=== PATIENT | male | born 1950 | race Caucasian/White ===

== ENCOUNTER 2024-10-02 13:14 | Inpatient (IN) | payer MEDICARE, SELFPAY ==
[2024-10-02] VITALS (66 sets, daily range): BP systolic 61–114; BP diastolic 36–71; PULSE 72–123; RESP 12–40; TEMP 36.3–36.6; O2SAT 85–100; BMI 24.7
--- NOTE | ~2024-10-02 | US_ITS ---
Procedure: Ultrasound guided paracentesis. Indication: Ascites Operating Physician: Roz Reyes MD Consent: After a detailed discussion of the procedure, risks, benefits and alternative treatment opti ons, informed consent was obtained from the patient. Time Out: A time out for procedure was performed in presence of Dr. Reyes. The patient's identificati on was verified. Informed consent with agreement of procedure was reviewed. All necessary equipment w as available prior to procedure. Complications: None. Anesthesia: Local. Medication: 1% lidocaine locally. Procedure: Survey ultrasound of the abdomen was performed. Right lower quadrant of abdomen was preppe d and draped in usual sterile fashion. Local anesthesia was administered. The peritoneal cavity was a ccessed and 5 L serous fluid was removed. The catheter was removed and sterile dressing was applied. Patient tolerated the procedure. The procedure was personally performed by Dr. Reyes. Findings: Sonographic images demonstrate ascites. Impression: Successful ultrasound guided paracentesis. Reviewed, dictated and finalized at location A. Impression: Successful ultrasound guided paracentesis.
--- NOTE | ~2024-10-02 | US_ITS ---
Limited ABDOMINAL ULTRASOUND (Doppler ultrasound interrogation techniques used as needed for this exa m.) Ordering provider: Maria Isabel Godfrey MD History: . Transaminitis . Comparison: None. FINDINGS: PANCREAS: Not visualized. PORTAL VEIN: Hepatopedal flow demonstrated. LIVER: Increased echogenicity with nodular appearance suggestive of liver cirrhosis.. The liver measu res 15.7 cm. Large perihepatic fluid collections is identified. BILIARY DUCTS: No intra or extrahepatic biliary dilation. Common bile duct measures 4.2 mm in diamete r which is normal for patient's age. GALLBLADDER: Echogenic irregular borders with shadowing suggestive of stones versus calcified wall. W all measures 2.7 mm Negative sonographic Kendall's sign. IMPRESSION: Gross ascites. Liver cirrhosis. Highly suggestive gallbladder stones. Reviewed, dictated and finalized at location A.
--- NOTE | ~2024-10-02 | XR_ITS ---
CHEST RADIOGRAPH CLINICAL HISTORY: intubation COMMENT ON ET NG TUBE PLACEMENT . COMPARISON: 10/02/2024 TECHNIQUE: Single portable view of the chest. FINDINGS Redemonstration of right hemidiaphragmatic elevation, consistent with prior studies. Right internal jugular central venous catheter is present with its tip projecting over the cavoatrial junction. Endotracheal tube is identified with its tip projecting approximately 5.6 cm above the base of the ca tabby. Nasogastric tube identified with its tip extending below the left hemidiaphragm, presumably within th e stomach. The remainder of the cardiomediastinal silhouette is otherwise unremarkable. Low lung volumes are detected bilaterally. Increased interstitial markings are also identified bilaterally, findings suggesting mild pulmonary v ascular congestion. The lungs are otherwise clear. IMPRESSION: Pulmonary vascular congestion with low lung volumes bilaterally. Supportive lines and tubes in good position, as detailed above. Reviewed, dictated and finalized at location A.
--- NOTE | ~2024-10-02 | XR_ITS ---
Portable chest x-ray Comparison: 10/07/2024 Clinical History: Respiratory failure Findings: Endotracheal tube, NG tube, and right IJ line are in place. Diffuse pulmonary consolidatio n is present, significantly worsened from prior exam. Probable small right pleural effusion. Cardiom ediastinal silhouette is stable. Bones and soft tissues are unremarkable. Impression: Diffuse airspace consolidation is worsened from prior exam. Correlate for severe pulmonary edema, kirill ateral pneumonia, and/or ARDS. Small right pleural effusion. Support tubes, as above. Reviewed, dictated and finalized at [facility]. Impression: Diffuse airspace consolidation is worsened from prior exam. Correlate for sever e pulmonary edema, bilateral pneumonia, and/or ARDS. Small right pleural effusion. Support tubes, as above.
--- NOTE | ~2024-10-02 | US_ITS ---
US venous doppler [facility] - 10/03/2024 14:02 CDT History: 74 years old Male with bilateral lower extremity pain and swelling. Real-time sonographic images of the bilateral lower extremity venous system were obtained. Color Dop pler sonography and spectral waveform analysis were performed. No prior studies for comparison. Acute thrombus seen in the right popliteal and right posterior tibial vein. Acute thrombus also seen in left common femoral, left femoral, left popliteal and left posterior tibial veins. The bilateral sapheno-femoral junctions are patent. The right common femoral and bilateral deep femo ral are compressible and without thrombus. Impression: Bilateral acute deep venous thrombosis in right popliteal and posterior tibial veins and left common femoral, femoral popliteal and posterior tibial veins. Reviewed, dictated and finalized at location A. Impression: Bilateral acute deep venous thrombosis in right popliteal and poste rior tibial veins and left common femoral, femoral popliteal and posterior tibi al veins.
--- NOTE | ~2024-10-02 | XR_ITS ---
XR chest port-a-cath/central Ordering provider: Maria Isabel Godfrey MD History: 74 years Male with . CENTRAL LINE PLACEMENT . Comparison: October 02, 2024 FINDINGS: MEDIASTINUM: The cardiac silhouette is not enlarged. Right central line with the tip overlying the ri ght atrium. Congestive dayron. Elevation of the right hemidiaphragm. LUNGS: No infiltrates, effusions or pneumothorax. Calcification the right basal pleural medially. Lucian ateral interstitial thickening. OTHER: No free air under the diaphragm. IMPRESSION: Bilateral interstitial thickening with congestive dayron. Evaluation for pneumonitis versus edema consi dered. Right central line with the tip overlying the right atrium. Right pleural calcification. Reviewed, dictated and finalized at location A. IMPRESSION: Bilateral interstitial thickening with congestive dayron. Evaluation for pneumoni tis versus edema considered. Right central line with the tip overlying the right atrium. Right pleural calcification.
--- NOTE | ~2024-10-02 | XR_ITS ---
CHEST RADIOGRAPH, PA AND LATERAL CLINICAL HISTORY: weakness, shortness of breath . COMPARISON: None available TECHNIQUE: PA and lateral views of the chest. FINDINGS Elevation of the right hemidiaphragm with adjacent compressive atelectasis. The remainder of the lungs are clear. The cardiomediastinal silhouette is unremarkable. IMPRESSION: No focal infiltrate or effusion. Reviewed, dictated and finalized at location A.
--- NOTE | ~2024-10-02 | CT_ITS ---
EXAMINATION: CT chest abdomen pelvis wo con DATE: 10/02/2024 16:39 INDICATION: Shortness of breath and elevated right hemidiaphragm on prior chest radiograph. Acute louise al failure. Transaminitis. TECHNIQUE: Computed tomography (CT) of the chest, abdomen, and pelvis was performed without intraveno us contrast. Automated exposure control and iterative reconstruction technique were employed. The dos e-length product was 1100.45 mGy-cm. COMPARISON: None FINDINGS: CHEST CT: Passive right middle and lower lobe compressive atelectasis along the elevated right hemidiaphragm. A dditional linear band of discoid atelectasis in the superior segment of the right lower lobe. Additio nal mild dependent and discoid atelectasis in the left lower lobe. Calcified right apical nodule and calcified right hilar lymph nodes consistent with old granulomatous disease. No pneumonia, pulmonary edema or pleural effusion. Heart size is normal. Extensive atherosclerotic coronary artery calcificat ions. No pericardial effusion. Thoracic aorta is normal in caliber. No pathologically enlarged thorac ic lymphadenopathy. Small sliding-type hiatal hernia. Mild thoracic spondylosis. ABDOMEN/PELVIS CT: Nodular cirrhotic liver. Numerous small calcified gallstones throughout the nondilated gallbladder. M ultiple additional similar sized small calcific lesions at the periphery of the gallbladder potential ly held in place by intervening sludge although differential would include mural calcifications. A fe w small calcifications in the normal sized spleen consistent with old granulomatous disease. Pancreas and bilateral adrenal glands are normal. Bilateral nonobstructing nephrolithiasis with 2 mm stone at the lower pole the right kidney and 3 mm and 5 mm stones at the lower pole of the left kidney. Moder ate diverticulosis with sigmoid colon predominance without adjacent from trace stranding to suggest d iverticular colitis. Normal appendix. No bowel obstruction. Large amount of ascites throughout the ab domen and pelvis. Decompressed bladder is unremarkable. No pathologically enlarged abdominal or pelvi c lymphadenopathy. There is a reticulonodular pattern along the greater omentum which could be due to portal hypertension mesenteric edema although differential would include metastatic peritoneal impla nts in the appropriate clinical setting. Small right inguinal hernia containing fat and minimal ascit es. Mild to moderate lumbar and severe lumbosacral spondylosis. IMPRESSION: 1. Cirrhosis with large amount of ascites throughout the abdomen and pelvis. There is a reticulonodul ar appearance to the greater omentum which could be due to portal venous hypertension mesenteric nadine a although differential would include metastatic peritoneal implants. Consider diagnostic thoracentes is. 2. Atelectasis at the bilateral lower lungs, more prominent on the right secondary to prominent eleva tion the right hemidiaphragm. 3. Nonobstructing bilateral nephrolithiasis. 4. Diverticulosis. 5. Small sliding-type hiatal hernia. 6. Small fat and ascites containing right inguinal hernia. Reviewed, dictated and finalized at location B. IMPRESSION: 1. Cirrhosis with large amount of ascites throughout the abdomen and pelvis. Th ere is a reticulonodular appearance to the greater omentum which could be due t o portal venous hypertension mesenteric edema although differential would inclu de metastatic peritoneal implants. Consider diagnostic thoracentesis. 2. Atelectasis at the bilateral lower lungs, more prominent on the right second paul to prominent elevation the right hemidiaphragm. 3. Nonobstructing bilateral nephrolithiasis. 4. Diverticulosis. 5. Small sliding-type hiatal hernia. 6. Small fat and ascites containing right inguinal hernia.
--- NOTE | ~2024-10-02 | XR_ITS ---
XR chest port-a-cath/central Ordering provider: Maria Isabel Godfrey MD History: 74 years Male with . ADJUST CENTRAL LINE . Comparison: None. FINDINGS/impression: Right central line with the tip overlying the right atrium. The line is slightly retracted compared to previous study. Other appearances are unchanged. Reviewed, dictated and finalized at location A.
--- NOTE | ~2024-10-02 | CT_ITS ---
CLINICAL INDICATION: Altered mental status with ascites COMPARISON: 10/02/2024. TECHNIQUE: Multiple contiguous axial images of the chest, abdomen and pelvis were performed without t he administration of intravenous contrast The dose-length product (DLP) was 1407.51 mGy-cm. Automated exposure control and iterative reconstruction technique were employed. FINDINGS/OBSERVATIONS: LUNG:Patchy opacification of the bilateral lung paredes, with consolidation in the bilateral lung base s and left hilum. Endotracheal tube is identified, in good position. Right-sided pleural effusion is present with elevation of the right hemidiaphragm (unchanged). central venous catheter extends to the proximal right atrium. MEDIASTINUM: Limited evaluation without intravenous contrast. HEART:Enlargement of the pulmonary arteries -an interval change from previous examination dated 025. The heart is otherwise of normal size, without pericardial effusion. SOFT TISSUES OF THE CHEST: Moderate anasarca. Liver: The liver is shrunken and nodular, suggesting portal hypertension. Intra-abdominal ascites is present, with low attenuation consistent with simple fluid. Gallbladder and biliary system: The gallbladder contains multiple tiny calcified stones, but is otherwise unremarkable. Pancreas: Limited evaluation of the pancreas secondary to the lack of intravenous contrast. Spleen: The spleen demonstrates homogeneous attenuation and is borderline enlarged measuring 12 cm in longitu dinal dimension. Kidneys: Punctate nonobstructing stones detected within the bilateral kidneys. No hydronephrosis is present. Adrenal glands: Unremarkable. Gastrointestinal tract: Colonic diverticulosis. Vasculature: Unremarkable evaluation without intravenous contrast. Lymph nodes: Limited evaluation without intravenous contrast. Pelvic structures: The bladder is decompressed with a Hartley catheter, limiting its evaluation. The prostate gland is not enlarged. Body wall and musculoskeletal: Age-appropriate degenerative disease within the thoracic and lumbosacral spines. No lytic or blastic lesions identified. No acute compression fracture. Significant anasarca, an interval change from prior. IMPRESSION: Redemonstration of moderate intra-abdominal ascites, which is of decreased attenuation consistent wit h simple fluid (not blood ). Interval enlargement of the main and proximal bilateral pulmonary arteries when compared with prior s tudy. Without intravenous contrast, the presence of pulmonary emboli cannot be excluded. Interval development of bibasilar infiltrates, a left hilar infiltrate and moderate bilateral pulmona ry vascular congestion. Reviewed, dictated and finalized at location A. IMPRESSION: Redemonstration of moderate intra-abdominal ascites, which is of decreased atte nuation consistent with simple fluid (not blood ). Interval enlargement of the main and proximal bilateral pulmonary arteries when compared with prior study. Without intravenous contrast, the presence of pulmonary emboli cannot be exclud ed. Interval development of bibasilar infiltrates, a left hilar infiltrate and mode rate bilateral pulmonary vascular congestion.
--- NOTE | ~2024-10-02 | CT_ITS ---
EXAMINATION: CT brain wo con DATE: 10/07/2024 12:03 INDICATION: Anticoagulated patient presenting with confusion. TECHNIQUE: Computed tomography (CT) of the head was performed without intravenous contrast. Sagittal and coronal reconstructions were performed. The mA was adjusted according to patient size. Iterative reconstruction technique was employed. The dose-length product was 605.33 mGy-cm. COMPARISON: None FINDINGS: No acute intracranial hemorrhage, acute infarction or abnormal extra axial fluid collection. There is mild scattered white matter hypoattenuation consistent with chronic small vessel ischemic disease. S ymmetric prominence of the sulci and ventricles consistent with mild age-appropriate diffuse cerebral and cerebellar volume loss. No mass/mass effect. Changes of bilateral intraocular lens replacement. The orbits, paranasal sinuses and mastoid air cells are normal. IMPRESSION: 1. Age-related changes the brain including mild diffuse volume loss and mild scattered white matter h ypoattenuation consistent with chronic small vessel ischemic disease. No acute intracranial process. Reviewed, dictated and finalized at location A. IMPRESSION: 1. Age-related changes the brain including mild diffuse volume loss and mild sc attered white matter hypoattenuation consistent with chronic small vessel ische michele disease. No acute intracranial process.
--- NOTE | 2024-10-02 13:23 | ECG_ITS ---
Test Date: 2024-10-02 13:42:52 Measurements Intervals Rogers Rate: 90 P: 119 MN: 240 QRS: -48 QRSD: 137 T: 129 QT: 402 QTc: 493 Interpretive Statements SINUS RHYTHM WITH FIRST DEGREE AV BLOCK WITH FREQUENT SUPRAVENTRICULAR PREMATURE COMPLEXES LEFT AXIS DEVIATION LEFT BUNDLE BRANCH BLOCK BASELINE ARTIFACT- I, II, III, AVR, AVLA, VF, V1-V6 ABNORMAL ECG No previous ECG available for comparison Electronically Signed On 10-02-2024 14:13:30 CDT by Joey Wolf D.O.
[2024-10-02 13:55] LABS: Basophils Percent Auto 0.1 % (0.2-1.2); Eosinophils Percent Auto 0.1 % (0-4.4); Hematocrit 32.7 % (42.0-52.0); Hemoglobin 11.6 g/dL (14.0-18.0); Immature Granulocyte Absolute 0.03 K/mm3 (0.00-0.031); Immature Granulocyte Percent A 0.3 % (0-0.5); Lymphocytes Absolute Auto 1.06 K/mm3 (0.9-3.2); Mean Corpuscular HGB Conc 35.5 g/dl (32-36); Mean Corpuscular Hemoglobin 34.4 pg (26-34); Mean Platelet Volume 10.7 fl (7.4-10.4); Monocytes Absolute Auto 0.7 K/mm3 (0.1-0.6); Monocytes Percent Auto 7.2 % (2.6-8.5); Neutrophils Absolute Auto 7.8 K/mm3 (1.3-6.7); Neutrophils Percent Auto 81.3 % (45.5-73.1); Platelet Count Result 220 k/mm3 (150-375); Red Blood Count 3.37 M/mm3 (4.6-6.20); Red Cell Distribution Width 17.3 % (11.5-14.5); White Blood Count 9.6 K/mm3 (4.5-10.0)
--- NOTE | 2024-10-02 14:04 | ED_ITS ---
HPI - Weakness General Chief complaint: Weakness Stated complaint: weakness Time Seen by Provider: 10/02/24 13:38 Source: patient and other (Nabila) Limitations: no limitations History of Present Illness HPI Narrative: Patient presents with report of weakness. Has been experiencing shortness of breath with exertion. No cough or hemoptysis. Has had diarrhea intermittently and occasionally gagging/vomiting. Report of unsteady gait x1 month, having to use a cane. Complaining of bilateral ankle swelling. Feels fatigued. Also lightheadedness/dizziness, particularly at the end of the evening. No roatational movement/spinning sensation. Having a slight headache. His vision becomes blurred, especially if he stands too quickly. Has an apointment to see an eye doctor 10/22/24. COmplainign of abdominal pain which he attributes to a hernia. Supopsed to establish with a new PCP Dr Lieberman 10/21/24. Lives with friend Nabila who hasn't been sick. Related Data Home Medications ?Medication ?Instructions ?Recorded ?Confirmed ?Last Taken ?Type amlodipine 10 mg-benazepril 20 mg cap 10/02/24 Unknown History capsule multivitamin 1 tablet PO DAILY 10/02/24 10/02/24 Unknown History omeprazole 40 mg capsule,delayed 40 mg PO DAILY 10/02/24 10/02/24 Unknown History release Allergies Allergy/AdvReac Type Severity Reaction Status Date / Time No Known Allergies Allergy Verified 10/02/24 13:23 [facility] Past Medical History Medical History History of kidney stones Surgical History Surgical History History of cataract surgery ~2022 Family History Family History Father Acute myocardial infarction Mother Cerebrovascular accident Social History Social History Social History: Code Status: Full Code Smoking status: Never smoker Second hand tobacco smoke exposure: Yes Alcohol intake: current Alcohol use details: regular; last drink approximately 09/24/24 Do You Feel Safe in your Home?: Yes Lack of Transportation: No Lack of Food: Never True Current Housing: I Have Housing Concerned About Future Housing: No Difficulty Paying Gas/Electric Bills: Decline to Answer Difficulty Paying for Meds: Decline to Answer Currently Unemployed: No Education: Decline to Answer Difficulty w/ Childcare or Family Care: No Living arrangements: with friend(s) Additional living arrangements comments: Nabila Occupation/Education: retired Additional occupation/education comments: 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 HEAD: Normocephalic, atraumatic. EYES: Non injected, non icteric ENT: Nares clear, no rhinorrhea or epistaxis. NECK: Supple. CHEST: Speaking in full sentences. No respiratory distress. HEART: Regular rate and rhythm. . ABDOMEN: Soft, distended. Ascites with fluid shift. No caput medusa. EXTREMITIES: 3+ bilateral lower extremity edema. SKIN: Warm, dry, no rash. NEURO: No focal deficits. Alert and oriented x3. PSYCH: Normal mood and affect. Course Vital Signs Vital signs: Vital Signs Pulse Rate 98 10/02/24 13:17 Respiratory Rate 22 H 10/02/24 13:17 Blood Pressure 98/55 L 10/02/24 13:17 Pulse Oximetry 100 10/02/24 13:17 Oxygen Delivery Room Air 10/02/24 13:17 Temperature 97.8 F 10/02/24 19:15 Pulse Rate 90 10/03/24 02:00 Respiratory Rate 15 10/03/24 02:00 Blood Pressure 92/56 L 10/03/24 02:00 Pulse Oximetry 94 10/03/24 02:00 Oxygen Delivery Room Air 10/03/24 00:00 Procedures Central Line Placement Right IJ: Central Line Date: 10/02/24 Central Line Time: 21:15 Discussed w/ the patient/family/POA,the placement of a central venous catheter, including its clinical necessity/indication & associated potential risks, benifits and alternatives.: Yes The patient/family/POA understand(s) and acknowledge(s) the need to proceed with central venous catheter insertion as an important element of the patient's clinical management.: Yes Time Out Performed: No Patient Placed on Monitor/Pulse Ox: Yes Max. Sterile Barrier Technique: Caps, large sterile sheet and hand hygiene Central Line Prep: 2% chlorhexidine scrub and sterile drapes applied Technique: US-Guided Local Anesthetic: lidocaine 1% Amount of anesthesia used (mL): 4 Ultrasound Used for Placement: Yes Central Line Lumen Inserted: triple Post Procedure: sutured in place, good blood return, all ports aspirated, flushed, capped and sterile dressing applied Post Procedure X-Ray: no pneumothorax seen Patient Tolerated Procedure: well Additional Comments: After line sutured in placed and as obtaining initial Xray, monitor seems to indicate that patient is having frequent PVCs. He is asympatomatic. EKG obtained and there are and initial CXR shows perhaps tip of catheter perhaps slightly too deep. Sutures cut and line pulled back approximately 1.5cm. Previous EKG from earlier also with ectopy. PVCs on the monitor appear less frequent. Re-sutured in place and secured with sterile dressing applied. MDM - Weakness MDM Narrative Medical decision making narrative: Patient presents with generalized weakness, dyspnea with exertion, fatigue, and lightheaded/dizziness. In the emergency department he is afebrile with vital signs that show mild tachypnea as well as hypotension. Home meds are entered into EMR. Patient does appear to have significant lower extremity bilateral edema however given the hypotension will give a small fluid bolus of 500 cc. Given his elevated lactic greater than 5 and a chest x-ray that is abnormal but otherwise without gisell bilateral pulmonary edema, will give additional 500 cc fluids. No Leukocytosis. Normocytic anemia with no prior for comparison. Although no active source of infection identified yet, given the combination of initially of mild tachypnea, hypotension, and lactic acidosis, will give a 1 time dose of broad-spectrum antibiotics given concern for possible sepsis although multiple other etiologies are being considered. There is appeared of time where patient is having blood pressures that appear to be 200s systolic however appears the monitor is faulty and this is changed out. Mild hypokalemia. Will replete IV. He is in acute renal failure - Cr > 10 with no prior for comparison. He has a large anion gap and is mildly acidotic on chemistry but glucose relatively normal; suspect starvation. Patient states he cannot urinate. He is bladder scanned and has more than 600 cc. Hartley inserted for presumed acute rention, possibly due to obstruction and this may explain his renal failure. States no previous kidney dysfunction. Hypoalbuminemia. Elevated alk-phos and AST. He still has a gallbladder. Will order right upper quadrant ultrasound. Dimer is elevated but patient is not tachycardic or hypoxic and given the degree of renal failure, will not be proceeding with CT imaging with contrast. Will defer that and obtain CT imaging of chest abdomen and pelvis without contrast. Patient's BNP is elevated I suspect this represents acute heart failure especially given the bilateral lower extremity edema. Patient has elevated troponin. He denies any chest pain. Aspirin and 3 hour troponin are ordered. Attempted to contact radiologist to discuss the CT interpretation which states diagnostic thoracentesis which I do should read paracentesis given is in the context of patient's cirrhosis and abdominal ascites. Given this, and the fact that minimal urine output has come after placement of Hartley, I presume that the bladder scan performed by nursing earlier was actually identifying ascites fluid rather than bladder distension. Patient states he used to drink heavily. He at 1st makes it seem like stopped awhile ago but upon further questioning he does state that his last drink was approximately a week ago when he started to feel unwell. Denies complicated withdrawal. Thiamine ordered. He denies any previous diagnosis of cirrhosis or any liver dysfunction. Urinalysis concerning for UTI . Has already been given antibiotics. Repeat troponin essentially flat. Spoke with conductor and engineer given his acute renal failure. Patient remains hypotensive. Another 500cc fluids ordered followed by peripehral vasopressors. Patient requires central line, performed as above. Spoke with Dr Jaimes, metal grader followed by Mary, director telecommunications hospitalist APRIL. Paracentesis orders for tomorrow placed when I am informed radiologists will be available to perform diagnostic and therapeutic procedure. == Critical Care: 1 or more vital organ systems impaired with a high probability of imminent or life-threatening deterioration in the patient's condition requiring frequent personal assessment and manipulation of the patient's condition. This included time spent evaluating the patient, speaking with patient and family, reviewing/interpreting laboratory/imaging studies, discussing the case with consultants or admitting teams, retrieving data and reviewing charts, monitoring for decompensation, documenting the visit, and performing bundled procedures exclusive of separately billed procedures. Differential Diagnosis Differential diagnosis: Likely acute myocardial infarction, anemia, hypoglycemia, hypothyroidism, rhabdomyolysis, sepsis, dehydration and other Lab Data Attestation: I reviewed the patient's lab results. 10/02/24 13:48 10/02/24 13:48 Labs: Lab Results 10/02/24 10/02/24 10/02/24 Range/Units 13:47 13:48 14:22 WBC 9.6 (4.5-10.0) K/mm3 RBC 3.37 L (4.6-6.20) M/mm3 Hgb 11.6 L (14.0-18.0) g/dL Hct 32.7 L (42.0-52.0) % MCV 97.0 (80-100) fl MCH 34.4 H (26-34) pg MCHC 35.5 (32-36) g/dl RDW 17.3 H (11.5-14.5) % Plt Count 220 (150-375) k/mm3 MPV 10.7 H (7.4-10.4) fl Immature Gran % (Auto) 0.3 (0-0.5) % Neut % (Auto) 81.3 H (45.5-73.1) % Lymph % (Auto) 11.0 L (18.3-44.2) % Foard % (Auto) 7.2 (2.6-8.5) % Eos % (Auto) 0.1 (0-4.4) % Baso % (Auto) 0.1 L (0.2-1.2) % Lymph # (Auto) 1.06 (0.9-3.2) K/mm3 Foard # (Auto) 0.7 H (0.1-0.6) K/mm3 Eos # (Auto) 0.0 (0-0.3) K/mm3 Baso # (Auto) 0.0 (0.0-0.1) K/mm3 Abs Immat Gran (auto) 0.03 (0.00-0.031) K/mm3 Absolute Neuts (auto) 7.8 H (1.3-6.7) K/mm3 Absolute Nucleated RBC 0.000 (0.0-0.012) K/mm3 Nucleated RBC % 0.0 (0.0-0.2) % PT (11.1-14.7) Seconds INR APTT (22.3-36.8) Seconds D-Dimer 3.94 H (<0.48) ug/mL Sodium 133 L (137-145) mmol/L Potassium 3.3 L (3.4-5.0) mmol/L Chloride 97 L (98-107) mmol/L Carbon Dioxide 14 L (22-30) mmol/L Anion Gap 22 H (4-12) mmol/L BUN 70 H (9-20) mg/dL Creatinine 10.64 H (0.7-1.3) mg/dL Estim Creat Clear Calc 6 ml/min Estimated GFR 5 L (59 - ) Glucose 188 H (65-110) mg/dL Lactic Acid 5.7 H* (0.7-2.0) mmol/L Calcium 8.3 L (8.4-10.2) mg/dL Phosphorus (2.5-4.5) mg/dL Magnesium 2.1 (1.6-2.3) mg/dL Total Bilirubin 1.4 H (0.2-1.3) mg/dL AST 84 H (17-59) U/L ALT 40 (6-50) U/L Alkaline Phosphatase 291 H (38-126) U/L Ammonia (9-30) umol/L Total Creatine Kinase 45 L (55-170) U/L Troponin I 0.048 H* (0.000-0.034) ng/mL NT-Pro-B Natriuret Pep 2830 H (19.9-100) pg/mL Total Protein 7.0 (6.3-8.2) g/dL Albumin 3.0 L (3.5-5.1) g/dL TSH 3.050 (0.465-4.680) uIU/mL Urine Color (Yellow) Urine Appearance (Clear) Urine pH (5.0-9.0) Ur Specific Cameron (1.001-1.035) Urine Protein (Negative) mg/dL Urine Glucose (UA) (Negative) mg/dL Urine Ketones (Negative) mg/dL Ur Blood (Man) (Negative) Urine Nitrate (Negative) Urine Bilirubin (Negative) Urine Urobilinogen (<2.0) mg/dL Leukocyte Esterase Rfl (Negative) JULITO/UL Urine RBC (0-2) /hpf Urine WBC (0-3) /hpf Ur Squamous Epith Cells (Few) /hpf Urine Bacteria /hpf Urine Casts Hyaline Casts (None) /lpf Nasal MRSA (PCR) (NOT DETECTE) Urine Opiates Screen (Negative) Urine Methadone Screen (Negative) Ur Barbiturates Screen (Negative) Ur Phencyclidine Scrn (Negative) Ur Amphetamine Screen (Negative) U Benzodiazepines Scrn (Negative) Urine Cocaine Screen (Negative) U Cannabinoids Screen (Negative) Ethyl Alcohol < 10 (<10) mg/dL Influenza A (RT-PCR) Negative (Negative) Influenza B (RT-PCR) Negative (Negative) RSV (RT-PCR) Negative (Negative) SARS-CoV-2 RNA (RT-PCR) Negative (Negative) 10/02/24 10/02/24 10/02/24 Range/Units 15:22 17:00 18:46 WBC (4.5-10.0) K/mm3 RBC (4.6-6.20) M/mm3 Hgb (14.0-18.0) g/dL Hct (42.0-52.0) % MCV (80-100) fl MCH (26-34) pg MCHC (32-36) g/dl RDW (11.5-14.5) % Plt Count (150-375) k/mm3 MPV (7.4-10.4) fl Immature Gran % (Auto) (0-0.5) % Neut % (Auto) (45.5-73.1) % Lymph % (Auto) (18.3-44.2) % Foard % (Auto) (2.6-8.5) % Eos % (Auto) (0-4.4) % Baso % (Auto) (0.2-1.2) % Lymph # (Auto) (0.9-3.2) K/mm3 Foard # (Auto) (0.1-0.6) K/mm3 Eos # (Auto) (0-0.3) K/mm3 Baso # (Auto) (0.0-0.1) K/mm3 Abs Immat Gran (auto) (0.00-0.031) K/mm3 Absolute Neuts (auto) (1.3-6.7) K/mm3 Absolute Nucleated RBC (0.0-0.012) K/mm3 Nucleated RBC % (0.0-0.2) % PT 21.0 H (11.1-14.7) Seconds INR 1.7 APTT 36.3 (22.3-36.8) Seconds D-Dimer (<0.48) ug/mL Sodium (137-145) mmol/L Potassium (3.4-5.0) mmol/L Chloride (98-107) mmol/L Carbon Dioxide (22-30) mmol/L Anion Gap (4-12) mmol/L BUN (9-20) mg/dL Creatinine (0.7-1.3) mg/dL Estim Creat Clear Calc ml/min Estimated GFR (59 - ) Glucose (65-110) mg/dL Lactic Acid 3.3 H (0.7-2.0) mmol/L Calcium (8.4-10.2) mg/dL Phosphorus 5.8 H (2.5-4.5) mg/dL Magnesium (1.6-2.3) mg/dL Total Bilirubin (0.2-1.3) mg/dL AST (17-59) U/L ALT (6-50) U/L Alkaline Phosphatase (38-126) U/L Ammonia 45 H (9-30) umol/L Total Creatine Kinase (55-170) U/L Troponin I 0.045 H* (0.000-0.034) ng/mL NT-Pro-B Natriuret Pep (19.9-100) pg/mL Total Protein (6.3-8.2) g/dL Albumin (3.5-5.1) g/dL TSH (0.465-4.680) uIU/mL Urine Color Dark yellow (Yellow) Urine Appearance Cloudy H (Clear) Urine pH 5.5 (5.0-9.0) Ur Specific Cameron 1.020 (1.001-1.035) Urine Protein 2+ H (Negative) mg/dL Urine Glucose (UA) Negative (Negative) mg/dL Urine Ketones Trace H (Negative) mg/dL Ur Blood (Man) 3+ H (Negative) Urine Nitrate Negative (Negative) Urine Bilirubin 2+ H (Negative) Urine Urobilinogen 1.0 (<2.0) mg/dL Leukocyte Esterase Rfl 2+ H (Negative) JULITO/UL Urine RBC >100 H (0-2) /hpf Urine WBC >100 H (0-3) /hpf Ur Squamous Epith Cells None seen (Few) /hpf Urine Bacteria None seen /hpf Urine Casts >20 Hyaline Casts Present (None) /lpf Nasal MRSA (PCR) Not detected (NOT DETECTE) Urine Opiates Screen Negative (Negative) Urine Methadone Screen Negative (Negative) Ur Barbiturates Screen Negative (Negative) Ur Phencyclidine Scrn Negative (Negative) Ur Amphetamine Screen Negative (Negative) U Benzodiazepines Scrn Negative (Negative) Urine Cocaine Screen Negative (Negative) U Cannabinoids Screen Positive A (Negative) Ethyl Alcohol (<10) mg/dL Influenza A (RT-PCR) (Negative) Influenza B (RT-PCR) (Negative) RSV (RT-PCR) (Negative) SARS-CoV-2 RNA (RT-PCR) (Negative) Imaging Data Attestation: I personally reviewed and interpreted this imaging study as follows: My impression: Chest x-ray read as no focal infiltrate or infusion although the overall documentation notes elevated right hemidiaphragm and on my independent interpretation R chest does appear concerning for dense compressive atelectasis versus large pleural effusion Radiologist's impression: Impressions Chest X-Ray 10/02/24 14:10 IMPRESSION: No focal infiltrate or effusion. Chest/Abdomen/Pelvis CT 10/02/24 16:47 IMPRESSION: 1. Cirrhosis with large amount of ascites throughout the abdomen and pelvis. There is a reticulonodular appearance to the greater omentum which could be due to portal venous hypertension mesenteric edema although differential would include metastatic peritoneal implants. Consider diagnostic thoracentesis. 2. Atelectasis at the bilateral lower lungs, more prominent on the right secondary to prominent elevation the right hemidiaphragm. 3. Nonobstructing bilateral nephrolithiasis. 4. Diverticulosis. 5. Small sliding-type hiatal hernia. 6. Small fat and ascites containing right inguinal hernia. Abdomen Ultrasound 10/02/24 17:06 IMPRESSION: Gross ascites. Liver cirrhosis. Highly suggestive gallbladder stones. ECG Data EKG #1: Attestation: I personally reviewed and interpreted this ECG as follows: ECG completion date: 10/02/24 ECG completion time: 13:42 Prior ECG tracings: not available for review (No prior for comparison) Interpretation: Normal sinus rhythm at a rate of 90 beats per minute. MO interval is prolonged at 240 milliseconds consistent with a first-degree AV block. There also premature complexes. QRS is also prolonged at 137 milliseconds. QT/QTC 402/450. Marked Left axis deviation (QRS is positive with dominant R wave in Lead I; QRS is negative with dominant S wave in leads II, III, and aVF) with QRS positive in 1 and negative in the inferior leads. Left bundle-branch block with QRS duration greater than 120 milliseconds, dominant S-wave in V1, broad monophasic R-wave in lateral leads (1, aVL, V5-V6), absence of Q-waves in lateral leads. Poor R-wave progression across the precordial leads. No T-wave inversions Critical Care Time Critical Care Time Critical Care Time: Yes Total Critical Care Time: 60 Discharge Plan Discharge Clinical Impression: Normocytic anemia, Acidosis, lactic, Hypokalemia, Acute renal failure, Hypoalbuminemia, Alkaline phosphatase elevation, Elevated AST (SGOT), Acute heart failure, Non-ST elevation TN (NSTEMI), Cirrhosis, Ascites, UTI (urinary tract infection), Chronic alcohol use Patient Disposition: Still a Patient Condition: Critical
[2024-10-02 14:23] LABS: Alkaline Phosphatase 291 U/L (38-126); Anion Gap 22 mmol/L (4-12); Aspartate Amino Transferase 84 U/L (17-59); Bilirubin,Total 1.4 mg/dL (0.2-1.3); Blood Urea Nitrogen 70 mg/dL (9-20); Calcium 8.3 mg/dL (8.4-10.2); Carbon Dioxide 14 mmol/L (22-30); Chloride 97 mmol/L (98-107); Estimated CRCL calculation 6 ml/min; Estimated Glomerular Filt Rate 5; Glucose 188 mg/dL (65-110); Potassium 3.3 mmol/L (3.4-5.0); Sodium 133 mmol/L (137-145)
[2024-10-02 14:25] LABS: Lactic Acid Reflex 5.7 mmol/L (0.7-2.0)
[2024-10-02 14:28] LABS: Creatine Kinase 45 U/L (55-170); Magnesium 2.1 mg/dL (1.6-2.3)
[2024-10-02 14:42] LABS: Alanine Aminotransferase 40 U/L (6-50)
[2024-10-02] MEDS: CEFEPIME 1 GM/NS 50 ML 1 GM/50 ML BAG IVPB (14:42)
[2024-10-02] MEDS: SODIUM CHLORIDE 0.9% IV 500 ML 999 ML IV CONT ×3 (14:42→18:28)
[2024-10-02 14:44] LABS: NT Pro B Type Natriuretic Pept 2830 pg/mL (19.9-100); Troponin I 0.048 ng/mL (0.000-0.034)
--- OUTSIDE RECORDS SUMMARY | 2024-10-02 14:47 | XMS_ITS | CONTINUITY OF CARE DOCUMENT ---
Author Name abram valverde Address Unknown Organization [facility] Address [id number] [facility] [address] [place] [address] Phone [phone] Care Team Providers Care Tooling Supervisor Name Role Phone Tres ESTRADA, Yousuf Unavailable Mane Apple MD Unavailable Mane Apple MD Unavailable PROBLEMS Condition Status Date Provider Notes Hyperlipidemia active Yousuf Joshua MD HTN-12/31 ECHO EF 60 1+ M,A,T RI REG STRESS NEG active ? Benitez Upton RN AAA-03/03 ABD US NEG active ? Yousuf Joshua MD CHEST PAIN-03/05 NUC NEG 12/31 NUC NEG active ? Yousuf Joshua MD Family History of CVA or Stroke: active ? Anders Joshua MD Family History of Hypertension: active ? Tl Joshua MD Cardiology examination active Abner Bhatt ENCOUNTERS Date Type Provider Location Encounter Diag nosis - In-person encounter Office Visit Yousuf Joshua MD [facility] Cardiology examination - In-person encounter Office Visit Yousuf Joshua MD [place] [facility] - In-person encounter Office Visit Yousuf Joshua MD [place] [facility] - In-person encounter Office Visit Yousuf Joshua MD [place] [facility] - In-person encounter Office Visit Yousuf Joshua MD [place] [facility] - In-person encounter Office Visit Yousuf Joshua MD [place] [facility] - In-person encounter Office Visit Yousuf Joshua MD [place] [facility] - In-person encounter Office Visit Yousuf Joshua MD [place] [facility] - In-person encounter Office Visit Yousuf Joshua MD [place] [facility] - In-person encounter Office Visit Yousuf oJshua MD [facility] Hyperlipidemia - In-person encounter Office Visit Yousuf Joshua MD [place] [facility] - In-person encounter Office Visit Yousuf Joshua MD [place] [facility] Family History of CVA or Stroke:Family History of Hypertension: - In-person encounter Office Visit Yousuf Joshua MD [place] [facility] - In-person encounter Office Visit Yousuf Joshua MD [facility] - In-person encounter Office Visit Yousuf Joshua MD [place] [facility] - In-person encounter Office Visit Yousuf Joshua MD [facility] CHEST PAIN-9/10 NUC NEG /08 NUC NEG - In-person encounter Office Visit Yousuf Joshua MD [facility] - In-person encounter Office Visit Yousuf Joshua MD [place] [facility] HyperlipidemiaAAA-03/03 ABD US NEGCHEST PAIN-9/10 NUC NEG 12/31 NUC NEG - In-person encounter Office Visit Yousuf Joshua MD [facility] - In-person encounter Office Visit Yousuf Joshua MD [facility] HyperlipidemiaHTN-12/31 ECHO EF 60 1+ M,A,TRI REG STRESS NEG VITAL SIGNS Date Observation Value Provider Body Mass Index (Ratio) 27.61 kg/m2 Tl Joshua MD blood pressure, diastolic 69 mm[Hg] Qian lara Jerry blood pressure, systolic 114 mm[Hg] Kandi vera Jerry oxygen saturation, oximetry 98 % Kathryn Andale pulse rate 64 /min Kathryn Andale respiratory rate E&M 12 /min Kathryn Andale weight E&M 187 [lb_av] Kathryn Andale height E&M 69 [in_i] [facility], [facility] size regular Qian lara Jerry Body Mass Index (Ratio) 25.99 kg/m2 Tl Joshua MD blood pressure, diastolic 78 mm[Hg] Manjula nkLog blood pressure, systolic 151 mm[Hg] Hanna kLog blood pressure, cuff size regular Ja rret blood pressure, diastolic 78 mm[Hg] Ja rret blood pressure, systolic 151 mm[Hg] Jar ret pulse rate 58 /min Ady respiratory rate E&M 12 /min Ady oxygen saturation, oximetry 99 % Ady weight E&M 176 [lb_av] Ady height E&M 69 [in_i] Ady er y Body Mass Index (Ratio) 28.79 kg/m2 Tl Joshua MD blood pressure, cuff size large Ke rri Poliueneswathi blood pressure, diastolic 79 mm[Hg] Ke rri Poliuenenfeldlópez blood pressure, systolic 141 mm[Hg] Jaylon Deluca oxygen saturation, oximetry 97 % Ruth Deluca respiratory rate E&M 16 /min Ruth Mejia matthewpetronabowen pulse rate 70 /min Ruth Varma [facility] weight E&M 195 [lb_av] Ruth Varma [facility] height E&M 69 [in_i] Ruth Varma nalini blood pressure, diastolic 74 mm[Hg] Li nkLog blood pressure, systolic 144 mm[Hg] Hanna kLog blood pressure, diastolic 74 mm[Hg] Sheree Coker blood pressure, systolic 144 mm[Hg] Dane clarosmaikolmargarita John Paul oxygen saturation, oximetry 97 % Jordi Coker respiratory rate E&M 18 /min Ana Coker pulse rate 68 /min Jordi keenan blood pressure, cuff size regular Sheree Coker height E&M 69 [in_i] Jordi keenan Body Mass Index (Ratio) 28.97 kg/m2 Tl Joshua MD blood pressure, diastolic 70 mm[Hg] Manjula nkLogtodd blood pressure, systolic 134 mm[Hg] Hanna kLog blood pressure, diastolic 70 mm[Hg] Maueren Culp blood pressure, systolic 134 mm[Hg] Bhavana Culp oxygen saturation, oximetry 96 % Price Culp respiratory rate E&M 16 /min Carline Culp pulse rate 70 /min Price armstrong weight E&M 196.2 [lb_av] Price hills height E&M 69 [in_i] Price armstrong Body Mass Index (Ratio) 29.83 kg/m2 Tl Joshua MD blood pressure, diastolic 81 mm[Hg] Cy chrissy Clark blood pressure, systolic 142 mm[Hg] Jazmyn Clark pulse rate 67 /min Patricia colindres oxygen saturation, oximetry 96 % Patricia Clark respiratory rate E&M 16 /min Patricia Clark blood pressure, cuff size regular Cy chrissy Clark weight E&M 202 [lb_av] Patricia colindres height E&M 69 [in_i] Patricia colindres Body Mass Index (Ratio) 31.16 kg/m2 Tl Joshua MD respiratory rate E&M 16 /min [facility] pulse rate 67 /min [facility] weight E&M 211 [lb_av] [facility] blood pressure, diastolic 65 mm[Hg] To [facility] blood pressure, systolic 138 mm[Hg] Ton [facility] oxygen saturation, oximetry 97 % [facility] height E&M 69 [in_i] [facility] Body Mass Index (Ratio) 30.12 kg/m2 Tl Joshua MD weight E&M 204 [lb_av] Mayuri Garrison blood pressure, diastolic 79 mm[Hg] López Redding blood pressure, systolic 152 mm[Hg] Whitnye eRdding oxygen saturation, oximetry 98 % Mayuri Redding pulse rate 63 /min Mayuri Garrison height E&M 69 [in_i] Mayuri Garrison Body Mass Index (Ratio) 30.09 kg/m2 Tl Joshua MD blood pressure, resting Yes Lani Culp blood pressure, diastolic 77 mm[Hg] Maureen Culp blood pressure, systolic 157 mm[Hg] Bhavana Culp oxygen saturation, oximetry 96 % Price Culp respiratory rate E&M 18 /min Carline Culp pulse rate 65 /min Price armstrong weight E&M 203.8 [lb_av] Price hills height E&M 69 [in_i] Price armstrong blood pressure, diastolic 84 mm[Hg] Be herman Vega blood pressure, systolic 138 mm[Hg] Bet richardson Vega Body Mass Index (Ratio) 29.35 kg/m2 Tl Joshua MD blood pressure, diastolic 74 mm[Hg] Maureen varinderAshamarcelino Robbi blood pressure, systolic 153 mm[Hg] Bhavana Beckwithenson oxygen saturation, oximetry 95 % Price Robbi respiratory rate E&M 18 /min Carline Culp pulse rate 66 /min Price armstrong weight E&M 198.8 [lb_av] Price hills height E&M 69 [in_i] Price armstrong blood pressure, diastolic 73 mm[Hg] Maureen reederLouisa Robbi blood pressure, systolic 142 mm[Hg] Bhavana Gleason Culp pulse rate 64 /min Price armstrong oxygen saturation, oximetry 96 % Price Culp respiratory rate E&M 18 /min Carline Culp Body Mass Index (Ratio) 28.44 kg/m2 Lani Culp weight E&M 192.6 [lb_av] Price hills Body Mass Index (Ratio) 27.17 kg/m2 Anea uziel Hemanth blood pressure, diastolic 75 mm[Hg] An eatris Hemanth blood pressure, systolic 139 mm[Hg] Ane atris Hemanth pulse rate 66 /min Aneatris Hemanth oxygen saturation, oximetry 96 % Wolfgang Saxena respiratory rate E&M 18 /min Sarah Saxena weight E&M 184 [lb_av] Wolfgang Saxena blood pressure, diastolic 79 mm[Hg] Chip Upton RN blood pressure, systolic 142 mm[Hg] Benitez Upton RN pulse rate 61 /min Benitez Upton RN oxygen saturation, oximetry 98 % Benitez Upton RN respiratory rate E&M 15 /min Benitez mccall RN weight E&M 202 [lb_av] Benitez Upton RN Body Mass Index (Ratio) 29.05 kg/m2 Mamadou Deluca blood pressure, diastolic 78 mm[Hg] Marty Deluca blood pressure, systolic 124 mm[Hg] Jaylon Deluca pulse rate 70 /min Ruth Varma [facility] oxygen saturation, oximetry 97 % Ruth Deluca respiratory rate E&M 16 /min Ruth mccrary weight E&M 196 [lb_av] Ruth Varma [facility] height E&M 69 [in_i] Ruth Varma [facility] blood pressure, diastolic 79 mm[Hg] Chip Upton RN blood pressure, systolic 127 mm[Hg] Benitez Upton RN pulse rate 64 /min Benitez Upton RN oxygen saturation, oximetry 95 % Benitez Upton RN respiratory rate E&M 16 /min Benitez mccall RN weight E&M 197 [lb_av] Benitez Upton RN respiratory rate E&M 16 /min Sal Ac blood pressure, diastolic, left arm 70 mm [Hg] Sal Stanleyacoberenice blood pressure, systolic, left arm 112 mm [Hg] Sal Stanleyacoberenice blood pressure, diastolic, right arm 68 m m[Hg] [facility], systolic, right arm 121 m m[Hg] Sal [facility] blood pressure, diastolic 68 mm[Hg] Celina andres [facility] blood pressure, systolic 121 mm[Hg] Chris nano [place] pulse rate 66 /min [facility] saturation, oximetry 98 % [facility] weight E&M 188 [lb_av] Sal [facility] blood pressure, diastolic 64 mm[Hg] Da tammie Del Cid blood pressure, systolic 123 mm[Hg] Carlos Del Cid pulse rate 68 /min Debora Del Cid oxygen saturation, oximetry 97 % Debora Del Cid respiratory rate E&M 18 /min Alexandru Del Cid weight E&M 200 [lb_av] Debora Del Cid blood pressure, diastolic 68 mm[Hg] Chip Upton RN blood pressure, systolic 127 mm[Hg] Benitez Upton RN pulse rate 68 /min Benitez Upton RN oxygen saturation, oximetry 97 % Benitez Upton RN respiratory rate E&M 18 /min Benitez mccall RN weight E&M 197 [lb_av] Benitez Upton RN blood pressure, diastolic 94 mm[Hg] Don Hester blood pressure, systolic 157 mm[Hg] Ivory pulse rate 73 /min Hallie Hester oxygen saturation, oximetry 96 % Hallie Hester respiratory rate E&M 18 /min Hallie mayfield weight E&M 188 [lb_av] Hallie Hester blood pressure, diastolic, supine 86 mm[H g] Danie Alexis blood pressure, systolic, supine E&M 156 mm[Hg] Danie Alexis pulse rate 72 /min Danie Alexis oxygen saturation, oximetry 96 % Danie Dunnd respiratory rate E&M 18 /min Danie Chen oyd ALLERGIES No Known Drug Allergies RESULTS Date Observation Value Provider Reference Range Interpretation Location lipoprotein, beta, serum, point, quantitative, calculated 87 mg/dL [facility] 0-99 HDL cholesterol, serum 30 mg/dL [facility] >39 Low triglyceride, serum, random 145 mg/dL [facility] 0-149 cholesterol, serum 143 mg/dL [facility] [phone]/01/ 16 alanine aminotransferase (SGPT), serum 41 1/L [facility] 0-44 aspartate aminotransferase (SGOT), serum 108 1/L [facility] 0-40 High alkaline phosphatase, serum 267 1/L [facility] 44-121 High bilirubin, serum, total 1.7 mg/dL [facility] 0.0-1.2 High globulin, serum 3.0 [facility] 1.5-4.5 albumin, serum 3.5 g/dL [facility] 3.8-4.8 Low protein, total, serum 6.5 g/dL [facility] 6.0-8.5 calcium, serum 9.0 mg/dL [facility] 8.6-10.2 carbon dioxide, venous blood 23 mmol/L [facility] 20-29 chloride, serum 98 mmol/L [facility] 96-106 potassium, serum 3.3 mmol/L [facility] 3.5-5.2 Low sodium, serum 137 mmol/L [facility] 060-290 4975/01/ 16 urea nitrogen/creatinine ratio, serum 12 [facility] 10-24 creatinine, serum 0.99 mg/dL [facility] 0.76-1.27 urea nitrogen, blood 12 mg/dL [facility] 8-27 blood glucose, random 171 mg/dL [facility] 70-99 High basophil count, absolute 0.0 x10E3/uL [facility] 0.0-0.2 Eosinophil Absolute Count 0.0 X10E3/UL [facility] 0.0-0.4 monocyte count, blood, automated 0.9 X10E3/UL [facility] 0.1-0.9 lymphocyte count, blood, automated 1.5 X10E3/UL [facility] 0.7-3.1 Absolute Neutrophils 4.3 X10E3/UL [facility] 1.4-7.0 basophils as percent of blood leukocytes 0 % [facility] Not Estab. eosinophils as percent of blood leukocytes 0 % [facility] Not Estab. monocytes as percent of blood leukocytes 13 % [facility] Not Estab. lymphocytes as percent of blood leukocytes 22 % [facility] Not Estab. neutrophils as percent of blood leukocytes 65 % [facility] Not Estab. platelet count 242 X10E3/UL [facility] 290-544 4264/01/ 15 red blood cell distribution width 12.1 % [facility] 11.6-15.4 mean corpuscular hemoglobin concentration, RBC 34.7 G/DL [facility] 31.5-35.7 mean corpuscular hemoglobin, RBC 34.5 pg [facility] 26.6-33.0 High mean corpuscular volume, RBC 100 fL [facility] 79-97 High hematocrit, blood 40.9 % [facility] 37.5-51.0 hemoglobin, blood 14.2 g/dL [facility] 13.0-17.7 erythrocyte (RBC) count 4.11 X10E6/UL [facility] 4.14-5.80 Low leukocyte count, blood 6.7 X10E3/UL [facility] 3.4-10.8 folate, serum 20.0 NG/MLM [facility] 5.6 - 45.8 vitamin b12, serum 1553.0 pg/mL [facility] 211.0 - 946.0 High very low density lipoproteins 19.2 mg/dL [facility] 5.0 - 40.0 LDL/HDL (low-density lipoprotein/high-den sity lipoprotein) ratio 1.9 RATIO [facility] - lipoprotein, beta, serum, point, quantitative, calculated 100.8 (?) [facility] 0.0 - 100.0 High HDL cholesterol, serum 52.0 mg/dL [facility] 35.0 - 55.0 cholesterol, serum 172.0 mg/dL [facility] 0.0 - 200.0 triglyceride, serum, fasting 96.0 mg/dL [facility] 0.0 - 150.0 ferritin, serum 624.1 ng/mL [facility] 30.0 - 400.0 High anion gap, serum 13.1 [facility] - albumin/globulin ratio, serum 1.8 g/dL [facility] 1.1 - 2.5 globulin, serum 2.4 [facility] 2.3 - 3.8 urea nitrogen/creatinine ratio, serum 10.0 [facility] - Estimated Glomerular Filtration Rate (calc) 90.3 (?) [facility] 59.0 - chloride, serum 99.9 mmol/L [facility] 98.0 - 107.0 potassium, serum 4.4 mmol/L [facility] 3.5 - 5.1 sodium, serum 141.0 mmol/L [facility] 136.0 - 145.0 creatinine, serum 0.9 mg/dL [facility] 0.7 - 1.2 carbon dioxide, venous blood 28.0 mmol/L [facility] 23.0 - 31.0 albumin, serum 4.3 g/dL [facility] 3.5 - 5.2 calcium, serum 9.5 mg/dL [facility] 8.6 - 10.2 aspartate aminotransferase (SGOT), serum 24.0 1/L [facility] 0.0 - 40.0 alkaline phosphatase, serum 92.0 1/L [facility] 40.0 - 130.0 alanine aminotransferase (SGPT), serum 23.0 1/L [facility] 0.0 - 41.0 protein, total, serum 6.7 g/dL [facility] 6.6 - 8.7 bilirubin, serum, total 0.5 mg/dL [facility] 0.0 - 1.2 urea nitrogen, blood 9.0 mg/dL [facility] 8.0 - 23.0 blood glucose, random 110.0 mg/dL [facility] 74.0 - 99.0 High red blood cell distribution width, size density 45.5 fL [facility] - immature granulocytes, percentage of total cells, blood 0.3 % [facility] - nucleated red blood cells as percent of blood leukocytes 0.0 % [facility] - red blood cell (erythrocyte) count, per high power field 0.0 10*3/UL [facility] - eosinophils as percent of blood leukocytes 0.9 % [facility] - neutrophils as percent of blood leukocytes 69.0 % [facility] - Absolute Neutrophils 4.8 CELLS/UL [facility] 1.5 - 7.8 basophils as percent of blood leukocytes 0.4 % [facility] - Absolute Basophils 0.0 CELLS/UL [facility] 0.0 - 0.2 monocytes as percent of blood leukocytes 11.1 % [facility] - Absolute Monocytes 0.8 CELLS/UL [facility] 0.2 - 1.0 lymphocytes as percent of blood leukocytes 18.3 % [facility] - Absolute Lymphocytes 1.3 CELLS/UL [facility] 0.9 - 3.9 mean platelet volume 10.8 (?) [facility] - platelet count 196.0 THOUSAND/ UL [facility] 100.0 - 400.0 mean corpuscular hemoglobin concentration, RBC 33.0 G/DL [facility] 31.0 - 38.0 mean corpuscular hemoglobin, RBC 32.5 pg [facility] 25.0 - 35.0 mean corpuscular volume, RBC 98.2 fL [facility] 75.0 - 100.0 hematocrit, blood 44.5 % [facility] 35.0 - 55.0 hemoglobin, blood 14.7 g/dL [facility] 11.5 - 16.5 erythrocyte count, whole blood 4.5 MILLION/U L [facility] 3.5 - 5.5 iron, serum 81.0 ug/dL [facility] 31.0 - 144.0 iron saturation percent, serum 26.7 % [facility] 20.0 - 50.0 iron binding capacity, total 303.8 ug/dL [facility] 250.0 - 450.0 reticulocyte count, absolute 0.075 10*6 CELLS/[facility] count, blood, uncorrected 1.65 % [facility] 0.50 - 2.00 free thyroxine index 4.6 ??g/dL [facility] 4[facility] - 11.4 triiodothyronine uptake 1.0 TBI [facility] 0.8 - 1.3 thyroxine, serum, total 4.6 ??G/DL [facility] 4.5 - 11.7 thyroid stimulating hormone, serum 0.795 ?IU/ML [facility] 0.270 - 4.200 prostate specific antigen 1.3 ng/mL [facility] 0.0 - 5.4 hemoglobin A1C, blood, as % of total hemoglobin 5.3 % [facility] 4.0 - 6.0 red blood cell distribution width, size density 45.1 fL [facility] - immature granulocytes, percentage of total cells, blood 0.6 % [facility] - nucleated red blood cells as percent of blood leukocytes 0.8 % [facility] - red blood cell (erythrocyte) count, per high power field 0.0 10*3/UL [facility] eosinophils as percent of blood leukocytes 1.1 % [facility] - neutrophils as percent of blood leukocytes 64.8 % [facility] - Absolute Neutrophils 3.1 CELLS/UL [facility] 1.5 - 7.8 basophils as percent of blood leukocytes 0.8 % [facility] - Absolute Basophils 0.0 CELLS/UL [facility] 0.0 - 0.2 monocytes as percent of blood leukocytes 11.0 % [facility] - Absolute Monocytes 0.5 CELLS/UL [facility] 0.2 - 1.0 lymphocytes as percent of blood leukocytes 21.7 % [facility] - Absolute Lymphocytes 1.0 CELLS/UL [facility] 0.9 - 3.9 mean platelet volume 10.9 (?) [facility] platelet count 202.0 THOUSAND/ UL [facility] 100.0 - 400.0 mean corpuscular hemoglobin concentration, RBC 32.9 G/DL [facility] 31.0 - 38.0 mean corpuscular hemoglobin, RBC 32.0 pg Link[facility] 25.0 - 35.0 mean corpuscular volume, RBC 97.3 fL [facility] 75.0 - 100.0 hematocrit, blood 43.5 % [facility] 35.0 - 55.0 hemoglobin, blood 14.3 g/dL [facility] 11.5 - 16.5 erythrocyte count, whole blood 4.5 MILLION/U L [facility] 3.5 - 5.5 very low density lipoproteins 47.6 mg/dL [facility] 5.0 - 40.0 High LDL/HDL (low-density lipoprotein/high-den sity lipoprotein) ratio 1.2 RATIO [facility] - lipoprotein, beta, serum, point, quantitative, calculated 91.4 (?) [facility] HDL cholesterol, serum 74.0 mg/dL [facility] 35.0 - 55.0 High cholesterol, serum 213.0 mg/dL [facility] 0.0 - 200.0 High triglyceride, serum, fasting 238.0 mg/dL [facility] 0.0 - 150.0 High anion gap, serum 14.5 [facility] - albumin/globulin ratio, serum 3.1 g/dL [facility] 1.1 - 2.5 High globulin, serum 2.6 [facility] 2.3 - 3.8 urea nitrogen/creatinine ratio, serum 14.5 [facility] - Estimated Glomerular Filtration Rate (calc) 71.9 (?) [facility] 59.0 - chloride, serum 104.5 mmol/L [facility] 98.0 - 107.0 potassium, serum 4.6 mmol/L [facility] 3.5 - 5.1 sodium, serum 145.0 mmol/L [facility] 136.0 - 145.0 creatinine, serum 1.1 mg/dL [facility] 0.7 - 1.2 carbon dioxide, venous blood 26.0 mmol/L [facility] 23.0 - 31.0 albumin, serum 4.8 g/dL [facility] 3.5 - 5.2 calcium, serum 9.9 mg/dL [facility] 8.6 - 10.2 aspartate aminotransferase (SGOT), serum 22.0 1/L [facility] 0.0 - 40.0 alkaline phosphatase, serum 80.0 1/L [facility] 40.0 - 130.0 alanine aminotransferase (SGPT), serum 21.0 1/L [facility] 0.0 - 41.0 protein, total, serum 7.4 g/dL [facility] 6.6 - 8.7 bilirubin, serum, total 0.5 mg/dL [facility] 0.0 - 1.2 urea nitrogen, blood 16.0 mg/dL [facility] 8.0 - 23.0 blood glucose, random 102.0 mg/dL [facility] 74.0 - 99.0 High thyroxine, serum, total 4.9 ??G/DL [facility] 4.5 - 11.7 platelet count 175 10*3/mm3 [facility] Magdaleno hematocrit, blood 43.0 % [facility] lipoprotein, beta, serum, point, quantitative, calculated 85 mg/dL [facility] cholesterol, serum 188 mg/dL [facility] alanine aminotransferase (SGPT), serum 42 1/L [facility] aspartate aminotransferase (SGOT), serum 36 1/L [facility] creatinine, serum 0.94 mg/dL [facility] potassium, serum 4.4 mmol/L [facility] sodium, serum 142 mmol/L [facility] HISTORY OF MEDICATION USE Medication Status Instructions Dates Provider Indications Com ments K2-D3 Max 125 mcg (5,000 unit)-180 mcg capsule active Take 1 capsule by mouth once a day Gemma Etienne nebivolol 10 mg tablet active TAKE 1 TABLET BY MOUTH DAILY Deya Ham simvastatin 10 mg tablet completed TAKE 1 TABLET BY MOUTH DAILY - Abner Ahmedzai nebivolol 10 mg tablet completed TAKE 1 TABLET BY MOUTH DAILY FOLLOW UP REQUIRED WITH PROVIDER FOR ADDITIONAL REFILLS - Ady Landry amlodipine-benaz epril 10-20 mg capsule active TAKE 1 CAPSULE BY MOUTH DAILY Alicia Yoon omeprazole 20 mg capsule,delayed release(DR/EC) completed TAKE 1 CAPSULE BY MOUTH ONCE DAILY - Abner Ahmedzai nebivolol 10 mg tablet completed TAKE 1 TABLET DAILY. FOLLOW UP REQUIRED WITH PROVIDER FOR ADDITIONAL REFILLS - Liliya Blanton omeprazole 20 mg capsule,delayed release(DR/EC) completed TAKE 1 CAPSULE BY MOUTH ONCE DAILY FOLLOW UP WITH PROVIDER REQUIRED FOR ADDITIONAL REFILLS - Moraimarichardson SheppardVega simvastatin 10 mg tablet completed TAKE 1 TABLET BY MOUTH DAILY - Ady omeprazole 20 mg capsule,delayed release(DR/EC) completed Take 1 capsule by mouth once a day FOLLOW UP WITH PROVIDER REQUIRED FOR ADDITIONAL REFILLS. - Justin Rodriges sildenafil (pulm.hypertensi on) 20 mg tablet completed Take 3 tablet - Ady aspirin 81 mg tablet,delayed release (DR/EC) active 1 tablet by mouth once a day Price Culp [facility] FORMULA ORAL CAPSULE completed 1 tab daily - Price Culp simvastatin 10 mg tablet completed Take 1 tablet by mouth once a day - Zully Burnskins CIALIS 5 MG ORAL TABLET completed ONE TAB. DAILY - Price Culp AMBIEN 5 MG ORAL TABLET completed ONE TAB. AT BEDTIME NEEDED - Price Culp MULTIVITAMINS CAPS active 1 tablet once a day Yousuf Joshua MD VITAMIN E 400 UNIT ORAL CAPSULE completed ONE TAB. DAILY - Aneatris Brown VITAMIN C TABS completed daily - Aneatris Brown B COMPLEX FORMULA 1 ORAL TABLET completed dadily - Aneatrcharu Brown omeprazole 20 mg capsule,delayed release(DR/EC) completed Take 1 capsule by mouth once a day - Justin Rodriges ASPIRIN 325 MG ORAL TABLET completed one tab daily - Hallie Hester ZOLPIDEM TARTRATE 5 MG ORAL TABLET completed - Hallie Hester amlodipine-benaz epril 10-20 mg capsule completed Take 1 capsule by mouth once a day - Ruth Deluca SOCIAL HISTORY Date Observation Value Provider drug use no Abner Araujoemilee alcohol use, average drinks per day 4+ drinks per day Abner Araujoemilee alcohol use yes Abner Araujoemilee passive cigarette sm ignacio exposure yes Abner Araujoemilee smoking status Never smoker Abner Morganwill drug use no Yousuf Marquez alcohol use, average drinks per day 4+ drinks per day Yousuf Joshua MD alcohol use yes Yousuf Marquez passive cigarette sm ignacio exposure yes Yousuf Joshua MD smoking status Never smoker Yousuf Joshua MD social history E&M Marital Statu s: L vanessa with family/friends E thnicity: Smoking History: P atient has never smoked. Yousuf Joshua MD social history reviewed E&M revi ewed - no changes required Yousuf Joshua MD seatbelt usage 100 % Ruth guzman physical exercise, frequency, days per week no Ruth Deluca caffeine use, averag e drinks per day 1 /d Ruth Deluca passive cigarette sm ignacio exposure yes Ruth Deluca smoking status Never smoker Ruth guzman social history reviewed E&M revi ewed - no changes required Yousuf Joshua MD social history E&M Marital Statu s: L vanessa with family/friends E thnicity: Smoking History: P atient has never smoked. Yousuf Joshua MD social history reviewed E&M revi ewed - no changes required Yousuf Joshua MD seatbelt usage 100 % Price Carranza physical exercise, frequency, days per week no Price Culp caffeine use, averag e drinks per day 1 /d Price Culp passive cigarette sm ignacio exposure yes Price Culp smoking status Never smoker Price Carranza social history reviewed E&M revi ewed - no changes required Yousuf Joshua MD social history E&M Marital Statu s: L vanessa with family/friends E thnicity: Smoking History: P yanely has never smoked. Yousuf Joshua MD seatbelt usage 100 % Patricia beltran physical exercise, frequency, days per week no Patricia Clark caffeine use, averag e drinks per day 1 /d Patricia Clark passive cigarette sm ignacio exposure yes Patricia Clark smoking status Never smoker Patricia beltran social history E&M Marital Statu s: L vanessa with family/friends E thnicity: Smoking History: P yanely has never smoked. Yousuf Joshua MD social history reviewed E&M revi ewed - no changes required Yousuf Joshua MD seatbelt usage 100 % [facility] physical exercise, frequency, days per week no [facility] caffeine use, averag e drinks per day 1 /d [facility] passive cigarette sm ignacio exposure yes [facility] smoking status Never smoker [facility] social history E&M Marital Statu s: L vanessa with family/friends E thnicity: Smoking History: P yanely has never smoked. Yousuf Joshua MD seatbelt usage 100 % Mayuri Prieto physical exercise, frequency, days per week no Mayuri Redding alcohol counseling no Mayuri Babin In the past 3 months , have you been waking up wanting to use drugs? (CAGE substance use question #4) N Mayuri Redding In the past 3 months , have you felt guilty or bad about using drugs? (CAGE substance use question #3) N Mayuri AndreaBladimir In the past 3 months , has anyone annoyed you by telling you to cut down or stop using drugs? (CAGE substance use question #2) N Mayuri AndreaBladimir In the past 3 months , have you felt you should cut down or stop using drugs?(CAGE substance use question #1) N Mayuri Vahid alcohol use, average drinks per day 4+ drinks per day Mayuri KikeSaurabhBladimir alcohol use yes Mayuri Zully Garrison caffeine use, averag e drinks per day 1 /d Mayuri KikeSaurabhBladimir drug use no Mayuri Zully Garrison passive cigarette sm ignacio exposure yes Mayuri Vahid smoking status Never smoker Mayuri Kulkarni Conner social history reviewed E&M revi ewed - no changes required Mayuri Vahid social history E&M Marital Statu s: L vanessa with family/friends E thnicity: Smoking History: P atient has never smoked. Yousuf Joshua MD social history reviewed E&M revi ewed - no changes required Yousuf Joshua MD seatbelt usage 100 % Price Carranza physical exercise, frequency, days per week no Price Culp alcohol counseling no Price Culp In the past 3 months , have you been waking up wanting to use drugs? (CAGE substance use question #4) Marcelino Culp In the past 3 months , have you felt guilty or bad about using drugs? (CAGE substance use question #3) Marcelino Culp In the past 3 months , has anyone annoyed you by telling you to cut down or stop using drugs? (CAGE substance use question #2) Marcelino Culp In the past 3 months , have you felt you should cut down or stop using drugs?(CAGE substance use question #1) N Price Culp alcohol use, average drinks per day 4+ drinks per day Price Culp alcohol use yes Price armstrong caffeine use, averag e drinks per day 1 /d Price Culp drug use no Price armstrong passive cigarette sm ignacio exposure yes Price Culp smoking status Never smoker Price Carranza smoking status Never smoker Moraimarichardson SheppardVega social history reviewed E&M revi ewed - no changes required Yousuf Joshua MD seatbelt usage 100 % Price Carranza physical exercise, frequency, days per week no Price Culp alcohol counseling no Price Culp In the past 3 months , have you been waking up wanting to use drugs? (CAGE substance use question #4) N Price Culp In the past 3 months , have you felt guilty or bad about using drugs? (CAGE substance use question #3) N Price Culp In the past 3 months , has anyone annoyed you by telling you to cut down or stop using drugs? (CAGE substance use question #2) N Price Culp In the past 3 months , have you felt you should cut down or stop using drugs?(CAGE substance use question #1) N Price Culp alcohol use, average drinks per day 4+ drinks per day Price Culp alcohol use yes Price armstrong caffeine use, averag e drinks per day 1 /d Price Culp drug use no Price armstrong passive cigarette sm ignacio exposure yes Price Culp smoking status Never smoker Price Carranza social history reviewed E&M revi ewed - no changes required Yousuf Joshua MD seatbelt usage 100 % Price Carranza physical exercise, frequency, days per week no Price Culp alcohol counseling no Price Culp In the past 3 months , have you been waking up wanting to use drugs? (CAGE substance use question #4) N Price Culp In the past 3 months , have you felt guilty or bad about using drugs? (CAGE substance use question #3) N Price Culp In the past 3 months , has anyone annoyed you by telling you to cut down or stop using drugs? (CAGE substance use question #2) Marcelino Culp In the past 3 months , have you felt you should cut down or stop using drugs?(CAGE substance use question #1) Marcelino Culp alcohol use, average drinks per day 4+ drinks per day Price Culp alcohol use yes Price Chet patti caffeine use, averag e drinks per day 1 /d Price Culp drug use no Price Rosenberg patti passive cigarette sm ignacio exposure yes Price Culp smoking status Never smoker Price Rafi hu social history reviewed E&M donald ewed - no changes required Yousuf Joshua MD drug use no Yousuf Marquez social history reviewed E&M reviewed Benitez Upton RN seatbelt usage 100 % Yousuf Joshua MD alcohol counseling no Yousuf taylor MD In the past 3 months , have you been waking up wanting to use drugs? (CAGE substance use question #4) Marcelino Joshua MD In the past 3 months , have you felt guilty or bad about using drugs? (CAGE substance use question #3) N Yousuf Joshua MD In the past 3 months , has anyone annoyed you by telling you to cut down or stop using drugs? (CAGE substance use question #2) Marcelino Joshua MD In the past 3 months , have you felt you should cut down or stop using drugs?(CAGE substance use question #1) N Yosuuf Joshua MD caffeine use, averag e drinks per day 1 /d Yousuf Joshua MD social history reviewed E&M reviewed Yousuf Joshua MD drug use no Yousuf Marquez passive cigarette sm ignacio exposure yes Ruth Deluca smoking status never smoker Ruth guzman social history reviewed E&M reviewed Benitez Upton RN social history reviewed E&M reviewed Benitez Upton RN social history reviewed E&M reviewed Benitez Upton RN social history reviewed E&M reviewed Benitez Upton RN social history E&M Marital Statu s: L vanessa with family/friends E thnicity: Benitez Upton RN social history reviewed E&M reviewed Benitez Upton RN drug use none Yousuf Marquez social history reviewed E&M reviewed Yousuf Joshua MD physical exercise, frequency, days per week no [employer] caffeine use, averag e drinks per day no [employer] alcohol use, average drinks per day 4+ drinks per day [employer] smoking status Non-smoker [employer] FUNCTIONAL STATUS Date Observation Value Provider periodic limb movement index absent (0) Moraima Vega MENTAL STATUS Date Observation Value Provider assessment of judgme nt and insight E&M Alert and oriented to time, place and person. Mood and affect are normal. Benitez Upton RN assessment of judgme nt and insight E&M Alert and oriented to time, place and person. Mood and affect are normal. Yousuf Joshua MD assessment of judgme nt and insight E&M Alert and oriented to time, place and person. Mood and affect are normal. Benitez Upton RN assessment of judgme nt and insight E&M Alert and oriented to time, place and person. Mood and affect are normal. Benitez Upton RN assessment of judgme nt and insight E&M Alert and oriented to time, place and person. Mood and affect are normal. Benitez Upton RN assessment of judgme nt and insight E&M Alert and oriented to time, place and person. Mood and affect are normal. Benitez Upton RN assessment of judgme nt and insight E&M Alert and oriented to time, place and person. Mood and affect are normal. Benitez Upton RN assessment of judgme nt and insight E&M Alert and oriented to time, place and person. Mood and affect are normal. Yousuf Joshua MD FAMILY HISTORY Family Member Condition Mother Family History of Hy pertension: Mother Family History of Di abetes: Mother Family History of CV A or Stroke: INSURANCE PROVIDERS Payer name Policy type / Coverage type [place] red green party ID AARP MEDICARE ADVANTAGE HMO-POS HMO [id number] ADVANCE DIRECTIVES Name Date DISCUSSED - NO DECISION MADE TREATMENT PLAN Date Name Performer [id number],CYousuf MD [id number],S, Yousuf benson MD [id number],SYousuf MD [id number],S, Yousuf benson MD [id number],S, Yousuf benson MD [id number],S, Yousuf benson MD [id number],SYousuf MD [id number],S, Yousuf benson MD [id number],S, Yousuf benson MD [id number],SYousuf MD [id number],S, Yousuf benson MD Cardiology--bill mod erate follow up :Will stop Simvastatin due to leg cramping, will check lab work including lipid panel. The following medications were removed from the medication list: Simvastatin 10 Mg Tablet (Simvastatin) ..... Take 1 tablet by mouth daily Abner Bhatt Cardiology--bill moderate follow up Abner Bhatt Cardiology--bill mod erate follow up :Will stop Simvastatin, will check lab work including lipid panel. The following medications were removed from the medication list: Simvastatin 10 Mg Tablet (Simvastatin) ..... Take 1 tablet by mouth daily Abner Bhatt Cardiology--bill moderate follow up Abner Bhatt Cardiology--bill mod erate follow up :BP is satisfactory today. BP today: 114/69 P rior BP: 151/78 (06/13/2023) Prior 10 Yr Risk Heart Disease: Not enough information (06/29/2016) Labs Reviewed: C reat: 0.9 (06/08/2016) C hol: 172.0 (06/08/2016) HDL: 52.0 (06/08/2016) LDL: 100.8 (?) (06/08/2016) T.0 (06/08/2016) Abner Bhatt Cardiology--bill mod erate follow up :No CP, had normal stress nuclear at [facility] which showed normal perfusion. Continue current therapy. His updated medication list for this problem includes: Nebivolol 10 Mg Tablet (Nebivolol) ..... Take 1 tablet by mouth daily Amlodipine-benazepril 10-20 Mg Capsule (Amlodipine-benazepril) ..... Take 1 capsule by mouth daily Aspirin 81 Mg Tablet,delayed Release (dr/ec) (Aspirin) ..... 1 tablet by mouth once a day Abner Bhatt Cardiology Yousuf Joshua MD Cardiology Yousuf Joshua MD Cardiology:BP normal at home. Ra nidhi Joshua MD Cardiology Yousuf Ramadamarcelino ESTRADA Cardiology Yousuf Ramadamarcelino ESTRADA Cardiology Yousuf Ramadamarcelino ESTRADA Cardiology Yousuf Ramadamarcelino ESTRADA Cardiology Yousuf Ramadamarcelino ESTRADA Cardiology Yousuf Ramadamarcelino ESTRADA Cardiology Yousuf Ramclaudia ESTRADA Cardiology Yousuf Ramclaudia ESTRADA Cardiology Yousuf Ramadamarcelino ESTRADA Cardiology Yousuf Ramadamarcelino ESTRADA Cardiology Yousuf Ramadamarcelino ESTRADA Cardiology follow up Yousuf awad MD Cardiology follow up Yousuf awad MD Cardiology follow up Yousuf awad MD Cardiology follow up Yousuf awad MD Cardiology Yousuf Joshua MD Cardiology Yousuf Joshua MD Cardiology Yousuf Joshua MD Cardiology Yousuf Ramadamarcelino ESTRADA Cardiology Yousuf Ramadamarcelino ESTRADA Cardiology Yousuf Ramclaudia ESTRADA Cardiology Yousuf Ramadamarcelino ESTRADA Cardiology Yousuf Ramadamarcelino ESTRADA Cardiology Yousuf Ramadamarcelino ESTRADA Cardiology Yousuf Ramadamarcelino ESTRADA Cardiology Yousuf Ramadamarcelino ESTRADA Cardiology Yousuf Ramclaudia ESTRADA Cardiology Yousuf Ramclaudia ESTRADA Cardiology Yousuf Ramadamarcelino ESTRADA Cardiology Yousuf Ramadamarcelino ESTRADA Cardiology Yousuf Ramadamarcelino ESTRADA follow up Yousuf Joshua MD follow up: H is updated medication list for this problem includes: Amlodipine Besy-benazepril Hcl 10-20 Mg Caps (Amlodipine besy-benazepril hcl) ..... One tab. daily Bystolic 5 Mg Tabs (Nebivolol hcl) ..... One tab. daily Orders: C OMPREHENSIVE METABOLIC PANEL W/EGFR (33128) C omplete Echo (CPT-49941) Yousuf Joshua MD follow up: H is updated medication list for this problem includes: Amlodipine Besy-benazepril Hcl 10-20 Mg Caps (Amlodipine besy-benazepril hcl) ..... One tab. daily Bystolic 5 Mg Tabs (Nebivolol hcl) ..... One tab. daily Orders: E KG (CPT-49188) L IPID PANEL (7600) C BC (H/H, RBC, INDICES, WBC, PLT) (1759) Yousuf Joshua MD : B P today: / Prior BP: 124/78 (03/27/2012) C HOL: 188 (04/26/2012) LDL: 85 (04/26/2012) Yousuf Joshua MD : P rior BP: 124/78 (03/27/2012) Labs Reviewed: C reat: 0.94 (04/26/2012) C hol: 188 (04/26/2012) LDL: 85 (04/26/2012) Yousuf Joshua MD : B P today: / Prior BP: 124/78 (03/27/2012) N uclear Stress Findings: 1. Normal Brent protocol exercise tolerance test. 2 . Normal left ventricular size and function with a calculated ejection fraction of 50%. 3 . Myocardial scintigraphy is normal without evidence for previous myocardial infarction or reversible ischemia. GC (03/08/2010) C HOL: 188 (04/26/2012) LDL: 85 (04/26/2012) HCT: 43.0 (04/26/2012) Platelets: 175 (04/26/2012) C reat: 0.94 (04/26/2012) Na+: 142 (04/26/2012) K+: 4.4 (04/26/2012) O rders: E KG (CPT-29252) Yousuf Joshua MD : P rior BP: 124/78 (03/27/2012) Labs Reviewed: C reat: 0.94 (04/26/2012) C hol: 188 (04/26/2012) LDL: 85 (04/26/2012) Yousuf Joshua MD follow up: H is updated medication list for this problem includes: Simvastatin 10 Mg Tabs (Simvastatin) ..... Take one pill a day BP today: 124/78 Prior BP: 127/79 (03/22/2011) Yousuf Joshua MD follow up: H is updated medication list for this problem includes: Amlodipine Besy-benazepril Hcl 10-20 Mg Caps (Amlodipine besy-benazepril hcl) ..... One tab. daily Bystolic 5 Mg Tabs (Nebivolol hcl) ..... One tab. daily BP today: 124/78 P rior BP: 127/79 (03/22/2011) Yousuf Joshua MD follow up: H is updated medication list for this problem includes: Amlodipine Besy-benazepril Hcl 10-20 Mg Caps (Amlodipine besy-benazepril hcl) ..... One tab. daily Bystolic 5 Mg Tabs (Nebivolol hcl) ..... One tab. daily BP today: 124/78 P rior BP: 127/79 (03/22/2011) Yousuf Joshua MD follow up: H is updated medication list for this problem includes: Amlodipine Besy-benazepril Hcl 10-20 Mg Caps (Amlodipine besy-benazepril hcl) ..... One tab. daily Bystolic 5 Mg Tabs (Nebivolol hcl) ..... One tab. daily Orders: E KG (CPT-54361) BP today: 124/78 Prior BP: 127/79 (03/22/2011) N uclear Stress Findings: 1. Normal Brent protocol exercise tolerance test. 2 . Normal left ventricular size and function with a calculated ejection fraction of 50%. 3 . Myocardial scintigraphy is normal without evidence for previous myocardial infarction or reversible ischemia. GC (03/08/2010) Yousuf Joshua MD routine: B P today: / Prior BP: 121/68 (03/23/2010) Yousuf Joshua MD routine: H is updated medication list for this problem includes: Amlodipine Besy-benazepril Hcl 10-20 Mg Caps (Amlodipine besy-benazepril hcl) ..... One tab. daily Bystolic 5 Mg Tabs (Nebivolol hcl) ..... One tab. daily Prior BP: 121/68 (03/23/2010) Yousuf Joshua MD routine: H is updated medication list for this problem includes: Amlodipine Besy-benazepril Hcl 10-20 Mg Caps (Amlodipine besy-benazepril hcl) ..... One tab. daily Bystolic 5 Mg Tabs (Nebivolol hcl) ..... One tab. daily BP today: / Prior BP: 121/68 (03/23/2010) N uclear Stress Findings: 1. Normal Brent protocol exercise tolerance test. 2 . Normal left ventricular size and function with a calculated ejection fraction of 50%. 3 . Myocardial scintigraphy is normal without evidence for previous myocardial infarction or reversible ischemia. GC (03/08/2010) Echocardiogram: Normal left ventricular systolic function. The left ventricle is at the upper limits of normal in size. There is borderline left ventricular hypertrophy. The E to A ratio shows signs of borderline left ventricular diastolic dysfunction. Normal E/E` 8.0. Left ventricular ejection fraction is estimated at 60%. There is mild enlargement of the left atrium. There is mild enlargement of right atrium. There is non-specific thickening of the mitral valve leaflets. Mild mitral valve r egurgitation. Mildly thickened aortic valve leaflets. Mild aortic valve regurgitation. There is non-specific thickening of the tricuspid valve. There is mild tricuspid regurgitation. IVC is normal in size with normal respiratory response. Estimated peak pulmonary artery systolic pressure is 32.0 mmHg. - GCO (03/08/2010) Yousuf Joshua MD routine: H is updated medication list for this problem includes: Amlodipine Besy-benazepril Hcl 10-20 Mg Caps (Amlodipine besy-benazepril hcl) ..... One tab. daily Bystolic 5 Mg Tabs (Nebivolol hcl) ..... One tab. daily Prior BP: 121/68 (03/23/2010) Yousuf Joshua MD 6 months follow up a nd stress echo: B P today: 121/68 Prior BP: 123/64 (03/17/2009) Yousuf Joshua MD 6 months follow up a nd stress echo: H is updated medication list for this problem includes: Amlodipine Besy-benazepril Hcl 10-20 Mg Caps (Amlodipine besy-benazepril hcl) ..... One tab. daily Bystolic 5 Mg Tabs (Nebivolol hcl) ..... One tab. daily BP today: 121/68 P rior BP: 123/64 (03/17/2009) Yousuf Joshua MD 6 months follow up a nd stress echo: H is updated medication list for this problem includes: Amlodipine Besy-benazepril Hcl 10-20 Mg Caps (Amlodipine besy-benazepril hcl) ..... One tab. daily Bystolic 5 Mg Tabs (Nebivolol hcl) ..... One tab. daily BP today: 121/68 P rior BP: 123/64 (03/17/2009) Yousuf Joshua MD 6 months follow up a nd stress echo: H is updated medication list for this problem includes: Amlodipine Besy-benazepril Hcl 10-20 Mg Caps (Amlodipine besy-benazepril hcl) ..... One tab. daily Bystolic 5 Mg Tabs (Nebivolol hcl) ..... One tab. daily BP today: 121/68 Prior BP: 123/64 (03/17/2009) N uclear Stress Findings: 1. Normal Brent protocol exercise tolerance test. 2 . Normal left ventricular size and function with a calculated ejection fraction of 50%. 3 . Myocardial scintigraphy is normal without evidence for previous myocardial infarction or reversible ischemia. (03/08/2010) E chocardiogram: Normal left ventricular systolic function. The left ventricle is at the upper limits of normal in size. There is borderline left ventricular hypertrophy. The E to A ratio shows signs of borderline left ventricular diastolic dysfunction. Normal E/E` 8.0. Left ventricular ejection fraction is estimated at 60%. There is mild enlargement of the left atrium. There is mild enlargement of right atrium. There is non-specific thickening of the mitral valve leaflets. Mild mitral valve r egurgitation. Mildly thickened aortic valve leaflets. Mild aortic valve regurgitation. There is non-specific thickening of the tricuspid valve. There is mild tricuspid regurgitation. IVC is normal in size with normal respiratory response. Estimated peak pulmonary artery systolic pressure is 32.0 mmHg. - GCO (03/08/2010) Yousuf Joshua MD routine-letter fxd: B P today: 123/64 Prior BP: 127/68 (09/02/2008) Yousuf Joshua MD routine-letter fxd: H is updated medication list for this problem includes: Amlodipine Besy-benazepril Hcl 10-20 Mg Caps (Amlodipine besy-benazepril hcl) ..... One tab. daily Bystolic 5 Mg Tabs (Nebivolol hcl) ..... One tab. daily BP today: 123/64 P rior BP: 127/68 (09/02/2008) Yousuf Joshua MD routine-letter fxd: H is updated medication list for this problem includes: Amlodipine Besy-benazepril Hcl 10-20 Mg Caps (Amlodipine besy-benazepril hcl) ..... One tab. daily Bystolic 5 Mg Tabs (Nebivolol hcl) ..... One tab. daily BP today: 123/64 Prior BP: 127/68 (09/02/2008) N uclear Stress Findings: 1. Normal Brent protocol exercise tolerance test. 2 . Normal left ventricular size and function with a calculated ejection fraction of 62%. 3 . Myocardial scintigraphy is normal without evidence for previous myocardial infarction or reversible ischemia. (01/02/2008) E chocardiogram: EF 60%. The left ventricular chamber size is normal. Wall thinkness is increased consistent with moderate concentric left ventricular hypertrophy. There is E: A reversal of mitral inflow velocities consistent with diastolic dysfunction. Normal left ventricular function. The Mitral Valve is structurally normal and appears to open and close adequately.There is mitral annular calcification. The aortic valve appears structurally normal. Normal pericardium with no significant pericardial effusion. No pleural effusion noted.(1+) Mild mitral regurgitation. Minimal to (1+) mild aortic regurgitation. (1+) Mild tricuspid regurgitation. No evidence of pulmonic valve regurgitation. (01/02/2008) Yousuf Joshua MD routine: H is updated medication list for this problem includes: Amlodipine Besy-benazepril Hcl 10-20 Mg Caps (Amlodipine besy-benazepril hcl) ..... One tab. daily Bystolic 5 Mg Tabs (Nebivolol hcl) ..... One tab. daily BP today: 127/68 P rior BP: 157/94 (02/19/2008) Yousuf Joshua MD routine: H is updated medication list for this problem includes: Amlodipine Besy-benazepril Hcl 10-20 Mg Caps (Amlodipine besy-benazepril hcl) ..... One tab. daily Bystolic 5 Mg Tabs (Nebivolol hcl) ..... One tab. daily BP today: 127/68 Prior BP: 157/94 (02/19/2008) N uclear Stress Findings: 1. Normal Brent protocol exercise tolerance test. 2 . Normal left ventricular size and function with a calculated ejection fraction of 62%. 3 . Myocardial scintigraphy is normal without evidence for previous myocardial infarction or reversible ischemia. (01/02/2008) E chocardiogram: EF 60%. The left ventricular chamber size is normal. Wall thinkness is increased consistent with moderate concentric left ventricular hypertrophy. There is E: A reversal of mitral inflow velocities consistent with diastolic dysfunction. Normal left ventricular function. The Mitral Valve is structurally normal and appears to open and close adequately.There is mitral annular calcification. The aortic valve appears structurally normal. Normal pericardium with no significant pericardial effusion. No pleural effusion noted.(1+) Mild mitral regurgitation. Minimal to (1+) mild aortic regurgitation. (1+) Mild tricuspid regurgitation. No evidence of pulmonic valve regurgitation. (01/02/2008) Yousuf Joshua MD routine: B P today: 127/68 Prior BP: 157/94 (02/19/2008) Yousuf Joshua MD fu test: T he following medications were removed from the medication list: Aspirin 325 Mg Tabs (Aspirin) ..... One tab daily His updated medication list for this problem includes: Amlodipine Besy-benazepril Hcl 10-20 Mg Caps (Amlodipine besy-benazepril hcl) ..... One tab. daily BP today: 157/94 P rior BP: 156/86 (12/11/2007) Yousuf Joshua MD fu test: B P today: 157/94 Prior BP: 156/86 (12/11/2007) Yousuf Joshua MD SIGN CELINA No HPI or A& P needs finished : O rders: S tress Test - Nuclear (64604) Yousuf Joshua MD Date Name Vitamin D, 25-Hydrox y CBC (INCLUDES DIFF/P LT) COMPREHENSIVE METABO LIC PANEL, W/EGFR LIPID PANEL LIPID PANEL Aorta Duplex Ultraso und Complete Echo VITAMIN B12 RETICULOCYTE COUNT IRON AND TOTAL IRON BINDING CAPACITY FOLATE, SERUM FERRITIN CBC (INCLUDES DIFF/P LT) LIPID PANEL COMPREHENSIVE METABO LIC PANEL W/EGFR STR - Nuclear Complete Echo PSA, TOTAL HEMOGLOBIN A1c CBC (INCLUDES DIFF/P LT) THYROID PANEL WITH T SH, 3RD GENERATION LIPID PANEL COMPREHENSIVE METABO LIC PANEL W/EGFR Complete Echo CBC (H/H, RBC, INDIC ES, WBC, PLT) LIPID PANEL COMPREHENSIVE METABO LIC PANEL W/EGFR Stress Test - Nuclea r Complete Echo Complete Echo Stress Test - Nuclea r HISTORY OF PROCEDURES Procedure Date Procedure Name Provider Procedure Notes S tatus EKG Yousuf Joshua MD complete d EKG Yousuf Joshua MD complete d ANDREA Joshua MD complete d EKG Yousuf Joshua MD complete d EKG Yousuf Joshua MD complete d EKG Yousuf Joshua MD complete d EKG Yousuf Joshua MD complete d SNOMED-CT: [id number] Current Medications Documented Yousuf Joshua MD completed Stress EKG Timoteo Pillai MD completed SNOMED-CT: [id number] Current Medications Documented Yousuf Joshua MD completed EKG Yousuf Joshua MD complete d SNOMED-CT: [id number] Current Medications Documented Yousuf Joshua MD completed EKG Yousuf Joshua MD complete d EKG Benitez Upton RN completed ePrescribe - Check t his box if eRx is used Yousuf Joshua MD completed EKG Yousuf Joshua MD complete d
[2024-10-02 15:00] LABS: D Dimer 3.94 ug/mL (<0.48)
[2024-10-02 15:14] LABS: Influenza A QL RT-PCR Negative (Negative); Influenza B QL RT-PCR Negative (Negative); RSV RNA, RT-PCR Negative (Negative); SARS-CoV-2 RNA PCR Negative (Negative)
--- OUTSIDE RECORDS SUMMARY | 2024-10-02 15:29 | XMS_ITS | CONTINUITY OF CARE DOCUMENT ---
Author Name abram valverde Address Unknown Organization [facility] Address [address] [address] [place] [address] Phone [phone] Care Team Providers Care Tool Planner Name Role Phone Tres ESTRADA, Yousuf Unavailable [...] In-person encounter Office Visit Yousuf Joshua MD [facility] Cardiology examination - In-person encounter Office Visit Yousuf Joshua MD [facility] - In-person encounter Office Visit Yousuf Joshua MD [facility] - In-person encounter Office Visit Yousuf Joshua MD [facility] - In-person encounter Office Visit Yousuf Joshua MD [facility] - In-person encounter Office Visit Yousuf Joshua [facility] - In-person encounter Office Visit Yousuf Joshua [facility] - In-person encounter Office Visit Yousuf Joshua MD [facility] - In-person encounter Office Visit Yousuf Joshua MD [facility] - In-person encounter Office Visit Yousuf Joshua MD [facility] Hyperlipidemia - In-person encounter Office Visit Yousuf Joshua MD [facility] - In-person encounter Office Visit Yousuf Joshua MD [facility] Family History of CVA or Stroke:Family History of Hypertension: - In-person encounter Office Visit Yousuf Joshua MD [facility] - In-person encounter Office Visit Yousuf Joshua MD [facility] - In-person encounter Office Visit Yousuf Joshua MD [facility] - In-person encounter Office Visit Yousuf Joshua MD [facility] CHEST PAIN-9/10 NUC NEG /08 NUC NEG - In-person encounter Office Visit Yousuf Joshua MD [facility] - In-person encounter Office Visit Yousuf Joshua MD [facility] HyperlipidemiaAAA-03/03 ABD US NEGCHEST PAIN-9/10 NUC NEG 12/31 NUC NEG - In-person encounter Office Visit Yousuf Joshua MD [facility] - In-person encounter Office Visit Yousuf Joshua MD [facility] HyperlipidemiaHTN-12/31 ECHO EF 60 1+ M,A,TRI REG STRESS NEG VITAL SIGNS Date Observation Value Provider Body Mass Index (Ratio) 27.61 kg/m2 Tl Joshua MD blood pressure, diastolic 69 mm[Hg] Qian lara Jerry blood pressure, systolic 114 mm[Hg] Kandi vera Jerry oxygen saturation, oximetry 98 % Kathryn Rogers pulse rate 64 /min Kathryn Rogers respiratory rate E&M 12 /min Kathryn Rogers weight E&M 187 [lb_av] Kathryn Rogers height E&M 69 [in_i] [facility] regular Qian lara [...] blood pressure, cuff size large Ke rri Poliueneswatih blood pressure, diastolic 79 mm[Hg] Ke rri Poliuenenfeldlópez blood pressure, systolic 141 mm[Hg] Jaylon Deluca oxygen saturation, oximetry 97 % Ruth Deluca respiratory rate E&M 16 /min Ruth Mejia matthewpetronabowen pulse rate 70 /min Ruth Varma [facility] weight E&M 195 [lb_av] Ruth Varma [facility] height E&M 69 [in_i] Ruth Varma nlaini blood pressure, diastolic 74 mm[Hg] Li nkLog [...] Hanna kLog blood pressure, diastolic 70 mm[Hg] Maureen Culp blood pressure, systolic 134 mm[Hg] Bhavana [...] Joshua MD respiratory rate E&M 16 /min [facility] pulse rate 67 /min [facility] weight E&M 211 [lb_av] [facility] blood pressure, diastolic 65 mm[Hg] To [facility] blood pressure, systolic 138 mm[Hg] Ton Sharp [facility] oxygen saturation, oximetry 97 % [facility] height E&M 69 [in_i] [facility] Body Mass Index (Ratio) 30.12 kg/m2 Tl Joshua MD weight E&M 204 [lb_av] Mayuri Garrison blood pressure, diastolic 79 mm[Hg] López [place] blood pressure, systolic 152 mm[Hg] Whitney [place] oxygen saturation, oximetry 98 % Mayuri [place] [...] pulse rate 70 /min Ruth Varma [facility] oxygen saturation, oximetry 97 % Ruth Deluca respiratory rate E&M 16 /min Ruth mccrary weight E&M 196 [lb_av] Ruth Varma [facility] height E&M 69 [in_i] Ruth Varma [facility] blood pressure, diastolic 79 mm[Hg] Chip Upton [...] pressure, diastolic, right arm 68 m m[Hg] [facility], systolic, right arm 121 m m[Hg] Sal [place] blood pressure, diastolic 68 mm[Hg] Celina andres [facility] blood pressure, systolic 121 mm[Hg] Chris [facility] [place] pulse rate 66 /min [facility] saturation, oximetry 98 % [facility] weight E&M 188 [lb_av] Sal [facility] blood pressure, diastolic 64 mm[Hg] Da [...] LinkLog[facility] 0-149 cholesterol, serum 143 mg/dL [facility] [phone]/01/ 16 alanine aminotransferase (SGPT), serum 41 1/L [...] 3.5-5.2 Low sodium, serum 137 mmol/L [facility] 190-031 9026/01/ 16 urea nitrogen/creatinine ratio, serum 12 [employer] [...] Not Estab. platelet count 242 X10E3/UL [facility] 279-108 5444/01/ 15 red blood cell distribution width 12.1 [...] cell distribution width, size density 45.5 fL [facility] - immature granulocytes, percentage of total cells, blood 0.3 % [facility] - nucleated red blood cells as percent of blood leukocytes 0.0 % [facility] - red blood cell (erythrocyte) count, per high power field 0.0 10*3/UL [facility] - eosinophils as percent of blood leukocytes 0.9 % [facility] - neutrophils as percent of blood leukocytes 69.0 % [facility] - Absolute Neutrophils 4.8 CELLS/UL [facility] 1.5 - 7.8 basophils as percent of blood leukocytes 0.4 % [facility] - Absolute Basophils 0.0 CELLS/UL [facility] 0.0 - 0.2 monocytes as percent of blood leukocytes 11.1 % [facility] - Absolute Monocytes 0.8 CELLS/UL [facility] 0.2 - 1.0 lymphocytes as percent of blood leukocytes 18.3 % [facility] - Absolute Lymphocytes 1.3 CELLS/UL [facility] 0.9 - 3.9 mean platelet volume 10.8 (?) [facility] - platelet count 196.0 THOUSAND/ UL [employer] [...] 450.0 reticulocyte count, absolute 0.075 10*6 CELLS/UL [facility] - reticulocyte count, blood, uncorrected 1.65 % LinkLog 0.50 - 2.00 free thyroxine index 4.6 ??g/dL [facility] 4.4 - 11.4 triiodothyronine uptake 1.0 TBI LinkLog 0.8 - 1.3 thyroxine, serum, total 4.6 ??G/DL [facility] 4.5 - 11.7 thyroid stimulating hormone, serum 0.795 ?IU/ML [facility] 0.270 - 4.200 prostate specific antigen 1.3 ng/mL LinkLog 0.0 - 5.4 hemoglobin A1C, blood, as % of total hemoglobin 5.3 % [facility] 4.0 - 6.0 red blood cell distribution width, size density 45.1 fL [facility] - immature granulocytes, percentage of total cells, blood 0.6 % [facility] - nucleated red blood cells as percent of blood leukocytes 0.8 % [facility] - red blood cell (erythrocyte) count, per high power field 0.0 10*3/UL [facility] - eosinophils as percent of blood leukocytes 1.1 % [facility] - neutrophils as percent of blood leukocytes 64.8 % [facility] - Absolute Neutrophils 3.1 CELLS/UL [facility] 1.5 - 7.8 basophils as percent of blood leukocytes 0.8 % [facility] Basophils 0.0 CELLS/UL [facility] 0.0 - 0.2 monocytes as percent of blood leukocytes 11.0 % [facility] - Absolute Monocytes 0.5 CELLS/UL [facility] 0.2 - 1.0 lymphocytes as percent of blood leukocytes 21.7 % [facility] - Absolute Lymphocytes 1.0 CELLS/UL [facility] 0.9 - 3.9 mean platelet volume 10.9 (?) [facility] - platelet count 202.0 THOUSAND/ UL [facility] 100.0 - 400.0 mean corpuscular hemoglobin concentration, RBC 32.9 G/DL [facility] 31.0 - 38.0 mean corpuscular hemoglobin, RBC 32.0 pg LinkLog 25.0 - 35.0 mean corpuscular volume, RBC 97.3 fL [facility] 75.0 - 100.0 hematocrit, blood 43.5 % [facility] 35.0 - 55.0 hemoglobin, blood 14.3 g/dL [facility] 11.5 - 16.5 erythrocyte count, whole blood 4.5 MILLION/U L [facility] 3.5 - 5.5 very low density lipoproteins 47.6 mg/dL [facility] 5.0 - 40.0 High LDL/HDL (low-density lipoprotein/high-den sity lipoprotein) ratio 1.2 RATIO [facility] - lipoprotein, beta, serum, point, quantitative, calculated 91.4 (?) [facility] - HDL cholesterol, serum 74.0 mg/dL [...] 4.5 - 11.7 platelet count 175 10*3/mm3 [facility] Magdaleno hematocrit, blood 43.0 % [facility] lipoprotein, beta, serum, point, quantitative, calculated 85 mg/dL [facility] cholesterol, serum 188 mg/dL [facility] alanine aminotransferase (SGPT), serum 42 1/L [facility] aspartate aminotransferase (SGOT), serum 36 1/L [facility] creatinine, serum 0.94 mg/dL [facility] potassium, serum 4.4 mmol/L [facility] sodium, serum 142 mmol/L [facility] HISTORY OF MEDICATION USE Medication Status Instructions [...] by mouth once a day Price Culp [facility] FORMULA ORAL CAPSULE completed 1 tab daily [...] Yousuf Joshua MD seatbelt usage 100 % [facility] physical exercise, frequency, days per week no [facility] caffeine use, averag e drinks per day 1 /d [facility] passive cigarette sm ignacio exposure yes [facility] smoking status Never smoker [facility] social history E&M Marital Statu s: L [...] Price Carranza smoking status Never smoker [facility]ard[facility] social history reviewed E&M revi ewed - [...] using drugs?(CAGE substance use question #1) N Yousuf Joshua MD caffeine use, averag e drinks [...] Payer name Policy type / Coverage type [place] red libertarian ID AARP MEDICARE ADVANTAGE HMO-POS HMO [id number] ADVANCE DIRECTIVES Name Date DISCUSSED - NO DECISION MADE TREATMENT PLAN Date Name Performer [id number],CYousuf MD [id number],S, Yousuf benson MD [id number],SYousuf MD [id number],S, Yousuf benson MD [id number],S, Yousuf benson MD [id number],S, Yousuf benson MD [id number],SYousuf MD [id number],S, Yousuf benson MD [id number],S, Yousuf benson MD [id number],SYousuf MD [id number],S, Yousuf benson MD Cardiology--bill mod erate follow [...] :No CP, had normal stress nuclear at [facility] which showed normal perfusion. Continue current therapy. [...] daily Orders: C OMPREHENSIVE METABOLIC PANEL W/EGFR (84636) C omplete Echo (CPT-51085) Yousuf Joshua MD follow up: H is updated medication list for this problem includes: Amlodipine Besy-benazepril Hcl 10-20 Mg Caps (Amlodipine besy-benazepril hcl) ..... One tab. daily Bystolic 5 Mg Tabs (Nebivolol hcl) ..... One tab. daily Orders: E KG (CPT-77898) L IPID PANEL (7600) C BC (H/H, [...] K+: 4.4 (04/26/2012) O rders: E KG (CPT-91305) Yousuf Joshua MD : P rior BP: [...] ..... One tab. daily Orders: E KG (CPT-92391) BP today: 124/78 Prior BP: 127/79 (03/22/2011) [...] O rders: S tress Test - Nuclear (58310) Yousuf Joshua MD Date Name Vitamin D, [...] EKG Yousuf Joshua MD complete d SNOMED-CT: 223591772 350388 Current Medications Documented Yousuf Joshua MD completed Stress EKG Timoteo Pillai MD completed SNOMED-CT: 570986091 559572 Current Medications Documented Yousuf Joshua MD completed EKG Yousuf Joshua MD complete d SNOMED-CT: 027814515 403874 Current Medications Documented Yousuf Joshua MD completed EKG Yousuf Joshua MD complete d EKG Benitez Upton RN completed ePrescribe - Check t his box if eRx is used Yousuf Joshua MD completed EKG Yousuf Joshua MD complete d
[2024-10-02 15:52] LABS: Reflex Lactic Acid Yes or No Add Lactic
[2024-10-02 16:19] LABS: Ethanol < 10 mg/dL (<10)
[2024-10-02 16:41] LABS: MRSA (PCR) NOT DETECTED (NOT DETECTE)
[2024-10-02] MEDS: VANCOMYCIN 1,250 MG/NS 250 ML 1,250 MG/250 ML BAG 166.67 MG IVPB (17:05)
[2024-10-02] MEDS: KCL 20 MEQ/SW 100 ML 100 ML 50 MEQ IVPB (17:05)
[2024-10-02] MEDS: ASPIRIN 81 MG CHEWABLE TABLET 324 MG PO (17:06)
[2024-10-02 17:22] LABS: Lactic Acid 3.3 mmol/L (0.7-2.0)
[2024-10-02 17:25] LABS: Add Urine Microscopic? YES; Appearance Urine Cloudy (Clear); Bacteria Urine None Seen /hpf; Bilirubin Urine 2+ (Negative); Blood Urine 3+ (Negative); Color Urine Dark Yellow (Yellow); Glucose Urine UA Negative (Negative); Hyaline Casts Urine Present /lpf; Ketones Urine Trace mg/dL (Negative); Leukocyte Esterase Ur 2+ LEU/UL (Negative); Nitrate Urine Negative (Negative); Non Pathogenic Casts >20; Protein Urine 2+ mg/dL (Negative); RBC Urine >100 /hpf (0-2); Squamous Epithelial Cell Urine None Seen /hpf (Few); WBC Urine >100 /hpf (0-3); pH Urine 5.5 (5.0-9.0)
[2024-10-02 17:43] LABS: Troponin I 0.045 ng/mL (0.000-0.034)
[2024-10-02 18:03] LABS: Phosphorus 5.8 mg/dL (2.5-4.5)
[2024-10-02 18:14] LABS: Amphetamine Screen Urine Negative (Negative); Barbiturate Screen Urine Negative (Negative); Benzodiazepines Screen Urine Negative (Negative); Cannabinoid Screen Urine Positive (Negative); Cocaine Screen Urine Negative (Negative); Methadone Screen Urine Negative (Negative); Opiate Screen Urine Negative (Negative); Phencyclidine Screen Urine Negative (Negative)
[2024-10-02] MEDS: THIAMINE HCL 200 MG/2 ML VIAL 100 MG IV PUSH (18:16)
[2024-10-02 19:02] LABS: Ammonia 45 umol/L (9-30)
[2024-10-02 19:19] LABS: INR 1.7
[2024-10-02 19:20] LABS: Partial Thromboplastin Time 36.3 Seconds (22.3-36.8)
[2024-10-02] MEDS: NOREPINEPHRINE 8 MG/D5W 250 ML 8 MG/250 ML BAG 9.38 MG IV CONT (19:50)
--- NOTE | 2024-10-02 21:43 | ECG_ITS ---
Test Date: 2024-10-02 21:46:28 Measurements Intervals [place] Rate: 103 P: 12 MN: 222 QRS: -46 QRSD: 127 T: 127 QT: 370 QTc: 484 Interpretive Statements SINUS TACHYCARDIA WITH FIRST DEGREE AV BLOCK WITH FREQUENT VENTRICULAR PREMATURE COMPLEXES LEFT AXIS DEVIATION LEFT BUNDLE BRANCH BLOCK BASELINE ARTIFACT- I, II, III, AVR, AVL, AVF, V1-V6 ABNORMAL ECG Compared to ECG 10/02/2024 13:42:52 HEART RATE HAS INCREASED Ventricular premature complex(es) now present Electronically Signed On 10-03-2024 05:31:53 CDT by Joey Wolf D.O.
--- NOTE | 2024-10-02 22:01 | PC.NURSE ---
Per EDP Dr. Godfrey central line is okay to use after seeing bedside xray.
--- NOTE | 2024-10-02 22:32 | PC.NURSE ---
Report recieved from JSOE Garza.
[2024-10-02] MEDS: MELATONIN 5 MG TABLET PO (22:39)
--- NOTE | 2024-10-02 23:42 | ADMGEN ---
/This patient, Daniel Domínguez, was admitted to Intensive Care Unit-10 on 10/02/24 at 2245. Patient/family oriented to hospital policies and general routines including ID bracelet, bed and alarms, visiting hours, pain management, procedures, bathroom and other care r at outines, personal items, smoking policy, room service/diet, and visiting hours. Information on how to activate the Rapid Response Team has been discussed. Patient/Family are encouraged to report perceived risks to care and to ask questions if they do not understand what they are told or what they should do.
[2024-10-03] VITALS (19 sets, daily range): BP systolic 81–117; BP diastolic 44–88; PULSE 79–104; RESP 15–27; TEMP 36.3–36.6; O2SAT 91–99
--- NOTE | 2024-10-03 | ECHO_ITS ---
Patient Info Name: Daniel Domínguez Age: 74 years : 1950 Gender: Male Ht: 70 in Wt: 172 lbs BSA: 1.97 m2 HR: 90 bpm BP: 92 / 56 mmHg Technical Quality: Fair Exam Date: 10/03/2024 8:33 AM Exam Location: Echo Lab Patient Status: Inpatient Admit Date: 10/02/2024 Staff Ordering Physician: Froy Christensen MD Senior Systems Engineer: Alma Rosa Watst RDCS Attending Provider: Froy Christensen MD Referring Physician: Amparo LINARES; Exam Type: CA echo doppler color flow Study Info Indications - CHF Complete two-dimensional, color flow and Doppler transthoracic echocardiogram is performed. Summary 1. Complete two-dimensional, color flow and Doppler transthoracic echocardiogram is performed. 2. Left ventricular chamber dimension is normal. 3. Left ventricular systolic function is hyperdynamic, estimated at >70%. 4. The left ventricular diastolic function is grade I diastolic dysfunction. 5. E/e' 3 is not elevated. 6. Left atrial chamber dimension is mildly enlarged. 7. There is mild aortic valve sclerosis. 8. The mitral valve has mildly calcified annulus. 9. There is mild tricuspid valve regurgitation. 10. Mild pulmonary hypertension, estimated pulmonary arterial systolic pressure is 49 mmHg. Left Ventricle E/e' 3 is not elevated. Left ventricular chamber dimension is normal. Left ventricular systolic function is hyperdynamic, estimated at >70%. The left ventricular diastolic function is grade I diastolic dysfunction. Right Ventricle Right ventricular chamber dimension is normal. Right ventricular systolic function is normal. Left Atria Left atrial chamber dimension is mildly enlarged. Right Atria Right atrial chamber dimension is normal. Aortic Valve The aortic valve is trileaflet. There is mild aortic valve sclerosis. There is no aortic valve stenosis. There is no aortic valve regurgitation. Pulmonic Valve There is no pulmonic regurgitation. Mitral Valve The mitral valve has mildly calcified annulus. There is no mitral valve stenosis. There is no mitral valve regurgitation. Tricuspid Valve There is mild tricuspid valve regurgitation. Mild pulmonary hypertension, estimated pulmonary arterial systolic pressure is 49 mmHg. Pericardium/Pleural There is no pericardial effusion. Inferior Vena Cava Normal inferior vena cava with >50% collapse upon inspiration consistent with normal right atrial pressure, 5 mmHg. Aorta The aortic root size at the sinus of Valsalva is normal. Left Ventricular Outflow Tract Name Value Normal LVOT 2D LVOT Diameter 2.0 cm LVOT Doppler LVOT Peak Gradient 7 mmHg LVOT Mean Gradient 4 mmHg LVOT VTI 25 cm LVOT VTI/AV VTI Ratio 0.9 LVOT Stroke Volume 83 ml LVOT CO 18.3 l/min LVOT CI 9.3 l/min/m2 Pulmonic Valve Name Value Normal PV Doppler PV Peak Gradient 5 mmHg Mitral Valve Name Value Normal MV Doppler MV Decel [place] 175 cm/s2 MV PHT 72 ms MV Area (PHT) 3.0 cm2 4.0-5.0 MV Diastolic Function MV E Peak Velocity 44 cm/s MV A Peak Velocity 72 cm/s MV E/A 0.6 MV Decel Time 250 ms MV Annular TDI MV E/e' (Septal) 3.2 <=8.0 MV E/e' (Lateral) 4.7 <=8.0 MV E/e' (Average) 3.9 Tricuspid Valve Name Value Normal TV Regurgitation Doppler TR Peak Velocity 332 cm/s TR Peak Gradient 38 mmHg Estimated PAP/RSVP RA Pressure 5 mmHg <=5 PA Systolic Pressure 49 mmHg <36 RV Systolic Pressure 49 mmHg <36 Aorta Name Value Normal Ascending Aorta Ao Root Diameter (MM) 3.9 cm Ao Root Diam Index (MM) 2.0 cm/m2 Aortic Valve Name Value Normal AV Doppler AV Peak Velocity 186 cm/s AV Peak Gradient 14 mmHg AV Mean Gradient 8 mmHg AV VTI 27 cm AV Area (Cont Eq VTI) 3.1 cm2 >=3.0 AV Area (Cont Eq Javed) 2.3 cm2 AV Regurgitation 2D LVOT Area 3.2 cm2 Ventricles Name Value Normal LV Dimensions 2D/MM IVS Diastolic Thickness (2D) 1.1 cm 0.6-1.0 LVID Diastole (2D) 5.3 cm 4.2-5.8 LVIW Diastolic Thickness (2D) 1.2 cm 0.6-1.0 LVID Systole (2D) 2.8 cm 2.5-4.0 LVOT Diameter 2.0 cm LV Mass (2D Cubed) 239.65 g 88.00-224.00 LV Mass Index (2D Cubed) 122 g/m2 49-115 Relative Wall Thickness (2D) 0.45 LV Fractional Shortening/Ejection Fraction 2D/MM LV Fractional Shortening (2D) 47 % 25-43 LV EF (2D Teicholz) 78 % 52-72 LV Diastolic Volume (4C MOD) 66 ml LV EF (4C MOD) 75 % LV Diastolic Volume (2C MOD) 84 ml LV EF (2C MOD) 63 % LV Diastolic Volume (BP MOD) 75 ml 62-150 LV Diastolic Volume Index (BP MOD) 38 ml/m2 34-74 LV Systolic Volume (BP MOD) 23 ml 21-61 LV Systolic Volume Index (BP MOD) 12 ml/m2 11-31 LV EF (BP MOD) 70 % 52-72 LV Diastolic Length (4C) 7.2 cm LV Systolic Length (4C) 5.4 cm LV Stroke Volume (4C MOD) 50 ml RV Dimensions 2D/MM RVID Diastole (2D) 4.3 cm 2.5-3.5 Atria Name Value Normal LA Dimensions LA Dimension (MM) 4.0 cm 3.0-4.1 LA Volume (4C A-L) 52 ml LA Volume (BP A-L) 51 ml RA Dimensions RA Area (4C) 15.2 cm2 <=18.0 Report Signatures
--- NOTE | 2024-10-03 03:36 | PM.IMHP ---
H&P: HPI History of Present Illness Date/Time: 10/03/24 03:36 Chief Complaint: 1. Fatigue 2. Abdominal distension Narrative: Daniel Domínguez is a 74-year-old male with a medical history significant for hypertension, GERD, alcohol dependence. Presents to the ED with concerns for worsening fatigue, malaise, anorexia and weight loss. He states that these symptoms have been going on for the last 1-2 months; images of the symptoms aggravated by exertion; the rest; associated with dyspnea on exertion, orthopnea, bipedal edema and a restriction of his ADLs. He denies hemoptysis, fevers, nausea vomiting He drinks multiple cans of beers on most days a week with his last drink being the night prior to admission Work-up findings: EKG: Normal sinus rhythm; first-degree AV block; frequent SVPCs; left bundle branch block; left axis deviation WBC 9.6; HGB 11.6; MCV 97; PLT 2 0 INR 1.7; PTT 21; APTT 36; D-dimer 3.94 Na 133; K 3.3; Cl 97; CO2 14; HCT 262; BUN 17; CR 3.64; GFR 5 Lactic acid 5.7> 3.3; Mg 2.1 AST 84; ALT 40; ALP 291; T. bilirubin 1.4; ammonia 4.5 Troponin:0.048 >> 0.045; BNP 2830; UA: WBC >100; LE 2+; Nitrite -ve; bacteria none UDS: +Cannabinoids Influenza A/B; RSV; COVID-19: Negative CXR: No focal infiltrate or effusion. CTAP: 1. Cirrhosis with large amount of ascites throughout the abdomen and pelvis. There is a reticulonodular appearance to the greater omentum which could be due to portal venous hypertension mesenteric edema although differential would include metastatic peritoneal implants. Consider diagnostic thoracentesis. 2. Atelectasis at the bilateral lower lungs, more prominent on the right secondary to prominent elevation the right hemidiaphragm. 3. Nonobstructing bilateral nephrolithiasis. 4. Diverticulosis. 5. Small sliding-type hiatal hernia. 6. Small fat and ascites containing right inguinal hernia. US Abdomen: Gross ascites. Liver cirrhosis. Highly suggestive gallbladder stones. CXR: Bilateral interstitial thickening with congestive dayron. Evaluation for pneumonitis versus edema considered. Right central line with the tip overlying the right atrium. Right pleural calcification. Daniel Domínguez will be admitted, evaluated, and managed for CHF exacerbation; ascites; acute renal insufficiency, PMFSH Past Medical History Medical History (Updated 10/02/24 @ 17:43 by Maria Isabel Godfrey MD) History of kidney stones Family History Family History (Updated 10/02/24 @ 23:46 by Chrissy Oliver RN) Father Acute myocardial infarction Mother Cerebrovascular accident Social History Social History Smoking status: Never smoker Second hand tobacco smoke exposure: Yes Alcohol intake: current Alcohol use details: last drink approximately 09/24/24 Do You Feel Safe in your Home?: Yes Lack of Transportation: No Lack of Food: Never True Current Housing: I Have Housing Concerned About Future Housing: No Difficulty Paying Gas/Electric Bills: Decline to Answer Difficulty Paying for Meds: Decline to Answer Currently Unemployed: No Education: Decline to Answer Difficulty w/ Childcare or Family Care: No Spiritual care concerns: No Meds Home Medications and Allergies Home Medications ?Medication ?Instructions ?Recorded ?Confirmed ?Type amlodipine 10 mg-benazepril 20 mg cap 10/02/24 History capsule multivitamin 1 tablet PO DAILY 10/02/24 10/02/24 History omeprazole 40 mg capsule,delayed 40 mg PO DAILY 10/02/24 10/02/24 History release Allergies Allergy/AdvReac Type Severity Reaction Status Date / Time No Known Allergies Allergy Verified 10/02/24 13:23 Vital Signs Vital Signs - 24 hr 10/02/24 13:17 10/02/24 13:33 10/02/24 13:34 Temperature 97.4 F L Pulse Rate 98 76 Respiratory Rate 22 H 24 H 12 Blood Pressure 98/55 L 89/58 L Pulse Oximetry 100 100 100 Oxygen Delivery Room Air 10/02/24 13:45 10/02/24 13:46 10/02/24 13:47 Temperature Pulse Rate 83 Respiratory Rate 23 H 18 16 Blood Pressure 86/61 L Pulse Oximetry 100 Oxygen Delivery 10/02/24 14:04 10/02/24 14:15 10/02/24 14:16 Temperature Pulse Rate 72 89 94 Respiratory Rate 18 16 13 Blood Pressure 98/58 L 92/59 L Pulse Oximetry Oxygen Delivery 10/02/24 14:30 10/02/24 14:31 10/02/24 14:45 Temperature Pulse Rate 84 82 Respiratory Rate 17 21 H 21 H Blood Pressure 78/54 L Pulse Oximetry 100 100 Oxygen Delivery 10/02/24 15:05 10/02/24 15:16 10/02/24 15:30 Temperature Pulse Rate 123 H 95 86 Respiratory Rate 22 H 24 H 18 Blood Pressure 87/60 L 97/67 L Pulse Oximetry 95 100 97 Oxygen Delivery 10/02/24 15:31 10/02/24 15:45 10/02/24 15:46 Temperature Pulse Rate 90 76 89 Respiratory Rate 17 19 24 H Blood Pressure 92/58 L 97/58 L Pulse Oximetry 99 100 Oxygen Delivery 10/02/24 16:00 10/02/24 16:01 10/02/24 16:02 Temperature Pulse Rate 91 93 92 Respiratory Rate 17 21 H 22 H Blood Pressure 86/46 L Pulse Oximetry 100 100 Oxygen Delivery 10/02/24 16:54 10/02/24 16:55 10/02/24 17:00 Temperature Pulse Rate 111 H Respiratory Rate 21 H 21 H 25 H Blood Pressure 93/56 L Pulse Oximetry 99 85 L Oxygen Delivery 10/02/24 17:15 10/02/24 17:16 10/02/24 17:26 Temperature Pulse Rate 110 H 108 H 103 H Respiratory Rate 22 H 30 H 19 Blood Pressure 105/71 105/71 Pulse Oximetry 100 100 100 Oxygen Delivery 10/02/24 17:30 10/02/24 17:31 10/02/24 17:45 Temperature Pulse Rate 104 H 92 73 Respiratory Rate 40 H 35 H 21 H Blood Pressure 98/55 L Pulse Oximetry 94 100 Oxygen Delivery 10/02/24 17:46 10/02/24 17:58 10/02/24 18:00 Temperature Pulse Rate 85 86 84 Respiratory Rate 23 H 22 H 19 Blood Pressure 61/36 L 86/49 L 86/49 L Pulse Oximetry 99 100 97 Oxygen Delivery 10/02/24 18:01 10/02/24 18:15 10/02/24 18:31 Temperature Pulse Rate 86 90 90 Respiratory Rate 16 18 29 H Blood Pressure 67/51 L Pulse Oximetry 98 98 100 Oxygen Delivery 10/02/24 18:45 10/02/24 19:00 10/02/24 19:00 Temperature Pulse Rate 90 92 96 Respiratory Rate 22 H 16 16 Blood Pressure 86/63 L 99/55 L Pulse Oximetry 100 100 Oxygen Delivery 10/02/24 19:01 10/02/24 19:14 10/02/24 19:15 Temperature Pulse Rate 93 92 Respiratory Rate 18 Blood Pressure 99/55 L Pulse Oximetry 100 100 Oxygen Delivery Room Air 10/02/24 19:15 10/02/24 19:15 10/02/24 19:16 Temperature 97.8 F Pulse Rate 88 94 90 Respiratory Rate 16 18 26 H Blood Pressure 91/56 L 91/56 L Pulse Oximetry 98 98 100 Oxygen Delivery 10/02/24 19:30 10/02/24 19:30 10/02/24 19:31 Temperature Pulse Rate 88 90 88 Respiratory Rate 18 24 H 19 Blood Pressure 83/55 L 83/55 L Pulse Oximetry 97 99 Oxygen Delivery 10/02/24 19:45 10/02/24 19:45 10/02/24 19:46 Temperature Pulse Rate 90 90 93 Respiratory Rate 20 17 17 Blood Pressure 90/56 L 90/56 L Pulse Oximetry 100 98 99 Oxygen Delivery 10/02/24 19:50 10/02/24 20:01 10/02/24 20:16 Temperature Pulse Rate 93 91 95 Respiratory Rate 26 H 26 H Blood Pressure 90/59 L 78/50 L 96/58 L Pulse Oximetry 100 99 Oxygen Delivery 10/02/24 20:18 10/02/24 20:20 10/02/24 20:30 Temperature Pulse Rate 94 95 94 Respiratory Rate 20 23 H 23 H Blood Pressure 101/52 L 101/52 L Pulse Oximetry 98 99 Oxygen Delivery 10/02/24 20:31 10/02/24 20:45 10/02/24 20:46 Temperature Pulse Rate 92 94 102 H Respiratory Rate 22 H 15 23 H Blood Pressure 90/56 L 89/53 L Pulse Oximetry 98 Oxygen Delivery 10/02/24 21:00 10/02/24 21:00 10/02/24 21:01 Temperature Pulse Rate 96 99 97 Respiratory Rate 25 H 18 Blood Pressure 96/47 L 96/47 L Pulse Oximetry Oxygen Delivery 10/02/24 21:15 10/02/24 21:30 10/02/24 21:32 Temperature Pulse Rate 101 H 102 H 101 H Respiratory Rate 16 26 H Blood Pressure 100/55 L 92/57 L 92/57 L Pulse Oximetry 100 98 Oxygen Delivery 10/02/24 21:49 10/02/24 22:01 10/02/24 22:39 Temperature Pulse Rate 99 96 99 Respiratory Rate 20 Blood Pressure 114/62 91/64 L 86/64 L Pulse Oximetry 100 Oxygen Delivery 10/02/24 22:45 10/02/24 23:03 10/02/24 23:30 Temperature Pulse Rate 99 98 96 Respiratory Rate 23 H Blood Pressure 100/64 92/52 L Pulse Oximetry 99 Oxygen Delivery Room Air 10/03/24 00:00 10/03/24 00:00 10/03/24 00:00 Temperature Pulse Rate 96 96 100 Respiratory Rate 24 H 24 H Blood Pressure 93/57 L Pulse Oximetry 99 99 Oxygen Delivery Room Air 10/03/24 00:00 10/03/24 01:35 10/03/24 02:00 Temperature Pulse Rate 96 88 90 Respiratory Rate 15 Blood Pressure 93/57 L 81/44 L 92/56 L Pulse Oximetry 94 Oxygen Delivery 10/03/24 02:00 10/03/24 02:00 Temperature Pulse Rate 90 90 Respiratory Rate Blood Pressure 92/56 L Pulse Oximetry Oxygen Delivery H&P: Results Labs Labs: Short CBC 10/02/24 Range/Units 13:48 WBC 9.6 (4.5-10.0) K/mm3 Hgb 11.6 L (14.0-18.0) g/dL Hct 32.7 L (42.0-52.0) % Plt Count 220 (150-375) k/mm3 BMP 10/02/24 13:48 Sodium 133 L Potassium 3.3 L Chloride 97 L Carbon Dioxide 14 L BUN 70 H Creatinine 10.64 H Glucose 188 H Calcium 8.3 L Cardiac Enzymes 10/02/24 10/02/24 Range/Units 13:47 17:00 Total Creatine Kinase 45 L (55-170) U/L Troponin I 0.048 H* 0.045 H* (0.000-0.034) ng/mL Liver Function 10/02/24 Range/Units 13:48 Total Bilirubin 1.4 H (0.2-1.3) mg/dL AST 84 H (17-59) U/L ALT 40 (6-50) U/L Alkaline Phosphatase 291 H (38-126) U/L Albumin 3.0 L (3.5-5.1) g/dL Urine 10/02/24 Range/Units 17:00 Urine Color Dark yellow (Yellow) Urine Appearance Cloudy H (Clear) Urine pH 5.5 (5.0-9.0) Ur Specific [place] 1.020 (1.001-1.035) Urine Protein 2+ H (Negative) mg/dL Urine Glucose (UA) Negative (Negative) mg/dL Assessment and Plan Assessment and plan (1) Chronic alcohol use: Code(s): F10.90 - Alcohol use, unspecified, uncomplicated Status: Acute (2) Acute heart failure: Code(s): I50.9 - Heart failure, unspecified Status: Acute (3) Non-ST elevation NV (NSTEMI): Code(s): I21.4 - Non-ST elevation (NSTEMI) myocardial infarction Status: Acute Plan Acute and principal conditions 1. Abdominal ascites 2. Liver cirrhosis. 3. NSTEMi 4. CHF exacerbation. probable alcoholic cardiomyopathy 5. UTI 6. Lactic acidemia 7. Acute renal insufficiency. maybe 2/2 hepatorenal syndrome 8. Hypokalemia 9. Hyponatremia. 10. Hypotension 11. Shock; probable sepsis Rx: A. Paracentesis B. Cefepime C. Nephrology and Cardiology consults D. Monitor renal function; avoid nephrotoxins E. Monitor LA; F. Pressor support due to probable shock G. Replete and monitor K H. Urine and Blood Cx Chronic and stable conditions 1. Hypertension. 2. GERD. 3. Gallstones 4. Diverticulosis. 5. Right inguinal hernia. 6. Non-obstructing bilateral nephrolithiasis Miscellaneous care. 1. Code status. Full 2. Nutrition. Heart healthy 3. VTE prophylaxis. SCDs; [facility] Quality VTE Prophylaxis VTE prophylaxis: mechanical ordered and pharmacologic ordered Hospitalist MIPS Advance Care Plan I have confirmed that the patient's Advanced Care Plan is present, code status is documented, or surrogate decision maker is listed in patient medical record.: Yes Medication Reconciliation I have utilized all available resources to obtain, update and review the patients current medications (includes all prescriptions, OTC, herbals, cannabis, and nutritional supplements).: Yes The patient is not eligible for med reconciliation; the patient is in a emergent medical situation where delaying treatment would jeopardize the patients health.: Yes
[2024-10-03 07:07] LABS: Basophils Percent Auto 0.1 % (0.2-1.2); Eosinophils Percent Auto 0.1 % (0-4.4); Hematocrit 29.8 % (42.0-52.0); Hemoglobin 10.6 g/dL (14.0-18.0); Immature Granulocyte Absolute 0.07 K/mm3 (0.00-0.031); Immature Granulocyte Percent A 0.6 % (0-0.5); Lymphocytes Absolute Auto 1.42 K/mm3 (0.9-3.2); Lymphocytes Percent Auto 11.6 % (18.3-44.2); Mean Corpuscular HGB Conc 35.6 g/dl (32-36); Mean Corpuscular Hemoglobin 34.2 pg (26-34); Mean Corpuscular Volume 96.1 fl (80-100); Mean Platelet Volume 10.9 fl (7.4-10.4); Monocytes Absolute Auto 1.2 K/mm3 (0.1-0.6); Monocytes Percent Auto 9.4 % (2.6-8.5); Neutrophils Absolute Auto 9.6 K/mm3 (1.3-6.7); Neutrophils Percent Auto 78.2 % (45.5-73.1); Platelet Count Result 196 k/mm3 (150-375); Red Cell Distribution Width 17.2 % (11.5-14.5); White Blood Count 12.3 K/mm3 (4.5-10.0)
[2024-10-03 07:20] LABS: Alanine Aminotransferase 26 U/L (6-50); Albumin Level 2.5 g/dL (3.5-5.1); Alkaline Phosphatase 243 U/L (38-126); Anion Gap 17 mmol/L (4-12); Aspartate Amino Transferase 67 U/L (17-59); Bilirubin,Total 1.1 mg/dL (0.2-1.3); Blood Urea Nitrogen 69 mg/dL (9-20); Calcium 7.6 mg/dL (8.4-10.2); Carbon Dioxide 13 mmol/L (22-30); Chloride 102 mmol/L (98-107); Cholesterol 165 mg/dL (0-200); Estimated CRCL calculation 6 ml/min; Estimated Glomerular Filt Rate 5; Glucose 151 mg/dL (65-110); HDL Direct 16 mg/dL; Lactate Dehydrogenase 371 U/L (120-246); Potassium 3.4 mmol/L (3.4-5.0); Sodium 132 mmol/L (137-145); Triglycerides 191 mg/dL (<150)
[2024-10-03 07:31] LABS: LDL Cholesterol Direct 104 mg/dL
[2024-10-03 07:41] LABS: Vancomycin Trough 15.7 ug/mL (10.0-20.0)
[2024-10-03 07:42] LABS: Hemoglobin A1C 5.4 % (<5.7)
[2024-10-03] MEDS: CENTRAL LINE FLUSH 10 ML IV PUSH ×3 (08:47→20:04)
[2024-10-03] MEDS: VASOPRESSIN INJ 100 UNITS in DEXTROSE 5% 95 ML IV CONT (09:01)
--- NOTE | 2024-10-03 09:17 | PM.CNCAR ---
Assessment and Plan Assessment and plan (1) Cirrhosis: Code(s): K74.60 - Unspecified cirrhosis of liver Status: Acute (2) Chronic alcohol use: Code(s): F10.90 - Alcohol use, unspecified, uncomplicated Status: Acute Assessment and Plan: Counseled to abstain from alcohol. (3) Acidosis, lactic: Code(s): E87.20 - Acidosis, unspecified Status: Acute Assessment and Plan: Probably due to sepsis. (4) UTI (urinary tract infection): Code(s): N39.0 - Urinary tract infection, site not specified Status: Acute (5) Acute renal failure: Code(s): N17.9 - Acute kidney failure, unspecified Status: Acute Assessment and Plan: Cr 10/GFR 5. Nephrology consulted. (6) Elevated troponin: Code(s): R79.89 - Other specified abnormal findings of blood chemistry Status: Acute Assessment and Plan: Mild with troponin at .08. Probably due to renal failure/septic shock/UTI. No symptoms to suggest ACS. EKG shows LBBB. Obtain echo. (7) Septic shock: Code(s): A41.9 - Sepsis, unspecified organism; R65.21 - Severe sepsis with septic shock Status: Acute Assessment and Plan: On Levophed and Vasopressin. On antibiotics. Managed by shoe reconditioner. History of Present Illness History of Present Illness Consult date/time: 10/03/24 09:17 Reason For Visit: Acute renal failure; Cirrhosis with ascites; Hypot Narrative: 74 yr old man presents to ER with weakness, malaise. He has a history of alcohol abuse, hypertension. Reports for last few weeks he noted generalized weakness, malaise and fatigue. He can walk only 10 feet prior to fatigue. He admits to drinking several fire ball whiskeys and beer for last 20 years. Denies chest pain, sob, orthopnea, PND, edema, dizziness, palpitations. Review of Systems Review of Systems: All systems reviewed & are unremarkable except as noted in HPI and below Constitutional: Constitutional: Reports as per HPI, Reports anorexia, Denies chills, Reports fatigue, Denies fever(s) and Reports poor appetite Cardiovascular: Cardiovascular: Reports as per HPI, Denies chest pain and Denies irregular heart rhythm Respiratory: Respiratory: Reports as per HPI and Denies dyspnea Gastrointestinal: Gastrointestinal: Reports as per HPI and Denies abdominal pain Genitourinary: Genitourinary: Reports as per HPI and Denies dysuria Musculoskeletal: Musculoskeletal: Reports as per HPI Neurologic: Reports as per HPI, Denies dizziness and Denies syncope [facility] Past Medical History Medical History History of kidney stones Surgical History Surgical History History of cataract surgery ~2022 Family History Family History Father Acute myocardial infarction Mother Cerebrovascular accident Social History Social History Social History: Code Status: Full Code Smoking status: Never smoker Second hand tobacco smoke exposure: Yes Alcohol intake: current Alcohol use details: regular; last drink approximately 09/24/24 Do You Feel Safe in your Home?: Yes Lack of Transportation: No Lack of Food: Never True Current Housing: I Have Housing Concerned About Future Housing: No Difficulty Paying Gas/Electric Bills: Decline to Answer Difficulty Paying for Meds: Decline to Answer Currently Unemployed: No Education: Decline to Answer Difficulty w/ Childcare or Family Care: No Living arrangements: with friend(s) Additional living arrangements comments: [place] Occupation/Education: retired Additional occupation/education comments: 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 Spiritual care concerns: No Meds Home Medications and Allergies Home Medications ?Medication ?Instructions ?Recorded ?Confirmed ?Type amlodipine 10 mg-benazepril 20 mg cap 10/02/24 History capsule multivitamin 1 tablet PO DAILY 10/02/24 10/02/24 History omeprazole 40 mg capsule,delayed 40 mg PO DAILY 10/02/24 10/02/24 History release Allergies Allergy/AdvReac Type Severity Reaction Status Date / Time No Known Allergies Allergy Verified 10/02/24 13:23 Vital Signs Vital Signs - 24 hr 10/02/24 13:17 10/02/24 13:33 10/02/24 13:34 Temperature 97.4 F L Pulse Rate 98 76 Respiratory Rate 22 H 24 H 12 Blood Pressure 98/55 L 89/58 L Pulse Oximetry 100 100 100 Oxygen Delivery Room Air 10/02/24 13:45 10/02/24 13:46 10/02/24 13:47 Temperature Pulse Rate 83 Respiratory Rate 23 H 18 16 Blood Pressure 86/61 L Pulse Oximetry 100 Oxygen Delivery 10/02/24 14:04 10/02/24 14:15 10/02/24 14:16 Temperature Pulse Rate 72 89 94 Respiratory Rate 18 16 13 Blood Pressure 98/58 L 92/59 L Pulse Oximetry Oxygen Delivery 10/02/24 14:30 10/02/24 14:31 10/02/24 14:45 Temperature Pulse Rate 84 82 Respiratory Rate 17 21 H 21 H Blood Pressure 78/54 L Pulse Oximetry 100 100 Oxygen Delivery 10/02/24 15:05 10/02/24 15:16 10/02/24 15:30 Temperature Pulse Rate 123 H 95 86 Respiratory Rate 22 H 24 H 18 Blood Pressure 87/60 L 97/67 L Pulse Oximetry 95 100 97 Oxygen Delivery 10/02/24 15:31 10/02/24 15:45 10/02/24 15:46 Temperature Pulse Rate 90 76 89 Respiratory Rate 17 19 24 H Blood Pressure 92/58 L 97/58 L Pulse Oximetry 99 100 Oxygen Delivery 10/02/24 16:00 10/02/24 16:01 10/02/24 16:02 Temperature Pulse Rate 91 93 92 Respiratory Rate 17 21 H 22 H Blood Pressure 86/46 L Pulse Oximetry 100 100 Oxygen Delivery 10/02/24 16:54 10/02/24 16:55 10/02/24 17:00 Temperature Pulse Rate 111 H Respiratory Rate 21 H 21 H 25 H Blood Pressure 93/56 L Pulse Oximetry 99 85 L Oxygen Delivery 10/02/24 17:15 10/02/24 17:16 10/02/24 17:26 Temperature Pulse Rate 110 H 108 H 103 H Respiratory Rate 22 H 30 H 19 Blood Pressure 105/71 105/71 Pulse Oximetry 100 100 100 Oxygen Delivery 10/02/24 17:30 10/02/24 17:31 10/02/24 17:45 Temperature Pulse Rate 104 H 92 73 Respiratory Rate 40 H 35 H 21 H Blood Pressure 98/55 L Pulse Oximetry 94 100 Oxygen Delivery 10/02/24 17:46 10/02/24 17:58 10/02/24 18:00 Temperature Pulse Rate 85 86 84 Respiratory Rate 23 H 22 H 19 Blood Pressure 61/36 L 86/49 L 86/49 L Pulse Oximetry 99 100 97 Oxygen Delivery 10/02/24 18:01 10/02/24 18:15 10/02/24 18:31 Temperature Pulse Rate 86 90 90 Respiratory Rate 16 18 29 H Blood Pressure 67/51 L Pulse Oximetry 98 98 100 Oxygen Delivery 10/02/24 18:45 10/02/24 19:00 10/02/24 19:00 Temperature Pulse Rate 90 92 96 Respiratory Rate 22 H 16 16 Blood Pressure 86/63 L 99/55 L Pulse Oximetry 100 100 Oxygen Delivery 10/02/24 19:01 10/02/24 19:14 10/02/24 19:15 Temperature Pulse Rate 93 92 Respiratory Rate 18 Blood Pressure 99/55 L Pulse Oximetry 100 100 Oxygen Delivery Room Air 10/02/24 19:15 10/02/24 19:15 10/02/24 19:16 Temperature 97.8 F Pulse Rate 88 94 90 Respiratory Rate 16 18 26 H Blood Pressure 91/56 L 91/56 L Pulse Oximetry 98 98 100 Oxygen Delivery 10/02/24 19:30 10/02/24 19:30 10/02/24 19:31 Temperature Pulse Rate 88 90 88 Respiratory Rate 18 24 H 19 Blood Pressure 83/55 L 83/55 L Pulse Oximetry 97 99 Oxygen Delivery 10/02/24 19:45 10/02/24 19:45 10/02/24 19:46 Temperature Pulse Rate 90 90 93 Respiratory Rate 20 17 17 Blood Pressure 90/56 L 90/56 L Pulse Oximetry 100 98 99 Oxygen Delivery 10/02/24 19:50 10/02/24 20:01 10/02/24 20:16 Temperature Pulse Rate 93 91 95 Respiratory Rate 26 H 26 H Blood Pressure 90/59 L 78/50 L 96/58 L Pulse Oximetry 100 99 Oxygen Delivery 10/02/24 20:18 10/02/24 20:20 10/02/24 20:30 Temperature Pulse Rate 94 95 94 Respiratory Rate 20 23 H 23 H Blood Pressure 101/52 L 101/52 L Pulse Oximetry 98 99 Oxygen Delivery 10/02/24 20:31 10/02/24 20:45 10/02/24 20:46 Temperature Pulse Rate 92 94 102 H Respiratory Rate 22 H 15 23 H Blood Pressure 90/56 L 89/53 L Pulse Oximetry 98 Oxygen Delivery 10/02/24 21:00 10/02/24 21:00 10/02/24 21:01 Temperature Pulse Rate 96 99 97 Respiratory Rate 25 H 18 Blood Pressure 96/47 L 96/47 L Pulse Oximetry Oxygen Delivery 10/02/24 21:15 10/02/24 21:30 10/02/24 21:32 Temperature Pulse Rate 101 H 102 H 101 H Respiratory Rate 16 26 H Blood Pressure 100/55 L 92/57 L 92/57 L Pulse Oximetry 100 98 Oxygen Delivery 10/02/24 21:49 10/02/24 22:01 10/02/24 22:39 Temperature Pulse Rate 99 96 99 Respiratory Rate 20 Blood Pressure 114/62 91/64 L 86/64 L Pulse Oximetry 100 Oxygen Delivery 10/02/24 22:45 10/02/24 23:03 10/02/24 23:30 Temperature Pulse Rate 99 98 96 Respiratory Rate 23 H Blood Pressure 100/64 92/52 L Pulse Oximetry 99 Oxygen Delivery Room Air 10/03/24 00:00 10/03/24 00:00 10/03/24 00:00 Temperature Pulse Rate 96 96 100 Respiratory Rate 24 H 24 H Blood Pressure 93/57 L Pulse Oximetry 99 99 Oxygen Delivery Room Air 10/03/24 00:00 10/03/24 01:35 10/03/24 02:00 Temperature Pulse Rate 96 88 90 Respiratory Rate 15 Blood Pressure 93/57 L 81/44 L 92/56 L Pulse Oximetry 94 Oxygen Delivery 10/03/24 02:00 10/03/24 02:00 10/03/24 06:57 Temperature Pulse Rate 90 90 91 Respiratory Rate Blood Pressure 92/56 L 93/64 L Pulse Oximetry Oxygen Delivery 10/03/24 08:00 10/03/24 08:00 10/03/24 09:01 Temperature 97.3 F L Pulse Rate 101 H 101 H 104 H Respiratory Rate 22 H Blood Pressure 107/55 L 107/55 L 111/88 Pulse Oximetry Oxygen Delivery Exam Const: General: cooperative and comfortable Resp: Auscultation: clear to auscultation bilaterally, no crackles, no rales, no rhonchi and no wheezes Cardio: Rate: regular rate Rhythm: regular rhythm Heart sounds: no murmurs Peripheral pulses: dorsalis pedis present GI: GI Palp: No abdominal tenderness, Yes Soft to palpation and Yes Ascites present Neuro: General: oriented to person, oriented to place and oriented to time Extrem: Right lower extremity: no edema Left lower extremity: no edema Results Labs and Meds 10/03/24 06:49 10/03/24 06:48 Lab results: Cardiac Enzymes 10/02/24 10/02/24 10/02/24 Range/Units 13:47 13:48 17:00 AST 84 H (17-59) U/L Lactate Dehydrogenase (120-246) U/L Troponin I 0.048 H* 0.045 H* (0.000-0.034) ng/mL 10/03/24 Range/Units 06:48 AST 67 H (17-59) U/L Lactate Dehydrogenase 371 H (120-246) U/L Troponin I 0.080 H* (0.000-0.034) ng/mL Coagulation 10/02/24 Range/Units 18:46 PT 21.0 H (11.1-14.7) Seconds APTT 36.3 (22.3-36.8) Seconds Lipids 10/03/24 Range/Units 06:48 Triglycerides 191 H (<150) mg/dL Cholesterol 165 (0-200) mg/dL CBC 10/02/24 10/03/24 Range/Units 13:48 06:49 WBC 9.6 12.3 H (4.5-10.0) K/mm3 RBC 3.37 L 3.10 L (4.6-6.20) M/mm3 Hgb 11.6 L 10.6 L (14.0-18.0) g/dL Hct 32.7 L 29.8 L (42.0-52.0) % Plt Count 220 196 (150-375) k/mm3 Lymph # (Auto) 1.06 1.42 (0.9-3.2) K/mm3 Brown # (Auto) 0.7 H 1.2 H (0.1-0.6) K/mm3 Eos # (Auto) 0.0 0.0 (0-0.3) K/mm3 Baso # (Auto) 0.0 0.0 (0.0-0.1) K/mm3 Comprehensive Metabolic Panel 10/02/24 10/03/24 Range/Units 13:48 06:48 Sodium 133 L 132 L (137-145) mmol/L Potassium 3.3 L 3.4 (3.4-5.0) mmol/L Chloride 97 L 102 (98-107) mmol/L Carbon Dioxide 14 L 13 L (22-30) mmol/L BUN 70 H 69 H (9-20) mg/dL Creatinine 10.64 H 10.25 H (0.7-1.3) mg/dL Glucose 188 H 151 H (65-110) mg/dL Calcium 8.3 L 7.6 L (8.4-10.2) mg/dL AST 84 H 67 H (17-59) U/L ALT 40 26 (6-50) U/L Alkaline Phosphatase 291 H 243 H (38-126) U/L Total Protein 7.0 6.0 L (6.3-8.2) g/dL Albumin 3.0 L 2.5 L (3.5-5.1) g/dL Intake and Output 10/02/24 10/03/24 10/03/24 23:59 07:59 15:59 Intake Total 904.4 195.6 0 Balance 904.4 195.6 0 Intake: IV 904.4 195.6 0 Norepinephrine 8 mg/D5w 250 ml 54.4 195.6 0 8 mg In 250 ml @ 5 MCG/MIN 9. 375 mls/hr IV CONT .Q24H KELECHI Rx #:[id number] Sodium Chloride 0.9% IV 500 ml 500 @ 999 mls/hr IV CONT .Q31M STA Rx#:[id number] KCl 20 Meq/Sw 100 ml 100 ml @ 100 50 mls/hr IVPB ONCE STA Rx#: [id number] Vancomycin 1,250 mg/Ns 250 ml 1 250 ,250 mg In 250 ml @ 166.667 mls /hr IVPB ONCE ONE Rx#:[id number]
[2024-10-03] MEDS: HYDROCORTISONE SODIUM SUCCINATE 100 MG/2 ML VIAL IV PUSH ×2 (09:26→17:52)
[2024-10-03] MEDS: ALBUMIN HUMAN 25% 25 GM/100 ML 100 ML IVPB ×3 (09:26→20:03)
--- NOTE | 2024-10-03 09:58 | P.CONIN_ITS ---
Assessment and Plan Assessment and plan (1) Septic shock: Code(s): A41.9 - Sepsis, unspecified organism; R65.21 - Severe sepsis with septic shock Status: Acute Assessment and Plan: Septic shock secondary to UTI. Patient may also have component of vaso dilatory shock secondary to cirrhosis Continue Levophed Change IV fluids to IV bicarb Add vasopressin Add stress dose hydrocortisone Urine and blood culture sent Continue cefepime (2) Acute renal failure: Code(s): N17.9 - Acute kidney failure, unspecified Status: Acute Assessment and Plan: Acute renal failure but with likely underlying chronic kidney disease. Likely multifactorial secondary to sepsis, shock, cirrhosis, patient also on ISH- inhibitor Nephrology consult Electrolytes are in acceptable range Continue IV fluids, albumin and vasopressors to maintain mean arterial pressure Avoid nephrotoxins Monitor urine output electrolytes and creatinine No no indication for emergency dialysis but patient may need dialysis if does not improve Paracentesis to relieve abdominal pressure Hartley catheter for accurate I&Os (3) Chronic alcohol use: Code(s): F10.90 - Alcohol use, unspecified, uncomplicated Status: Acute Assessment and Plan: Monitor for signs of withdrawal Thiamine and folic acid (4) Cirrhosis: Code(s): K74.60 - Unspecified cirrhosis of liver Status: Acute Assessment and Plan: Patient clearly has cirrhosis likely secondary to heavy alcohol intake over many years Check hepatitis panel to rule out any viral hepatitis etiology CT and ultrasound as below Vitamin K for coagulopathy Check ammonia level Ultrasound-guided Paracentesis ordered CT chest abdomen 1. Cirrhosis with large amount of ascites throughout the abdomen and pelvis. There is a reticulonodular appearance to the greater omentum which could be due to portal venous hypertension mesenteric edema although differential would include metastatic peritoneal implants. Consider diagnostic thoracentesis. 2. Atelectasis at the bilateral lower lungs, more prominent on the right secondary to prominent elevation the right hemidiaphragm. 3. Nonobstructing bilateral nephrolithiasis. 4. Diverticulosis. 5. Small sliding-type hiatal hernia. 6. Small fat and ascites containing right inguinal hernia. Ultrasound abdomen IMPRESSION: Gross ascites. Liver cirrhosis. Highly suggestive gallbladder stones. (5) Ascites: Code(s): R18.8 - Other ascites Status: Acute Assessment and Plan: See above (6) UTI (urinary tract infection): Code(s): N39.0 - Urinary tract infection, site not specified Status: Acute Assessment and Plan: See above (7) Coagulopathy: Code(s): D68.9 - Coagulation defect, unspecified Status: Acute Assessment and Plan: Secondary to cirrhosis Vitamin K ordered (8) Swelling of lower extremity: Code(s): M79.89 - Other specified soft tissue disorders Status: Acute Assessment and Plan: Likely secondary to cirrhosis and renal failure Check Dopplers to rule out any DVT (9) GERD (gastroesophageal reflux disease): Code(s): K21.9 - Gastro-esophageal reflux disease without esophagitis Status: Acute (10) Non-ST elevation MA (NSTEMI): Code(s): I21.4 - Non-ST elevation (NSTEMI) myocardial infarction Status: Acute Assessment and Plan: Mildly elevated troponin in light of acute kidney injury and septic shock Denies any chest pain Hold beta-юлия ISH-inhibitor due to shock Hold statin due to cirrhosis until workup is complete Hold aspirin due to coagulopathy and impending invasive procedure Obtain echocardiogram Consult cardiology Plan DVT prophylaxis -SCD, start heparin after paracentesis Stress ulcer prophylaxis -PPI Nutrition -npo Code Status - Full Code Total Critical Care Time - 35 minutes Due to a high probability of clinically significant, life threatening deterioration, the patient required my highest level of preparedness to intervene emergently and I personally spent this critical care time directly and personally managing the patient. This critical care time included obtaining a history; examining the patient; pulse oximetry; ordering and review of studies; arranging urgent treatment with development of a management plan; evaluation of patient's response to treatment; frequent reassessment; and discussions with other providers. It was exclusive of separately billable procedures and treating other patients and teaching time. Please see Assessment and Plan section and the rest of the note for further information on patient assessment and treatment [employer] Consult Note Consult date: 10/03/24 Reason for consult: Shock, ITZEL HPI: Daniel Domínguez is a 74 year old male Review of Systems 2 Review of Systems: All systems reviewed & are unremarkable except as noted in HPI and below (HPI) [facility] Past Medical History Medical History (Updated 10/03/24 @ 10:04 by Luis Jaimes MD) GERD (gastroesophageal reflux disease) Hypertension History of kidney stones Surgical History Surgical History History of cataract surgery ~2022 Family History Family History Father Acute myocardial infarction Mother Cerebrovascular accident Social History Social History Social History: Code Status: Full Code Smoking status: Never smoker Second hand tobacco smoke exposure: Yes Alcohol intake: current Alcohol use details: regular; last drink approximately 09/24/24 Do You Feel Safe in your Home?: Yes Lack of Transportation: No Lack of Food: Never True Current Housing: I Have Housing Concerned About Future Housing: No Difficulty Paying Gas/Electric Bills: Decline to Answer Difficulty Paying for Meds: Decline to Answer Currently Unemployed: No Education: Decline to Answer Difficulty w/ Childcare or Family Care: No Living arrangements: with friend(s) Additional living arrangements comments: [place] Occupation/Education: retired Additional occupation/education comments: previously worked for [employer] Spiritual care concerns: No Meds Home Medications and Allergies Home Medications ?Medication ?Instructions ?Recorded ?Confirmed ?Type amlodipine 10 mg-benazepril 20 mg cap 10/02/24 History capsule multivitamin 1 tablet PO DAILY 10/02/24 10/02/24 History omeprazole 40 mg capsule,delayed 40 mg PO DAILY 10/02/24 10/02/24 History release Allergies Allergy/AdvReac Type Severity Reaction Status Date / Time No Known Allergies Allergy Verified 10/02/24 13:23 Vital Signs Vital Signs - 24 hr 10/02/24 13:17 10/02/24 13:33 10/02/24 13:34 Temperature 36.3 C L Pulse Rate 98 76 Respiratory Rate 22 H 24 H 12 Blood Pressure 98/55 L 89/58 L Pulse Oximetry 100 100 100 Oxygen Delivery Room Air 10/02/24 13:45 10/02/24 13:46 10/02/24 13:47 Temperature Pulse Rate 83 Respiratory Rate 23 H 18 16 Blood Pressure 86/61 L Pulse Oximetry 100 Oxygen Delivery 10/02/24 14:04 10/02/24 14:15 10/02/24 14:16 Temperature Pulse Rate 72 89 94 Respiratory Rate 18 16 13 Blood Pressure 98/58 L 92/59 L Pulse Oximetry Oxygen Delivery 10/02/24 14:30 10/02/24 14:31 10/02/24 14:45 Temperature Pulse Rate 84 82 Respiratory Rate 17 21 H 21 H Blood Pressure 78/54 L Pulse Oximetry 100 100 Oxygen Delivery 10/02/24 15:05 10/02/24 15:16 10/02/24 15:30 Temperature Pulse Rate 123 H 95 86 Respiratory Rate 22 H 24 H 18 Blood Pressure 87/60 L 97/67 L Pulse Oximetry 95 100 97 Oxygen Delivery 10/02/24 15:31 10/02/24 15:45 10/02/24 15:46 Temperature Pulse Rate 90 76 89 Respiratory Rate 17 19 24 H Blood Pressure 92/58 L 97/58 L Pulse Oximetry 99 100 Oxygen Delivery 10/02/24 16:00 10/02/24 16:01 10/02/24 16:02 Temperature Pulse Rate 91 93 92 Respiratory Rate 17 21 H 22 H Blood Pressure 86/46 L Pulse Oximetry 100 100 Oxygen Delivery 10/02/24 16:54 10/02/24 16:55 10/02/24 17:00 Temperature Pulse Rate 111 H Respiratory Rate 21 H 21 H 25 H Blood Pressure 93/56 L Pulse Oximetry 99 85 L Oxygen Delivery 10/02/24 17:15 10/02/24 17:16 10/02/24 17:26 Temperature Pulse Rate 110 H 108 H 103 H Respiratory Rate 22 H 30 H 19 Blood Pressure 105/71 105/71 Pulse Oximetry 100 100 100 Oxygen Delivery 10/02/24 17:30 10/02/24 17:31 10/02/24 17:45 Temperature Pulse Rate 104 H 92 73 Respiratory Rate 40 H 35 H 21 H Blood Pressure 98/55 L Pulse Oximetry 94 100 Oxygen Delivery 10/02/24 17:46 10/02/24 17:58 10/02/24 18:00 Temperature Pulse Rate 85 86 84 Respiratory Rate 23 H 22 H 19 Blood Pressure 61/36 L 86/49 L 86/49 L Pulse Oximetry 99 100 97 Oxygen Delivery 10/02/24 18:01 10/02/24 18:15 10/02/24 18:31 Temperature Pulse Rate 86 90 90 Respiratory Rate 16 18 29 H Blood Pressure 67/51 L Pulse Oximetry 98 98 100 Oxygen Delivery 10/02/24 18:45 10/02/24 19:00 10/02/24 19:00 Temperature Pulse Rate 90 92 96 Respiratory Rate 22 H 16 16 Blood Pressure 86/63 L 99/55 L Pulse Oximetry 100 100 Oxygen Delivery 10/02/24 19:01 10/02/24 19:14 10/02/24 19:15 Temperature Pulse Rate 93 92 Respiratory Rate 18 Blood Pressure 99/55 L Pulse Oximetry 100 100 Oxygen Delivery Room Air 10/02/24 19:15 10/02/24 19:15 10/02/24 19:16 Temperature 36.6 C Pulse Rate 88 94 90 Respiratory Rate 16 18 26 H Blood Pressure 91/56 L 91/56 L Pulse Oximetry 98 98 100 Oxygen Delivery 10/02/24 19:30 10/02/24 19:30 10/02/24 19:31 Temperature Pulse Rate 88 90 88 Respiratory Rate 18 24 H 19 Blood Pressure 83/55 L 83/55 L Pulse Oximetry 97 99 Oxygen Delivery 10/02/24 19:45 10/02/24 19:45 10/02/24 19:46 Temperature Pulse Rate 90 90 93 Respiratory Rate 20 17 17 Blood Pressure 90/56 L 90/56 L Pulse Oximetry 100 98 99 Oxygen Delivery 10/02/24 19:50 10/02/24 20:01 10/02/24 20:16 Temperature Pulse Rate 93 91 95 Respiratory Rate 26 H 26 H Blood Pressure 90/59 L 78/50 L 96/58 L Pulse Oximetry 100 99 Oxygen Delivery 10/02/24 20:18 10/02/24 20:20 10/02/24 20:30 Temperature Pulse Rate 94 95 94 Respiratory Rate 20 23 H 23 H Blood Pressure 101/52 L 101/52 L Pulse Oximetry 98 99 Oxygen Delivery 10/02/24 20:31 10/02/24 20:45 10/02/24 20:46 Temperature Pulse Rate 92 94 102 H Respiratory Rate 22 H 15 23 H Blood Pressure 90/56 L 89/53 L Pulse Oximetry 98 Oxygen Delivery 10/02/24 21:00 10/02/24 21:00 10/02/24 21:01 Temperature Pulse Rate 96 99 97 Respiratory Rate 25 H 18 Blood Pressure 96/47 L 96/47 L Pulse Oximetry Oxygen Delivery 10/02/24 21:15 10/02/24 21:30 10/02/24 21:32 Temperature Pulse Rate 101 H 102 H 101 H Respiratory Rate 16 26 H Blood Pressure 100/55 L 92/57 L 92/57 L Pulse Oximetry 100 98 Oxygen Delivery 10/02/24 21:49 10/02/24 22:01 10/02/24 22:39 Temperature Pulse Rate 99 96 99 Respiratory Rate 20 Blood Pressure 114/62 91/64 L 86/64 L Pulse Oximetry 100 Oxygen Delivery 10/02/24 22:45 10/02/24 23:03 10/02/24 23:30 Temperature Pulse Rate 99 98 96 Respiratory Rate 23 H Blood Pressure 100/64 92/52 L Pulse Oximetry 99 Oxygen Delivery Room Air 10/03/24 00:00 10/03/24 00:00 10/03/24 00:00 Temperature Pulse Rate 96 96 100 Respiratory Rate 24 H 24 H Blood Pressure 93/57 L Pulse Oximetry 99 99 Oxygen Delivery Room Air 10/03/24 00:00 10/03/24 01:35 10/03/24 02:00 Temperature Pulse Rate 96 88 90 Respiratory Rate 15 Blood Pressure 93/57 L 81/44 L 92/56 L Pulse Oximetry 94 Oxygen Delivery 10/03/24 02:00 10/03/24 02:00 10/03/24 06:57 Temperature Pulse Rate 90 90 91 Respiratory Rate Blood Pressure 92/56 L 93/64 L Pulse Oximetry Oxygen Delivery 10/03/24 08:00 10/03/24 08:00 10/03/24 08:00 Temperature 36.3 C L Pulse Rate 101 H 101 H 97 Respiratory Rate 22 H Blood Pressure 107/55 L 107/55 L Pulse Oximetry Oxygen Delivery 10/03/24 08:00 10/03/24 09:01 Temperature Pulse Rate 104 H 104 H Respiratory Rate 22 H Blood Pressure 111/88 Pulse Oximetry 94 Oxygen Delivery Room Air Exam 2 Narrative: General: Pt is alert awake and in NAD Lungs/Chest: Trachea central Clear BS B/L, No crackles or wheezing. Cardiac: RRR. Normal S1 S2. No murmurs Circulation: Pedal pulses are intact and symmetrical. Abdomen: Normal bowel sounds.. Abdomen is distended with ascites, fluid thrill present Extremities: Bilateral pitting edema present : Hartley in place with clear urine Neurologic: Follows commands. Moves all 4 extremities PERRL AO x3 Skin: No Rash Results Labs 10/03/24 06:49 10/03/24 06:48 Labs: Short CBC 10/02/24 10/03/24 Range/Units 13:48 06:49 WBC 9.6 12.3 H (4.5-10.0) K/mm3 Hgb 11.6 L 10.6 L (14.0-18.0) g/dL Hct 32.7 L 29.8 L (42.0-52.0) % Plt Count 220 196 (150-375) k/mm3 BMP 10/02/24 10/03/24 13:48 06:48 Sodium 133 L 132 L Potassium 3.3 L 3.4 Chloride 97 L 102 Carbon Dioxide 14 L 13 L BUN 70 H 69 H Creatinine 10.64 H 10.25 H Glucose 188 H 151 H Calcium 8.3 L 7.6 L Cardiac Enzymes 10/02/24 10/02/24 10/03/24 Range/Units 13:47 17:00 06:48 Total Creatine Kinase 45 L (55-170) U/L Troponin I 0.048 H* 0.045 H* 0.080 H* (0.000-0.034) ng/mL Liver Function 10/02/24 10/03/24 Range/Units 13:48 06:48 Total Bilirubin 1.4 H 1.1 (0.2-1.3) mg/dL AST 84 H 67 H (17-59) U/L ALT 40 26 (6-50) U/L Alkaline Phosphatase 291 H 243 H (38-126) U/L Albumin 3.0 L 2.5 L (3.5-5.1) g/dL Urine 10/02/24 Range/Units 17:00 Urine Color Dark yellow (Yellow) Urine Appearance Cloudy H (Clear) Urine pH 5.5 (5.0-9.0) Ur Specific [place] 1.020 (1.001-1.035) Urine Protein 2+ H (Negative) mg/dL Urine Glucose (UA) Negative (Negative) mg/dL Quality VTE Prophylaxis VTE prophylaxis: mechanical ordered Hospitalist MIPS Advance Care Plan I have confirmed that the patient's Advanced Care Plan is present, code status is documented, or surrogate decision maker is listed in patient medical record.: Yes Medication Reconciliation I have utilized all available resources to obtain, update and review the patients current medications (includes all prescriptions, OTC, herbals, cannabis, and nutritional supplements).: Yes
[2024-10-03] MEDS: SODIUM BICARBONATE 8.4% 150 MEQ in WATER, STERILE FOR INJECTION 950 ML 100 MEQ IV CONT ×2 (10:06→20:03)
[2024-10-03] MEDS: PHYTONADIONE INJ 10 MG/ML AMP IM (10:10)
--- NOTE | 2024-10-03 10:14 | PM.IMPN ---
Progress Note: A&P Assessment and Plan (1) Septic shock: Code(s): A41.9 - Sepsis, unspecified organism; R65.21 - Severe sepsis with septic shock Status: Acute Assessment and Plan: Septic shock secondary to UTI. Patient may also have component of vaso dilatory shock secondary to cirrhosis Continue Levophed Change IV fluids to IV bicarb Add vasopressin Add stress dose hydrocortisone Urine and blood culture sent Continue cefepime (2) Acute renal failure: Code(s): N17.9 - Acute kidney failure, unspecified Status: Acute Assessment and Plan: Acute renal failure but with likely underlying chronic kidney disease. Likely multifactorial secondary to sepsis, shock, cirrhosis, patient also on ISH-inhibitor Nephrology consult Electrolytes are in acceptable range Continue IV fluids, albumin and vasopressors to maintain mean arterial pressure Avoid nephrotoxins Monitor urine output electrolytes and creatinine No no indication for emergency dialysis but patient may need dialysis if does not improve Paracentesis to relieve abdominal pressure Hartley catheter for accurate I&Os (3) Chronic alcohol use: Code(s): F10.90 - Alcohol use, unspecified, uncomplicated Status: Acute Assessment and Plan: Monitor for signs of withdrawal Thiamine and folic acid (4) Cirrhosis: Code(s): K74.60 - Unspecified cirrhosis of liver Status: Acute Assessment and Plan: Patient clearly has cirrhosis likely secondary to heavy alcohol intake over many years Check hepatitis panel to rule out any viral hepatitis etiology CT and ultrasound as below Vitamin K for coagulopathy Check ammonia level Ultrasound-guided Paracentesis ordered CT chest abdomen 1. Cirrhosis with large amount of ascites throughout the abdomen and pelvis. There is a reticulonodular appearance to the greater omentum which could be due to portal venous hypertension mesenteric edema although differential would include metastatic peritoneal implants. Consider diagnostic thoracentesis. 2. Atelectasis at the bilateral lower lungs, more prominent on the right secondary to prominent elevation the right hemidiaphragm. 3. Nonobstructing bilateral nephrolithiasis. 4. Diverticulosis. 5. Small sliding-type hiatal hernia. 6. Small fat and ascites containing right inguinal hernia. Ultrasound abdomen IMPRESSION: Gross ascites. Liver cirrhosis. Highly suggestive gallbladder stones. (5) Ascites: Code(s): R18.8 - Other ascites Status: Acute Assessment and Plan: See above (6) UTI (urinary tract infection): Code(s): N39.0 - Urinary tract infection, site not specified Status: Acute Assessment and Plan: See above (7) Coagulopathy: Code(s): D68.9 - Coagulation defect, unspecified Status: Acute Assessment and Plan: Secondary to cirrhosis Vitamin K ordered (8) Swelling of lower extremity: Code(s): M79.89 - Other specified soft tissue disorders Status: Acute Assessment and Plan: Likely secondary to cirrhosis and renal failure Check Dopplers to rule out any DVT (9) GERD (gastroesophageal reflux disease): Code(s): K21.9 - Gastro-esophageal reflux disease without esophagitis Status: Acute (10) Non-ST elevation NV (NSTEMI): Code(s): I21.4 - Non-ST elevation (NSTEMI) myocardial infarction Status: Acute Assessment and Plan: Mildly elevated troponin in light of acute kidney injury and septic shock Denies any chest pain Hold beta-юлия ISH-inhibitor due to shock Hold statin due to cirrhosis until workup is complete Hold aspirin due to coagulopathy and impending invasive procedure Obtain echocardiogram Consult cardiology Subjective Date/time seen: 10/03/24 10:14 Interval history: Patient currently reports he doing well better than yesterday. Advised him on diabetes and exercise. Review of Systems Review of Systems: All systems reviewed & are unremarkable except as noted in HPI and below (HPI) Objective Data Vital Signs Vital Signs: Vital Signs - 24 hr 10/02/24 13:17 10/02/24 13:33 10/02/24 13:34 Temperature 97.4 F L Pulse Rate 98 76 Respiratory Rate 22 H 24 H 12 Blood Pressure 98/55 L 89/58 L Pulse Oximetry 100 100 100 Oxygen Delivery Room Air 10/02/24 13:45 10/02/24 13:46 10/02/24 13:47 Temperature Pulse Rate 83 Respiratory Rate 23 H 18 16 Blood Pressure 86/61 L Pulse Oximetry 100 Oxygen Delivery 10/02/24 14:04 10/02/24 14:15 10/02/24 14:16 Temperature Pulse Rate 72 89 94 Respiratory Rate 18 16 13 Blood Pressure 98/58 L 92/59 L Pulse Oximetry Oxygen Delivery 10/02/24 14:30 10/02/24 14:31 10/02/24 14:45 Temperature Pulse Rate 84 82 Respiratory Rate 17 21 H 21 H Blood Pressure 78/54 L Pulse Oximetry 100 100 Oxygen Delivery 10/02/24 15:05 10/02/24 15:16 10/02/24 15:30 Temperature Pulse Rate 123 H 95 86 Respiratory Rate 22 H 24 H 18 Blood Pressure 87/60 L 97/67 L Pulse Oximetry 95 100 97 Oxygen Delivery 10/02/24 15:31 10/02/24 15:45 10/02/24 15:46 Temperature Pulse Rate 90 76 89 Respiratory Rate 17 19 24 H Blood Pressure 92/58 L 97/58 L Pulse Oximetry 99 100 Oxygen Delivery 10/02/24 16:00 10/02/24 16:01 10/02/24 16:02 Temperature Pulse Rate 91 93 92 Respiratory Rate 17 21 H 22 H Blood Pressure 86/46 L Pulse Oximetry 100 100 Oxygen Delivery 10/02/24 16:54 10/02/24 16:55 10/02/24 17:00 Temperature Pulse Rate 111 H Respiratory Rate 21 H 21 H 25 H Blood Pressure 93/56 L Pulse Oximetry 99 85 L Oxygen Delivery 10/02/24 17:15 10/02/24 17:16 10/02/24 17:26 Temperature Pulse Rate 110 H 108 H 103 H Respiratory Rate 22 H 30 H 19 Blood Pressure 105/71 105/71 Pulse Oximetry 100 100 100 Oxygen Delivery 10/02/24 17:30 10/02/24 17:31 10/02/24 17:45 Temperature Pulse Rate 104 H 92 73 Respiratory Rate 40 H 35 H 21 H Blood Pressure 98/55 L Pulse Oximetry 94 100 Oxygen Delivery 10/02/24 17:46 10/02/24 17:58 10/02/24 18:00 Temperature Pulse Rate 85 86 84 Respiratory Rate 23 H 22 H 19 Blood Pressure 61/36 L 86/49 L 86/49 L Pulse Oximetry 99 100 97 Oxygen Delivery 10/02/24 18:01 10/02/24 18:15 10/02/24 18:31 Temperature Pulse Rate 86 90 90 Respiratory Rate 16 18 29 H Blood Pressure 67/51 L Pulse Oximetry 98 98 100 Oxygen Delivery 10/02/24 18:45 10/02/24 19:00 10/02/24 19:00 Temperature Pulse Rate 90 92 96 Respiratory Rate 22 H 16 16 Blood Pressure 86/63 L 99/55 L Pulse Oximetry 100 100 Oxygen Delivery 10/02/24 19:01 10/02/24 19:14 10/02/24 19:15 Temperature Pulse Rate 93 92 Respiratory Rate 18 Blood Pressure 99/55 L Pulse Oximetry 100 100 Oxygen Delivery Room Air 10/02/24 19:15 10/02/24 19:15 10/02/24 19:16 Temperature 97.8 F Pulse Rate 88 94 90 Respiratory Rate 16 18 26 H Blood Pressure 91/56 L 91/56 L Pulse Oximetry 98 98 100 Oxygen Delivery 10/02/24 19:30 10/02/24 19:30 10/02/24 19:31 Temperature Pulse Rate 88 90 88 Respiratory Rate 18 24 H 19 Blood Pressure 83/55 L 83/55 L Pulse Oximetry 97 99 Oxygen Delivery 10/02/24 19:45 10/02/24 19:45 10/02/24 19:46 Temperature Pulse Rate 90 90 93 Respiratory Rate 20 17 17 Blood Pressure 90/56 L 90/56 L Pulse Oximetry 100 98 99 Oxygen Delivery 10/02/24 19:50 10/02/24 20:01 10/02/24 20:16 Temperature Pulse Rate 93 91 95 Respiratory Rate 26 H 26 H Blood Pressure 90/59 L 78/50 L 96/58 L Pulse Oximetry 100 99 Oxygen Delivery 10/02/24 20:18 10/02/24 20:20 10/02/24 20:30 Temperature Pulse Rate 94 95 94 Respiratory Rate 20 23 H 23 H Blood Pressure 101/52 L 101/52 L Pulse Oximetry 98 99 Oxygen Delivery 10/02/24 20:31 10/02/24 20:45 10/02/24 20:46 Temperature Pulse Rate 92 94 102 H Respiratory Rate 22 H 15 23 H Blood Pressure 90/56 L 89/53 L Pulse Oximetry 98 Oxygen Delivery 10/02/24 21:00 10/02/24 21:00 10/02/24 21:01 Temperature Pulse Rate 96 99 97 Respiratory Rate 25 H 18 Blood Pressure 96/47 L 96/47 L Pulse Oximetry Oxygen Delivery 10/02/24 21:15 10/02/24 21:30 10/02/24 21:32 Temperature Pulse Rate 101 H 102 H 101 H Respiratory Rate 16 26 H Blood Pressure 100/55 L 92/57 L 92/57 L Pulse Oximetry 100 98 Oxygen Delivery 10/02/24 21:49 10/02/24 22:01 10/02/24 22:39 Temperature Pulse Rate 99 96 99 Respiratory Rate 20 Blood Pressure 114/62 91/64 L 86/64 L Pulse Oximetry 100 Oxygen Delivery 10/02/24 22:45 10/02/24 23:03 10/02/24 23:30 Temperature Pulse Rate 99 98 96 Respiratory Rate 23 H Blood Pressure 100/64 92/52 L Pulse Oximetry 99 Oxygen Delivery Room Air 10/03/24 00:00 10/03/24 00:00 10/03/24 00:00 Temperature Pulse Rate 96 96 100 Respiratory Rate 24 H 24 H Blood Pressure 93/57 L Pulse Oximetry 99 99 Oxygen Delivery Room Air 10/03/24 00:00 10/03/24 01:35 10/03/24 02:00 Temperature Pulse Rate 96 88 90 Respiratory Rate 15 Blood Pressure 93/57 L 81/44 L 92/56 L Pulse Oximetry 94 Oxygen Delivery 10/03/24 02:00 10/03/24 02:00 10/03/24 06:57 Temperature Pulse Rate 90 90 91 Respiratory Rate Blood Pressure 92/56 L 93/64 L Pulse Oximetry Oxygen Delivery 10/03/24 08:00 10/03/24 08:00 10/03/24 08:00 Temperature 97.3 F L Pulse Rate 101 H 101 H 97 Respiratory Rate 22 H Blood Pressure 107/55 L 107/55 L Pulse Oximetry Oxygen Delivery 10/03/24 08:00 10/03/24 09:01 Temperature Pulse Rate 104 H 104 H Respiratory Rate 22 H Blood Pressure 111/88 Pulse Oximetry 94 Oxygen Delivery Room Air Intake/Output Intake/Output: Intake & Output 09/30/24 10/01/24 10/02/24 10/03/24 23:59 23:59 23:59 23:59 Intake Total 4.4 195.6 Balance 4.4 195.6 Meds/Results Medications: Active Medications Generic Name Dose Route Start Last Admin Trade Name Freq PRN Reason Stop Dose Admin Acetaminophen 650 mg 10/03/24 03:27 Acetaminophen 325 Mg Tablet PO Q4H PRN Mild Pain (1-3) or Fever Folic Acid 1 mg 10/03/24 09:00 Folic Acid 1 Mg Tablet PO DAILY KELECHI Heparin Sodium (Porcine) 5,000 units 10/03/24 21:00 Heparin Sodium 5,000 Units/Ml Vial SUB-Q Q12HR KELECHI Hydrocortisone Sodium Succinate 100 mg 10/03/24 09:00 10/03/24 09:26 Hydrocortisone Sodium Succinate 100 Mg/2 Ml Vial IV PUSH 100 mg Q8H KELECHI Administration Norepinephrine Bitartrate 8 mg in 250 mls @ 28.125 mls/hr 10/02/24 19:40 10/03/24 08:48 Levophed 8 Mg/D5w 250 Ml IV CONT Not Given .Q8H54M KELECHI Protocol 15 MCG/MIN Cefepime HCl 1 gm in 50 mls @ 100 mls/hr 10/03/24 14:00 Maxipime 1 Gm/Ns 50 Ml IVPB Q24H KELECHI Sodium Bicarbonate 150 meq/ 1,100 mls @ 100 mls/hr 10/03/24 09:30 10/03/24 10:06 Sterile Water IV CONT 100 mls/hr .Q11H KELECHI Administration Vasopressin 100 units/ 100 mls @ 2.4 mls/hr 10/03/24 08:40 10/03/24 09:01 Dextrose IV CONT 0.04 units/min .[id number] KELECHI 2.4 mls/hr Administration Protocol 0.04 UNITS/MIN Albumin Human 100 mls @ 60 mls/hr 10/03/24 09:00 10/03/24 09:26 Albutein IVPB 10/04/24 04:39 60 mls/hr Q6H KELECHI Administration Lactulose 20 gm 10/03/24 17:00 Lactulose 20 Gm/30 Ml Udc PO BID KELECHI Melatonin 5 mg 10/03/24 03:26 Melatonin 5 Mg Tablet PO HS PRN Insomnia Pantoprazole Sodium 40 mg 10/04/24 09:00 Pantoprazole Sodium Iv 40 Mg Vial IV PUSH QAM KELECHI Perflutren Lipid Microsphere 0 ml 10/03/24 03:27 Perflutren Lipid Microspheres 1.5 Ml Vial Diluted To 10 Ml Total Volume IV PUSH 10/06/24 03:32 ONCE PRN adequate visualization Protocol Prochlorperazine Edisylate 10 mg 10/03/24 03:26 Prochlorperazine Edisylate 10 Mg/2 Ml Vial IV PUSH Q6H PRN Nausea And Vomiting Sodium Chloride 10 ml 10/03/24 06:00 10/03/24 08:47 Central Line Flush IV PUSH 10 ml Q8HR KELECHI Administration Sodium Chloride 20 ml 10/02/24 22:02 Central Line Flush IV PUSH PRN PRN after blood draws Radiology Results: ITS Impressions Chest/Abdomen/Pelvis CT 10/02/24 16:47 IMPRESSION: 1. Cirrhosis with large amount of ascites throughout the abdomen and pelvis. There is a reticulonodular appearance to the greater omentum which could be due to portal venous hypertension mesenteric edema although differential would include metastatic peritoneal implants. Consider diagnostic thoracentesis. 2. Atelectasis at the bilateral lower lungs, more prominent on the right secondary to prominent elevation the right hemidiaphragm. 3. Nonobstructing bilateral nephrolithiasis. 4. Diverticulosis. 5. Small sliding-type hiatal hernia. 6. Small fat and ascites containing right inguinal hernia. Abdomen Ultrasound 10/02/24 17:06 IMPRESSION: Gross ascites. Liver cirrhosis. Highly suggestive gallbladder stones. Labs Labs: Laboratory Results - last 24 hr 10/02/24 10/02/24 10/02/24 13:47 13:48 14:22 WBC 9.6 RBC 3.37 L Hgb 11.6 L Hct 32.7 L MCV 97.0 MCH 34.4 H MCHC 35.5 RDW 17.3 H Plt Count 220 MPV 10.7 H Immature Gran % (Auto) 0.3 Neut % (Auto) 81.3 H Lymph % (Auto) 11.0 L [place] % (Auto) 7.2 Eos % (Auto) 0.1 Baso % (Auto) 0.1 L Lymph # (Auto) 1.06 [place] # (Auto) 0.7 H Eos # (Auto) 0.0 Baso # (Auto) 0.0 Abs Immat Gran (auto) 0.03 Absolute Neuts (auto) 7.8 H Absolute Nucleated RBC 0.000 Nucleated RBC % 0.0 PT INR APTT D-Dimer 3.94 H Sodium 133 L Potassium 3.3 L Chloride 97 L Carbon Dioxide 14 L Anion Gap 22 H BUN 70 H Creatinine 10.64 H Estim Creat Clear Calc 6 Estimated GFR 5 L Glucose 188 H Hemoglobin A1c Lactic Acid 5.7 H* Calcium 8.3 L Phosphorus Magnesium 2.1 Total Bilirubin 1.4 H AST 84 H ALT 40 Alkaline Phosphatase 291 H Ammonia Lactate Dehydrogenase Total Creatine Kinase 45 L Troponin I 0.048 H* NT-Pro-B Natriuret Pep 2830 H Total Protein 7.0 Albumin 3.0 L Triglycerides Cholesterol LDL Cholesterol Direct HDL Direct TSH 3.050 Urine Color Urine Appearance Urine pH Ur Specific [place] Urine Protein Urine Glucose (UA) Urine Ketones Ur Blood (Man) Urine Nitrate Urine Bilirubin Urine Urobilinogen Leukocyte Esterase Rfl Urine RBC Urine WBC Ur Squamous Epith Cells Urine Bacteria Urine Casts Hyaline Casts Nasal MRSA (PCR) Vancomycin Trough Urine Opiates Screen Urine Methadone Screen Ur Barbiturates Screen Ur Phencyclidine Scrn Ur Amphetamine Screen U Benzodiazepines Scrn Urine Cocaine Screen U Cannabinoids Screen Ethyl Alcohol < 10 Influenza A (RT-PCR) Negative Influenza B (RT-PCR) Negative RSV (RT-PCR) Negative SARS-CoV-2 RNA (RT-PCR) Negative 10/02/24 10/02/24 10/02/24 15:22 17:00 18:46 WBC RBC Hgb Hct MCV MCH MCHC RDW Plt Count MPV Immature Gran % (Auto) Neut % (Auto) Lymph % (Auto) [place] % (Auto) Eos % (Auto) Baso % (Auto) Lymph # (Auto) [place] # (Auto) Eos # (Auto) Baso # (Auto) Abs Immat Gran (auto) Absolute Neuts (auto) Absolute Nucleated RBC Nucleated RBC % PT 21.0 H INR 1.7 APTT 36.3 D-Dimer Sodium Potassium Chloride Carbon Dioxide Anion Gap BUN Creatinine Estim Creat Clear Calc Estimated GFR Glucose Hemoglobin A1c Lactic Acid 3.3 H Calcium Phosphorus 5.8 H Magnesium Total Bilirubin AST ALT Alkaline Phosphatase Ammonia 45 H Lactate Dehydrogenase Total Creatine Kinase Troponin I 0.045 H* NT-Pro-B Natriuret Pep Total Protein Albumin Triglycerides Cholesterol LDL Cholesterol Direct HDL Direct TSH Urine Color Dark yellow Urine Appearance Cloudy H Urine pH 5.5 Ur Specific [place] 1.020 Urine Protein 2+ H Urine Glucose (UA) Negative Urine Ketones Trace H Ur Blood (Man) 3+ H Urine Nitrate Negative Urine Bilirubin 2+ H Urine Urobilinogen 1.0 Leukocyte Esterase Rfl 2+ H Urine RBC >100 H Urine WBC >100 H Ur Squamous Epith Cells None seen Urine Bacteria None seen Urine Casts >20 Hyaline Casts Present Nasal MRSA (PCR) Not detected Vancomycin Trough Urine Opiates Screen Negative Urine Methadone Screen Negative Ur Barbiturates Screen Negative Ur Phencyclidine Scrn Negative Ur Amphetamine Screen Negative U Benzodiazepines Scrn Negative Urine Cocaine Screen Negative U Cannabinoids Screen Positive A Ethyl Alcohol Influenza A (RT-PCR) Influenza B (RT-PCR) RSV (RT-PCR) SARS-CoV-2 RNA (RT-PCR) 04/10/25 04/10/25 06:48 06:49 WBC 12.3 H RBC 3.10 L Hgb 10.6 L Hct 29.8 L MCV 96.1 MCH 34.2 H MCHC 35.6 RDW 17.2 H Plt Count 196 MPV 10.9 H Immature Gran % (Auto) 0.6 H Neut % (Auto) 78.2 H Lymph % (Auto) 11.6 L [place] % (Auto) 9.4 H Eos % (Auto) 0.1 Baso % (Auto) 0.1 L Lymph # (Auto) 1.42 [place] # (Auto) 1.2 H Eos # (Auto) 0.0 Baso # (Auto) 0.0 Abs Immat Gran (auto) 0.07 H Absolute Neuts (auto) 9.6 H Absolute Nucleated RBC 0.000 Nucleated RBC % 0.0 PT INR APTT D-Dimer Sodium 132 L Potassium 3.4 Chloride 102 Carbon Dioxide 13 L Anion Gap 17 H BUN 69 H Creatinine 10.25 H Estim Creat Clear Calc 6 Estimated GFR 5 L Glucose 151 H Hemoglobin A1c 5.4 Lactic Acid Calcium 7.6 L Phosphorus Magnesium Total Bilirubin 1.1 AST 67 H ALT 26 Alkaline Phosphatase 243 H Ammonia Lactate Dehydrogenase 371 H Total Creatine Kinase Troponin I 0.080 H* NT-Pro-B Natriuret Pep Total Protein 6.0 L Albumin 2.5 L Triglycerides 191 H Cholesterol 165 LDL Cholesterol Direct 104 HDL Direct 16 TSH Urine Color Urine Appearance Urine pH Ur Specific [place] Urine Protein Urine Glucose (UA) Urine Ketones Ur Blood (Man) Urine Nitrate Urine Bilirubin Urine Urobilinogen Leukocyte Esterase Rfl Urine RBC Urine WBC Ur Squamous Epith Cells Urine Bacteria Urine Casts Hyaline Casts Nasal MRSA (PCR) Vancomycin Trough 15.7 Urine Opiates Screen Urine Methadone Screen Ur Barbiturates Screen Ur Phencyclidine Scrn Ur Amphetamine Screen U Benzodiazepines Scrn Urine Cocaine Screen U Cannabinoids Screen Ethyl Alcohol Influenza A (RT-PCR) Influenza B (RT-PCR) RSV (RT-PCR) SARS-CoV-2 RNA (RT-PCR) Quality VTE Prophylaxis VTE prophylaxis: mechanical ordered Hospitalist MIPS Advance Care Plan I have confirmed that the patient's Advanced Care Plan is present, code status is documented, or surrogate decision maker is listed in patient medical record.: Yes Medication Reconciliation I have utilized all available resources to obtain, update and review the patients current medications (includes all prescriptions, OTC, herbals, cannabis, and nutritional supplements).: Yes
[2024-10-03 11:01] LABS: Hepatitis B Surface Antigen Negative (Negative)
[2024-10-03 11:07] LABS: HAV RESULT Negative (Negative); Hepatitis B Core IgM Result Negative (Negative)
[2024-10-03 11:19] LABS: Hepatitis C Virus Antibody Negative (Negative)
[2024-10-03] MEDS: FOLIC ACID 1 MG TABLET PO (11:57)
--- NOTE | 2024-10-03 12:35 | P.CONNP_ITS ---
Assessment and Plan Assessment and plan (1) Acute kidney injury: Code(s): N17.9 - Acute kidney failure, unspecified Status: Acute Assessment and Plan: * baseline creatinine not known * patient reports no history of renal insufficiency/chronic kidney disease * suspect multifactorial etiology: * hemodynamic instability/shock * infection/sepsus * outpatient use of ISH-I * liver cirrhosis/liver physiology * abdominal compartment syndrome(?) * other(?) * agree with IVFs + IV albumin + vasopressor therapy to optimize hemodynamics * check urine studies * CT imaging and CPK noted * remains at risk for renal replacement therapy * follow trend of repeat labs and UOP (2) Septic shock: Code(s): A41.9 - Sepsis, unspecified organism; R65.21 - Severe sepsis with septic shock Status: Acute Assessment and Plan: * due to UTI versus SBP versus other * complicated by liver physiology and associated chronic hypotension * on bicarb fluids and vasopressprs * follow culture data * on antibiotics (3) UTI (urinary tract infection): Code(s): N39.0 - Urinary tract infection, site not specified Status: Acute Assessment and Plan: * admission UA highly suggestive * follow-up on urine cultures * on antibiotics (4) Cirrhosis: Code(s): K74.60 - Unspecified cirrhosis of liver Status: Acute Assessment and Plan: * as evidence by admission imaging * presumably secondary to alcohol abuse * s/p large volume paracentesis earlier today * monitor coags * follow ammonia levels * consider GI consultation (5) Ascites: Code(s): R18.8 - Other ascites Status: Acute Assessment and Plan: * as noted by admission imaging * s/p large volume paracentesis (on 10/03) * follow-up on fluid studies from ascites (6) Elevated troponin: Code(s): R79.89 - Other specified abnormal findings of blood chemistry Status: Acute Assessment and Plan: * noted on admission * likely secondary to renal dysfunction in the context of septic shock * no symptoms to suggest ACS * Cardiology recommendations noted * Echo ordered (7) Swelling of lower extremity: Code(s): M79.89 - Other specified soft tissue disorders Status: Acute Assessment and Plan: * presumably secondary to cirrhosis and renal failure * LE dopplers to rule out any DVT (8) Chronic alcohol use: Code(s): F10.90 - Alcohol use, unspecified, uncomplicated Status: Acute Assessment and Plan: * monitor for signs of withdrawal * on thiamine and folic acid I will continue to follow the patient with you while he remains hospitalized and make further recommendations as deemed necessary. Thank you for allowing me to participate in the care of this patient. L History of Present Illness Reason for Consult Consult date: 10/03/24 Reason for consult: acute renal failure Chief Complaint Chief complaint: Acute renal failure; Cirrhosis with ascites; Hypot History of Present Illness Narrative: The patient is a 74-year-old male with a past medical history as outlined below who presented to [facility] Emergency Room with complaints of generalized weakness. She has generalized weakness has been associated with shortness of breath with exertion as well as intermittent diarrhea and occasional gagging/vomiting. Furthermore, he also reports that his gait has been unsteady but that has been actually going on for the last month and notes that he use a cane to maintain his balance. He has also noticed increasing bilateral lower extremity edema in association with increasing abdominal girth. Other associated symptoms include lightheadedness and dizziness as well. Given these ongoing symptoms as mentioned, he presented to the ER for further assessment Workup and evaluation emergency room demonstrated the patient be slightly hypotensive in the 90 systolic otherwise afebrile. His EKG demonstrated normal sinus rhythm with frequent PVCs. Routine blood work so it was significant for a white blood cell count of 9.6, hemoglobin 11.6, and a platelet count of 20 with an INR of 1.7 and a D-dimer 3.94. His chemistry demonstrated sodium 133 potassium 3.3 bicarb 14 BUN 17 with a creatinine of 3.64 mg/dL. His lactic acid was 5.7 and his magnesium was 2.1 with mild elevation in his LFTs with an AST of 84, ALT of 40, alk-phos of 291 total bilirubin 1.9. His BNP was 28 30 and his urinalysis was somewhat suggestive of urinary tract infection with greater than 100 white blood cells and 2+ leukocyte esterase. His urine drug screen was positive for marijuana but viral testing for influenza, RSV, and COVID were negative and his chest x-ray demonstrated no focal infiltrates or effusions. Subsequent CT scan of the abdomen pelvis demonstrated liver cirrhosis with large amount of ascites throughout the abdomen pelvis with atelectasis in the bilateral lower lung paredes, nonobstructing bilateral nephrolithiasis, diverticulosis, and small fat/ascites containing right inguinal hernia. A subsequent right upper quadrant ultrasound demonstrated gross ascites, liver cirrhosis, and gallbladder stones. Given his lactic acidosis, he received another fluid bolus but he remained hypotensive. He subsequently had a central line placed and was initiated on vasopressor therapy. A bladder scan in the ER demonstrated 600 cc of urine however after Hartley catheter placement, there is no significant urine output and was felt that the bladder scan was actually more consistent with his ascites fluid rather than fluid/urinary retention. He was subsequently admitted to the ICU for further evaluation and therapy. Since his admission to the ICU, he remains on vasopressor therapy and has already underwent a diagnostic/therapeutic paracentesis with approximately 5 L of fluid removal. Renal consultation was requested due to his presumed acute kidney injury/acute renal failure. Unfortunately, have no previous labs to compare to but according to the patient, he has never been told that he had any issues or problems with his kidneys or for that matter any issues or problems with regard to his liver. He states that he sees a gang mower operator is at least every 6 months and does not recall ever being told he had any issues/problems with his kidneys or liver. He thinks his gang mower operator did blood work on his last on office visit it or at least into patient of his upcoming office visit and once again does not report any liver or kidney problems that he is aware. In spite of his significant renal this function, Lizette he has no critical electrolyte abnormalities aside from his acidosis which is being treated with bicarb fluids. Currently, at the time my evaluation, he appears to be in no acute distress. Review of Systems 2 Review of Systems: As per HPI. [facility] Past Medical History Medical History (Updated 10/07/24 @ 12:41 by Issac Vu MD) GERD (gastroesophageal reflux disease) Hypertension History of kidney stones Surgical History Surgical History History of cataract surgery ~2022 Family History Family History Father Acute myocardial infarction Mother Cerebrovascular accident Social History Social History Social History: Code Status: Full Code Smoking status: Never smoker Second hand tobacco smoke exposure: Yes Alcohol intake: current Alcohol use details: regular; last drink approximately 09/24/24 Do You Feel Safe in your Home?: Yes Lack of Transportation: No Lack of Food: Never True Current Housing: I Have Housing Concerned About Future Housing: No Difficulty Paying Gas/Electric Bills: Decline to Answer Difficulty Paying for Meds: Decline to Answer Currently Unemployed: No Education: Decline to Answer Difficulty w/ Childcare or Family Care: No Living arrangements: with friend(s) Additional living arrangements comments: [place] Occupation/Education: retired Additional occupation/education comments: 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 Spiritual care concerns: No Meds Home Medications and Allergies Home Medications ?Medication ?Instructions ?Recorded ?Confirmed ?Type amlodipine 10 mg-benazepril 20 mg 1 cap PO DAILY 10/02/24 10/03/24 History capsule multivitamin 1 tablet PO DAILY 10/02/24 10/02/24 History omeprazole 40 mg capsule,delayed 40 mg PO DAILY 10/02/24 10/02/24 History release Allergies Allergy/AdvReac Type Severity Reaction Status Date / Time No Known Allergies Allergy Verified 10/02/24 13:23 Vital Signs Vital Signs Temp Pulse Resp BP Pulse Ox O2 Del Method 10/03/24 12:00 97.9 F 97 20 100/75 95 Room Air 10/03/24 10:00 97 10/03/24 10:00 97.5 F L 98 23 H 117/56 L 94 10/03/24 09:01 104 H 111/88 10/03/24 08:00 104 H 22 H 94 Room Air 10/03/24 08:00 97 10/03/24 08:00 97.3 F L 101 H 22 H 107/55 L 10/03/24 08:00 101 H 107/55 L 10/03/24 07:00 93 115/64 10/03/24 06:57 91 93/64 L 10/03/24 06:00 97 92/52 L 10/03/24 06:00 97 27 H 92/52 L 91 10/03/24 04:00 103 H 111/69 10/03/24 04:00 103 H 21 H 94 Room Air 10/03/24 04:00 97.6 F 103 H 21 H 111/69 94 10/03/24 04:00 103 H 10/03/24 03:30 90 84/49 L 10/03/24 02:45 91 82/46 L 10/03/24 02:00 90 10/03/24 02:00 90 92/56 L 10/03/24 02:00 90 15 92/56 L 94 10/03/24 01:35 88 81/44 L 10/03/24 00:00 96 93/57 L 10/03/24 00:00 100 10/03/24 00:00 96 24 H 99 Room Air 10/03/24 00:00 96 24 H 93/57 L 99 10/02/24 23:30 96 92/52 L 10/02/24 23:03 98 23 H 99 Room Air 10/02/24 22:45 99 100/64 10/02/24 22:39 99 86/64 L 10/02/24 22:01 96 91/64 L 10/02/24 21:49 99 20 114/62 100 10/02/24 21:32 101 H 92/57 L 10/02/24 21:30 102 H 26 H 92/57 L 98 10/02/24 21:15 101 H 16 100/55 L 100 10/02/24 21:01 97 18 96/47 L 10/02/24 21:00 99 96/47 L 10/02/24 21:00 96 25 H 10/02/24 20:46 102 H 23 H 89/53 L 10/02/24 20:45 94 15 10/02/24 20:31 92 22 H 90/56 L 98 10/02/24 20:30 94 23 H 10/02/24 20:20 95 23 H 101/52 L 99 10/02/24 20:18 94 20 101/52 L 98 10/02/24 20:16 95 26 H 96/58 L 99 10/02/24 20:01 91 26 H 78/50 L 100 10/02/24 19:50 93 90/59 L 10/02/24 19:46 93 17 90/56 L 99 10/02/24 19:45 90 17 98 10/02/24 19:45 90 20 90/56 L 100 10/02/24 19:31 88 19 83/55 L 99 10/02/24 19:30 90 24 H 10/02/24 19:30 88 18 83/55 L 97 10/02/24 19:16 90 26 H 91/56 L 100 10/02/24 19:15 94 18 98 10/02/24 19:15 97.8 F 88 16 91/56 L 98 10/02/24 19:15 100 Room Air 10/02/24 19:14 92 10/02/24 19:01 93 18 99/55 L 100 10/02/24 19:00 96 16 10/02/24 19:00 92 16 99/55 L 100 10/02/24 18:45 90 22 H 86/63 L 100 10/02/24 18:31 90 29 H 67/51 L 100 10/02/24 18:15 90 18 98 10/02/24 18:01 86 16 98 10/02/24 18:00 84 19 86/49 L 97 10/02/24 17:58 86 22 H 86/49 L 100 10/02/24 17:46 85 23 H 61/36 L 99 10/02/24 17:45 73 21 H 10/02/24 17:31 92 35 H 98/55 L 100 10/02/24 17:30 104 H 40 H 94 10/02/24 17:26 103 H 19 105/71 100 10/02/24 17:16 108 H 30 H 105/71 100 10/02/24 17:15 110 H 22 H 100 10/02/24 17:00 111 H 25 H 85 L 10/02/24 16:55 21 H 93/56 L 99 10/02/24 16:54 21 H Exam 2 Narrative: GENERAL APPEARANCE: elderly male in no acute distress HEENT: normocephalic, atraumatic, normal conjunctiva and sclera, nares patient NECK: no lymphadenopathy, thyromegaly, or JVD MOUTH: normal lips, teeth, and gums CARDIOVASCULAR: RRR, normal S1 and S2, no rub detected RESPIRATORY: clear breath sounds ABDOMEN: soft, nontender, mild distension, positive bowel sounds present EXTREMITIES: no evidence of cyanosis, clubbing; 2+ edema NEUROLOGICAL: alert and oriented x 3; CN II - XII intact bilaterally; no focal deficits noted Results Lab Results 10/07/24 08:37 10/07/24 04:34 Lab results: Most recent lab results Calcium 7.6 mg/dL (8.4-10.2) L 10/03/24 06:48 Phosphorus 5.8 mg/dL (2.5-4.5) H 10/02/24 17:00 Magnesium 2.1 mg/dL (1.6-2.3) 10/02/24 13:47
[2024-10-03] MEDS: POTASSIUM CHLORIDE 20 MEQ ER TABLET 40 MEQ PO (12:44)
[2024-10-03] MEDS: CALCIUM GLUC 2,000 MG/NS 100ML 2,000 MG/100 ML BAG 100 MG IVPB (12:44)
[2024-10-03 13:18] LABS: Appearance Peritoneal Fluid Clear (Clear); Color Peritoneal Fluid Yellow (Colorless); Nucleated Cells Peritoneal Flu 99 /uL (0-500); Source Peritoneal Fluid Peritoneal Fluid
[2024-10-03 13:19] LABS: Lymphocytes Peritoneal Fluid 25 %; Macrophages Peritoneal Fluid 53 %; Mesothelial Cells Peritoneal Fluid 2 %; Monocytes Peritoneal Fluid 17 %; Neutrophils Peritoneal Fluid 3 % (0-25); RBC Peritoneal Fluid < 2000 /uL (0-10000)
[2024-10-03] MEDS: CEFEPIME 1 GM/NS 50 ML 1 GM/50 ML BAG IVPB (14:43)
[2024-10-03] MEDS: NOREPINEPHRINE 8 MG/D5W 250 ML 8 MG/250 ML BAG 9.38 MG IV CONT (14:44)
[2024-10-03] MEDS: LACTULOSE 20 GM/30 ML UDC PO (17:52)
[2024-10-03] MEDS: HEPARIN SOD/D5W 100 UNITS/ML 25,000 UNITS/250 ML BAG 14 UNITS IV CONT (17:52)
[2024-10-03 18:06] LABS: Basophils Percent Auto 0.1 % (0.2-1.2); Hematocrit 26.1 % (42.0-52.0); Hemoglobin 9.2 g/dL (14.0-18.0); Immature Granulocyte Absolute 0.03 K/mm3 (0.00-0.031); Immature Granulocyte Percent A 0.3 % (0-0.5); Lymphocytes Absolute Auto 0.74 K/mm3 (0.9-3.2); Mean Corpuscular HGB Conc 35.2 g/dl (32-36); Mean Corpuscular Hemoglobin 33.7 pg (26-34); Mean Corpuscular Volume 95.6 fl (80-100); Mean Platelet Volume 10.8 fl (7.4-10.4); Monocytes Absolute Auto 0.6 K/mm3 (0.1-0.6); Monocytes Percent Auto 6.1 % (2.6-8.5); Neutrophils Absolute Auto 7.9 K/mm3 (1.3-6.7); Neutrophils Percent Auto 85.5 % (45.5-73.1); Platelet Count Result 126 k/mm3 (150-375); Red Blood Count 2.73 M/mm3 (4.6-6.20); Red Cell Distribution Width 17.1 % (11.5-14.5); White Blood Count 9.2 K/mm3 (4.5-10.0)
[2024-10-03 18:20] LABS: Prothrombin Time 23.7 Seconds (11.1-14.7)
[2024-10-03 18:21] LABS: Partial Thromboplastin Time 39.1 Seconds (22.3-36.8)
--- NOTE | 2024-10-03 19:29 | PC.NURSE ---
RN unable to chart titration of Levophed in MAR from [id number]. 1000- Levophed @ 19 mcg/min, HR- 97 beats/min, BP- 117/56. 1200- Levophed @15 mcg/min, HR-97 beat/min, BP-100/75. 1245- Levophed @ 10 mcg/min, HR- 99 beats/min, BP-111/66. 1315- Levophed @ 5mcg/min, HR-99, BP-122/56.
[2024-10-03 19:34] LABS: Eosinophil Urine None Seen % (None Seen); Urine Eos QC 2nd Tech Confirmed
[2024-10-03 20:22] LABS: Creatinine Urine 142.2 mg/dL; Total Protein Urine Random 89 mg/dL; Ur Ttl Prot Creatinine Ratio 0.63 mg/mg (0-0.20)
[2024-10-03 20:35] LABS: Total Protein Urine Random 88 mg/dL; Urea Random Urine 176 MG/DL
[2024-10-03 20:40] LABS: Sodium Urine Random 43 meq/L
[2024-10-03 20:48] LABS: Creatinine Urine 140.2 mg/dL
[2024-10-03] MEDS: MELATONIN 5 MG TABLET PO (22:12)
[2024-10-04] VITALS (17 sets, daily range): BP systolic 87–106; BP diastolic 57–72; PULSE 65–82; RESP 12–23; TEMP 36.4–36.9; O2SAT 95–100
[2024-10-04] MEDS: HYDROCORTISONE SODIUM SUCCINATE 100 MG/2 ML VIAL IV PUSH ×3 (00:17→18:04)
[2024-10-04 00:51] LABS: Partial Thromboplastin Time > 200.0 Seconds (22.3-36.8)
[2024-10-04] MEDS: CENTRAL LINE FLUSH 10 ML IV PUSH ×3 (02:55→21:27)
[2024-10-04] MEDS: ALBUMIN HUMAN 25% 25 GM/100 ML 100 ML IVPB (02:55)
[2024-10-04 05:28] LABS: Basophils Percent Auto 0.1 % (0.2-1.2); Hematocrit 24.1 % (42.0-52.0); Hemoglobin 8.5 g/dL (14.0-18.0); Immature Granulocyte Absolute 0.04 K/mm3 (0.00-0.031); Immature Granulocyte Percent A 0.5 % (0-0.5); Lymphocytes Absolute Auto 0.91 K/mm3 (0.9-3.2); Mean Corpuscular HGB Conc 35.3 g/dl (32-36); Mean Corpuscular Hemoglobin 34.3 pg (26-34); Mean Corpuscular Volume 97.2 fl (80-100); Mean Platelet Volume 10.6 fl (7.4-10.4); Monocytes Absolute Auto 0.5 K/mm3 (0.1-0.6); Monocytes Percent Auto 6.8 % (2.6-8.5); Neutrophils Absolute Auto 6.1 K/mm3 (1.3-6.7); Neutrophils Percent Auto 80.6 % (45.5-73.1); Platelet Count Result 108 k/mm3 (150-375); Red Blood Count 2.48 M/mm3 (4.6-6.20); Red Cell Distribution Width 16.6 % (11.5-14.5); White Blood Count 7.6 K/mm3 (4.5-10.0)
[2024-10-04 05:40] LABS: Alanine Aminotransferase 20 U/L (6-50); Albumin Level 3.4 g/dL (3.5-5.1); Alkaline Phosphatase 169 U/L (38-126); Anion Gap 19 mmol/L (4-12); Aspartate Amino Transferase 56 U/L (17-59); Bilirubin,Total 1.3 mg/dL (0.2-1.3); Blood Urea Nitrogen 72 mg/dL (9-20); CRP 4.4 mg/dL (<1.0); Carbon Dioxide 21 mmol/L (22-30); Chloride 95 mmol/L (98-107); Estimated CRCL calculation 7 ml/min; Estimated Glomerular Filt Rate 5; Glucose 159 mg/dL (65-110); Potassium 3.6 mmol/L (3.4-5.0); Sodium 135 mmol/L (137-145)
[2024-10-04 05:44] LABS: Complement C3 65 mg/dL (88-165)
[2024-10-04 05:50] LABS: Troponin I 0.111 ng/mL (0.000-0.034)
[2024-10-04 06:08] LABS: Erythrocyte Sedimentation Rate 25 mm/hr (0-20)
[2024-10-04 06:42] LABS: Hepatitis B Surface Anti Res Negative
[2024-10-04] MEDS: FOLIC ACID 1 MG TABLET PO (08:06)
[2024-10-04] MEDS: SODIUM BICARBONATE 8.4% 150 MEQ in WATER, STERILE FOR INJECTION 950 ML 50 MEQ IV CONT (08:06)
[2024-10-04] MEDS: PANTOPRAZOLE SODIUM IV 40 MG VIAL IV PUSH ×2 (08:06→20:48)
--- NOTE | 2024-10-04 08:08 | P.PNCA_ITS ---
Progress Note: A&P Assessment and Plan (1) Cirrhosis: Code(s): K74.60 - Unspecified cirrhosis of liver Status: Acute (2) Chronic alcohol use: Code(s): F10.90 - Alcohol use, unspecified, uncomplicated Status: Acute Assessment and Plan: Counseled to abstain from alcohol. (3) Acidosis, lactic: Code(s): E87.20 - Acidosis, unspecified Status: Acute Assessment and Plan: Probably due to sepsis. (4) UTI (urinary tract infection): Code(s): N39.0 - Urinary tract infection, site not specified Status: Acute (5) Acute renal failure: Code(s): N17.9 - Acute kidney failure, unspecified Status: Acute Assessment and Plan: Cr 10/GFR 5. Nephrology consulted. (6) Elevated troponin: Code(s): R79.89 - Other specified abnormal findings of blood chemistry Status: Acute Assessment and Plan: Moderately elevated with troponin at .111. Probably due to renal failure/septic shock/UTI. No symptoms to suggest ACS. EKG shows LBBB. 10/03/24 Echo: EF >70% ,grade I diastolic dysfunction (E/e' 3), mild LAE, mild MAC, mild TR, RVSP 49 mmHg. No further cardiac workup is needed. Will sign off, please call with any questions. (7) Septic shock: Code(s): A41.9 - Sepsis, unspecified organism; R65.21 - Severe sepsis with septic shock Status: Acute Assessment and Plan: On Levophed and Vasopressin. On antibiotics. Managed by welfare aide. (8) DVT of lower extremity, bilateral: Code(s): I82.403 - Acute embolism and thrombosis of unspecified deep veins of lower extremity, bilateral Status: Acute Assessment and Plan: Probably related to being sedentary. On heparin drip. Subjective Date/time seen: 10/04/24 08:08 Interval history: He feels weak and no appetite. Denies chest pain or sob. Exam Const: General: cooperative and comfortable Orientation/consciousness: oriented to person, oriented to place and oriented to time Resp: Auscultation: clear to auscultation bilaterally, no crackles, no rales, no rhonchi and no wheezes Cardio: Rate: regular rate Rhythm: regular rhythm Heart sounds: no murmurs Peripheral pulses: dorsalis pedis present Neuro: General: oriented to person, oriented to place and oriented to time Extrem: Right lower extremity: edema Left lower extremity: edema Other: Mild-mod edema of both legs Objective Data Vital Signs Vital Signs: Vital Signs - 24 hr 10/03/24 09:01 10/03/24 10:00 10/03/24 10:00 Temperature 97.5 F L Pulse Rate 104 H 98 97 Respiratory Rate 23 H Blood Pressure 111/88 117/56 L Pulse Oximetry 94 Oxygen Delivery Oxygen Flow Rate 10/03/24 10:00 10/03/24 12:00 10/03/24 12:00 Temperature 97.9 F Pulse Rate 98 97 88 Respiratory Rate 20 Blood Pressure 117/56 L 100/75 Pulse Oximetry 95 Oxygen Delivery Oxygen Flow Rate 10/03/24 12:00 10/03/24 12:00 10/03/24 14:00 Temperature Pulse Rate 88 97 101 H Respiratory Rate 22 H Blood Pressure 100/75 Pulse Oximetry 94 Oxygen Delivery Room Air Oxygen Flow Rate 10/03/24 14:00 10/03/24 14:00 10/03/24 14:44 Temperature Pulse Rate 101 H 101 H 92 Respiratory Rate 24 H Blood Pressure 111/70 111/70 97/61 L Pulse Oximetry 96 Oxygen Delivery Oxygen Flow Rate 10/03/24 16:00 10/03/24 16:00 10/03/24 16:00 Temperature 97.9 F Pulse Rate 90 89 91 Respiratory Rate 23 H Blood Pressure 102/63 102/63 102/63 Pulse Oximetry 95 Oxygen Delivery Oxygen Flow Rate 10/03/24 16:00 10/03/24 16:00 10/03/24 18:00 Temperature Pulse Rate 93 93 82 Respiratory Rate 20 Blood Pressure 101/74 Pulse Oximetry 98 Oxygen Delivery Room Air Oxygen Flow Rate 10/03/24 18:00 10/03/24 18:00 10/03/24 18:00 Temperature 97.8 F Pulse Rate 82 83 81 Respiratory Rate 22 H Blood Pressure 101/74 101/74 Pulse Oximetry Oxygen Delivery Oxygen Flow Rate 10/03/24 20:00 10/03/24 20:00 10/03/24 20:00 Temperature 97.8 F Pulse Rate 80 79 Respiratory Rate 19 Blood Pressure 102/69 Pulse Oximetry 94 94 Oxygen Delivery Nasal Cannula Oxygen Flow Rate 2 10/03/24 20:00 10/03/24 20:00 10/03/24 22:00 Temperature Pulse Rate 79 79 82 Respiratory Rate Blood Pressure 102/69 102/69 Pulse Oximetry Oxygen Delivery Oxygen Flow Rate 10/03/24 22:00 10/03/24 22:00 10/03/24 22:00 Temperature Pulse Rate 82 82 82 Respiratory Rate 20 Blood Pressure 101/63 101/63 101/63 Pulse Oximetry 93 Oxygen Delivery Oxygen Flow Rate 10/04/24 00:00 10/04/24 00:00 10/04/24 00:00 Temperature 97.7 F Pulse Rate 72 75 Respiratory Rate 18 Blood Pressure 103/72 Pulse Oximetry 100 100 Oxygen Delivery Nasal Cannula Oxygen Flow Rate 2 10/04/24 00:00 10/04/24 00:00 10/04/24 02:00 Temperature Pulse Rate 75 75 70 Respiratory Rate Blood Pressure 103/72 103/72 Pulse Oximetry Oxygen Delivery Oxygen Flow Rate 10/04/24 02:00 10/04/24 02:00 10/04/24 02:00 Temperature Pulse Rate 70 70 70 Respiratory Rate 12 Blood Pressure 102/57 L 102/57 L 102/57 L Pulse Oximetry 100 Oxygen Delivery Oxygen Flow Rate 10/04/24 04:00 10/04/24 04:00 10/04/24 04:00 Temperature 97.7 F Pulse Rate 65 65 Respiratory Rate 14 Blood Pressure 103/61 Pulse Oximetry 100 100 Oxygen Delivery Nasal Cannula Oxygen Flow Rate 2 10/04/24 04:00 10/04/24 04:00 10/04/24 06:00 Temperature Pulse Rate 65 65 78 Respiratory Rate Blood Pressure 103/61 103/61 Pulse Oximetry Oxygen Delivery Oxygen Flow Rate 10/04/24 06:00 10/04/24 06:00 10/04/24 06:00 Temperature Pulse Rate 67 67 67 Respiratory Rate 20 Blood Pressure 102/66 102/66 102/66 Pulse Oximetry 95 Oxygen Delivery Oxygen Flow Rate 10/04/24 08:00 10/04/24 08:00 Temperature Pulse Rate 75 75 Respiratory Rate Blood Pressure 91/65 L 91/65 L Pulse Oximetry Oxygen Delivery Oxygen Flow Rate Intake/Output Intake/Output: Intake & Output 10/01/24 10/02/24 10/03/24 10/04/24 23:59 23:59 23:59 23:59 Intake Total 1954.4 2157.6 1490.9 Output Total 5200 150 Balance 1954.4 -3042.4 1340.9 Meds/Results Medications: Active Medications Generic Name Dose Route Start Last Admin Trade Name Freq PRN Reason Stop Dose Admin Acetaminophen 650 mg 10/03/24 03:27 Acetaminophen 325 Mg Tablet PO Q4H PRN Mild Pain (1-3) or Fever Folic Acid 1 mg 10/03/24 09:00 10/04/24 08:06 Folic Acid 1 Mg Tablet PO 1 mg DAILY KELECHI Administration Heparin Sodium (Porcine) 6,500 units 10/03/24 17:20 Heparin Sodium 5,000 Units/Ml Vial IV PUSH PRN PRN aPTT less than 55 seconds Heparin Sodium (Porcine) 3,000 units 10/03/24 17:20 Heparin Sodium 5,000 Units/Ml Vial IV PUSH PRN PRN aPTT 55 - 70 seconds Hydrocortisone Sodium Succinate 100 mg 10/03/24 09:00 10/04/24 08:06 Hydrocortisone Sodium Succinate 100 Mg/2 Ml Vial IV PUSH 100 mg Q8H KELECHI Administration Norepinephrine Bitartrate 8 mg in 250 mls @ 3.75 mls/hr 10/02/24 19:40 10/04/24 08:00 Levophed 8 Mg/D5w 250 Ml IV CONT 2 mcg/min .Q24H KELECHI 3.75 mls/hr Titration Protocol 2 MCG/MIN Cefepime HCl 1 gm in 50 mls @ 100 mls/hr 10/03/24 14:00 10/03/24 15:15 Maxipime 1 Gm/Ns 50 Ml IVPB Infused Q24H KELECHI Infusion Sodium Bicarbonate 150 meq/ 1,100 mls @ 50 mls/hr 10/03/24 09:30 10/04/24 08:06 Sterile Water IV CONT 50 mls/hr .Q22H KELECHI Administration Vasopressin 100 units/ 100 mls @ 2.4 mls/hr 10/03/24 08:40 10/04/24 08:00 Dextrose IV CONT 0.04 units/min .[id number] KELECHI 2.4 mls/hr Titration Protocol 0.04 UNITS/MIN Heparin Sodium/Dextrose 25,000 units in 250 mls @ 12 mls/hr 10/03/24 17:20 10/04/24 02:00 Heparin Sodium/D5w 100 Units/Ml IV CONT 1,200 units/hr .[id number] KELECHI 12 mls/hr Titration Protocol 1,200 UNITS/HR Albumin Human 25 gm in 500 mls @ 125 mls/hr 10/04/24 08:00 Albumin Human 5% IV CONT 10/04/24 11:59 .Q4H ONE Lactulose 20 gm 10/03/24 17:00 10/03/24 17:52 Lactulose 20 Gm/30 Ml Udc PO 20 gm BID KELECHI Administration Melatonin 5 mg 10/03/24 03:26 10/03/24 22:12 Melatonin 5 Mg Tablet PO 5 mg HS PRN Administration Insomnia Pantoprazole Sodium 40 mg 10/04/24 09:00 10/04/24 08:06 Pantoprazole Sodium Iv 40 Mg Vial IV PUSH 40 mg Q12HR KELECHI Administration Perflutren Lipid Microsphere 0 ml 10/03/24 03:27 Perflutren Lipid Microspheres 1.5 Ml Vial Diluted To 10 Ml Total Volume IV PUSH 10/06/24 03:32 ONCE PRN adequate visualization Protocol Prochlorperazine Edisylate 10 mg 10/03/24 03:26 Prochlorperazine Edisylate 10 Mg/2 Ml Vial IV PUSH Q6H PRN Nausea And Vomiting Sodium Chloride 10 ml 10/03/24 06:00 10/04/24 02:55 Central Line Flush IV PUSH 10 ml Q8HR KELECHI Administration Sodium Chloride 20 ml 10/02/24 22:02 Central Line Flush IV PUSH PRN PRN after blood draws Radiology Results: ITS Impressions Chest/Abdomen/Pelvis CT 10/02/24 16:47 IMPRESSION: 1. Cirrhosis with large amount of ascites throughout the abdomen and pelvis. There is a reticulonodular appearance to the greater omentum which could be due to portal venous hypertension mesenteric edema although differential would include metastatic peritoneal implants. Consider diagnostic thoracentesis. 2. Atelectasis at the bilateral lower lungs, more prominent on the right secondary to prominent elevation the right hemidiaphragm. 3. Nonobstructing bilateral nephrolithiasis. 4. Diverticulosis. 5. Small sliding-type hiatal hernia. 6. Small fat and ascites containing right inguinal hernia. Abdomen Ultrasound 10/02/24 17:06 IMPRESSION: Gross ascites. Liver cirrhosis. Highly suggestive gallbladder stones. Paracentesis Ultrasound 10/03/24 12:13 Impression: Successful ultrasound guided paracentesis. Venous Doppler Study 10/03/24 14:02 Impression: Bilateral acute deep venous thrombosis in right popliteal and posterior tibial veins and left common femoral, femoral popliteal and posterior tibial veins. Labs Labs: Laboratory Results - last 24 hr 10/03/24 10/03/24 10/03/24 06:39 11:31 17:57 WBC 9.2 RBC 2.73 L Hgb 9.2 L Hct 26.1 L MCV 95.6 MCH 33.7 MCHC 35.2 RDW 17.1 H Plt Count 126 L MPV 10.8 H Immature Gran % (Auto) 0.3 Neut % (Auto) 85.5 H Lymph % (Auto) 8.0 L [place] % (Auto) 6.1 Eos % (Auto) 0.0 Baso % (Auto) 0.1 L Lymph # (Auto) 0.74 L [place] # (Auto) 0.6 Eos # (Auto) 0.0 Baso # (Auto) 0.0 Abs Immat Gran (auto) 0.03 Absolute Neuts (auto) 7.9 H Absolute Nucleated RBC 0.000 Nucleated RBC % 0.0 ESR PT 23.7 H INR 2.0 APTT 39.1 H Sodium Potassium Chloride Carbon Dioxide Anion Gap BUN Creatinine Estim Creat Clear Calc Estimated GFR Glucose Calcium Total Bilirubin AST ALT Alkaline Phosphatase Troponin I C-Reactive Protein Total Protein Albumin Urine Eosinophils U Random Total Protein Ur Random Sodium Ur Random Urea Urine Creatinine Protein/Creat Ratio 2 Peritoneal Source Peritoneal fluid Peritoneal Color Yellow Peritoneal Appearance Clear Peritoneal RBC < 2000 Periton Nuc Cells 99 Periton Neutrophils 3 Periton Lymphocytes 25 Peritoneal Monocytes 17 [place] Mesothelial 2 [place] Macrophages 53 Complement C3 Complement C4 Hepatitis A IgM Ab Negative Hep Bs Antigen Negative Hep Bs Antibody Hep B Core IgM Ab Negative Hepatitis C Ab Screen Negative 10/03/24 10/03/24 10/03/24 18:53 18:53 18:53 WBC RBC Hgb Hct MCV MCH MCHC RDW Plt Count MPV Immature Gran % (Auto) Neut % (Auto) Lymph % (Auto) [place] % (Auto) Eos % (Auto) Baso % (Auto) Lymph # (Auto) [place] # (Auto) Eos # (Auto) Baso # (Auto) Abs Immat Gran (auto) Absolute Neuts (auto) Absolute Nucleated RBC Nucleated RBC % ESR PT INR APTT Sodium Potassium Chloride Carbon Dioxide Anion Gap BUN Creatinine Estim Creat Clear Calc Estimated GFR Glucose Calcium Total Bilirubin AST ALT Alkaline Phosphatase Troponin I C-Reactive Protein Total Protein Albumin Urine Eosinophils None seen U Random Total Protein 89 88 Ur Random Sodium 43 Ur Random Urea 176 Urine Creatinine 142.2 140.2 Protein/Creat Ratio 2 0.63 H Peritoneal Source Peritoneal Color Peritoneal Appearance Peritoneal RBC Periton Nuc Cells Periton Neutrophils Periton Lymphocytes Peritoneal Monocytes Periton Mesothelial Periton Macrophages Complement C3 Complement C4 Hepatitis A IgM Ab Hep Bs Antigen Hep Bs Antibody Hep B Core IgM Ab Hepatitis C Ab Screen 10/04/24 10/04/24 00:18 05:18 WBC 7.6 RBC 2.48 L Hgb 8.5 L Hct 24.1 L MCV 97.2 MCH 34.3 H MCHC 35.3 RDW 16.6 H Plt Count 108 L MPV 10.6 H Immature Gran % (Auto) 0.5 Neut % (Auto) 80.6 H Lymph % (Auto) 12.0 L [place] % (Auto) 6.8 Eos % (Auto) 0.0 Baso % (Auto) 0.1 L Lymph # (Auto) 0.91 [place] # (Auto) 0.5 Eos # (Auto) 0.0 Baso # (Auto) 0.0 Abs Immat Gran (auto) 0.04 H Absolute Neuts (auto) 6.1 Absolute Nucleated RBC 0.000 Nucleated RBC % 0.0 ESR 25 H PT INR APTT > 200.0 H* Sodium 135 L Potassium 3.6 Chloride 95 L Carbon Dioxide 21 L Anion Gap 19 H BUN 72 H Creatinine 9.49 H Estim Creat Clear Calc 7 Estimated GFR 5 L Glucose 159 H Calcium 8.0 L Total Bilirubin 1.3 AST 56 ALT 20 Alkaline Phosphatase 169 H Troponin I 0.111 H* C-Reactive Protein 4.4 H Total Protein 6.0 L Albumin 3.4 L Urine Eosinophils U Random Total Protein Ur Random Sodium Ur Random Urea Urine Creatinine Protein/Creat Ratio 2 Peritoneal Source Peritoneal Color Peritoneal Appearance Peritoneal RBC Periton Nuc Cells Periton Neutrophils Periton Lymphocytes Peritoneal Monocytes Periton Mesothelial Periton Macrophages Complement C3 65 L Complement C4 19.7 Hepatitis A IgM Ab Hep Bs Antigen Hep Bs Antibody Negative Hep B Core IgM Ab Hepatitis C Ab Screen
[2024-10-04] MEDS: POTASSIUM CHLORIDE 20 MEQ ER TABLET 40 MEQ PO (08:21)
[2024-10-04] MEDS: ALBUMIN HUMAN 5% 25 GM/500 ML BTL IV CONT (08:22)
[2024-10-04 08:40] LABS: Partial Thromboplastin Time > 200.0 Seconds (22.3-36.8)
[2024-10-04 09:01] LABS: Ammonia 22 umol/L (9-30)
--- NOTE | 2024-10-04 10:38 | P.PNNP_ITS ---
Progress Note: A&P Assessment and Plan (1) Acute kidney injury: Code(s): N17.9 - Acute kidney failure, unspecified Status: Acute Assessment and Plan: * normal baseline creatinine * creatinine 0.99mg/dl on 07/11/24 * suspect multifactorial etiology: * hemodynamic instability/shock * infection/sepsus * outpatient use of ISH-I * liver cirrhosis/liver physiology * other(?) * on IV albumin + vasopressor therapy to optimize hemodynamics * evaluation to date noted: * CT imaging without obstruction * CPK okay * urine eosinophils negative * urine electrolytes prerenal * mild proteinuria * srologies pending * remains at risk for renal replacement therapy * follow trend of repeat labs and UOP (2) Septic shock: Code(s): A41.9 - Sepsis, unspecified organism; R65.21 - Severe sepsis with septic shock Status: Acute Assessment and Plan: * due to UTI versus SBP versus other * complicated by liver physiology and associated chronic hypotension * on vasopressor therapy * follow culture data * blood culture negative * urine culutre negative * ascitic fluid culture pending * on antibiotics (3) Cirrhosis: Code(s): K74.60 - Unspecified cirrhosis of liver Status: Acute Assessment and Plan: * as evidence by admission imaging * presumably secondary to alcohol abuse * LFTs on 07/11/24 noted: * ALT 41 * AST 108 (H) * Alk phos 267 (H) * Total Bilitubin 1.7 (H) * s/p large volume paracentesis (on 10/03) * possible hepatorenal syndrome? -- Gastroenterology consulted (4) DVT of lower extremity, bilateral: Code(s): I82.403 - Acute embolism and thrombosis of unspecified deep veins of lower extremity, bilateral Status: Acute Assessment and Plan: * as noted by duplex ultrasound: * bilateral acute deep venous thrombosis in right popliteal and posterior tibial veins and left common femoral, femoral popliteal and posterior tibial veins. * on heparin gtt (5) UTI (urinary tract infection): Code(s): N39.0 - Urinary tract infection, site not specified Status: Acute Assessment and Plan: * admission UA highly suggestive * follow-up on urine cultures - negative to date * on antibiotics (6) Ascites: Code(s): R18.8 - Other ascites Status: Acute Assessment and Plan: * as noted by admission imaging * s/p large volume paracentesis (on 10/03) * follow-up on fluid studies from ascites (7) Elevated troponin: Code(s): R79.89 - Other specified abnormal findings of blood chemistry Status: Acute Assessment and Plan: * noted on admission * likely secondary to renal dysfunction in the context of septic shock * no symptoms to suggest ACS * Cardiology recommendations noted * Echo reviewed: * left ventricular systolic function is hyperdynamic, estimated at >70% * left ventricular diastolic function is grade I diastolic dysfunction * mild aortic valve sclerosis * mitral valve has mildly calcified annulus * mild tricuspid valve regurgitation * mild pulmonary hypertension, estimated pulmonary arterial systolic pressure is 49 mmHg (8) Chronic alcohol use: Code(s): F10.90 - Alcohol use, unspecified, uncomplicated Status: Acute Assessment and Plan: * monitor for signs of withdrawal * on thiamine and folic acid Discussed case with Dr. Correa. Will continue to follow. L Subjective Date/time seen: 10/04/24 10:38 Interval history: Follow-up for acute renal failure/acute kidney injury. Renal function/creatinine a bit better but urine output remains quite low; stable hemodynamics on levophed and vasopressin; no apparent distress voiced other than generalized weakness and fatigue; no other acute issues/events overnight or earlier this morning; started on heparin gtt due to LE doppler results (bilateral DVTs). Exam 2 Narrative: General: elderly male in NAD Heart: normal S1 and S2; no rub Lungs: clear to auscultation Abdomen: soft, nontender with mild distension noted, positive bowel sounds Extremities: no cyanosis or clubbing; 2+ edema Skin: warm and dry Objective Data Vital Signs Vital Signs: Vital Signs Temp Pulse Resp BP Pulse Ox O2 Del Method O2 Flow Rate 10/04/24 10:00 66 17 95/69 L 97 10/04/24 08:00 75 16 96 Nasal Cannula 2 10/04/24 08:00 82 10/04/24 08:00 97.6 F 77 15 91/65 L 96 10/04/24 08:00 75 91/65 L 10/04/24 08:00 75 91/65 L 10/04/24 06:00 67 102/66 10/04/24 06:00 67 102/66 10/04/24 06:00 67 20 102/66 95 10/04/24 06:00 78 10/04/24 04:00 65 103/61 10/04/24 04:00 65 103/61 10/04/24 04:00 97.7 F 65 14 103/61 100 10/04/24 04:00 65 10/04/24 04:00 100 Nasal Cannula 2 10/04/24 02:00 70 102/57 L 10/04/24 02:00 70 102/57 L 10/04/24 02:00 70 12 102/57 L 100 10/04/24 02:00 70 10/04/24 00:00 75 103/72 10/04/24 00:00 75 103/72 10/04/24 00:00 97.7 F 75 18 103/72 100 10/04/24 00:00 72 10/04/24 00:00 100 Nasal Cannula 2 10/03/24 22:00 82 101/63 10/03/24 22:00 82 101/63 10/03/24 22:00 82 20 101/63 93 10/03/24 22:00 82 10/03/24 20:00 79 102/69 10/03/24 20:00 79 102/69 10/03/24 20:00 97.8 F 79 19 102/69 94 10/03/24 20:00 80 10/03/24 20:00 94 Nasal Cannula 2 10/03/24 18:00 81 10/03/24 18:00 97.8 F 83 22 H 101/74 10/03/24 18:00 82 101/74 10/03/24 18:00 82 101/74 10/03/24 16:00 93 10/03/24 16:00 93 20 98 Room Air 10/03/24 16:00 91 102/63 10/03/24 16:00 97.9 F 89 23 H 102/63 95 10/03/24 16:00 90 102/63 Intake/Output Intake/Output: Intake & Output 10/01/24 10/02/24 10/03/24 10/04/24 23:59 23:59 23:59 23:59 Intake Total 1953.4 2157.6 2159.6 Output Total 5200 150 Balance 4.4 -3042.4 2009.6 Meds/Results Medications: Active Medications Generic Name Dose Route Start Last Admin Trade Name Freq PRN Reason Stop Dose Admin Acetaminophen 650 mg 10/03/24 03:27 Acetaminophen 325 Mg Tablet PO Q4H PRN Mild Pain (1-3) or Fever Folic Acid 1 mg 10/03/24 09:00 10/04/24 08:06 Folic Acid 1 Mg Tablet PO 1 mg DAILY KELECHI Administration Heparin Sodium (Porcine) 6,500 units 10/03/24 17:20 Heparin Sodium 5,000 Units/Ml Vial IV PUSH PRN PRN aPTT less than 55 seconds Heparin Sodium (Porcine) 3,000 units 10/03/24 17:20 Heparin Sodium 5,000 Units/Ml Vial IV PUSH PRN PRN aPTT 55 - 70 seconds Hydrocortisone Sodium Succinate 100 mg 10/03/24 09:00 10/04/24 08:06 Hydrocortisone Sodium Succinate 100 Mg/2 Ml Vial IV PUSH 100 mg Q8H KELECHI Administration Norepinephrine Bitartrate 8 mg in 250 mls @ 9.375 mls/hr 10/02/24 19:40 10/04/24 14:00 Levophed 8 Mg/D5w 250 Ml IV CONT 5 mcg/min .Q24H KELECHI 9.38 mls/hr Titration Protocol 5 MCG/MIN Cefepime HCl 1 gm in 50 mls @ 100 mls/hr 10/03/24 14:00 10/04/24 14:53 Maxipime 1 Gm/Ns 50 Ml IVPB 10/10/24 13:59 100 mls/hr Q24H KELECHI Administration Sodium Bicarbonate 150 meq/ 1,100 mls @ 50 mls/hr 10/03/24 09:30 10/04/24 08:06 Sterile Water IV CONT 50 mls/hr .Q22H KELECHI Administration Vasopressin 100 units/ 100 mls @ 0 mls/hr 10/03/24 08:40 10/04/24 12:00 Dextrose IV CONT 0 units/min .Q0M KELECHI 0 mls/hr Titration Protocol 0 UNITS/MIN Heparin Sodium/Dextrose 25,000 units in 250 mls @ 10 mls/hr 10/03/24 17:20 10/04/24 09:45 Heparin Sodium/D5w 100 Units/Ml IV CONT 1,000 units/hr .Q24H KELECHI 10 mls/hr Titration Protocol 1,000 UNITS/HR Octreotide Acetate 500 mcg/ 100 mls @ 10 mls/hr 10/04/24 12:00 10/04/24 12:27 Sodium Chloride IV CONT 50 mcg/hr .Q10H KELECHI 10 mls/hr Administration 50 MCG/HR Lactulose 20 gm 10/03/24 17:00 10/03/24 17:52 Lactulose 20 Gm/30 Ml Udc PO 20 gm BID KELECHI Administration Melatonin 5 mg 10/03/24 03:26 10/03/24 22:12 Melatonin 5 Mg Tablet PO 5 mg HS PRN Administration Insomnia Pantoprazole Sodium 40 mg 10/04/24 09:00 10/04/24 08:06 Pantoprazole Sodium Iv 40 Mg Vial IV PUSH 40 mg Q12HR KELECHI Administration Perflutren Lipid Microsphere 0 ml 10/03/24 03:27 Perflutren Lipid Microspheres 1.5 Ml Vial Diluted To 10 Ml Total Volume IV PUSH 10/06/24 03:32 ONCE PRN adequate visualization Protocol Prochlorperazine Edisylate 10 mg 10/03/24 03:26 Prochlorperazine Edisylate 10 Mg/2 Ml Vial IV PUSH Q6H PRN Nausea And Vomiting Sodium Chloride 10 ml 10/03/24 06:00 10/04/24 14:53 Central Line Flush IV PUSH 10 ml Q8HR KELECHI Administration Sodium Chloride 20 ml 10/02/24 22:02 Central Line Flush IV PUSH PRN PRN after blood draws Radiology Results: ITS Impressions Chest/Abdomen/Pelvis CT 10/02/24 16:47 IMPRESSION: 1. Cirrhosis with large amount of ascites throughout the abdomen and pelvis. There is a reticulonodular appearance to the greater omentum which could be due to portal venous hypertension mesenteric edema although differential would include metastatic peritoneal implants. Consider diagnostic thoracentesis. 2. Atelectasis at the bilateral lower lungs, more prominent on the right secondary to prominent elevation the right hemidiaphragm. 3. Nonobstructing bilateral nephrolithiasis. 4. Diverticulosis. 5. Small sliding-type hiatal hernia. 6. Small fat and ascites containing right inguinal hernia. Abdomen Ultrasound 10/02/24 17:06 IMPRESSION: Gross ascites. Liver cirrhosis. Highly suggestive gallbladder stones. Paracentesis Ultrasound 10/03/24 12:13 Impression: Successful ultrasound guided paracentesis. Venous Doppler Study 10/03/24 14:02 Impression: Bilateral acute deep venous thrombosis in right popliteal and posterior tibial veins and left common femoral, femoral popliteal and posterior tibial veins. Labs Labs: Laboratory Tests 10/04/24 05:18 10/04/24 05:18 Calcium 8.0 L Total Bilirubin 1.3 AST 56 ALT 20 Alkaline Phosphatase 169 H Troponin I 0.111 H* C-Reactive Protein 4.4 H Total Protein 6.0 L Albumin 3.4 L Microbiology 10/03/24 11:31 Abdominal Fluid Anaerobic Culture - Preliminary 10/02/24 17:00 Urine Clean Catch Urine Culture - Final 10/03/24 11:31 Paracentesis Fluid Gram Stain - Final
--- NOTE | 2024-10-04 11:42 | P.PNINT_ITS ---
Progress Note: A&P Assessment and Plan (1) Septic shock: Code(s): A41.9 - Sepsis, unspecified organism; R65.21 - Severe sepsis with septic shock Status: Acute Assessment and Plan: Septic shock secondary to UTI. Patient may also have component of vaso dilatory shock secondary to cirrhosis Continue Levophed -off vasopressin -decreased eye bicarb infusion -continue stress dose steroids -10/02/2024: Blood cultures negative x2 -10/02/2024: Urine cultures negative -10/03/2024: Paracentesis fluid culture pending -Continue cefepime (10/03) (2) Acute renal failure: Code(s): N17.9 - Acute kidney failure, unspecified Status: Acute Assessment and Plan: Acute renal failure but with likely underlying chronic kidney disease. Likely multifactorial secondary to sepsis, shock, cirrhosis, patient also on ISH- inhibitor, questionable hepatorenal syndrome Appreciate nephrology following the patient Electrolytes are in acceptable range Continue IV fluids, albumin and vasopressors to maintain SBP > 100 mmHg Avoid nephrotoxins Monitor urine output electrolytes and creatinine No no indication for emergency dialysis but patient may need dialysis if does not improve Status post paracentesis to relieve abdominal compartment syndrome Hartley catheter for accurate I&Os (3) Chronic alcohol use: Code(s): F10.90 - Alcohol use, unspecified, uncomplicated Status: Acute Assessment and Plan: Monitor for signs of withdrawal Thiamine and folic acid (4) Cirrhosis: Code(s): K74.60 - Unspecified cirrhosis of liver Status: Acute Assessment and Plan: Patient clearly has cirrhosis likely secondary to heavy alcohol intake over many years Hepatitis panel was negative CT and ultrasound as under Vitamin K for coagulopathy Ammonia levels within normal 10/03: Status post paracentesis with 5000 mL removal of serous colored fluid -GI consulted, discussed with Dr. Raymundo, this could be likely related to hepatorenal syndrome, agreed to starting octreotide and continue norepinephrine 10/02: CT chest abdomen 1. Cirrhosis with large amount of ascites throughout the abdomen and pelvis. There is a reticulonodular appearance to the greater omentum which could be due to portal venous hypertension mesenteric edema although differential would include metastatic peritoneal implants. Consider diagnostic thoracentesis. 2. Atelectasis at the bilateral lower lungs, more prominent on the right secondary to prominent elevation the right hemidiaphragm. 3. Nonobstructing bilateral nephrolithiasis. 4. Diverticulosis. 5. Small sliding-type hiatal hernia. 6. Small fat and ascites containing right inguinal hernia. 10/02: Ultrasound abdomen IMPRESSION: Gross ascites. Liver cirrhosis. Highly suggestive gallbladder stones. (5) Ascites: Code(s): R18.8 - Other ascites Status: Acute Assessment and Plan: See above (6) UTI (urinary tract infection): Code(s): N39.0 - Urinary tract infection, site not specified Status: Acute Assessment and Plan: See above (7) Coagulopathy: Code(s): D68.9 - Coagulation defect, unspecified Status: Acute Assessment and Plan: Secondary to cirrhosis Vitamin K ordered (8) Swelling of lower extremity: Code(s): M79.89 - Other specified soft tissue disorders Status: Acute Assessment and Plan: Likely secondary to cirrhosis and renal failure 10/03: Venous Dopplers: Bilateral acute deep venous thrombosis in right popliteal and posterior tibial veins and left common femoral, femoral popliteal and posterior tibial veins. 10/03: Started on heparin infusion (9) GERD (gastroesophageal reflux disease): Code(s): K21.9 - Gastro-esophageal reflux disease without esophagitis Status: Acute Assessment and Plan: Continue PPI (10) Non-ST elevation MO (NSTEMI): Code(s): I21.4 - Non-ST elevation (NSTEMI) myocardial infarction Status: Acute Assessment and Plan: Mildly elevated troponin in light of acute kidney injury and septic shock Denies any chest pain Hold beta-юлия ISH-inhibitor due to shock Hold statin due to cirrhosis until workup is complete Hold aspirin due to coagulopathy and impending invasive procedure Appreciate cardiology following the patient, no further workup required per processing spec 10/03: Echocardiogram Summary 1. Complete two-dimensional, color flow and Doppler transthoracic echocardiogram is performed. 2. Left ventricular chamber dimension is normal. 3. Left ventricular systolic function is hyperdynamic, estimated at >70%. 4. The left ventricular diastolic function is grade I diastolic dysfunction. 5. E/e' 3 is not elevated. 6. Left atrial chamber dimension is mildly enlarged. 7. There is mild aortic valve sclerosis. 8. The mitral valve has mildly calcified annulus. 9. There is mild tricuspid valve regurgitation. 10. Mild pulmonary hypertension, estimated pulmonary arterial systolic pressure is 49 mmHg. Plan DVT prophylaxis -heparin infusion Stress ulcer prophylaxis -PPI Nutrition -renal diet Code Status - Full Code Total Critical Care Time - 35 minutes Discussed with patient updated with his condition and plan of care. I answered all questions Discussed with Nephrology, cardiology and GI Due to a high probability of clinically significant, life threatening deterioration, the patient required my highest level of preparedness to intervene emergently and I personally spent this critical care time directly and personally managing the patient. This critical care time included obtaining a history; examining the patient; pulse oximetry; ordering and review of studies; arranging urgent treatment with development of a management plan; evaluation of patient's response to treatment; frequent reassessment; and discussions with other providers. It was exclusive of separately billable procedures and treating other patients and teaching time. Please see Assessment and Plan section and the rest of the note for further information on patient assessment and treatment. This dictation may have been done utilizing a voice recognition system. Attempts have been made to correct errors. However, there may be uncorrected grammatical, spelling, and recognitions errors present. Subjective Date/time seen: 10/04/24 11:42 Interval history: Reason for consult: Acute kidney injury, UTI, septic shock, cirrhosis, alcohol abuse 10/03: Paracentesis with removal off 5000 mL of serous colored fluid 10/04/2024: Patient seen and examined the ICU, is awake, alert, oriented x3. Had paracentesis done yesterday with 5000 mL in fluid removal. Patient remains on Levophed and vasopressin. Urine output has been low, ammonia levels are within normal limits, patient has had 7 bowel movements since yesterday after receiving lactulose. Afebrile. Denies any chest pain, shortness of breath, abdominal pain nausea, vomiting. States he just feels weak and tired Review of Systems Review of Systems: All systems reviewed & are unremarkable except as noted in HPI and below (HPI) Exam Narrative: General: Pt is alert awake and in NAD Lungs/Chest: Trachea central Clear BS B/L, No crackles or wheezing. Cardiac: RRR. Normal S1 S2. No murmurs Circulation: Pedal pulses are intact and symmetrical. Abdomen: Normal bowel sounds, soft, nontender, mildly distended after paracentesis done on 10/03 Extremities: Bilateral pitting edema present : Hartley in place with clear urine Neurologic: Follows commands. Moves all 4 extremities PERRL AO x3 Skin: No Rash Objective Data Vital Signs Vital Signs: Vital Signs - 24 hr 10/03/24 12:00 10/03/24 12:00 10/03/24 12:00 Temperature 97.9 F Pulse Rate 97 88 88 Respiratory Rate 20 22 H Blood Pressure 100/75 Pulse Oximetry 95 94 Oxygen Delivery Room Air Oxygen Flow Rate 10/03/24 12:00 10/03/24 14:00 10/03/24 14:00 Temperature Pulse Rate 97 101 H 101 H Respiratory Rate 24 H Blood Pressure 100/75 111/70 Pulse Oximetry 96 Oxygen Delivery Oxygen Flow Rate 10/03/24 14:00 10/03/24 14:44 10/03/24 16:00 Temperature Pulse Rate 101 H 92 90 Respiratory Rate Blood Pressure 111/70 97/61 L 102/63 Pulse Oximetry Oxygen Delivery Oxygen Flow Rate 10/03/24 16:00 10/03/24 16:00 10/03/24 16:00 Temperature 97.9 F Pulse Rate 89 91 93 Respiratory Rate 23 H 20 Blood Pressure 102/63 102/63 Pulse Oximetry 95 98 Oxygen Delivery Room Air Oxygen Flow Rate 10/03/24 16:00 10/03/24 18:00 10/03/24 18:00 Temperature Pulse Rate 93 82 82 Respiratory Rate Blood Pressure 101/74 101/74 Pulse Oximetry Oxygen Delivery Oxygen Flow Rate 10/03/24 18:00 10/03/24 18:00 10/03/24 20:00 Temperature 97.8 F Pulse Rate 83 81 Respiratory Rate 22 H Blood Pressure 101/74 Pulse Oximetry 94 Oxygen Delivery Nasal Cannula Oxygen Flow Rate 2 10/03/24 20:00 10/03/24 20:00 10/03/24 20:00 Temperature 97.8 F Pulse Rate 80 79 79 Respiratory Rate 19 Blood Pressure 102/69 102/69 Pulse Oximetry 94 Oxygen Delivery Oxygen Flow Rate 10/03/24 20:00 10/03/24 22:00 10/03/24 22:00 Temperature Pulse Rate 79 82 82 Respiratory Rate 20 Blood Pressure 102/69 101/63 Pulse Oximetry 93 Oxygen Delivery Oxygen Flow Rate 10/03/24 22:00 10/03/24 22:00 10/04/24 00:00 Temperature Pulse Rate 82 82 Respiratory Rate Blood Pressure 101/63 101/63 Pulse Oximetry 100 Oxygen Delivery Nasal Cannula Oxygen Flow Rate 2 10/04/24 00:00 10/04/24 00:00 10/04/24 00:00 Temperature 97.7 F Pulse Rate 72 75 75 Respiratory Rate 18 Blood Pressure 103/72 103/72 Pulse Oximetry 100 Oxygen Delivery Oxygen Flow Rate 10/04/24 00:00 10/04/24 02:00 10/04/24 02:00 Temperature Pulse Rate 75 70 70 Respiratory Rate 12 Blood Pressure 103/72 102/57 L Pulse Oximetry 100 Oxygen Delivery Oxygen Flow Rate 10/04/24 02:00 10/04/24 02:00 10/04/24 04:00 Temperature Pulse Rate 70 70 Respiratory Rate Blood Pressure 102/57 L 102/57 L Pulse Oximetry 100 Oxygen Delivery Nasal Cannula Oxygen Flow Rate 2 10/04/24 04:00 10/04/24 04:00 10/04/24 04:00 Temperature 97.7 F Pulse Rate 65 65 65 Respiratory Rate 14 Blood Pressure 103/61 103/61 Pulse Oximetry 100 Oxygen Delivery Oxygen Flow Rate 10/04/24 04:00 10/04/24 06:00 10/04/24 06:00 Temperature Pulse Rate 65 78 67 Respiratory Rate 20 Blood Pressure 103/61 102/66 Pulse Oximetry 95 Oxygen Delivery Oxygen Flow Rate 10/04/24 06:00 10/04/24 06:00 10/04/24 08:00 Temperature Pulse Rate 67 67 75 Respiratory Rate Blood Pressure 102/66 102/66 91/65 L Pulse Oximetry Oxygen Delivery Oxygen Flow Rate 10/04/24 08:00 10/04/24 08:00 10/04/24 08:00 Temperature 97.6 F Pulse Rate 75 77 82 Respiratory Rate 15 Blood Pressure 91/65 L 91/65 L Pulse Oximetry 96 Oxygen Delivery Oxygen Flow Rate 10/04/24 08:00 10/04/24 10:00 10/04/24 10:00 Temperature Pulse Rate 75 74 66 Respiratory Rate 16 16 17 Blood Pressure 95/69 L 95/69 L Pulse Oximetry 96 100 97 Oxygen Delivery Nasal Cannula Oxygen Flow Rate 2 10/04/24 10:00 10/04/24 10:00 10/04/24 10:00 Temperature Pulse Rate 66 66 66 Respiratory Rate Blood Pressure 95/69 L 95/69 L Pulse Oximetry Oxygen Delivery Oxygen Flow Rate 10/04/24 11:00 10/04/24 11:23 Temperature Pulse Rate 69 Respiratory Rate Blood Pressure 101/70 Pulse Oximetry 95 Oxygen Delivery Nasal Cannula Oxygen Flow Rate 2 Intake/Output Intake/Output: Intake & Output 10/01/24 10/02/24 10/03/24 10/04/24 23:59 23:59 23:59 23:59 Intake Total 1954.4 2157.6 1586.2 Output Total 5200 150 Balance 1954.4 -3042.4 1436.2 Meds/Results Medications: Active Medications Generic Name Dose Route Start Last Admin Trade Name Freq PRN Reason Stop Dose Admin Acetaminophen 650 mg 10/03/24 03:27 Acetaminophen 325 Mg Tablet PO Q4H PRN Mild Pain (1-3) or Fever Folic Acid 1 mg 10/03/24 09:00 10/04/24 08:06 Folic Acid 1 Mg Tablet PO 1 mg DAILY KELECHI Administration Heparin Sodium (Porcine) 6,500 units 10/03/24 17:20 Heparin Sodium 5,000 Units/Ml Vial IV PUSH PRN PRN aPTT less than 55 seconds Heparin Sodium (Porcine) 3,000 units 10/03/24 17:20 Heparin Sodium 5,000 Units/Ml Vial IV PUSH PRN PRN aPTT 55 - 70 seconds Hydrocortisone Sodium Succinate 100 mg 10/03/24 09:00 10/04/24 08:06 Hydrocortisone Sodium Succinate 100 Mg/2 Ml Vial IV PUSH 100 mg Q8H KELECHI Administration Norepinephrine Bitartrate 8 mg in 250 mls @ 3.75 mls/hr 10/02/24 19:40 10/04/24 10:00 Levophed 8 Mg/D5w 250 Ml IV CONT 2 mcg/min .Q24H KELECHI 3.75 mls/hr Titration Protocol 2 MCG/MIN Cefepime HCl 1 gm in 50 mls @ 100 mls/hr 10/03/24 14:00 10/03/24 15:15 Maxipime 1 Gm/Ns 50 Ml IVPB 10/10/24 13:59 Infused Q24H KELECHI Infusion Sodium Bicarbonate 150 meq/ 1,100 mls @ 50 mls/hr 10/03/24 09:30 10/04/24 08:06 Sterile Water IV CONT 50 mls/hr .Q22H KELECHI Administration Vasopressin 100 units/ 100 mls @ 0 mls/hr 10/03/24 08:40 10/04/24 11:00 Dextrose IV CONT 0 units/min .Q0M KELECHI 0 mls/hr Titration Protocol 0 UNITS/MIN Heparin Sodium/Dextrose 25,000 units in 250 mls @ 10 mls/hr 10/03/24 17:20 10/04/24 09:45 Heparin Sodium/D5w 100 Units/Ml IV CONT 1,000 units/hr .Q24H KELECHI 10 mls/hr Titration Protocol 1,000 UNITS/HR Albumin Human 25 gm in 500 mls @ 125 mls/hr 10/04/24 08:00 10/04/24 08:22 Albumin Human 5% IV CONT 10/04/24 11:59 125 mls/hr .Q4H ONE Administration Lactulose 20 gm 10/03/24 17:00 10/03/24 17:52 Lactulose 20 Gm/30 Ml Udc PO 20 gm BID KELECHI Administration Melatonin 5 mg 10/03/24 03:26 10/03/24 22:12 Melatonin 5 Mg Tablet PO 5 mg HS PRN Administration Insomnia Pantoprazole Sodium 40 mg 10/04/24 09:00 10/04/24 08:06 Pantoprazole Sodium Iv 40 Mg Vial IV PUSH 40 mg Q12HR KELECHI Administration Perflutren Lipid Microsphere 0 ml 10/03/24 03:27 Perflutren Lipid Microspheres 1.5 Ml Vial Diluted To 10 Ml Total Volume IV PUSH 10/06/24 03:32 ONCE PRN adequate visualization Protocol Prochlorperazine Edisylate 10 mg 10/03/24 03:26 Prochlorperazine Edisylate 10 Mg/2 Ml Vial IV PUSH Q6H PRN Nausea And Vomiting Sodium Chloride 10 ml 10/03/24 06:00 10/04/24 02:55 Central Line Flush IV PUSH 10 ml Q8HR KELECHI Administration Sodium Chloride 20 ml 10/02/24 22:02 Central Line Flush IV PUSH PRN PRN after blood draws Radiology Results: ITS Impressions Chest/Abdomen/Pelvis CT 10/02/24 16:47 IMPRESSION: 1. Cirrhosis with large amount of ascites throughout the abdomen and pelvis. There is a reticulonodular appearance to the greater omentum which could be due to portal venous hypertension mesenteric edema although differential would include metastatic peritoneal implants. Consider diagnostic thoracentesis. 2. Atelectasis at the bilateral lower lungs, more prominent on the right secondary to prominent elevation the right hemidiaphragm. 3. Nonobstructing bilateral nephrolithiasis. 4. Diverticulosis. 5. Small sliding-type hiatal hernia. 6. Small fat and ascites containing right inguinal hernia. Abdomen Ultrasound 10/02/24 17:06 IMPRESSION: Gross ascites. Liver cirrhosis. Highly suggestive gallbladder stones. Paracentesis Ultrasound 10/03/24 12:13 Impression: Successful ultrasound guided paracentesis. Venous Doppler Study 10/03/24 14:02 Impression: Bilateral acute deep venous thrombosis in right popliteal and posterior tibial veins and left common femoral, femoral popliteal and posterior tibial veins. Labs Labs: Laboratory Results - last 24 hr 10/03/24 10/03/24 10/03/24 11:31 17:57 18:53 WBC 9.2 RBC 2.73 L Hgb 9.2 L Hct 26.1 L MCV 95.6 MCH 33.7 MCHC 35.2 RDW 17.1 H Plt Count 126 L MPV 10.8 H Immature Gran % (Auto) 0.3 Neut % (Auto) 85.5 H Lymph % (Auto) 8.0 L [place] % (Auto) 6.1 Eos % (Auto) 0.0 Baso % (Auto) 0.1 L Lymph # (Auto) 0.74 L [place] # (Auto) 0.6 Eos # (Auto) 0.0 Baso # (Auto) 0.0 Abs Immat Gran (auto) 0.03 Absolute Neuts (auto) 7.9 H Absolute Nucleated RBC 0.000 Nucleated RBC % 0.0 ESR PT 23.7 H INR 2.0 APTT 39.1 H Sodium Potassium Chloride Carbon Dioxide Anion Gap BUN Creatinine Estim Creat Clear Calc Estimated GFR Glucose Calcium Total Bilirubin AST ALT Alkaline Phosphatase Ammonia Troponin I C-Reactive Protein Total Protein Albumin Urine Eosinophils None seen U Random Total Protein 89 Ur Random Sodium Ur Random Urea Urine Creatinine Protein/Creat Ratio 2 Peritoneal Source Peritoneal fluid Peritoneal Color Yellow Peritoneal Appearance Clear Peritoneal RBC < 2000 Periton Nuc Cells 99 [place] Neutrophils 3 Periton Lymphocytes 25 Peritoneal Monocytes 17 [place] Mesothelial 2 [place] Macrophages 53 Complement C3 Complement C4 Hep Bs Antibody 10/03/24 10/03/24 10/04/24 18:53 18:53 00:18 WBC RBC Hgb Hct MCV MCH MCHC RDW Plt Count MPV Immature Gran % (Auto) Neut % (Auto) Lymph % (Auto) [place] % (Auto) Eos % (Auto) Baso % (Auto) Lymph # (Auto) [place] # (Auto) Eos # (Auto) Baso # (Auto) Abs Immat Gran (auto) Absolute Neuts (auto) Absolute Nucleated RBC Nucleated RBC % ESR PT INR APTT > 200.0 H* Sodium Potassium Chloride Carbon Dioxide Anion Gap BUN Creatinine Estim Creat Clear Calc Estimated GFR Glucose Calcium Total Bilirubin AST ALT Alkaline Phosphatase Ammonia Troponin I C-Reactive Protein Total Protein Albumin Urine Eosinophils U Random Total Protein 88 Ur Random Sodium 43 Ur Random Urea 176 Urine Creatinine 142.2 140.2 Protein/Creat Ratio 2 0.63 H Peritoneal Source Peritoneal Color Peritoneal Appearance Peritoneal RBC Periton Nuc Cells Periton Neutrophils Periton Lymphocytes Peritoneal Monocytes Periton Mesothelial Periton Macrophages Complement C3 Complement C4 Hep Bs Antibody 10/04/24 10/04/24 05:18 08:03 WBC 7.6 RBC 2.48 L Hgb 8.5 L Hct 24.1 L MCV 97.2 MCH 34.3 H MCHC 35.3 RDW 16.6 H Plt Count 108 L MPV 10.6 H Immature Gran % (Auto) 0.5 Neut % (Auto) 80.6 H Lymph % (Auto) 12.0 L [place] % (Auto) 6.8 Eos % (Auto) 0.0 Baso % (Auto) 0.1 L Lymph # (Auto) 0.91 [place] # (Auto) 0.5 Eos # (Auto) 0.0 Baso # (Auto) 0.0 Abs Immat Gran (auto) 0.04 H Absolute Neuts (auto) 6.1 Absolute Nucleated RBC 0.000 Nucleated RBC % 0.0 ESR 25 H PT INR APTT > 200.0 H* Sodium 135 L Potassium 3.6 Chloride 95 L Carbon Dioxide 21 L Anion Gap 19 H BUN 72 H Creatinine 9.49 H Estim Creat Clear Calc 7 Estimated GFR 5 L Glucose 159 H Calcium 8.0 L Total Bilirubin 1.3 AST 56 ALT 20 Alkaline Phosphatase 169 H Ammonia 22 Troponin I 0.111 H* C-Reactive Protein 4.4 H Total Protein 6.0 L Albumin 3.4 L Urine Eosinophils U Random Total Protein Ur Random Sodium Ur Random Urea Urine Creatinine Protein/Creat Ratio 2 Peritoneal Source Peritoneal Color Peritoneal Appearance Peritoneal RBC Periton Nuc Cells Periton Neutrophils Periton Lymphocytes Peritoneal Monocytes Periton Mesothelial Periton Macrophages Complement C3 65 L Complement C4 19.7 Hep Bs Antibody Negative Quality VTE Prophylaxis VTE prophylaxis: mechanical ordered
[2024-10-04] MEDS: OCTREOTIDE ACETATE 50 MCG/ML VIAL IV PUSH (12:27)
[2024-10-04] MEDS: OCTREOTIDE ACETATE 500 MCG in SODIUM CHLORIDE 0.9% IV 99 ML 10 MCG IV CONT ×2 (12:27→21:27)
[2024-10-04] MEDS: CEFEPIME 1 GM/NS 50 ML 1 GM/50 ML BAG IVPB (14:53)
--- NOTE | 2024-10-04 15:19 | P.CONGI_ITS ---
Assessment and Plan Assessment and plan (1) Cirrhosis: Code(s): K74.60 - Unspecified cirrhosis of liver Status: Acute Assessment and Plan: The patient is admitted with new-onset ascites and evidence of decompensated chronic liver disease, consistent with cirrhosis. His MELD 3.0 score is 29. Acute kidney injury is his primary problem, and given adequate volume resuscitation with albumin and the markedly elevated creatinine in the absence of other obvious etiologies, hepatorenal syndrome is likely. However, nephrology consultation is warranted to evaluate for underlying chronic kidney disease, which could be secondary to alcohol use or other factors. Urosepsis may be a contributing factor, for which he is receiving appropriate antibiotic therapy. To address the likely hepatorenal syndrome, in addition to treating the urosepsis and continuing norepinephrine, octreotide should be considered. This was discussed with the monorail hooker. Unfortunately, given his acute kidney injury, the ascites is unlikely to be effectively managed with diuretics, and serial large-volume paracentesis will likely be necessary. TIPS is another consideration, but his age and advanced MELD score (> 20) are contraindications. We will continue to closely monitor the patient's condition (2) Ascites: Code(s): R18.8 - Other ascites Status: Acute GI Consult Note Consult date/time: 10/04/24 15:19 HPI: Daniel Domínguez, a 74-year-old male, was admitted on 10/02 , for progressively worsening weakness, anorexia, and significant, unquantified weight loss. He reported shortness of breath, increasing abdominal distension, and leg edema that had worsened over the preceding 4 to 5 months. Notably, the patient has a history of chronic heavy alcohol use, consuming an average of three shots of whiskey daily for the past 15 years. Upon admission, he presented with significant acute kidney injury, evidenced by a creatinine of 10.2, and a large volume of ascites. Significant admission laboratory values included: white blood cell count 12.3 ,hemoglobin 10.6 , sodium 132 , potassium 3.4 , BUN 69 , creatinine 10.2 , INR 2.0, albumin 2.5 and platelets 108 . A 5-liter paracentesis performed yesterday showed no increase in PMNs. His urinary sediment was abnormal, and sepsis of unclear origin was suspected. He is currently in the ICU receiving broad-spectrum antibiotics, intravenous albumin, and norepinephrine. He denies the use of NSAIDs, diuretics, or any other nephrotoxic medications. A cardiology evaluation and echocargiogram revealed a good systolic function and mild dyastolic dysfunction Review of Systems 2 Review of Systems: All systems reviewed & are unremarkable except as noted in HPI and below [facility] Past Medical History Medical History (Updated 10/04/24 @ 08:10 by Joey Wolf DO) GERD (gastroesophageal reflux disease) Hypertension History of kidney stones Surgical History Surgical History History of cataract surgery ~2022 Family History Family History Father Acute myocardial infarction Mother Cerebrovascular accident Social History Social History Social History: Code Status: Full Code Smoking status: Never smoker Second hand tobacco smoke exposure: Yes Alcohol intake: current Alcohol use details: regular; last drink approximately 09/24/24 Do You Feel Safe in your Home?: Yes Lack of Transportation: No Lack of Food: Never True Current Housing: I Have Housing Concerned About Future Housing: No Difficulty Paying Gas/Electric Bills: Decline to Answer Difficulty Paying for Meds: Decline to Answer Currently Unemployed: No Education: Decline to Answer Difficulty w/ Childcare or Family Care: No Living arrangements: with friend(s) Additional living arrangements comments: [place] Occupation/Education: retired Additional occupation/education comments: 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 Spiritual care concerns: No Meds Home Medications and Allergies Home Medications ?Medication ?Instructions ?Recorded ?Confirmed ?Type amlodipine 10 mg-benazepril 20 mg 1 cap PO DAILY 10/02/24 10/03/24 History capsule multivitamin 1 tablet PO DAILY 10/02/24 10/02/24 History omeprazole 40 mg capsule,delayed 40 mg PO DAILY 10/02/24 10/02/24 History release Allergies Allergy/AdvReac Type Severity Reaction Status Date / Time No Known Allergies Allergy Verified 10/02/24 13:23 Vital Signs Vital Signs - 24 hr 10/03/24 16:00 10/03/24 16:00 10/03/24 16:00 Temperature 97.9 F Pulse Rate 90 89 91 Respiratory Rate 23 H Blood Pressure 102/63 102/63 102/63 Pulse Oximetry 95 Oxygen Delivery Oxygen Flow Rate 10/03/24 16:00 10/03/24 16:00 10/03/24 18:00 Temperature Pulse Rate 93 93 82 Respiratory Rate 20 Blood Pressure 101/74 Pulse Oximetry 98 Oxygen Delivery Room Air Oxygen Flow Rate 10/03/24 18:00 10/03/24 18:00 10/03/24 18:00 Temperature 97.8 F Pulse Rate 82 83 81 Respiratory Rate 22 H Blood Pressure 101/74 101/74 Pulse Oximetry Oxygen Delivery Oxygen Flow Rate 10/03/24 20:00 10/03/24 20:00 10/03/24 20:00 Temperature 97.8 F Pulse Rate 80 79 Respiratory Rate 19 Blood Pressure 102/69 Pulse Oximetry 94 94 Oxygen Delivery Nasal Cannula Oxygen Flow Rate 2 10/03/24 20:00 10/03/24 20:00 10/03/24 22:00 Temperature Pulse Rate 79 79 82 Respiratory Rate Blood Pressure 102/69 102/69 Pulse Oximetry Oxygen Delivery Oxygen Flow Rate 10/03/24 22:00 10/03/24 22:00 10/03/24 22:00 Temperature Pulse Rate 82 82 82 Respiratory Rate 20 Blood Pressure 101/63 101/63 101/63 Pulse Oximetry 93 Oxygen Delivery Oxygen Flow Rate 10/04/24 00:00 10/04/24 00:00 10/04/24 00:00 Temperature 97.7 F Pulse Rate 72 75 Respiratory Rate 18 Blood Pressure 103/72 Pulse Oximetry 100 100 Oxygen Delivery Nasal Cannula Oxygen Flow Rate 2 10/04/24 00:00 10/04/24 00:00 10/04/24 02:00 Temperature Pulse Rate 75 75 70 Respiratory Rate Blood Pressure 103/72 103/72 Pulse Oximetry Oxygen Delivery Oxygen Flow Rate 10/04/24 02:00 10/04/24 02:00 10/04/24 02:00 Temperature Pulse Rate 70 70 70 Respiratory Rate 12 Blood Pressure 102/57 L 102/57 L 102/57 L Pulse Oximetry 100 Oxygen Delivery Oxygen Flow Rate 10/04/24 04:00 10/04/24 04:00 10/04/24 04:00 Temperature 97.7 F Pulse Rate 65 65 Respiratory Rate 14 Blood Pressure 103/61 Pulse Oximetry 100 100 Oxygen Delivery Nasal Cannula Oxygen Flow Rate 2 10/04/24 04:00 10/04/24 04:00 10/04/24 06:00 Temperature Pulse Rate 65 65 78 Respiratory Rate Blood Pressure 103/61 103/61 Pulse Oximetry Oxygen Delivery Oxygen Flow Rate 10/04/24 06:00 10/04/24 06:00 10/04/24 06:00 Temperature Pulse Rate 67 67 67 Respiratory Rate 20 Blood Pressure 102/66 102/66 102/66 Pulse Oximetry 95 Oxygen Delivery Oxygen Flow Rate 10/04/24 08:00 10/04/24 08:00 10/04/24 08:00 Temperature 97.6 F Pulse Rate 75 75 77 Respiratory Rate 15 Blood Pressure 91/65 L 91/65 L 91/65 L Pulse Oximetry 96 Oxygen Delivery Oxygen Flow Rate 10/04/24 08:00 10/04/24 08:00 10/04/24 10:00 Temperature Pulse Rate 82 75 74 Respiratory Rate 16 16 Blood Pressure 95/69 L Pulse Oximetry 96 100 Oxygen Delivery Nasal Cannula Oxygen Flow Rate 2 10/04/24 10:00 10/04/24 10:00 10/04/24 10:00 Temperature Pulse Rate 66 66 66 Respiratory Rate 17 Blood Pressure 95/69 L 95/69 L Pulse Oximetry 97 Oxygen Delivery Oxygen Flow Rate 10/04/24 10:00 10/04/24 11:00 10/04/24 11:23 Temperature Pulse Rate 66 69 Respiratory Rate Blood Pressure 95/69 L 101/70 Pulse Oximetry 95 Oxygen Delivery Nasal Cannula Oxygen Flow Rate 2 10/04/24 12:00 10/04/24 12:00 10/04/24 12:00 Temperature 97.9 F Pulse Rate 74 74 74 Respiratory Rate 16 Blood Pressure 99/63 L 99/63 L 99/63 L Pulse Oximetry 100 Oxygen Delivery Oxygen Flow Rate 10/04/24 12:00 10/04/24 12:00 10/04/24 12:30 Temperature Pulse Rate 67 75 80 Respiratory Rate 16 Blood Pressure 87/62 L Pulse Oximetry 96 Oxygen Delivery Nasal Cannula Oxygen Flow Rate 2 10/04/24 12:45 10/04/24 14:00 10/04/24 14:00 Temperature Pulse Rate 80 80 80 Respiratory Rate 18 Blood Pressure 106/58 L 103/64 Pulse Oximetry 99 Oxygen Delivery Oxygen Flow Rate 10/04/24 14:00 Temperature Pulse Rate 80 Respiratory Rate Blood Pressure 103/64 Pulse Oximetry Oxygen Delivery Oxygen Flow Rate Exam 2 Narrative: Alert and oriented x3. Not jaundiced. Not acutely distressed. Thorax and Cardiovascular: Normal. Abdomen: Distended, fluid wave positive, non tense. Extremities: 3+ pitting edema pedal and pretibial. Neurologically: Grossly intact. Results Labs 10/04/24 05:18 10/04/24 05:18 Labs: Short CBC 10/03/24 10/04/24 Range/Units 17:57 05:18 WBC 9.2 7.6 (4.5-10.0) K/mm3 Hgb 9.2 L 8.5 L (14.0-18.0) g/dL Hct 26.1 L 24.1 L (42.0-52.0) % Plt Count 126 L 108 L (150-375) k/mm3 BMP 10/04/24 05:18 Sodium 135 L Potassium 3.6 Chloride 95 L Carbon Dioxide 21 L BUN 72 H Creatinine 9.49 H Glucose 159 H Calcium 8.0 L Cardiac Enzymes 10/04/24 Range/Units 05:18 Troponin I 0.111 H* (0.000-0.034) ng/mL Liver Function 10/04/24 Range/Units 05:18 Total Bilirubin 1.3 (0.2-1.3) mg/dL AST 56 (17-59) U/L ALT 20 (6-50) U/L Alkaline Phosphatase 169 H (38-126) U/L Albumin 3.4 L (3.5-5.1) g/dL
[2024-10-04 16:37] LABS: Partial Thromboplastin Time > 200.0 Seconds (22.3-36.8)
[2024-10-04] MEDS: HEPARIN SOD/D5W 100 UNITS/ML 25,000 UNITS/250 ML BAG 8 UNITS IV CONT (19:45)
[2024-10-04] MEDS: MELATONIN 5 MG TABLET PO (22:49)
[2024-10-05] VITALS (17 sets, daily range): BP systolic 90–115; BP diastolic 57–75; PULSE 67–85; RESP 14–23; TEMP 36.1–37; O2SAT 96–100
[2024-10-05] MEDS: HYDROCORTISONE SODIUM SUCCINATE 100 MG/2 ML VIAL IV PUSH ×3 (00:45→17:37)
[2024-10-05 01:27] LABS: Partial Thromboplastin Time > 200.0 Seconds (22.3-36.8)
[2024-10-05 05:39] LABS: Basophils Percent Auto 0.1 % (0.2-1.2); Hematocrit 24.4 % (42.0-52.0); Hemoglobin 8.6 g/dL (14.0-18.0); Immature Granulocyte Absolute 0.05 K/mm3 (0.00-0.031); Immature Granulocyte Percent A 0.5 % (0-0.5); Lymphocytes Absolute Auto 0.85 K/mm3 (0.9-3.2); Lymphocytes Percent Auto 7.8 % (18.3-44.2); Mean Corpuscular HGB Conc 35.2 g/dl (32-36); Mean Corpuscular Hemoglobin 33.9 pg (26-34); Mean Corpuscular Volume 96.1 fl (80-100); Mean Platelet Volume 10.8 fl (7.4-10.4); Monocytes Absolute Auto 0.8 K/mm3 (0.1-0.6); Monocytes Percent Auto 7.2 % (2.6-8.5); Neutrophils Absolute Auto 9.2 K/mm3 (1.3-6.7); Neutrophils Percent Auto 84.4 % (45.5-73.1); Platelet Count Result 124 k/mm3 (150-375); Red Blood Count 2.54 M/mm3 (4.6-6.20); Red Cell Distribution Width 16.9 % (11.5-14.5); White Blood Count 10.9 K/mm3 (4.5-10.0)
[2024-10-05 05:49] LABS: Alanine Aminotransferase 24 U/L (6-50); Albumin Level 3.4 g/dL (3.5-5.1); Alkaline Phosphatase 163 U/L (38-126); Anion Gap 19 mmol/L (4-12); Aspartate Amino Transferase 86 U/L (17-59); Bilirubin,Total 1.3 mg/dL (0.2-1.3); Blood Urea Nitrogen 74 mg/dL (9-20); Calcium 7.7 mg/dL (8.4-10.2); Carbon Dioxide 21 mmol/L (22-30); Chloride 91 mmol/L (98-107); Estimated CRCL calculation 7 ml/min; Estimated Glomerular Filt Rate 6; Glucose 148 mg/dL (65-110); Phosphorus 5.9 mg/dL (2.5-4.5); Potassium 3.9 mmol/L (3.4-5.0); Sodium 131 mmol/L (137-145)
[2024-10-05] MEDS: NOREPINEPHRINE 8 MG/D5W 250 ML 8 MG/250 ML BAG 7.5 MG IV CONT (06:00)
[2024-10-05] MEDS: OCTREOTIDE ACETATE 500 MCG in SODIUM CHLORIDE 0.9% IV 99 ML 10 MCG IV CONT ×2 (06:47→17:37)
[2024-10-05] MEDS: SODIUM BICARBONATE 8.4% 150 MEQ in WATER, STERILE FOR INJECTION 950 ML 50 MEQ IV CONT (06:48)
[2024-10-05] MEDS: CENTRAL LINE FLUSH 10 ML IV PUSH ×3 (06:59→22:00)
[2024-10-05 09:15] LABS: Partial Thromboplastin Time 87.2 Seconds (22.3-36.8)
[2024-10-05] MEDS: ALBUMIN HUMAN 5% 250 ML IV CONT (09:25)
[2024-10-05] MEDS: FOLIC ACID 1 MG TABLET PO (09:25)
[2024-10-05] MEDS: PANTOPRAZOLE SODIUM IV 40 MG VIAL IV PUSH (09:25)
--- NOTE | 2024-10-05 09:50 | P.PNIM_ITS ---
Progress Note: A&P Assessment and Plan (1) Septic shock: Code(s): A41.9 - Sepsis, unspecified organism; R65.21 - Severe sepsis with septic shock Status: Acute Assessment and Plan: Septic shock secondary to UTI. Patient may also have component of vaso dilatory shock secondary to cirrhosis Continue Levophed -off vasopressin -decreased eye bicarb infusion -continue stress dose steroids -10/02/2024: Blood cultures negative x2 -10/02/2024: Urine cultures negative -10/03/2024: Paracentesis fluid culture on negative -Continue cefepime (10/03) (2) Acute renal failure: Code(s): N17.9 - Acute kidney failure, unspecified Status: Acute Assessment and Plan: Acute renal failure but with likely underlying chronic kidney disease. Likely multifactorial secondary to sepsis, shock, cirrhosis, patient also on ISH- inhibitor, questionable hepatorenal syndrome Appreciate nephrology following the patient Electrolytes are in acceptable range Continue IV fluids, albumin and vasopressors to maintain SBP > 100 mmHg Avoid nephrotoxins Monitor urine output electrolytes and creatinine No no indication for emergency dialysis but patient may need dialysis if does not improve Status post paracentesis to relieve abdominal compartment syndrome Hartley catheter for accurate I&Os (3) Chronic alcohol use: Code(s): F10.90 - Alcohol use, unspecified, uncomplicated Status: Acute Assessment and Plan: Monitor for signs of withdrawal Thiamine and folic acid (4) Cirrhosis: Code(s): K74.60 - Unspecified cirrhosis of liver Status: Acute Assessment and Plan: Patient clearly has cirrhosis likely secondary to heavy alcohol intake over many years Hepatitis panel was negative CT and ultrasound as under Vitamin K for coagulopathy Ammonia levels within normal 10/03: Status post paracentesis with 5000 mL removal of serous colored fluid -GI consulted, discussed with Dr. Raymundo, this could be likely related to hepatorenal syndrome, agreed to starting octreotide and continue norepinephrine 10/05: Discussed with GI, continue norepinephrine and octreotide infusion, maintain MAP > 80 mmHg per GI 10/02: CT chest abdomen 1. Cirrhosis with large amount of ascites throughout the abdomen and pelvis. There is a reticulonodular appearance to the greater omentum which could be due to portal venous hypertension mesenteric edema although differential would include metastatic peritoneal implants. Consider diagnostic thoracentesis. 2. Atelectasis at the bilateral lower lungs, more prominent on the right secondary to prominent elevation the right hemidiaphragm. 3. Nonobstructing bilateral nephrolithiasis. 4. Diverticulosis. 5. Small sliding-type hiatal hernia. 6. Small fat and ascites containing right inguinal hernia. 10/02: Ultrasound abdomen IMPRESSION: Gross ascites. Liver cirrhosis. Highly suggestive gallbladder stones. (5) Ascites: Code(s): R18.8 - Other ascites Status: Acute Assessment and Plan: See above (6) UTI (urinary tract infection): Code(s): N39.0 - Urinary tract infection, site not specified Status: Acute Assessment and Plan: See above (7) Coagulopathy: Code(s): D68.9 - Coagulation defect, unspecified Status: Acute Assessment and Plan: Secondary to cirrhosis Vitamin K ordered (8) Swelling of lower extremity: Code(s): M79.89 - Other specified soft tissue disorders Status: Acute Assessment and Plan: Likely secondary to cirrhosis and renal failure 10/03: Venous Dopplers: Bilateral acute deep venous thrombosis in right popliteal and posterior tibial veins and left common femoral, femoral popliteal and posterior tibial veins. 10/03: Started on heparin infusion (9) GERD (gastroesophageal reflux disease): Code(s): K21.9 - Gastro-esophageal reflux disease without esophagitis Status: Acute Assessment and Plan: Continue PPI (10) Non-ST elevation SC (NSTEMI): Code(s): I21.4 - Non-ST elevation (NSTEMI) myocardial infarction Status: Acute Assessment and Plan: Mildly elevated troponin in light of acute kidney injury and septic shock Denies any chest pain Hold beta-юлия ISH-inhibitor due to shock Hold statin due to cirrhosis until workup is complete Hold aspirin due to coagulopathy and impending invasive procedure Appreciate cardiology following the patient, no further workup required per geek squad manager 10/03: Echocardiogram Summary 1. Complete two-dimensional, color flow and Doppler transthoracic echocardiogram is performed. 2. Left ventricular chamber dimension is normal. 3. Left ventricular systolic function is hyperdynamic, estimated at >70%. 4. The left ventricular diastolic function is grade I diastolic dysfunction. 5. E/e' 3 is not elevated. 6. Left atrial chamber dimension is mildly enlarged. 7. There is mild aortic valve sclerosis. 8. The mitral valve has mildly calcified annulus. 9. There is mild tricuspid valve regurgitation. 10. Mild pulmonary hypertension, estimated pulmonary arterial systolic pressure is 49 mmHg. Subjective Date/time seen: 10/05/24 09:50 Interval history: Patient reports he is doing well. Patient continues to be on Levophed. Patient creatinine 8.8 nephrology on board. Patient underwent recurrent paracentesis Review of Systems Review of Systems: All systems reviewed & are unremarkable except as noted in HPI and below (HPI) Exam Narrative: General: Pt is alert awake and in NAD Lungs/Chest: Trachea central Clear BS B/L, No crackles or wheezing. Cardiac: RRR. Normal S1 S2. No murmurs Circulation: Pedal pulses are intact and symmetrical. Abdomen: Normal bowel sounds, soft, nontender, mildly distended after paracentesis done on 10/03 Extremities: Bilateral pitting edema present : Hartley in place with clear urine Neurologic: Follows commands. Moves all 4 extremities PERRL AO x3 Skin: No Rash Objective Data Vital Signs Vital Signs: Vital Signs - 24 hr 10/04/24 10:00 10/04/24 10:00 10/04/24 10:00 Temperature Pulse Rate 74 66 66 Respiratory Rate 16 17 Blood Pressure 95/69 L 95/69 L Pulse Oximetry 100 97 Oxygen Delivery Oxygen Flow Rate 10/04/24 10:00 10/04/24 10:00 10/04/24 11:00 Temperature Pulse Rate 66 66 69 Respiratory Rate Blood Pressure 95/69 L 95/69 L 101/70 Pulse Oximetry Oxygen Delivery Oxygen Flow Rate 10/04/24 11:23 10/04/24 12:00 10/04/24 12:00 Temperature 97.9 F Pulse Rate 74 74 Respiratory Rate 16 Blood Pressure 99/63 L 99/63 L Pulse Oximetry 95 100 Oxygen Delivery Nasal Cannula Oxygen Flow Rate 2 10/04/24 12:00 10/04/24 12:00 10/04/24 12:00 Temperature Pulse Rate 74 67 75 Respiratory Rate 16 Blood Pressure 99/63 L Pulse Oximetry 96 Oxygen Delivery Nasal Cannula Oxygen Flow Rate 2 10/04/24 12:30 10/04/24 12:45 10/04/24 14:00 Temperature Pulse Rate 80 80 80 Respiratory Rate Blood Pressure 87/62 L 106/58 L Pulse Oximetry Oxygen Delivery Oxygen Flow Rate 10/04/24 14:00 10/04/24 14:00 10/04/24 14:00 Temperature Pulse Rate 80 80 80 Respiratory Rate 18 Blood Pressure 103/64 103/64 103/64 Pulse Oximetry 99 Oxygen Delivery Oxygen Flow Rate 10/04/24 16:00 10/04/24 16:00 10/04/24 16:00 Temperature 97.7 F Pulse Rate 79 80 80 Respiratory Rate 23 H 23 H Blood Pressure 104/69 Pulse Oximetry 100 96 Oxygen Delivery Nasal Cannula Oxygen Flow Rate 2 10/04/24 16:00 10/04/24 16:00 10/04/24 18:00 Temperature Pulse Rate 79 79 81 Respiratory Rate Blood Pressure 104/69 104/69 102/63 Pulse Oximetry Oxygen Delivery Oxygen Flow Rate 10/04/24 18:00 10/04/24 18:00 10/04/24 18:00 Temperature Pulse Rate 81 81 81 Respiratory Rate 15 Blood Pressure 102/63 102/63 Pulse Oximetry 95 Oxygen Delivery Oxygen Flow Rate 10/04/24 20:00 10/04/24 20:00 10/04/24 20:00 Temperature 98.2 F Pulse Rate 76 75 Respiratory Rate 18 Blood Pressure 100/62 Pulse Oximetry 97 96 Oxygen Delivery Nasal Cannula Oxygen Flow Rate 2 10/04/24 20:00 10/04/24 20:43 10/04/24 22:00 Temperature 98.4 F Pulse Rate 74 76 Respiratory Rate 18 Blood Pressure 100/62 104/65 Pulse Oximetry 96 99 Oxygen Delivery Nasal Cannula Oxygen Flow Rate 2 10/04/24 22:00 10/05/24 00:00 10/05/24 00:00 Temperature 98.6 F Pulse Rate 78 81 Respiratory Rate 20 Blood Pressure 104/65 111/67 Pulse Oximetry 99 98 Oxygen Delivery Nasal Cannula Oxygen Flow Rate 2 10/05/24 00:00 10/05/24 00:00 10/05/24 02:00 Temperature Pulse Rate 77 81 73 Respiratory Rate Blood Pressure 111/67 Pulse Oximetry Oxygen Delivery Oxygen Flow Rate 10/05/24 02:00 10/05/24 02:00 10/05/24 02:15 Temperature Pulse Rate 79 79 77 Respiratory Rate 14 Blood Pressure 110/63 110/63 105/66 Pulse Oximetry 98 Oxygen Delivery Oxygen Flow Rate 10/05/24 04:00 10/05/24 04:00 10/05/24 04:00 Temperature Pulse Rate 75 75 Respiratory Rate 21 H Blood Pressure 107/68 108/75 Pulse Oximetry 97 98 Oxygen Delivery Nasal Cannula Oxygen Flow Rate 2 10/05/24 04:00 10/05/24 06:00 10/05/24 06:00 Temperature Pulse Rate 75 75 75 Respiratory Rate 19 Blood Pressure 115/71 115/71 Pulse Oximetry 99 Oxygen Delivery Oxygen Flow Rate 10/05/24 06:00 Temperature Pulse Rate 75 Respiratory Rate Blood Pressure Pulse Oximetry Oxygen Delivery Oxygen Flow Rate Intake/Output Intake/Output: Intake & Output 10/02/24 10/03/24 10/04/24 10/05/24 23:59 23:59 23:59 23:59 Intake Total 1954.4 2157.6 2646.2 1322.7 Output Total 5200 250 50 Balance 1954.4 -3042.4 2396.2 1272.7 Meds/Results Medications: Active Medications Generic Name Dose Route Start Last Admin Trade Name Freq PRN Reason Stop Dose Admin Acetaminophen 650 mg 10/03/24 03:27 Acetaminophen 325 Mg Tablet PO Q4H PRN Mild Pain (1-3) or Fever Folic Acid 1 mg 10/03/24 09:00 10/05/24 09:25 Folic Acid 1 Mg Tablet PO 1 mg DAILY KELECHI Administration Heparin Sodium (Porcine) 6,500 units 10/03/24 17:20 Heparin Sodium 5,000 Units/Ml Vial IV PUSH PRN PRN aPTT less than 55 seconds Heparin Sodium (Porcine) 3,000 units 10/03/24 17:20 Heparin Sodium 5,000 Units/Ml Vial IV PUSH PRN PRN aPTT 55 - 70 seconds Hydrocortisone Sodium Succinate 100 mg 10/03/24 09:00 10/05/24 09:25 Hydrocortisone Sodium Succinate 100 Mg/2 Ml Vial IV PUSH 100 mg Q8H KELECHI Administration Norepinephrine Bitartrate 8 mg in 250 mls @ 7.5 mls/hr 10/02/24 19:40 10/05/24 06:00 Levophed 8 Mg/D5w 250 Ml IV CONT 4 mcg/min .Q24H KELECHI 7.5 mls/hr Administration Protocol 4 MCG/MIN Cefepime HCl 1 gm in 50 mls @ 100 mls/hr 10/03/24 14:00 10/04/24 15:30 Maxipime 1 Gm/Ns 50 Ml IVPB 10/10/24 13:59 Infused Q24H KELECHI Infusion Sodium Bicarbonate 150 meq/ 1,100 mls @ 50 mls/hr 10/03/24 09:30 10/05/24 06:48 Sterile Water IV CONT 50 mls/hr .Q22H KELECHI Administration Vasopressin 100 units/ 100 mls @ 0 mls/hr 10/03/24 08:40 10/04/24 18:00 Dextrose IV CONT 0 units/min .Q0M KELECHI 0 mls/hr Titration Protocol 0 UNITS/MIN Heparin Sodium/Dextrose 25,000 units in 250 mls @ 6 mls/hr 10/03/24 17:20 10/05/24 08:48 Heparin Sodium/D5w 100 Units/Ml IV CONT 600 units/hr .Q24H KELECHI 6 mls/hr Titration Protocol 600 UNITS/HR Octreotide Acetate 500 mcg/ 100 mls @ 10 mls/hr 10/04/24 12:00 10/05/24 06:47 Sodium Chloride IV CONT 50 mcg/hr .Q10H KELECHI 10 mls/hr Administration 50 MCG/HR Albumin Human 250 mls @ 62.5 mls/hr 10/05/24 08:00 10/05/24 09:25 Albumin Human 5% IV CONT 10/05/24 11:59 62.5 mls/hr .Q4H ONE Administration Lactulose 20 gm 10/03/24 17:00 10/03/24 17:52 Lactulose 20 Gm/30 Ml Udc PO 20 gm BID KELECHI Administration Melatonin 5 mg 10/03/24 03:26 10/04/24 22:49 Melatonin 5 Mg Tablet PO 5 mg HS PRN Administration Insomnia Pantoprazole Sodium 40 mg 10/04/24 09:00 10/05/24 09:25 Pantoprazole Sodium Iv 40 Mg Vial IV PUSH 40 mg Q12HR KELECHI Administration Perflutren Lipid Microsphere 0 ml 10/03/24 03:27 Perflutren Lipid Microspheres 1.5 Ml Vial Diluted To 10 Ml Total Volume IV PUSH 10/06/24 03:32 ONCE PRN adequate visualization Protocol Prochlorperazine Edisylate 10 mg 10/03/24 03:26 Prochlorperazine Edisylate 10 Mg/2 Ml Vial IV PUSH Q6H PRN Nausea And Vomiting Sodium Chloride 10 ml 10/03/24 06:00 10/05/24 06:59 Central Line Flush IV PUSH 10 ml Q8HR KELECHI Administration Sodium Chloride 20 ml 10/02/24 22:02 Central Line Flush IV PUSH PRN PRN after blood draws Radiology Results: ITS Impressions Chest/Abdomen/Pelvis CT 10/02/24 16:47 IMPRESSION: 1. Cirrhosis with large amount of ascites throughout the abdomen and pelvis. There is a reticulonodular appearance to the greater omentum which could be due to portal venous hypertension mesenteric edema although differential would include metastatic peritoneal implants. Consider diagnostic thoracentesis. 2. Atelectasis at the bilateral lower lungs, more prominent on the right secondary to prominent elevation the right hemidiaphragm. 3. Nonobstructing bilateral nephrolithiasis. 4. Diverticulosis. 5. Small sliding-type hiatal hernia. 6. Small fat and ascites containing right inguinal hernia. Abdomen Ultrasound 10/02/24 17:06 IMPRESSION: Gross ascites. Liver cirrhosis. Highly suggestive gallbladder stones. Paracentesis Ultrasound 10/03/24 12:13 Impression: Successful ultrasound guided paracentesis. Venous Doppler Study 10/03/24 14:02 Impression: Bilateral acute deep venous thrombosis in right popliteal and posterior tibial veins and left common femoral, femoral popliteal and posterior tibial veins. Labs Labs: Laboratory Results - last 24 hr 10/04/24 10/05/24 10/05/24 15:49 00:55 05:34 WBC 10.9 H RBC 2.54 L Hgb 8.6 L Hct 24.4 L MCV 96.1 MCH 33.9 MCHC 35.2 RDW 16.9 H Plt Count 124 L MPV 10.8 H Immature Gran % (Auto) 0.5 Neut % (Auto) 84.4 H Lymph % (Auto) 7.8 L [place] % (Auto) 7.2 Eos % (Auto) 0.0 Baso % (Auto) 0.1 L Lymph # (Auto) 0.85 L [place] # (Auto) 0.8 H Eos # (Auto) 0.0 Baso # (Auto) 0.0 Abs Immat Gran (auto) 0.05 H Absolute Neuts (auto) 9.2 H Absolute Nucleated RBC 0.000 Nucleated RBC % 0.0 APTT > 200.0 H* > 200.0 H* Sodium 131 L Potassium 3.9 Chloride 91 L Carbon Dioxide 21 L Anion Gap 19 H BUN 74 H Creatinine 8.84 H Estim Creat Clear Calc 7 Estimated GFR 6 L Glucose 148 H Calcium 7.7 L Phosphorus 5.9 H Total Bilirubin 1.3 AST 86 H ALT 24 Alkaline Phosphatase 163 H Total Protein 6.0 L Albumin 3.4 L 10/05/24 08:48 WBC RBC Hgb Hct MCV MCH MCHC RDW Plt Count MPV Immature Gran % (Auto) Neut % (Auto) Lymph % (Auto) [place] % (Auto) Eos % (Auto) Baso % (Auto) Lymph # (Auto) [place] # (Auto) Eos # (Auto) Baso # (Auto) Abs Immat Gran (auto) Absolute Neuts (auto) Absolute Nucleated RBC Nucleated RBC % APTT 87.2 H Sodium Potassium Chloride Carbon Dioxide Anion Gap BUN Creatinine Estim Creat Clear Calc Estimated GFR Glucose Calcium Phosphorus Total Bilirubin AST ALT Alkaline Phosphatase Total Protein Albumin Quality VTE Prophylaxis VTE prophylaxis: mechanical ordered Hospitalist MIPS Advance Care Plan I have confirmed that the patient's Advanced Care Plan is present, code status is documented, or surrogate decision maker is listed in patient medical record.: Yes Medication Reconciliation I have utilized all available resources to obtain, update and review the patients current medications (includes all prescriptions, OTC, herbals, cannabis, and nutritional supplements).: Yes
--- NOTE | 2024-10-05 10:38 | P.PNINT_ITS ---
Progress Note: A&P Assessment and Plan (1) Septic shock: Code(s): A41.9 - Sepsis, unspecified organism; R65.21 - Severe sepsis with septic shock Status: Acute Assessment and Plan: Septic shock secondary to UTI. Patient may also have component of vaso dilatory shock secondary to cirrhosis Continue Levophed -off vasopressin -decreased eye bicarb infusion -continue stress dose steroids -10/02/2024: Blood cultures negative x2 -10/02/2024: Urine cultures negative -10/03/2024: Paracentesis fluid culture on negative -Continue cefepime (10/03) (2) Acute renal failure: Code(s): N17.9 - Acute kidney failure, unspecified Status: Acute Assessment and Plan: Acute renal failure but with likely underlying chronic kidney disease. Likely multifactorial secondary to sepsis, shock, cirrhosis, patient also on ISH- inhibitor, questionable hepatorenal syndrome Appreciate nephrology following the patient Electrolytes are in acceptable range Continue IV fluids, albumin and vasopressors to maintain SBP > 100 mmHg Avoid nephrotoxins Monitor urine output electrolytes and creatinine No no indication for emergency dialysis but patient may need dialysis if does not improve Status post paracentesis to relieve abdominal compartment syndrome Hartley catheter for accurate I&Os (3) Chronic alcohol use: Code(s): F10.90 - Alcohol use, unspecified, uncomplicated Status: Acute Assessment and Plan: Monitor for signs of withdrawal Thiamine and folic acid (4) Cirrhosis: Code(s): K74.60 - Unspecified cirrhosis of liver Status: Acute Assessment and Plan: Patient clearly has cirrhosis likely secondary to heavy alcohol intake over many years Hepatitis panel was negative CT and ultrasound as under Vitamin K for coagulopathy Ammonia levels within normal 10/03: Status post paracentesis with 5000 mL removal of serous colored fluid -GI consulted, discussed with Dr. Raymundo, this could be likely related to hepatorenal syndrome, agreed to starting octreotide and continue norepinephrine 10/05: Discussed with GI, continue norepinephrine and octreotide infusion, maintain MAP > 80 mmHg per GI 10/02: CT chest abdomen 1. Cirrhosis with large amount of ascites throughout the abdomen and pelvis. There is a reticulonodular appearance to the greater omentum which could be due to portal venous hypertension mesenteric edema although differential would include metastatic peritoneal implants. Consider diagnostic thoracentesis. 2. Atelectasis at the bilateral lower lungs, more prominent on the right secondary to prominent elevation the right hemidiaphragm. 3. Nonobstructing bilateral nephrolithiasis. 4. Diverticulosis. 5. Small sliding-type hiatal hernia. 6. Small fat and ascites containing right inguinal hernia. 10/02: Ultrasound abdomen IMPRESSION: Gross ascites. Liver cirrhosis. Highly suggestive gallbladder stones. (5) Ascites: Code(s): R18.8 - Other ascites Status: Acute Assessment and Plan: See above (6) UTI (urinary tract infection): Code(s): N39.0 - Urinary tract infection, site not specified Status: Acute Assessment and Plan: See above (7) Coagulopathy: Code(s): D68.9 - Coagulation defect, unspecified Status: Acute Assessment and Plan: Secondary to cirrhosis Vitamin K ordered (8) Swelling of lower extremity: Code(s): M79.89 - Other specified soft tissue disorders Status: Acute Assessment and Plan: Likely secondary to cirrhosis and renal failure 10/03: Venous Dopplers: Bilateral acute deep venous thrombosis in right popliteal and posterior tibial veins and left common femoral, femoral popliteal and posterior tibial veins. 10/03: Started on heparin infusion (9) GERD (gastroesophageal reflux disease): Code(s): K21.9 - Gastro-esophageal reflux disease without esophagitis Status: Acute Assessment and Plan: Continue PPI (10) Non-ST elevation CO (NSTEMI): Code(s): I21.4 - Non-ST elevation (NSTEMI) myocardial infarction Status: Acute Assessment and Plan: Mildly elevated troponin in light of acute kidney injury and septic shock Denies any chest pain Hold beta-юлия ISH-inhibitor due to shock Hold statin due to cirrhosis until workup is complete Hold aspirin due to coagulopathy and impending invasive procedure Appreciate cardiology following the patient, no further workup required per oil distributor tender 10/03: Echocardiogram Summary 1. Complete two-dimensional, color flow and Doppler transthoracic echocardiogram is performed. 2. Left ventricular chamber dimension is normal. 3. Left ventricular systolic function is hyperdynamic, estimated at >70%. 4. The left ventricular diastolic function is grade I diastolic dysfunction. 5. E/e' 3 is not elevated. 6. Left atrial chamber dimension is mildly enlarged. 7. There is mild aortic valve sclerosis. 8. The mitral valve has mildly calcified annulus. 9. There is mild tricuspid valve regurgitation. 10. Mild pulmonary hypertension, estimated pulmonary arterial systolic pressure is 49 mmHg. Plan DVT prophylaxis -heparin infusion Stress ulcer prophylaxis -PPI Nutrition -renal diet Code Status - Full Code Total Critical Care Time - 33 minutes Discussed with patient updated with his condition and plan of care. I answered all questions Discussed with Nephrology, cardiology and GI Due to a high probability of clinically significant, life threatening deterioration, the patient required my highest level of preparedness to interven e emergently and I personally spent this critical care time directly and personally managing the patient. This critical care time included obtaining a history; examining the patient; pulse oximetry; ordering and review of studies; arranging urgent treatment with development of a management plan; evaluation of patient's response to treatment; frequent reassessment; and discussions with other providers. It was exclusive of separately billable procedures and treating other patients and teaching time. Please see Assessment and Plan section and the rest of the note for further information on patient assessment and treatment. This dictation may have been done utilizing a voice recognition system. Attempts have been made to correct errors. However, there may be uncorrected grammatical, spelling, and recognitions errors present. Subjective Date/time seen: 10/05/24 10:38 Interval history: Reason for consult: Acute kidney injury, UTI, septic shock, cirrhosis, alcohol abuse 10/03: Paracentesis with removal off 5000 mL of serous colored fluid 10/06/2023: Patient seen and examined the ICU, is awake, alert, oriented x3. Denies any chest pain, shortness of breath, abdominal pain, nausea vomiting. States he did not sleep too well. Low urine output. States he feels much better today. Appetite is adequate. Remains on Levophed and octreotide infusion Review of Systems Review of Systems: All systems reviewed & are unremarkable except as noted in HPI and below (HPI) Exam Narrative: General: Pt is alert awake and in NAD Lungs/Chest: Trachea central Clear BS B/L, No crackles or wheezing. Cardiac: RRR. Normal S1 S2. No murmurs Circulation: Pedal pulses are intact and symmetrical. Abdomen: Normal bowel sounds, soft, nontender, mildly distended after paracentesis done on 10/03 Extremities: Bilateral pitting edema present : Hartley in place with clear urine Neurologic: Follows commands. Moves all 4 extremities PERRL AO x3 Skin: No Rash Objective Data Vital Signs Vital Signs: Vital Signs - 24 hr 10/04/24 11:00 10/04/24 11:23 10/04/24 12:00 Temperature 97.9 F Pulse Rate 69 74 Respiratory Rate 16 Blood Pressure 101/70 99/63 L Pulse Oximetry 95 100 Oxygen Delivery Nasal Cannula Oxygen Flow Rate 2 10/04/24 12:00 10/04/24 12:00 10/04/24 12:00 Temperature Pulse Rate 74 74 67 Respiratory Rate Blood Pressure 99/63 L 99/63 L Pulse Oximetry Oxygen Delivery Oxygen Flow Rate 10/04/24 12:00 10/04/24 12:30 10/04/24 12:45 Temperature Pulse Rate 75 80 80 Respiratory Rate 16 Blood Pressure 87/62 L 106/58 L Pulse Oximetry 96 Oxygen Delivery Nasal Cannula Oxygen Flow Rate 2 10/04/24 14:00 10/04/24 14:00 10/04/24 14:00 Temperature Pulse Rate 80 80 80 Respiratory Rate 18 Blood Pressure 103/64 103/64 Pulse Oximetry 99 Oxygen Delivery Oxygen Flow Rate 10/04/24 14:00 10/04/24 16:00 10/04/24 16:00 Temperature 97.7 F Pulse Rate 80 79 80 Respiratory Rate 23 H Blood Pressure 103/64 104/69 Pulse Oximetry 100 Oxygen Delivery Oxygen Flow Rate 10/04/24 16:00 10/04/24 16:00 10/04/24 16:00 Temperature Pulse Rate 80 79 79 Respiratory Rate 23 H Blood Pressure 104/69 104/69 Pulse Oximetry 96 Oxygen Delivery Nasal Cannula Oxygen Flow Rate 2 10/04/24 18:00 10/04/24 18:00 10/04/24 18:00 Temperature Pulse Rate 81 81 81 Respiratory Rate 15 Blood Pressure 102/63 102/63 102/63 Pulse Oximetry 95 Oxygen Delivery Oxygen Flow Rate 10/04/24 18:00 10/04/24 20:00 10/04/24 20:00 Temperature 98.2 F Pulse Rate 81 76 Respiratory Rate 18 Blood Pressure 100/62 Pulse Oximetry 97 96 Oxygen Delivery Nasal Cannula Oxygen Flow Rate 2 10/04/24 20:00 10/04/24 20:00 10/04/24 20:43 Temperature Pulse Rate 75 74 Respiratory Rate Blood Pressure 100/62 Pulse Oximetry 96 Oxygen Delivery Nasal Cannula Oxygen Flow Rate 2 10/04/24 22:00 10/04/24 22:00 10/05/24 00:00 Temperature 98.4 F 98.6 F Pulse Rate 76 78 81 Respiratory Rate 18 20 Blood Pressure 104/65 104/65 111/67 Pulse Oximetry 99 99 Oxygen Delivery Oxygen Flow Rate 10/05/24 00:00 10/05/24 00:00 10/05/24 00:00 Temperature Pulse Rate 77 81 Respiratory Rate Blood Pressure 111/67 Pulse Oximetry 98 Oxygen Delivery Nasal Cannula Oxygen Flow Rate 2 10/05/24 02:00 10/05/24 02:00 10/05/24 02:00 Temperature Pulse Rate 73 79 79 Respiratory Rate 14 Blood Pressure 110/63 110/63 Pulse Oximetry 98 Oxygen Delivery Oxygen Flow Rate 10/05/24 02:15 10/05/24 04:00 10/05/24 04:00 Temperature Pulse Rate 77 75 75 Respiratory Rate 21 H Blood Pressure 105/66 107/68 108/75 Pulse Oximetry 97 Oxygen Delivery Oxygen Flow Rate 10/05/24 04:00 10/05/24 04:00 10/05/24 06:00 Temperature Pulse Rate 75 75 Respiratory Rate Blood Pressure 115/71 Pulse Oximetry 98 Oxygen Delivery Nasal Cannula Oxygen Flow Rate 2 10/05/24 06:00 10/05/24 06:00 Temperature Pulse Rate 75 75 Respiratory Rate 19 Blood Pressure 115/71 Pulse Oximetry 99 Oxygen Delivery Oxygen Flow Rate Intake/Output Intake/Output: Intake & Output 10/02/24 10/03/24 10/04/24 10/05/24 23:59 23:59 23:59 23:59 Intake Total 1954.4 2157.6 2646.2 1322.7 Output Total 5200 250 50 Balance 1954.4 -3042.4 2396.2 1272.7 Meds/Results Medications: Active Medications Generic Name Dose Route Start Last Admin Trade Name Freq PRN Reason Stop Dose Admin Acetaminophen 650 mg 10/03/24 03:27 Acetaminophen 325 Mg Tablet PO Q4H PRN Mild Pain (1-3) or Fever Folic Acid 1 mg 10/03/24 09:00 10/05/24 09:25 Folic Acid 1 Mg Tablet PO 1 mg DAILY KELECHI Administration Heparin Sodium (Porcine) 6,500 units 10/03/24 17:20 Heparin Sodium 5,000 Units/Ml Vial IV PUSH PRN PRN aPTT less than 55 seconds Heparin Sodium (Porcine) 3,000 units 10/03/24 17:20 Heparin Sodium 5,000 Units/Ml Vial IV PUSH PRN PRN aPTT 55 - 70 seconds Hydrocortisone Sodium Succinate 100 mg 10/03/24 09:00 10/05/24 09:25 Hydrocortisone Sodium Succinate 100 Mg/2 Ml Vial IV PUSH 100 mg Q8H KELECHI Administration Norepinephrine Bitartrate 8 mg in 250 mls @ 7.5 mls/hr 10/02/24 19:40 10/05/24 06:00 Levophed 8 Mg/D5w 250 Ml IV CONT 4 mcg/min .Q24H KELECHI 7.5 mls/hr Administration Protocol 4 MCG/MIN Cefepime HCl 1 gm in 50 mls @ 100 mls/hr 10/03/24 14:00 10/04/24 15:30 Maxipime 1 Gm/Ns 50 Ml IVPB 10/10/24 13:59 Infused Q24H KELECHI Infusion Sodium Bicarbonate 150 meq/ 1,100 mls @ 50 mls/hr 10/03/24 09:30 10/05/24 06:48 Sterile Water IV CONT 50 mls/hr .Q22H KELECHI Administration Vasopressin 100 units/ 100 mls @ 0 mls/hr 10/03/24 08:40 10/04/24 18:00 Dextrose IV CONT 0 units/min .Q0M KELECHI 0 mls/hr Titration Protocol 0 UNITS/MIN Heparin Sodium/Dextrose 25,000 units in 250 mls @ 6 mls/hr 10/03/24 17:20 10/05/24 08:48 Heparin Sodium/D5w 100 Units/Ml IV CONT 600 units/hr .Q24H KELECHI 6 mls/hr Titration Protocol 600 UNITS/HR Octreotide Acetate 500 mcg/ 100 mls @ 10 mls/hr 10/04/24 12:00 10/05/24 06:47 Sodium Chloride IV CONT 50 mcg/hr .Q10H KELECHI 10 mls/hr Administration 50 MCG/HR Albumin Human 250 mls @ 62.5 mls/hr 10/05/24 08:00 10/05/24 09:25 Albumin Human 5% IV CONT 10/05/24 11:59 62.5 mls/hr .Q4H ONE Administration Lactulose 20 gm 10/03/24 17:00 10/03/24 17:52 Lactulose 20 Gm/30 Ml Udc PO 20 gm BID KELECHI Administration Melatonin 5 mg 10/03/24 03:26 10/04/24 22:49 Melatonin 5 Mg Tablet PO 5 mg HS PRN Administration Insomnia Perflutren Lipid Microsphere 0 ml 10/03/24 03:27 Perflutren Lipid Microspheres 1.5 Ml Vial Diluted To 10 Ml Total Volume IV PUSH 10/06/24 03:32 ONCE PRN adequate visualization Protocol Prochlorperazine Edisylate 10 mg 10/03/24 03:26 Prochlorperazine Edisylate 10 Mg/2 Ml Vial IV PUSH Q6H PRN Nausea And Vomiting Sodium Chloride 10 ml 10/03/24 06:00 10/05/24 06:59 Central Line Flush IV PUSH 10 ml Q8HR KELECHI Administration Sodium Chloride 20 ml 10/02/24 22:02 Central Line Flush IV PUSH PRN PRN after blood draws Radiology Results: ITS Impressions Chest/Abdomen/Pelvis CT 10/02/24 16:47 IMPRESSION: 1. Cirrhosis with large amount of ascites throughout the abdomen and pelvis. There is a reticulonodular appearance to the greater omentum which could be due to portal venous hypertension mesenteric edema although differential would include metastatic peritoneal implants. Consider diagnostic thoracentesis. 2. Atelectasis at the bilateral lower lungs, more prominent on the right secondary to prominent elevation the right hemidiaphragm. 3. Nonobstructing bilateral nephrolithiasis. 4. Diverticulosis. 5. Small sliding-type hiatal hernia. 6. Small fat and ascites containing right inguinal hernia. Abdomen Ultrasound 10/02/24 17:06 IMPRESSION: Gross ascites. Liver cirrhosis. Highly suggestive gallbladder stones. Paracentesis Ultrasound 10/03/24 12:13 Impression: Successful ultrasound guided paracentesis. Venous Doppler Study 10/03/24 14:02 Impression: Bilateral acute deep venous thrombosis in right popliteal and posterior tibial veins and left common femoral, femoral popliteal and posterior tibial veins. Labs Labs: Laboratory Results - last 24 hr 10/04/24 10/05/24 10/05/24 15:49 00:55 05:34 WBC 10.9 H RBC 2.54 L Hgb 8.6 L Hct 24.4 L MCV 96.1 MCH 33.9 MCHC 35.2 RDW 16.9 H Plt Count 124 L MPV 10.8 H Immature Gran % (Auto) 0.5 Neut % (Auto) 84.4 H Lymph % (Auto) 7.8 L [place] % (Auto) 7.2 Eos % (Auto) 0.0 Baso % (Auto) 0.1 L Lymph # (Auto) 0.85 L [place] # (Auto) 0.8 H Eos # (Auto) 0.0 Baso # (Auto) 0.0 Abs Immat Gran (auto) 0.05 H Absolute Neuts (auto) 9.2 H Absolute Nucleated RBC 0.000 Nucleated RBC % 0.0 APTT > 200.0 H* > 200.0 H* Sodium 131 L Potassium 3.9 Chloride 91 L Carbon Dioxide 21 L Anion Gap 19 H BUN 74 H Creatinine 8.84 H Estim Creat Clear Calc 7 Estimated GFR 6 L Glucose 148 H Calcium 7.7 L Phosphorus 5.9 H Total Bilirubin 1.3 AST 86 H ALT 24 Alkaline Phosphatase 163 H Total Protein 6.0 L Albumin 3.4 L 10/05/24 08:48 WBC RBC Hgb Hct MCV MCH MCHC RDW Plt Count MPV Immature Gran % (Auto) Neut % (Auto) Lymph % (Auto) [place] % (Auto) Eos % (Auto) Baso % (Auto) Lymph # (Auto) [place] # (Auto) Eos # (Auto) Baso # (Auto) Abs Immat Gran (auto) Absolute Neuts (auto) Absolute Nucleated RBC Nucleated RBC % APTT 87.2 H Sodium Potassium Chloride Carbon Dioxide Anion Gap BUN Creatinine Estim Creat Clear Calc Estimated GFR Glucose Calcium Phosphorus Total Bilirubin AST ALT Alkaline Phosphatase Total Protein Albumin Quality VTE Prophylaxis VTE prophylaxis: mechanical ordered
--- NOTE | 2024-10-05 10:53 | P.PNNP_ITS ---
Progress Note: A&P Assessment and Plan (1) Acute kidney injury: Code(s): N17.9 - Acute kidney failure, unspecified Status: Acute Assessment and Plan: * normal baseline creatinine * creatinine 0.99mg/dl on 07/11/24 * suspect multifactorial etiology: * hemodynamic instability/shock * infection/sepsus * outpatient use of ISH-I * liver cirrhosis/liver physiology * other(?) * on IV albumin + vasopressor therapy to optimize hemodynamics * evaluation to date noted: * CT imaging without obstruction * CPK okay * urine eosinophils negative * urine electrolytes prerenal * mild proteinuria * srologies pending * remains at risk for renal replacement therapy * follow trend of repeat labs and UOP (2) Septic shock: Code(s): A41.9 - Sepsis, unspecified organism; R65.21 - Severe sepsis with septic shock Status: Acute Assessment and Plan: * due to UTI versus SBP versus other * complicated by liver physiology and associated chronic hypotension * on vasopressor therapy * follow culture data * blood culture negative * urine culture negative * ascitic fluid culture negative to date * on antibiotics (3) Cirrhosis: Code(s): K74.60 - Unspecified cirrhosis of liver Status: Acute Assessment and Plan: * as evidence by admission imaging * presumably secondary to alcohol abuse * LFTs on 07/11/24 noted: * ALT 41 * AST 108 (H) * Alk phos 267 (H) * Total Bilitubin 1.7 (H) * s/p large volume paracentesis (on 10/03) * GI recommendations noted * started on octreotide (4) DVT of lower extremity, bilateral: Code(s): I82.403 - Acute embolism and thrombosis of unspecified deep veins of lower extremity, bilateral Status: Acute Assessment and Plan: * as noted by duplex ultrasound: * bilateral acute deep venous thrombosis in right popliteal and posterior tibial veins and left common femoral, femoral popliteal and posterior tibial veins. * on heparin gtt (5) UTI (urinary tract infection): Code(s): N39.0 - Urinary tract infection, site not specified Status: Acute Assessment and Plan: * admission UA highly suggestive * follow-up on urine cultures - negative to date * on antibiotics (6) Ascites: Code(s): R18.8 - Other ascites Status: Acute Assessment and Plan: * as noted by admission imaging * s/p large volume paracentesis (on 10/03) * fluid studies from ascites reviewed (7) Elevated troponin: Code(s): R79.89 - Other specified abnormal findings of blood chemistry Status: Acute Assessment and Plan: * noted on admission * likely secondary to renal dysfunction in the context of septic shock * no symptoms to suggest ACS * Cardiology recommendations noted * Echo reviewed: * left ventricular systolic function is hyperdynamic, estimated at >70% * left ventricular diastolic function is grade I diastolic dysfunction * mild aortic valve sclerosis * mitral valve has mildly calcified annulus * mild tricuspid valve regurgitation * mild pulmonary hypertension, estimated pulmonary arterial systolic pressure is 49 mmHg (8) Chronic alcohol use: Code(s): F10.90 - Alcohol use, unspecified, uncomplicated Status: Acute Assessment and Plan: * monitor for signs of withdrawal * on thiamine and folic acid Will continue to follow. L Subjective Date/time seen: 10/05/24 10:53 Interval history: Follow-up for acute kidney injury/acute renal failure. Seen by GI yesterday and initiated on octreotide due to concerns for possible hepatorenal syndrome; renal function/creatinine better but with minimal improvement in urine output; remains on vasopressor therapy as well; no apparent distress noted at the time of my visit; no other acute complaints voiced and reports feeling better in general. Exam 2 Narrative: General: elderly male in NAD Heart: normal S1 and S2; no rub Lungs: clear to auscultation Abdomen: soft, nontender with mild distension noted, positive bowel sounds Extremities: no cyanosis or clubbing; 2+ edema Skin: warm and intact Objective Data Vital Signs Vital Signs: Vital Signs Temp Pulse Resp BP Pulse Ox O2 Del Method O2 Flow Rate 10/05/24 06:00 75 10/05/24 06:00 75 19 115/71 99 10/05/24 06:00 75 115/71 10/05/24 04:00 75 10/05/24 04:00 98 Nasal Cannula 2 10/05/24 04:00 75 108/75 10/05/24 04:00 75 21 H 107/68 97 10/05/24 02:15 77 105/66 10/05/24 02:00 79 110/63 10/05/24 02:00 79 14 110/63 98 10/05/24 02:00 73 10/05/24 00:00 81 111/67 10/05/24 00:00 77 10/05/24 00:00 98 Nasal Cannula 2 10/05/24 00:00 98.6 F 81 20 111/67 99 10/04/24 22:00 78 104/65 10/04/24 22:00 98.4 F 76 18 104/65 99 10/04/24 20:43 96 Nasal Cannula 2 10/04/24 20:00 74 100/62 10/04/24 20:00 75 10/04/24 20:00 96 Nasal Cannula 2 10/04/24 20:00 98.2 F 76 18 100/62 97 10/04/24 18:00 81 10/04/24 18:00 81 15 102/63 95 10/04/24 18:00 81 102/63 10/04/24 18:00 81 102/63 10/04/24 16:00 79 104/69 10/04/24 16:00 79 104/69 10/04/24 16:00 80 23 H 96 Nasal Cannula 2 10/04/24 16:00 80 10/04/24 16:00 97.7 F 79 23 H 104/69 100 10/04/24 14:00 80 103/64 10/04/24 14:00 80 103/64 10/04/24 14:00 80 18 103/64 99 10/04/24 14:00 80 10/04/24 12:45 80 106/58 L Intake/Output Intake/Output: Intake & Output 10/02/24 10/03/24 10/04/24 10/05/24 23:59 23:59 23:59 23:59 Intake Total 1953.4 2157.6 2646.2 1322.7 Output Total 5200 250 50 Balance 4.4 -3042.4 2396.2 1272.7 Meds/Results Medications: Active Medications Generic Name Dose Route Start Last Admin Trade Name Freq PRN Reason Stop Dose Admin Acetaminophen 650 mg 10/03/24 03:27 Acetaminophen 325 Mg Tablet PO Q4H PRN Mild Pain (1-3) or Fever Folic Acid 1 mg 10/03/24 09:00 10/05/24 09:25 Folic Acid 1 Mg Tablet PO 1 mg DAILY KELECHI Administration Heparin Sodium (Porcine) 6,500 units 10/03/24 17:20 Heparin Sodium 5,000 Units/Ml Vial IV PUSH PRN PRN aPTT less than 55 seconds Heparin Sodium (Porcine) 3,000 units 10/03/24 17:20 Heparin Sodium 5,000 Units/Ml Vial IV PUSH PRN PRN aPTT 55 - 70 seconds Hydrocortisone Sodium Succinate 100 mg 10/03/24 09:00 10/05/24 09:25 Hydrocortisone Sodium Succinate 100 Mg/2 Ml Vial IV PUSH 100 mg Q8H KELECHI Administration Norepinephrine Bitartrate 8 mg in 250 mls @ 7.5 mls/hr 10/02/24 19:40 10/05/24 06:00 Levophed 8 Mg/D5w 250 Ml IV CONT 4 mcg/min .Q24H KELECHI 7.5 mls/hr Administration Protocol 4 MCG/MIN Cefepime HCl 1 gm in 50 mls @ 100 mls/hr 10/03/24 14:00 10/04/24 15:30 Maxipime 1 Gm/Ns 50 Ml IVPB 10/10/24 13:59 Infused Q24H KELECHI Infusion Sodium Bicarbonate 150 meq/ 1,100 mls @ 50 mls/hr 10/03/24 09:30 10/05/24 06:48 Sterile Water IV CONT 50 mls/hr .Q22H KELECHI Administration Vasopressin 100 units/ 100 mls @ 0 mls/hr 10/03/24 08:40 10/04/24 18:00 Dextrose IV CONT 0 units/min .Q0M KELECHI 0 mls/hr Titration Protocol 0 UNITS/MIN Heparin Sodium/Dextrose 25,000 units in 250 mls @ 6 mls/hr 10/03/24 17:20 10/05/24 08:48 Heparin Sodium/D5w 100 Units/Ml IV CONT 600 units/hr .Q24H KELECHI 6 mls/hr Titration Protocol 600 UNITS/HR Octreotide Acetate 500 mcg/ 100 mls @ 10 mls/hr 10/04/24 12:00 10/05/24 06:47 Sodium Chloride IV CONT 50 mcg/hr .Q10H KELCEHI 10 mls/hr Administration 50 MCG/HR Lactulose 20 gm 10/03/24 17:00 10/03/24 17:52 Lactulose 20 Gm/30 Ml Udc PO 20 gm BID KELECHI Administration Melatonin 5 mg 10/03/24 03:26 10/04/24 22:49 Melatonin 5 Mg Tablet PO 5 mg HS PRN Administration Insomnia Perflutren Lipid Microsphere 0 ml 10/03/24 03:27 Perflutren Lipid Microspheres 1.5 Ml Vial Diluted To 10 Ml Total Volume IV PUSH 10/06/24 03:32 ONCE PRN adequate visualization Protocol Prochlorperazine Edisylate 10 mg 10/03/24 03:26 Prochlorperazine Edisylate 10 Mg/2 Ml Vial IV PUSH Q6H PRN Nausea And Vomiting Sodium Chloride 10 ml 10/03/24 06:00 10/05/24 06:59 Central Line Flush IV PUSH 10 ml Q8HR KELECHI Administration Sodium Chloride 20 ml 10/02/24 22:02 Central Line Flush IV PUSH PRN PRN after blood draws Radiology Results: ITS Impressions Chest/Abdomen/Pelvis CT 10/02/24 16:47 IMPRESSION: 1. Cirrhosis with large amount of ascites throughout the abdomen and pelvis. There is a reticulonodular appearance to the greater omentum which could be due to portal venous hypertension mesenteric edema although differential would include metastatic peritoneal implants. Consider diagnostic thoracentesis. 2. Atelectasis at the bilateral lower lungs, more prominent on the right secondary to prominent elevation the right hemidiaphragm. 3. Nonobstructing bilateral nephrolithiasis. 4. Diverticulosis. 5. Small sliding-type hiatal hernia. 6. Small fat and ascites containing right inguinal hernia. Abdomen Ultrasound 10/02/24 17:06 IMPRESSION: Gross ascites. Liver cirrhosis. Highly suggestive gallbladder stones. Paracentesis Ultrasound 10/03/24 12:13 Impression: Successful ultrasound guided paracentesis. Venous Doppler Study 10/03/24 14:02 Impression: Bilateral acute deep venous thrombosis in right popliteal and posterior tibial veins and left common femoral, femoral popliteal and posterior tibial veins. Labs Labs: Laboratory Tests 10/05/24 05:34 10/05/24 05:34 Calcium 7.7 L Phosphorus 5.9 H Total Bilirubin 1.3 AST 86 H ALT 24 Alkaline Phosphatase 163 H Total Protein 6.0 L Albumin 3.4 L Microbiology 10/03/24 11:31 Abdominal Fluid Anaerobic Culture - Preliminary 10/03/24 11:31 Abdominal Fluid Aerobic Culture - Preliminary
--- NOTE | 2024-10-05 10:53 | WPDGIPROGNO ---
Progress Note: A&P Assessment and Plan (1) Cirrhosis: Code(s): K74.60 - Unspecified cirrhosis of liver Status: Acute Assessment and Plan: The patient is currently being managed with norepinephrine and octreotide for hepatorenal syndrome, after exclusion of primary causes of acute kidney injury. This progression is consistent with the anticipated course of his underlying liver disease. His creatinine level is trending favorably, decreasing from 9.49 to 8.84 today. We will continue close monitoring in the ICU, paying attention to diuresis and other standard parameters. (2) Ascites: Code(s): R18.8 - Other ascites Status: Acute (3) Hepatorenal syndrome: Code(s): K76.7 - Hepatorenal syndrome Status: Acute Time Spent With Patient Time with patient: 15 - 25 minutes Subjective Date/time seen: 10/05/24 10:53 Interval history: The patient feels relatively well, no abdominal pain, no fever. Exam Narrative: Somewhat slurred speech, oriented x3. Cooperative. Abdomen: Soft, not tense but firm, fluid wave positive. Extremities: 3+ pitting edema pedal and pretibial. Objective Data Vital Signs Vital Signs: Vital Signs - 24 hr 10/04/24 11:00 10/04/24 11:23 10/04/24 12:00 Temperature 97.9 F Pulse Rate 69 74 Respiratory Rate 16 Blood Pressure 101/70 99/63 L Pulse Oximetry 95 100 Oxygen Delivery Nasal Cannula Oxygen Flow Rate 2 10/04/24 12:00 10/04/24 12:00 10/04/24 12:00 Temperature Pulse Rate 74 74 67 Respiratory Rate Blood Pressure 99/63 L 99/63 L Pulse Oximetry Oxygen Delivery Oxygen Flow Rate 10/04/24 12:00 10/04/24 12:30 10/04/24 12:45 Temperature Pulse Rate 75 80 80 Respiratory Rate 16 Blood Pressure 87/62 L 106/58 L Pulse Oximetry 96 Oxygen Delivery Nasal Cannula Oxygen Flow Rate 2 10/04/24 14:00 10/04/24 14:00 10/04/24 14:00 Temperature Pulse Rate 80 80 80 Respiratory Rate 18 Blood Pressure 103/64 103/64 Pulse Oximetry 99 Oxygen Delivery Oxygen Flow Rate 10/04/24 14:00 10/04/24 16:00 10/04/24 16:00 Temperature 97.7 F Pulse Rate 80 79 80 Respiratory Rate 23 H Blood Pressure 103/64 104/69 Pulse Oximetry 100 Oxygen Delivery Oxygen Flow Rate 10/04/24 16:00 10/04/24 16:00 10/04/24 16:00 Temperature Pulse Rate 80 79 79 Respiratory Rate 23 H Blood Pressure 104/69 104/69 Pulse Oximetry 96 Oxygen Delivery Nasal Cannula Oxygen Flow Rate 2 10/04/24 18:00 10/04/24 18:00 10/04/24 18:00 Temperature Pulse Rate 81 81 81 Respiratory Rate 15 Blood Pressure 102/63 102/63 102/63 Pulse Oximetry 95 Oxygen Delivery Oxygen Flow Rate 10/04/24 18:00 10/04/24 20:00 10/04/24 20:00 Temperature 98.2 F Pulse Rate 81 76 Respiratory Rate 18 Blood Pressure 100/62 Pulse Oximetry 97 96 Oxygen Delivery Nasal Cannula Oxygen Flow Rate 2 10/04/24 20:00 10/04/24 20:00 10/04/24 20:43 Temperature Pulse Rate 75 74 Respiratory Rate Blood Pressure 100/62 Pulse Oximetry 96 Oxygen Delivery Nasal Cannula Oxygen Flow Rate 2 10/04/24 22:00 10/04/24 22:00 10/05/24 00:00 Temperature 98.4 F 98.6 F Pulse Rate 76 78 81 Respiratory Rate 18 20 Blood Pressure 104/65 104/65 111/67 Pulse Oximetry 99 99 Oxygen Delivery Oxygen Flow Rate 10/05/24 00:00 10/05/24 00:00 10/05/24 00:00 Temperature Pulse Rate 77 81 Respiratory Rate Blood Pressure 111/67 Pulse Oximetry 98 Oxygen Delivery Nasal Cannula Oxygen Flow Rate 2 10/05/24 02:00 10/05/24 02:00 10/05/24 02:00 Temperature Pulse Rate 73 79 79 Respiratory Rate 14 Blood Pressure 110/63 110/63 Pulse Oximetry 98 Oxygen Delivery Oxygen Flow Rate 10/05/24 02:15 10/05/24 04:00 10/05/24 04:00 Temperature Pulse Rate 77 75 75 Respiratory Rate 21 H Blood Pressure 105/66 107/68 108/75 Pulse Oximetry 97 Oxygen Delivery Oxygen Flow Rate 10/05/24 04:00 10/05/24 04:00 10/05/24 06:00 Temperature Pulse Rate 75 75 Respiratory Rate Blood Pressure 115/71 Pulse Oximetry 98 Oxygen Delivery Nasal Cannula Oxygen Flow Rate 2 10/05/24 06:00 10/05/24 06:00 Temperature Pulse Rate 75 75 Respiratory Rate 19 Blood Pressure 115/71 Pulse Oximetry 99 Oxygen Delivery Oxygen Flow Rate Intake/Output Intake/Output: Intake & Output 10/02/24 10/03/24 10/04/24 10/05/24 23:59 23:59 23:59 23:59 Intake Total 1954.4 2157.6 2646.2 1322.7 Output Total 5200 250 50 Balance 1954.4 -3042.4 2396.2 1272.7 Meds/Results Medications: Active Medications Generic Name Dose Route Start Last Admin Trade Name Freq PRN Reason Stop Dose Admin Acetaminophen 650 mg 10/03/24 03:27 Acetaminophen 325 Mg Tablet PO Q4H PRN Mild Pain (1-3) or Fever Folic Acid 1 mg 10/03/24 09:00 10/05/24 09:25 Folic Acid 1 Mg Tablet PO 1 mg DAILY KELECHI Administration Heparin Sodium (Porcine) 6,500 units 10/03/24 17:20 Heparin Sodium 5,000 Units/Ml Vial IV PUSH PRN PRN aPTT less than 55 seconds Heparin Sodium (Porcine) 3,000 units 10/03/24 17:20 Heparin Sodium 5,000 Units/Ml Vial IV PUSH PRN PRN aPTT 55 - 70 seconds Hydrocortisone Sodium Succinate 100 mg 10/03/24 09:00 10/05/24 09:25 Hydrocortisone Sodium Succinate 100 Mg/2 Ml Vial IV PUSH 100 mg Q8H KELECHI Administration Norepinephrine Bitartrate 8 mg in 250 mls @ 7.5 mls/hr 10/02/24 19:40 10/05/24 06:00 Levophed 8 Mg/D5w 250 Ml IV CONT 4 mcg/min .Q24H KELECHI 7.5 mls/hr Administration Protocol 4 MCG/MIN Cefepime HCl 1 gm in 50 mls @ 100 mls/hr 10/03/24 14:00 10/04/24 15:30 Maxipime 1 Gm/Ns 50 Ml IVPB 10/10/24 13:59 Infused Q24H KELECHI Infusion Sodium Bicarbonate 150 meq/ 1,100 mls @ 50 mls/hr 10/03/24 09:30 10/05/24 06:48 Sterile Water IV CONT 50 mls/hr .Q22H KELECHI Administration Vasopressin 100 units/ 100 mls @ 0 mls/hr 10/03/24 08:40 10/04/24 18:00 Dextrose IV CONT 0 units/min .Q0M KELECHI 0 mls/hr Titration Protocol 0 UNITS/MIN Heparin Sodium/Dextrose 25,000 units in 250 mls @ 6 mls/hr 10/03/24 17:20 10/05/24 08:48 Heparin Sodium/D5w 100 Units/Ml IV CONT 600 units/hr .Q24H KELECHI 6 mls/hr Titration Protocol 600 UNITS/HR Octreotide Acetate 500 mcg/ 100 mls @ 10 mls/hr 10/04/24 12:00 10/05/24 06:47 Sodium Chloride IV CONT 50 mcg/hr .Q10H KELECHI 10 mls/hr Administration 50 MCG/HR Albumin Human 250 mls @ 62.5 mls/hr 10/05/24 08:00 10/05/24 09:25 Albumin Human 5% IV CONT 10/05/24 11:59 62.5 mls/hr .Q4H ONE Administration Lactulose 20 gm 10/03/24 17:00 10/03/24 17:52 Lactulose 20 Gm/30 Ml Udc PO 20 gm BID KELECHI Administration Melatonin 5 mg 10/03/24 03:26 10/04/24 22:49 Melatonin 5 Mg Tablet PO 5 mg HS PRN Administration Insomnia Perflutren Lipid Microsphere 0 ml 10/03/24 03:27 Perflutren Lipid Microspheres 1.5 Ml Vial Diluted To 10 Ml Total Volume IV PUSH 10/06/24 03:32 ONCE PRN adequate visualization Protocol Prochlorperazine Edisylate 10 mg 10/03/24 03:26 Prochlorperazine Edisylate 10 Mg/2 Ml Vial IV PUSH Q6H PRN Nausea And Vomiting Sodium Chloride 10 ml 10/03/24 06:00 10/05/24 06:59 Central Line Flush IV PUSH 10 ml Q8HR KELECHI Administration Sodium Chloride 20 ml 10/02/24 22:02 Central Line Flush IV PUSH PRN PRN after blood draws Radiology Results: ITS Impressions Chest/Abdomen/Pelvis CT 10/02/24 16:47 IMPRESSION: 1. Cirrhosis with large amount of ascites throughout the abdomen and pelvis. There is a reticulonodular appearance to the greater omentum which could be due to portal venous hypertension mesenteric edema although differential would include metastatic peritoneal implants. Consider diagnostic thoracentesis. 2. Atelectasis at the bilateral lower lungs, more prominent on the right secondary to prominent elevation the right hemidiaphragm. 3. Nonobstructing bilateral nephrolithiasis. 4. Diverticulosis. 5. Small sliding-type hiatal hernia. 6. Small fat and ascites containing right inguinal hernia. Abdomen Ultrasound 10/02/24 17:06 IMPRESSION: Gross ascites. Liver cirrhosis. Highly suggestive gallbladder stones. Paracentesis Ultrasound 10/03/24 12:13 Impression: Successful ultrasound guided paracentesis. Venous Doppler Study 10/03/24 14:02 Impression: Bilateral acute deep venous thrombosis in right popliteal and posterior tibial veins and left common femoral, femoral popliteal and posterior tibial veins. Labs Labs: Laboratory Results - last 24 hr 10/04/24 10/05/24 10/05/24 15:49 00:55 05:34 WBC 10.9 H RBC 2.54 L Hgb 8.6 L Hct 24.4 L MCV 96.1 MCH 33.9 MCHC 35.2 RDW 16.9 H Plt Count 124 L MPV 10.8 H Immature Gran % (Auto) 0.5 Neut % (Auto) 84.4 H Lymph % (Auto) 7.8 L [place] % (Auto) 7.2 Eos % (Auto) 0.0 Baso % (Auto) 0.1 L Lymph # (Auto) 0.85 L [place] # (Auto) 0.8 H Eos # (Auto) 0.0 Baso # (Auto) 0.0 Abs Immat Gran (auto) 0.05 H Absolute Neuts (auto) 9.2 H Absolute Nucleated RBC 0.000 Nucleated RBC % 0.0 APTT > 200.0 H* > 200.0 H* Sodium 131 L Potassium 3.9 Chloride 91 L Carbon Dioxide 21 L Anion Gap 19 H BUN 74 H Creatinine 8.84 H Estim Creat Clear Calc 7 Estimated GFR 6 L Glucose 148 H Calcium 7.7 L Phosphorus 5.9 H Total Bilirubin 1.3 AST 86 H ALT 24 Alkaline Phosphatase 163 H Total Protein 6.0 L Albumin 3.4 L 10/05/24 08:48 WBC RBC Hgb Hct MCV MCH MCHC RDW Plt Count MPV Immature Gran % (Auto) Neut % (Auto) Lymph % (Auto) [place] % (Auto) Eos % (Auto) Baso % (Auto) Lymph # (Auto) [place] # (Auto) Eos # (Auto) Baso # (Auto) Abs Immat Gran (auto) Absolute Neuts (auto) Absolute Nucleated RBC Nucleated RBC % APTT 87.2 H Sodium Potassium Chloride Carbon Dioxide Anion Gap BUN Creatinine Estim Creat Clear Calc Estimated GFR Glucose Calcium Phosphorus Total Bilirubin AST ALT Alkaline Phosphatase Total Protein Albumin
[2024-10-05] MEDS: CEFEPIME 1 GM/NS 50 ML 1 GM/50 ML BAG IVPB (14:09)
[2024-10-05 15:36] LABS: Partial Thromboplastin Time 78.9 Seconds (22.3-36.8)
[2024-10-05 19:35] LABS: IFOB Positive Control Positive; Immunochemical Fecal Occult Bl Positive (N)
[2024-10-05] MEDS: MELATONIN 5 MG TABLET PO (20:32)
[2024-10-06] VITALS (50 sets, daily range): BP systolic 87–136; BP diastolic 56–93; PULSE 65–114; RESP 16–22; TEMP 36.2–36.6; O2SAT 91–99
[2024-10-06] MEDS: HYDROCORTISONE SODIUM SUCCINATE 100 MG/2 ML VIAL IV PUSH ×3 (00:20→17:27)
[2024-10-06 02:29] LABS: Hepatitis B Core Ab Total NON-REACTIVE (NON-REACTIVE)
[2024-10-06] MEDS: OCTREOTIDE ACETATE 500 MCG in SODIUM CHLORIDE 0.9% IV 99 ML 10 MCG IV CONT ×2 (03:22→15:09)
[2024-10-06] MEDS: SODIUM BICARBONATE 8.4% 150 MEQ in WATER, STERILE FOR INJECTION 950 ML 50 MEQ IV CONT (03:22)
[2024-10-06 04:24] LABS: Basophils Percent Auto 0.1 % (0.2-1.2); Hematocrit 27.1 % (42.0-52.0); Hemoglobin 9.6 g/dL (14.0-18.0); Immature Granulocyte Absolute 0.11 K/mm3 (0.00-0.031); Immature Granulocyte Percent A 0.9 % (0-0.5); Lymphocytes Absolute Auto 1.03 K/mm3 (0.9-3.2); Lymphocytes Percent Auto 8.2 % (18.3-44.2); Mean Corpuscular HGB Conc 35.4 g/dl (32-36); Mean Corpuscular Volume 96.1 fl (80-100); Mean Platelet Volume 11.1 fl (7.4-10.4); Monocytes Absolute Auto 0.8 K/mm3 (0.1-0.6); Monocytes Percent Auto 6.1 % (2.6-8.5); Neutrophils Absolute Auto 10.6 K/mm3 (1.3-6.7); Neutrophils Percent Auto 84.7 % (45.5-73.1); Platelet Count Result 122 k/mm3 (150-375); Red Blood Count 2.82 M/mm3 (4.6-6.20); White Blood Count 12.5 K/mm3 (4.5-10.0)
[2024-10-06 04:36] LABS: Alanine Aminotransferase 34 U/L (6-50); Albumin Level 3.6 g/dL (3.5-5.1); Alkaline Phosphatase 202 U/L (38-126); Anion Gap 20 mmol/L (4-12); Aspartate Amino Transferase 114 U/L (17-59); Bilirubin,Total 1.5 mg/dL (0.2-1.3); Blood Urea Nitrogen 76 mg/dL (9-20); Calcium 7.7 mg/dL (8.4-10.2); Carbon Dioxide 22 mmol/L (22-30); Chloride 86 mmol/L (98-107); Estimated CRCL calculation 8 ml/min; Estimated Glomerular Filt Rate 6; Glucose 182 mg/dL (65-110); Phosphorus 5.5 mg/dL (2.5-4.5); Potassium 3.3 mmol/L (3.4-5.0); Sodium 128 mmol/L (137-145)
[2024-10-06 04:37] LABS: Partial Thromboplastin Time 79.4 Seconds (22.3-36.8)
[2024-10-06] MEDS: CENTRAL LINE FLUSH 10 ML IV PUSH ×3 (05:32→21:26)
[2024-10-06] MEDS: FOLIC ACID 1 MG TABLET PO (08:45)
[2024-10-06] MEDS: POTASSIUM CHLORIDE 20 MEQ ER TABLET 40 MEQ PO (08:45)
[2024-10-06] MEDS: ALBUMIN HUMAN 5% 250 ML IV CONT (08:59)
--- NOTE | 2024-10-06 10:52 | P.PNINT_ITS ---
Progress Note: A&P Assessment and Plan (1) Septic shock: Code(s): A41.9 - Sepsis, unspecified organism; R65.21 - Severe sepsis with septic shock Status: Acute Assessment and Plan: Septic shock secondary to UTI. Patient may also have component of vaso dilatory shock secondary to cirrhosis Continue Levophed -off vasopressin -decreased eye bicarb infusion -continue stress dose steroids -10/02/2024: Blood cultures negative x2 -10/02/2024: Urine cultures negative -10/03/2024: Paracentesis fluid culture on negative -Continue cefepime (10/03) (2) Acute renal failure: Code(s): N17.9 - Acute kidney failure, unspecified Status: Acute Assessment and Plan: Acute renal failure but with likely underlying chronic kidney disease. Likely multifactorial secondary to sepsis, shock, cirrhosis, patient also on ISH- inhibitor, questionable hepatorenal syndrome Appreciate nephrology following the patient Electrolytes are in acceptable range DC IV fluids, -will add albumin, -continue Levophed to maintain MAP > 80 mmHg per GI Avoid nephrotoxins Monitor urine output electrolytes and creatinine No no indication for emergency dialysis but patient may need dialysis if does not improve Status post paracentesis to relieve abdominal compartment syndrome Hartley catheter for accurate I&Os -will add sodium bicarb tablet (3) Chronic alcohol use: Code(s): F10.90 - Alcohol use, unspecified, uncomplicated Status: Acute Assessment and Plan: Monitor for signs of withdrawal Continue Thiamine and folic acid (4) Cirrhosis: Code(s): K74.60 - Unspecified cirrhosis of liver Status: Acute Assessment and Plan: Patient clearly has cirrhosis likely secondary to heavy alcohol intake over many years Hepatitis panel was negative CT and ultrasound as under Vitamin K for coagulopathy Ammonia levels within normal 10/03: Status post paracentesis with 5000 mL removal of serous colored fluid -GI consulted, discussed with Dr. Raymundo, this could be likely related to hepatorenal syndrome, agreed to starting octreotide and continue norepinephrine 10/05: Discussed with GI, continue norepinephrine and octreotide infusion, maintain MAP > 80 mmHg per GI 10/02: CT chest abdomen 1. Cirrhosis with large amount of ascites throughout the abdomen and pelvis. There is a reticulonodular appearance to the greater omentum which could be due to portal venous hypertension mesenteric edema although differential would include metastatic peritoneal implants. Consider diagnostic thoracentesis. 2. Atelectasis at the bilateral lower lungs, more prominent on the right secondary to prominent elevation the right hemidiaphragm. 3. Nonobstructing bilateral nephrolithiasis. 4. Diverticulosis. 5. Small sliding-type hiatal hernia. 6. Small fat and ascites containing right inguinal hernia. 10/02: Ultrasound abdomen IMPRESSION: Gross ascites. Liver cirrhosis. Highly suggestive gallbladder stones. (5) Ascites: Code(s): R18.8 - Other ascites Status: Acute Assessment and Plan: See above (6) UTI (urinary tract infection): Code(s): N39.0 - Urinary tract infection, site not specified Status: Acute Assessment and Plan: See above (7) Coagulopathy: Code(s): D68.9 - Coagulation defect, unspecified Status: Acute Assessment and Plan: Secondary to cirrhosis Vitamin K ordered (8) Swelling of lower extremity: Code(s): M79.89 - Other specified soft tissue disorders Status: Acute Assessment and Plan: Likely secondary to cirrhosis and renal failure 10/03: Venous Dopplers: Bilateral acute deep venous thrombosis in right popliteal and posterior tibial veins and left common femoral, femoral popliteal and posterior tibial veins. 10/03: Started on heparin infusion (9) GERD (gastroesophageal reflux disease): Code(s): K21.9 - Gastro-esophageal reflux disease without esophagitis Status: Acute Assessment and Plan: Continue PPI (10) Non-ST elevation NH (NSTEMI): Code(s): I21.4 - Non-ST elevation (NSTEMI) myocardial infarction Status: Acute Assessment and Plan: Mildly elevated troponin in light of acute kidney injury and septic shock Denies any chest pain Hold beta-юлия ISH-inhibitor due to shock Hold statin due to cirrhosis until workup is complete Hold aspirin due to coagulopathy and impending invasive procedure Appreciate cardiology following the patient, no further workup required per front office coordinator 10/03: Echocardiogram Summary 1. Complete two-dimensional, color flow and Doppler transthoracic echocardiogram is performed. 2. Left ventricular chamber dimension is normal. 3. Left ventricular systolic function is hyperdynamic, estimated at >70%. 4. The left ventricular diastolic function is grade I diastolic dysfunction. 5. E/e' 3 is not elevated. 6. Left atrial chamber dimension is mildly enlarged. 7. There is mild aortic valve sclerosis. 8. The mitral valve has mildly calcified annulus. 9. There is mild tricuspid valve regurgitation. 10. Mild pulmonary hypertension, estimated pulmonary arterial systolic pressure is 49 mmHg. Plan DVT prophylaxis -heparin infusion Stress ulcer prophylaxis -PPI Nutrition -renal diet Code Status - Full Code Total Critical Care Time - 33 minutes Discussed with patient updated with his condition and plan of care. I answered all questions Discussed with Nephrology, cardiology and GI Due to a high probability of clinically significant, life threatening deterioration, the patient required my highest level of preparedness to intervene emergently and I personally spent this critical care time directly and personally managing the patient. This critical care time included obtaining a history; examining the patient; pulse oximetry; ordering and review of studies; arranging urgent treatment with development of a management plan; evaluation of patient's response to treatment; frequent reassessment; and discussions with other providers. It was exclusive of separately billable procedures and treating other patients and teaching time. Please see Assessment and Plan section and the rest of the note for further information on patient assessment and treatment. This dictation may have been done utilizing a voice recognition system. Attempts have been made to correct errors. However, there may be uncorrected grammatical, spelling, and recognitions errors present. Subjective Date/time seen: 10/06/24 10:52 Interval history: Reason for consult: Acute kidney injury, UTI, septic shock, cirrhosis, alcohol abuse 10/03: Paracentesis with removal off 5000 mL of serous colored fluid 10/07/2023: Patient seen and examined the ICU, is awake, alert, oriented x3. Denies any chest pain, shortness of breath, abdominal pain, nausea vomiting. States he did not sleep too well. Overnight got confused but the night RN was able to reorient him. Low urine output. States he feels much better today. Appetite is adequate. Remains on Levophed and octreotide infusion Review of Systems Review of Systems: All systems reviewed & are unremarkable except as noted in HPI and below (HPI) Exam Narrative: General: Pt is alert awake and in NAD Lungs/Chest: Trachea central Clear BS B/L, No crackles or wheezing. Cardiac: RRR. Normal S1 S2. No murmurs Circulation: Pedal pulses are intact and symmetrical. Abdomen: Normal bowel sounds, soft, nontender, abdomen is distended Extremities: Bilateral pitting edema present : Hartley in place with clear urine Neurologic: Follows commands. Moves all 4 extremities PERRL AO x3 Skin: No Rash Objective Data Vital Signs Vital Signs: Vital Signs - 24 hr 10/05/24 12:00 10/05/24 12:00 10/05/24 12:00 Temperature 97.4 F L Pulse Rate 80 80 Respiratory Rate 16 Blood Pressure 106/68 106/68 Pulse Oximetry 100 98 Oxygen Delivery Nasal Cannula Oxygen Flow Rate 2 10/05/24 14:00 10/05/24 14:00 10/05/24 14:00 Temperature Pulse Rate 83 83 83 Respiratory Rate 20 Blood Pressure 109/68 109/68 Pulse Oximetry 98 Oxygen Delivery Oxygen Flow Rate 10/05/24 16:00 10/05/24 16:00 10/05/24 16:00 Temperature 97.0 F L Pulse Rate 84 84 84 Respiratory Rate 23 H Blood Pressure 100/62 100/62 Pulse Oximetry 97 Oxygen Delivery Oxygen Flow Rate 10/05/24 16:00 10/05/24 17:35 10/05/24 17:45 Temperature Pulse Rate 81 79 Respiratory Rate Blood Pressure 113/73 114/66 Pulse Oximetry 96 Oxygen Delivery Nasal Cannula Oxygen Flow Rate 2 10/05/24 18:00 10/05/24 18:00 10/05/24 18:00 Temperature Pulse Rate 79 79 79 Respiratory Rate 17 Blood Pressure 101/65 112/69 Pulse Oximetry 98 Oxygen Delivery Oxygen Flow Rate 10/05/24 20:00 10/05/24 20:00 10/05/24 20:00 Temperature Pulse Rate 77 76 Respiratory Rate 20 Blood Pressure 103/63 Pulse Oximetry 100 97 Oxygen Delivery Nasal Cannula Oxygen Flow Rate 2 10/05/24 22:00 10/05/24 22:00 10/05/24 22:00 Temperature Pulse Rate 67 75 75 Respiratory Rate 17 Blood Pressure 90/70 L 90/70 L Pulse Oximetry 96 Oxygen Delivery Oxygen Flow Rate 10/05/24 23:39 10/05/24 23:51 10/06/24 00:00 Temperature Pulse Rate 77 76 Respiratory Rate Blood Pressure 90/57 L 109/63 Pulse Oximetry 96 Oxygen Delivery Nasal Cannula Oxygen Flow Rate 2 10/06/24 00:00 10/06/24 00:07 10/06/24 00:15 Temperature 97.7 F Pulse Rate 78 74 77 Respiratory Rate 20 Blood Pressure 96/65 L 96/65 L Pulse Oximetry 97 Oxygen Delivery Oxygen Flow Rate 10/06/24 00:30 10/06/24 01:30 10/06/24 01:45 Temperature Pulse Rate 76 73 77 Respiratory Rate Blood Pressure 97/78 L 87/63 L 111/60 Pulse Oximetry Oxygen Delivery Oxygen Flow Rate 10/06/24 02:00 10/06/24 02:00 10/06/24 02:00 Temperature 97.5 F L Pulse Rate 75 75 75 Respiratory Rate 16 Blood Pressure 102/60 102/60 Pulse Oximetry 98 Oxygen Delivery Oxygen Flow Rate 10/06/24 02:15 10/06/24 02:30 10/06/24 02:45 Temperature Pulse Rate 78 80 79 Respiratory Rate Blood Pressure 107/60 97/60 L 112/64 Pulse Oximetry Oxygen Delivery Oxygen Flow Rate 10/06/24 03:15 10/06/24 03:45 10/06/24 04:00 Temperature Pulse Rate 81 107 H 111 H Respiratory Rate Blood Pressure 112/63 114/77 115/80 Pulse Oximetry Oxygen Delivery Oxygen Flow Rate 10/06/24 04:00 10/06/24 04:00 10/06/24 04:00 Temperature 97.4 F L Pulse Rate 111 H 104 H Respiratory Rate 21 H Blood Pressure 115/80 Pulse Oximetry 94 96 Oxygen Delivery Nasal Cannula Oxygen Flow Rate 2 10/06/24 04:15 10/06/24 04:30 10/06/24 05:00 Temperature Pulse Rate 104 H 104 H 100 Respiratory Rate Blood Pressure 111/74 121/73 127/90 Pulse Oximetry Oxygen Delivery Oxygen Flow Rate 10/06/24 05:15 10/06/24 05:30 10/06/24 06:00 Temperature Pulse Rate 109 H 100 84 Respiratory Rate Blood Pressure 113/77 121/73 Pulse Oximetry Oxygen Delivery Oxygen Flow Rate 10/06/24 06:00 10/06/24 06:00 10/06/24 07:44 Temperature 97.4 F L 97.6 F Pulse Rate 86 84 87 Respiratory Rate 17 16 Blood Pressure 119/69 112/69 116/76 Pulse Oximetry 99 95 Oxygen Delivery Oxygen Flow Rate 10/06/24 08:00 10/06/24 08:00 10/06/24 08:15 Temperature Pulse Rate 104 H 95 Respiratory Rate Blood Pressure 115/77 127/79 Pulse Oximetry 95 Oxygen Delivery Room Air Oxygen Flow Rate 10/06/24 08:23 10/06/24 08:30 10/06/24 08:45 Temperature Pulse Rate 96 96 Respiratory Rate Blood Pressure 136/89 112/78 Pulse Oximetry 96 Oxygen Delivery Room Air Oxygen Flow Rate 10/06/24 09:15 10/06/24 09:20 10/06/24 09:30 Temperature Pulse Rate 93 86 89 Respiratory Rate Blood Pressure 96/67 L 107/58 L 106/62 Pulse Oximetry Oxygen Delivery Oxygen Flow Rate 10/06/24 09:45 10/06/24 10:00 Temperature Pulse Rate 92 88 Respiratory Rate 16 Blood Pressure 129/69 114/70 Pulse Oximetry 94 Oxygen Delivery Oxygen Flow Rate Intake/Output Intake/Output: Intake & Output 10/03/24 10/04/24 10/05/24 10/06/24 23:59 23:59 23:59 23:59 Intake Total 2157.6 2646.2 2591.4 1522.6 Output Total 5200 250 50 100 Balance -3042.4 2396.2 2541.4 1422.6 Meds/Results Medications: Active Medications Generic Name Dose Route Start Last Admin Trade Name Freq PRN Reason Stop Dose Admin Acetaminophen 650 mg 10/03/24 03:27 Acetaminophen 325 Mg Tablet PO Q4H PRN Mild Pain (1-3) or Fever Folic Acid 1 mg 10/03/24 09:00 10/06/24 08:45 Folic Acid 1 Mg Tablet PO 1 mg DAILY KELECHI Administration Heparin Sodium (Porcine) 6,500 units 10/03/24 17:20 Heparin Sodium 5,000 Units/Ml Vial IV PUSH PRN PRN aPTT less than 55 seconds Heparin Sodium (Porcine) 3,000 units 10/03/24 17:20 Heparin Sodium 5,000 Units/Ml Vial IV PUSH PRN PRN aPTT 55 - 70 seconds Hydrocortisone Sodium Succinate 100 mg 10/03/24 09:00 10/06/24 08:45 Hydrocortisone Sodium Succinate 100 Mg/2 Ml Vial IV PUSH 100 mg Q8H KELECHI Administration Norepinephrine Bitartrate 8 mg in 250 mls @ 5.625 mls/hr 10/02/24 19:40 10/06/24 09:45 Levophed 8 Mg/D5w 250 Ml IV CONT 3 mcg/min .Q24H KELECHI 5.63 mls/hr Titration Protocol 3 MCG/MIN Cefepime HCl 1 gm in 50 mls @ 100 mls/hr 10/03/24 14:00 10/05/24 14:39 Maxipime 1 Gm/Ns 50 Ml IVPB 10/10/24 13:59 Infused Q24H KELECHI Infusion Sodium Bicarbonate 150 meq/ 1,100 mls @ 50 mls/hr 10/03/24 09:30 10/06/24 03:22 Sterile Water IV CONT 50 mls/hr .Q22H KELECHI Administration Vasopressin 100 units/ 100 mls @ 0 mls/hr 10/03/24 08:40 10/04/24 18:00 Dextrose IV CONT 0 units/min .Q0M KELECHI 0 mls/hr Titration Protocol 0 UNITS/MIN Heparin Sodium/Dextrose 25,000 units in 250 mls @ 6 mls/hr 10/03/24 17:20 10/06/24 08:00 Heparin Sodium/D5w 100 Units/Ml IV CONT 600 units/hr .Q24H KELECHI 6 mls/hr Titration Protocol 600 UNITS/HR Octreotide Acetate 500 mcg/ 100 mls @ 10 mls/hr 10/04/24 12:00 10/06/24 03:22 Sodium Chloride IV CONT 50 mcg/hr .Q10H KELECHI 10 mls/hr Administration 50 MCG/HR Albumin Human 250 mls @ 62.5 mls/hr 10/06/24 09:00 10/06/24 08:59 Albumin Human 5% IV CONT 10/06/24 12:59 62.5 mls/hr .Q4H ONE Administration Lactulose 20 gm 10/03/24 17:00 10/03/24 17:52 Lactulose 20 Gm/30 Ml Udc PO 20 gm BID KELECHI Administration Melatonin 10 mg 10/06/24 10:08 Melatonin 5 Mg Tablet PO HS PRN Insomnia Pantoprazole Sodium 40 mg 10/07/24 09:00 Pantoprazole 40 Mg Tablet PO QAM KELECHI Prochlorperazine Edisylate 10 mg 10/03/24 03:26 Prochlorperazine Edisylate 10 Mg/2 Ml Vial IV PUSH Q6H PRN Nausea And Vomiting Sodium Chloride 10 ml 10/03/24 06:00 10/06/24 05:32 Central Line Flush IV PUSH 10 ml Q8HR KELECHI Administration Sodium Chloride 20 ml 10/02/24 22:02 Central Line Flush IV PUSH PRN PRN after blood draws Radiology Results: ITS Impressions Chest/Abdomen/Pelvis CT 10/02/24 16:47 IMPRESSION: 1. Cirrhosis with large amount of ascites throughout the abdomen and pelvis. There is a reticulonodular appearance to the greater omentum which could be due to portal venous hypertension mesenteric edema although differential would include metastatic peritoneal implants. Consider diagnostic thoracentesis. 2. Atelectasis at the bilateral lower lungs, more prominent on the right secondary to prominent elevation the right hemidiaphragm. 3. Nonobstructing bilateral nephrolithiasis. 4. Diverticulosis. 5. Small sliding-type hiatal hernia. 6. Small fat and ascites containing right inguinal hernia. Abdomen Ultrasound 10/02/24 17:06 IMPRESSION: Gross ascites. Liver cirrhosis. Highly suggestive gallbladder stones. Paracentesis Ultrasound 10/03/24 12:13 Impression: Successful ultrasound guided paracentesis. Venous Doppler Study 10/03/24 14:02 Impression: Bilateral acute deep venous thrombosis in right popliteal and posterior tibial veins and left common femoral, femoral popliteal and posterior tibial veins. Labs Labs: Laboratory Results - last 24 hr 10/04/24 10/05/24 10/05/24 05:18 15:05 19:01 WBC RBC Hgb Hct MCV MCH MCHC RDW Plt Count MPV Immature Gran % (Auto) Neut % (Auto) Lymph % (Auto) Vernon % (Auto) Eos % (Auto) Baso % (Auto) Lymph # (Auto) Vernon # (Auto) Eos # (Auto) Baso # (Auto) Abs Immat Gran (auto) Absolute Neuts (auto) Absolute Nucleated RBC Nucleated RBC % APTT 78.9 H Sodium Potassium Chloride Carbon Dioxide Anion Gap BUN Creatinine Estim Creat Clear Calc Estimated GFR Glucose Calcium Phosphorus Total Bilirubin AST ALT Alkaline Phosphatase Total Protein 6.0 L Albumin Stl Occult Blood (IFOB) Positive H Hep B Core Total Ab Non-reactive 10/06/24 04:19 WBC 12.5 H RBC 2.82 L Hgb 9.6 L Hct 27.1 L MCV 96.1 MCH 34.0 MCHC 35.4 RDW 16.0 H Plt Count 122 L MPV 11.1 H Immature Gran % (Auto) 0.9 H Neut % (Auto) 84.7 H Lymph % (Auto) 8.2 L Vernon % (Auto) 6.1 Eos % (Auto) 0.0 Baso % (Auto) 0.1 L Lymph # (Auto) 1.03 Vernon # (Auto) 0.8 H Eos # (Auto) 0.0 Baso # (Auto) 0.0 Abs Immat Gran (auto) 0.11 H Absolute Neuts (auto) 10.6 H Absolute Nucleated RBC 0.000 Nucleated RBC % 0.0 APTT 79.4 H Sodium 128 L Potassium 3.3 L Chloride 86 L Carbon Dioxide 22 Anion Gap 20 H BUN 76 H Creatinine 8.42 H Estim Creat Clear Calc 8 Estimated GFR 6 L Glucose 182 H Calcium 7.7 L Phosphorus 5.5 H Total Bilirubin 1.5 H AST 114 H ALT 34 Alkaline Phosphatase 202 H Total Protein 7.0 Albumin 3.6 Stl Occult Blood (IFOB) Hep B Core Total Ab Quality VTE Prophylaxis VTE prophylaxis: mechanical ordered
--- NOTE | 2024-10-06 10:55 | P.PNGI_ITS ---
Progress Note: A&P Assessment and Plan (1) Cirrhosis: Code(s): K74.60 - Unspecified cirrhosis of liver Status: Acute Assessment and Plan: Patient with alcoholic cirrhosis and ascites, fulfilling criteria for h epatorenal syndrome. His creatinine has trended down from a baseline of 10.25 mg/dL to 8.84 mg/dL yesterday following initiation of octreotide and norepinephrine, and further to 8.42 mg/dL today. However, he remains oliguric, and the possibility of impending hemodialysis persists. Nephrology consultation is suggested for their expert opinion. Regardless, his prognosis remains very poor given his advanced liver disease, precluding the use of diuretics or consideration for TIPS as therapeutic options. (2) Ascites: Code(s): R18.8 - Other ascites Status: Acute (3) Hepatorenal syndrome: Code(s): K76.7 - Hepatorenal syndrome Status: Acute Subjective Date/time seen: 10/06/24 10:55 Interval history: Patient maintaining appropriate mean arterial pressures, however his urine output is still low, practically anuric. He does not report abdominal pain or shortness of breath. Exam Narrative: Unchanged from baseline. Objective Data Vital Signs Vital Signs: Vital Signs - 24 hr 10/05/24 12:00 10/05/24 12:00 10/05/24 12:00 Temperature 97.4 F L Pulse Rate 80 80 Respiratory Rate 16 Blood Pressure 106/68 106/68 Pulse Oximetry 100 98 Oxygen Delivery Nasal Cannula Oxygen Flow Rate 2 10/05/24 14:00 10/05/24 14:00 10/05/24 14:00 Temperature Pulse Rate 83 83 83 Respiratory Rate 20 Blood Pressure 109/68 109/68 Pulse Oximetry 98 Oxygen Delivery Oxygen Flow Rate 10/05/24 16:00 10/05/24 16:00 10/05/24 16:00 Temperature 97.0 F L Pulse Rate 84 84 84 Respiratory Rate 23 H Blood Pressure 100/62 100/62 Pulse Oximetry 97 Oxygen Delivery Oxygen Flow Rate 10/05/24 16:00 10/05/24 17:35 10/05/24 17:45 Temperature Pulse Rate 81 79 Respiratory Rate Blood Pressure 113/73 114/66 Pulse Oximetry 96 Oxygen Delivery Nasal Cannula Oxygen Flow Rate 2 10/05/24 18:00 10/05/24 18:00 10/05/24 18:00 Temperature Pulse Rate 79 79 79 Respiratory Rate 17 Blood Pressure 101/65 112/69 Pulse Oximetry 98 Oxygen Delivery Oxygen Flow Rate 10/05/24 20:00 10/05/24 20:00 10/05/24 20:00 Temperature Pulse Rate 77 76 Respiratory Rate 20 Blood Pressure 103/63 Pulse Oximetry 100 97 Oxygen Delivery Nasal Cannula Oxygen Flow Rate 2 10/05/24 22:00 10/05/24 22:00 10/05/24 22:00 Temperature Pulse Rate 67 75 75 Respiratory Rate 17 Blood Pressure 90/70 L 90/70 L Pulse Oximetry 96 Oxygen Delivery Oxygen Flow Rate 10/05/24 23:39 10/05/24 23:51 10/06/24 00:00 Temperature Pulse Rate 77 76 Respiratory Rate Blood Pressure 90/57 L 109/63 Pulse Oximetry 96 Oxygen Delivery Nasal Cannula Oxygen Flow Rate 2 10/06/24 00:00 10/06/24 00:07 10/06/24 00:15 Temperature 97.7 F Pulse Rate 78 74 77 Respiratory Rate 20 Blood Pressure 96/65 L 96/65 L Pulse Oximetry 97 Oxygen Delivery Oxygen Flow Rate 10/06/24 00:30 10/06/24 01:30 10/06/24 01:45 Temperature Pulse Rate 76 73 77 Respiratory Rate Blood Pressure 97/78 L 87/63 L 111/60 Pulse Oximetry Oxygen Delivery Oxygen Flow Rate 10/06/24 02:00 10/06/24 02:00 10/06/24 02:00 Temperature 97.5 F L Pulse Rate 75 75 75 Respiratory Rate 16 Blood Pressure 102/60 102/60 Pulse Oximetry 98 Oxygen Delivery Oxygen Flow Rate 10/06/24 02:15 10/06/24 02:30 10/06/24 02:45 Temperature Pulse Rate 78 80 79 Respiratory Rate Blood Pressure 107/60 97/60 L 112/64 Pulse Oximetry Oxygen Delivery Oxygen Flow Rate 10/06/24 03:15 10/06/24 03:45 10/06/24 04:00 Temperature Pulse Rate 81 107 H 111 H Respiratory Rate Blood Pressure 112/63 114/77 115/80 Pulse Oximetry Oxygen Delivery Oxygen Flow Rate 10/06/24 04:00 10/06/24 04:00 10/06/24 04:00 Temperature 97.4 F L Pulse Rate 111 H 104 H Respiratory Rate 21 H Blood Pressure 115/80 Pulse Oximetry 94 96 Oxygen Delivery Nasal Cannula Oxygen Flow Rate 2 10/06/24 04:15 10/06/24 04:30 10/06/24 05:00 Temperature Pulse Rate 104 H 104 H 100 Respiratory Rate Blood Pressure 111/74 121/73 127/90 Pulse Oximetry Oxygen Delivery Oxygen Flow Rate 10/06/24 05:15 10/06/24 05:30 10/06/24 06:00 Temperature Pulse Rate 109 H 100 84 Respiratory Rate Blood Pressure 113/77 121/73 Pulse Oximetry Oxygen Delivery Oxygen Flow Rate 10/06/24 06:00 10/06/24 06:00 10/06/24 07:44 Temperature 97.4 F L 97.6 F Pulse Rate 86 84 87 Respiratory Rate 17 16 Blood Pressure 119/69 112/69 116/76 Pulse Oximetry 99 95 Oxygen Delivery Oxygen Flow Rate 10/06/24 08:00 10/06/24 08:00 10/06/24 08:15 Temperature Pulse Rate 104 H 95 Respiratory Rate Blood Pressure 115/77 127/79 Pulse Oximetry 95 Oxygen Delivery Room Air Oxygen Flow Rate 10/06/24 08:23 10/06/24 08:30 10/06/24 08:45 Temperature Pulse Rate 96 96 Respiratory Rate Blood Pressure 136/89 112/78 Pulse Oximetry 96 Oxygen Delivery Room Air Oxygen Flow Rate 10/06/24 09:15 10/06/24 09:20 10/06/24 09:30 Temperature Pulse Rate 93 86 89 Respiratory Rate Blood Pressure 96/67 L 107/58 L 106/62 Pulse Oximetry Oxygen Delivery Oxygen Flow Rate 10/06/24 09:45 10/06/24 10:00 Temperature Pulse Rate 92 88 Respiratory Rate 16 Blood Pressure 129/69 114/70 Pulse Oximetry 94 Oxygen Delivery Oxygen Flow Rate Intake/Output Intake/Output: Intake & Output 10/03/24 10/04/24 10/05/24 10/06/24 23:59 23:59 23:59 23:59 Intake Total 2157.6 2646.2 2591.4 1522.6 Output Total 5200 250 50 100 Balance -3042.4 2396.2 2541.4 1422.6 Meds/Results Medications: Active Medications Generic Name Dose Route Start Last Admin Trade Name Freq PRN Reason Stop Dose Admin Acetaminophen 650 mg 10/03/24 03:27 Acetaminophen 325 Mg Tablet PO Q4H PRN Mild Pain (1-3) or Fever Folic Acid 1 mg 10/03/24 09:00 10/06/24 08:45 Folic Acid 1 Mg Tablet PO 1 mg DAILY KELECHI Administration Heparin Sodium (Porcine) 6,500 units 10/03/24 17:20 Heparin Sodium 5,000 Units/Ml Vial IV PUSH PRN PRN aPTT less than 55 seconds Heparin Sodium (Porcine) 3,000 units 10/03/24 17:20 Heparin Sodium 5,000 Units/Ml Vial IV PUSH PRN PRN aPTT 55 - 70 seconds Hydrocortisone Sodium Succinate 100 mg 10/03/24 09:00 10/06/24 08:45 Hydrocortisone Sodium Succinate 100 Mg/2 Ml Vial IV PUSH 100 mg Q8H KELECHI Administration Norepinephrine Bitartrate 8 mg in 250 mls @ 5.625 mls/hr 10/02/24 19:40 10/06/24 09:45 Levophed 8 Mg/D5w 250 Ml IV CONT 3 mcg/min .Q24H KELECHI 5.63 mls/hr Titration Protocol 3 MCG/MIN Cefepime HCl 1 gm in 50 mls @ 100 mls/hr 10/03/24 14:00 10/05/24 14:39 Maxipime 1 Gm/Ns 50 Ml IVPB 10/10/24 13:59 Infused Q24H KELECHI Infusion Sodium Bicarbonate 150 meq/ 1,100 mls @ 50 mls/hr 10/03/24 09:30 10/06/24 03:22 Sterile Water IV CONT 50 mls/hr .Q22H KELECHI Administration Vasopressin 100 units/ 100 mls @ 0 mls/hr 10/03/24 08:40 10/04/24 18:00 Dextrose IV CONT 0 units/min .Q0M KELECHI 0 mls/hr Titration Protocol 0 UNITS/MIN Heparin Sodium/Dextrose 25,000 units in 250 mls @ 6 mls/hr 10/03/24 17:20 10/06/24 08:00 Heparin Sodium/D5w 100 Units/Ml IV CONT 600 units/hr .Q24H KELECHI 6 mls/hr Titration Protocol 600 UNITS/HR Octreotide Acetate 500 mcg/ 100 mls @ 10 mls/hr 10/04/24 12:00 10/06/24 03:22 Sodium Chloride IV CONT 50 mcg/hr .Q10H KELECHI 10 mls/hr Administration 50 MCG/HR Albumin Human 250 mls @ 62.5 mls/hr 10/06/24 09:00 10/06/24 08:59 Albumin Human 5% IV CONT 10/06/24 12:59 62.5 mls/hr .Q4H ONE Administration Lactulose 20 gm 10/03/24 17:00 10/03/24 17:52 Lactulose 20 Gm/30 Ml Udc PO 20 gm BID KELECHI Administration Melatonin 10 mg 10/06/24 10:08 Melatonin 5 Mg Tablet PO HS PRN Insomnia Pantoprazole Sodium 40 mg 10/07/24 09:00 Pantoprazole 40 Mg Tablet PO QAM KELECHI Prochlorperazine Edisylate 10 mg 10/03/24 03:26 Prochlorperazine Edisylate 10 Mg/2 Ml Vial IV PUSH Q6H PRN Nausea And Vomiting Sodium Chloride 10 ml 10/03/24 06:00 10/06/24 05:32 Central Line Flush IV PUSH 10 ml Q8HR KELECHI Administration Sodium Chloride 20 ml 10/02/24 22:02 Central Line Flush IV PUSH PRN PRN after blood draws Radiology Results: ITS Impressions Chest/Abdomen/Pelvis CT 10/02/24 16:47 IMPRESSION: 1. Cirrhosis with large amount of ascites throughout the abdomen and pelvis. There is a reticulonodular appearance to the greater omentum which could be due to portal venous hypertension mesenteric edema although differential would include metastatic peritoneal implants. Consider diagnostic thoracentesis. 2. Atelectasis at the bilateral lower lungs, more prominent on the right secondary to prominent elevation the right hemidiaphragm. 3. Nonobstructing bilateral nephrolithiasis. 4. Diverticulosis. 5. Small sliding-type hiatal hernia. 6. Small fat and ascites containing right inguinal hernia. Abdomen Ultrasound 10/02/24 17:06 IMPRESSION: Gross ascites. Liver cirrhosis. Highly suggestive gallbladder stones. Paracentesis Ultrasound 10/03/24 12:13 Impression: Successful ultrasound guided paracentesis. Venous Doppler Study 10/03/24 14:02 Impression: Bilateral acute deep venous thrombosis in right popliteal and posterior tibial veins and left common femoral, femoral popliteal and posterior tibial veins. Labs Labs: Laboratory Results - last 24 hr 10/04/24 10/05/24 10/05/24 05:18 15:05 19:01 WBC RBC Hgb Hct MCV MCH MCHC RDW Plt Count MPV Immature Gran % (Auto) Neut % (Auto) Lymph % (Auto) [place] % (Auto) Eos % (Auto) Baso % (Auto) Lymph # (Auto) [place] # (Auto) Eos # (Auto) Baso # (Auto) Abs Immat Gran (auto) Absolute Neuts (auto) Absolute Nucleated RBC Nucleated RBC % APTT 78.9 H Sodium Potassium Chloride Carbon Dioxide Anion Gap BUN Creatinine Estim Creat Clear Calc Estimated GFR Glucose Calcium Phosphorus Total Bilirubin AST ALT Alkaline Phosphatase Total Protein 6.0 L Albumin Stl Occult Blood (IFOB) Positive H Hep B Core Total Ab Non-reactive 10/06/24 04:19 WBC 12.5 H RBC 2.82 L Hgb 9.6 L Hct 27.1 L MCV 96.1 MCH 34.0 MCHC 35.4 RDW 16.0 H Plt Count 122 L MPV 11.1 H Immature Gran % (Auto) 0.9 H Neut % (Auto) 84.7 H Lymph % (Auto) 8.2 L [place] % (Auto) 6.1 Eos % (Auto) 0.0 Baso % (Auto) 0.1 L Lymph # (Auto) 1.03 [place] # (Auto) 0.8 H Eos # (Auto) 0.0 Baso # (Auto) 0.0 Abs Immat Gran (auto) 0.11 H Absolute Neuts (auto) 10.6 H Absolute Nucleated RBC 0.000 Nucleated RBC % 0.0 APTT 79.4 H Sodium 128 L Potassium 3.3 L Chloride 86 L Carbon Dioxide 22 Anion Gap 20 H BUN 76 H Creatinine 8.42 H Estim Creat Clear Calc 8 Estimated GFR 6 L Glucose 182 H Calcium 7.7 L Phosphorus 5.5 H Total Bilirubin 1.5 H AST 114 H ALT 34 Alkaline Phosphatase 202 H Total Protein 7.0 Albumin 3.6 Stl Occult Blood (IFOB) Hep B Core Total Ab
--- NOTE | 2024-10-06 11:15 | P.PNNP_ITS ---
Progress Note: A&P Assessment and Plan (1) Acute kidney injury: Code(s): N17.9 - Acute kidney failure, unspecified Status: Acute Assessment and Plan: * normal baseline creatinine * creatinine 0.99mg/dl on 07/11/24 * suspect multifactorial etiology: * hemodynamic instability/shock * infection/sepsus * outpatient use of ISH-I * liver cirrhosis/liver physiology * other(?) * on IV albumin + vasopressor therapy to optimize hemodynamics * evaluation to date noted: * CT imaging without obstruction * CPK okay * urine eosinophils negative * urine electrolytes prerenal * mild proteinuria * srologies pending * remains at risk for renal replacement therapy * follow trend of repeat labs and UOP (2) Septic shock: Code(s): A41.9 - Sepsis, unspecified organism; R65.21 - Severe sepsis with septic shock Status: Acute Assessment and Plan: * due to UTI versus SBP versus other * complicated by liver physiology and associated chronic hypotension * on vasopressor therapy * follow culture data * blood culture negative * urine culture negative * ascitic fluid culture negative to date * on antibiotics (3) Cirrhosis: Code(s): K74.60 - Unspecified cirrhosis of liver Status: Acute Assessment and Plan: * as evidence by admission imaging * presumably secondary to alcohol abuse * LFTs on 07/11/24 noted: * ALT 41 * AST 108 (H) * Alk phos 267 (H) * Total Bilirubin 1.7 (H) * s/p large volume paracentesis (on 10/03) * GI recommendations noted * on octreotide (4) DVT of lower extremity, bilateral: Code(s): I82.403 - Acute embolism and thrombosis of unspecified deep veins of lower extremity, bilateral Status: Acute Assessment and Plan: * as noted by duplex ultrasound: * bilateral acute deep venous thrombosis in right popliteal and posterior tibial veins and left common femoral, femoral popliteal and posterior tibial veins. * on heparin gtt (5) UTI (urinary tract infection): Code(s): N39.0 - Urinary tract infection, site not specified Status: Acute Assessment and Plan: * admission UA highly suggestive * follow-up on urine cultures - negative to date * on antibiotics (6) Ascites: Code(s): R18.8 - Other ascites Status: Acute Assessment and Plan: * as noted by admission imaging * s/p large volume paracentesis (on 10/03) * fluid studies from ascites reviewed (7) Elevated troponin: Code(s): R79.89 - Other specified abnormal findings of blood chemistry Status: Acute Assessment and Plan: * noted on admission * likely secondary to renal dysfunction in the context of septic shock * no symptoms to suggest ACS * Cardiology recommendations noted * Echo reviewed: * left ventricular systolic function is hyperdynamic, estimated at >70% * left ventricular diastolic function is grade I diastolic dysfunction * mild aortic valve sclerosis * mitral valve has mildly calcified annulus * mild tricuspid valve regurgitation * mild pulmonary hypertension, estimated pulmonary arterial systolic pressure is 49 mmHg (8) Chronic alcohol use: Code(s): F10.90 - Alcohol use, unspecified, uncomplicated Status: Acute Assessment and Plan: * monitor for signs of withdrawal * on thiamine and folic acid Will continue to follow. L Subjective Date/time seen: 10/06/24 11:15 Interval history: Follow-up for acute kidney injury/acute renal failure. No real significant change noted -- renal function/creatinine slightly better but continues to have poor urine output if not almost anuric; remains on levophed/octreotide at this time with relative stability in hemodynamics; no apparent distress or acute complaints at the time of my visit; some reported confusion overnight but able to be re-oriented by nursing staff. Exam 2 Narrative: General: elderly male in NAD Heart: normal S1 and S2; no rub Lungs: clear to auscultation Abdomen: soft, nontender with mild distension noted, positive bowel sounds Extremities: no cyanosis or clubbing; 2+ edema Skin: no rash Objective Data Vital Signs Vital Signs: Vital Signs Temp Pulse Resp BP Pulse Ox O2 Del Method O2 Flow Rate 10/06/24 11:14 98 114/70 10/06/24 10:05 98 10/06/24 10:00 88 16 114/70 94 10/06/24 09:45 92 129/69 10/06/24 09:30 89 106/62 10/06/24 09:20 86 107/58 L 10/06/24 09:15 93 96/67 L 10/06/24 08:45 96 112/78 10/06/24 08:30 96 136/89 10/06/24 08:23 96 Room Air 10/06/24 08:15 95 127/79 10/06/24 08:00 95 Room Air 10/06/24 08:00 104 H 115/77 10/06/24 07:44 97.6 F 87 16 116/76 95 10/06/24 06:00 84 112/69 10/06/24 06:00 97.4 F L 86 17 119/69 99 10/06/24 06:00 84 10/06/24 05:30 100 121/73 10/06/24 05:15 109 H 113/77 10/06/24 05:00 100 127/90 10/06/24 04:30 104 H 121/73 10/06/24 04:15 104 H 111/74 10/06/24 04:00 104 H 10/06/24 04:00 96 Nasal Cannula 2 10/06/24 04:00 97.4 F L 111 H 21 H 115/80 94 10/06/24 04:00 111 H 115/80 10/06/24 03:45 107 H 114/77 10/06/24 03:15 81 112/63 10/06/24 02:45 79 112/64 10/06/24 02:30 80 97/60 L 10/06/24 02:15 78 107/60 10/06/24 02:00 97.5 F L 75 16 102/60 98 10/06/24 02:00 75 10/06/24 02:00 75 102/60 10/06/24 01:45 77 111/60 10/06/24 01:30 73 87/63 L 10/06/24 00:30 76 97/78 L 10/06/24 00:15 77 96/65 L 10/06/24 00:07 74 10/06/24 00:00 97.7 F 78 20 96/65 L 97 10/06/24 00:00 96 Nasal Cannula 2 10/05/24 23:51 76 109/63 10/05/24 23:39 77 90/57 L 10/05/24 22:00 75 10/05/24 22:00 75 17 90/70 L 96 10/05/24 22:00 67 90/70 L 10/05/24 20:00 97 Nasal Cannula 2 10/05/24 20:00 76 10/05/24 20:00 77 20 103/63 100 10/05/24 18:00 79 112/69 10/05/24 18:00 79 17 101/65 98 10/05/24 18:00 79 10/05/24 17:45 79 114/66 10/05/24 17:35 81 113/73 10/05/24 16:00 96 Nasal Cannula 2 10/05/24 16:00 84 10/05/24 16:00 97.0 F L 84 23 H 100/62 97 10/05/24 16:00 84 100/62 Intake/Output Intake/Output: Intake & Output 10/03/24 10/04/24 10/05/24 10/06/24 23:59 23:59 23:59 23:59 Intake Total 2157.6 2646.2 2591.4 1646.6 Output Total 5200 250 50 100 Balance -3042.4 2396.2 2541.4 1546.6 Meds/Results Medications: Active Medications Generic Name Dose Route Start Last Admin Trade Name Freq PRN Reason Stop Dose Admin Acetaminophen 650 mg 10/03/24 03:27 Acetaminophen 325 Mg Tablet PO Q4H PRN Mild Pain (1-3) or Fever Folic Acid 1 mg 10/03/24 09:00 10/06/24 08:45 Folic Acid 1 Mg Tablet PO 1 mg DAILY KELECHI Administration Heparin Sodium (Porcine) 6,500 units 10/03/24 17:20 Heparin Sodium 5,000 Units/Ml Vial IV PUSH PRN PRN aPTT less than 55 seconds Heparin Sodium (Porcine) 3,000 units 10/03/24 17:20 Heparin Sodium 5,000 Units/Ml Vial IV PUSH PRN PRN aPTT 55 - 70 seconds Hydrocortisone Sodium Succinate 100 mg 10/03/24 09:00 10/06/24 08:45 Hydrocortisone Sodium Succinate 100 Mg/2 Ml Vial IV PUSH 100 mg Q8H KELECHI Administration Norepinephrine Bitartrate 8 mg in 250 mls @ 5.625 mls/hr 10/02/24 19:40 10/06/24 14:00 Levophed 8 Mg/D5w 250 Ml IV CONT 3 mcg/min .Q24H KELECHI 5.63 mls/hr Titration Protocol 3 MCG/MIN Cefepime HCl 1 gm in 50 mls @ 100 mls/hr 10/03/24 14:00 10/06/24 14:11 Maxipime 1 Gm/Ns 50 Ml IVPB 10/10/24 13:59 100 mls/hr Q24H KELECHI Administration Vasopressin 100 units/ 100 mls @ 0 mls/hr 10/03/24 08:40 10/04/24 18:00 Dextrose IV CONT 0 units/min .Q0M KELECHI 0 mls/hr Titration Protocol 0 UNITS/MIN Heparin Sodium/Dextrose 25,000 units in 250 mls @ 6 mls/hr 10/03/24 17:20 10/06/24 08:00 Heparin Sodium/D5w 100 Units/Ml IV CONT 600 units/hr .Q24H KELECHI 6 mls/hr Titration Protocol 600 UNITS/HR Octreotide Acetate 500 mcg/ 100 mls @ 10 mls/hr 10/04/24 12:00 10/06/24 15:09 Sodium Chloride IV CONT 50 mcg/hr .Q10H KELECHI 10 mls/hr Administration 50 MCG/HR Lactulose 20 gm 10/03/24 17:00 10/03/24 17:52 Lactulose 20 Gm/30 Ml Udc PO 20 gm BID KELECHI Administration Melatonin 10 mg 10/06/24 10:08 Melatonin 5 Mg Tablet PO HS PRN Insomnia Pantoprazole Sodium 40 mg 10/07/24 09:00 Pantoprazole 40 Mg Tablet PO QAM KELECHI Prochlorperazine Edisylate 10 mg 10/03/24 03:26 Prochlorperazine Edisylate 10 Mg/2 Ml Vial IV PUSH Q6H PRN Nausea And Vomiting Sodium Bicarbonate 650 mg 10/06/24 11:30 10/06/24 11:36 Sodium Bicarbonate Tab 650 Mg Tablet PO 650 mg BID KELECHI Administration Sodium Chloride 10 ml 10/03/24 06:00 10/06/24 14:09 Central Line Flush IV PUSH 10 ml Q8HR KELECHI Administration Sodium Chloride 20 ml 10/02/24 22:02 Central Line Flush IV PUSH PRN PRN after blood draws Thiamine HCl 100 mg 10/06/24 11:30 10/06/24 11:36 Thiamine Hcl 100 Mg Tablet PO 100 mg QAM KELECHI Administration Radiology Results: ITS Impressions Chest/Abdomen/Pelvis CT 10/02/24 16:47 IMPRESSION: 1. Cirrhosis with large amount of ascites throughout the abdomen and pelvis. There is a reticulonodular appearance to the greater omentum which could be due to portal venous hypertension mesenteric edema although differential would include metastatic peritoneal implants. Consider diagnostic thoracentesis. 2. Atelectasis at the bilateral lower lungs, more prominent on the right secondary to prominent elevation the right hemidiaphragm. 3. Nonobstructing bilateral nephrolithiasis. 4. Diverticulosis. 5. Small sliding-type hiatal hernia. 6. Small fat and ascites containing right inguinal hernia. Abdomen Ultrasound 10/02/24 17:06 IMPRESSION: Gross ascites. Liver cirrhosis. Highly suggestive gallbladder stones. Paracentesis Ultrasound 10/03/24 12:13 Impression: Successful ultrasound guided paracentesis. Venous Doppler Study 10/03/24 14:02 Impression: Bilateral acute deep venous thrombosis in right popliteal and posterior tibial veins and left common femoral, femoral popliteal and posterior tibial veins. Labs Labs: Laboratory Tests 10/06/24 04:19 10/06/24 04:19 Calcium 7.7 L Phosphorus 5.5 H Total Bilirubin 1.5 H AST 114 H ALT 34 Alkaline Phosphatase 202 H Total Protein 7.0 Albumin 3.6
[2024-10-06] MEDS: SODIUM BICARBONATE TAB 650 MG TABLET PO ×2 (11:36→17:27)
[2024-10-06] MEDS: THIAMINE HCL 100 MG TABLET PO (11:36)
[2024-10-06] MEDS: CEFEPIME 1 GM/NS 50 ML 1 GM/50 ML BAG IVPB (14:11)
--- NOTE | 2024-10-06 15:44 | P.PNIM_ITS ---
Progress Note: A&P Assessment and Plan (1) Septic shock: Code(s): A41.9 - Sepsis, unspecified organism; R65.21 - Severe sepsis with septic shock Status: Acute Assessment and Plan: Septic shock secondary to UTI. Patient may also have component of vaso dilatory shock secondary to cirrhosis Continue Levophed -off vasopressin -decreased eye bicarb infusion -continue stress dose steroids -10/02/2024: Blood cultures negative x2 -10/02/2024: Urine cultures negative -10/03/2024: Paracentesis fluid culture on negative -Continue cefepime (10/03) (2) Acute renal failure: Code(s): N17.9 - Acute kidney failure, unspecified Status: Acute Assessment and Plan: Acute renal failure but with likely underlying chronic kidney disease. Likely multifactorial secondary to sepsis, shock, cirrhosis, patient also on ISH- inhibitor, questionable hepatorenal syndrome Appreciate nephrology following the patient Electrolytes are in acceptable range DC IV fluids, -will add albumin, -continue Levophed to maintain MAP > 80 mmHg per GI Avoid nephrotoxins Monitor urine output electrolytes and creatinine No no indication for emergency dialysis but patient may need dialysis if does not improve Status post paracentesis to relieve abdominal compartment syndrome Hartley catheter for accurate I&Os -will add sodium bicarb tablet (3) Chronic alcohol use: Code(s): F10.90 - Alcohol use, unspecified, uncomplicated Status: Acute Assessment and Plan: Monitor for signs of withdrawal Continue Thiamine and folic acid (4) Cirrhosis: Code(s): K74.60 - Unspecified cirrhosis of liver Status: Acute Assessment and Plan: Patient clearly has cirrhosis likely secondary to heavy alcohol intake over many years Hepatitis panel was negative CT and ultrasound as under Vitamin K for coagulopathy Ammonia levels within normal 10/03: Status post paracentesis with 5000 mL removal of serous colored fluid -GI consulted, discussed with Dr. Raymundo, this could be likely related to hepatorenal syndrome, agreed to starting octreotide and continue norepinephrine 10/05: Discussed with GI, continue norepinephrine and octreotide infusion, maintain MAP > 80 mmHg per GI 10/02: CT chest abdomen 1. Cirrhosis with large amount of ascites throughout the abdomen and pelvis. There is a reticulonodular appearance to the greater omentum which could be due to portal venous hypertension mesenteric edema although differential would include metastatic peritoneal implants. Consider diagnostic thoracentesis. 2. Atelectasis at the bilateral lower lungs, more prominent on the right secondary to prominent elevation the right hemidiaphragm. 3. Nonobstructing bilateral nephrolithiasis. 4. Diverticulosis. 5. Small sliding-type hiatal hernia. 6. Small fat and ascites containing right inguinal hernia. 10/02: Ultrasound abdomen IMPRESSION: Gross ascites. Liver cirrhosis. Highly suggestive gallbladder stones. (5) Ascites: Code(s): R18.8 - Other ascites Status: Acute Assessment and Plan: See above (6) UTI (urinary tract infection): Code(s): N39.0 - Urinary tract infection, site not specified Status: Acute Assessment and Plan: See above (7) Coagulopathy: Code(s): D68.9 - Coagulation defect, unspecified Status: Acute Assessment and Plan: Secondary to cirrhosis Vitamin K ordered (8) Swelling of lower extremity: Code(s): M79.89 - Other specified soft tissue disorders Status: Acute Assessment and Plan: Likely secondary to cirrhosis and renal failure 10/03: Venous Dopplers: Bilateral acute deep venous thrombosis in right popliteal and posterior tibial veins and left common femoral, femoral popliteal and posterior tibial veins. 10/03: Started on heparin infusion (9) GERD (gastroesophageal reflux disease): Code(s): K21.9 - Gastro-esophageal reflux disease without esophagitis Status: Acute Assessment and Plan: Continue PPI (10) Non-ST elevation [place] (NSTEMI): Code(s): I21.4 - Non-ST elevation (NSTEMI) myocardial infarction Status: Acute Assessment and Plan: Mildly elevated troponin in light of acute kidney injury and septic shock Denies any chest pain Hold beta-юлия ISH-inhibitor due to shock Hold statin due to cirrhosis until workup is complete Hold aspirin due to coagulopathy and impending invasive procedure Appreciate cardiology following the patient, no further workup required per commutator inspector 10/03: Echocardiogram Summary 1. Complete two-dimensional, color flow and Doppler transthoracic echocardiogram is performed. 2. Left ventricular chamber dimension is normal. 3. Left ventricular systolic function is hyperdynamic, estimated at >70%. 4. The left ventricular diastolic function is grade I diastolic dysfunction. 5. E/e' 3 is not elevated. 6. Left atrial chamber dimension is mildly enlarged. 7. There is mild aortic valve sclerosis. 8. The mitral valve has mildly calcified annulus. 9. There is mild tricuspid valve regurgitation. 10. Mild pulmonary hypertension, estimated pulmonary arterial systolic pressure is 49 mmHg. Subjective Date/time seen: 10/06/24 15:44 Interval history: Patient reported he is currently doing well. Patient still on Levophed. Review of Systems Review of Systems: All systems reviewed & are unremarkable except as noted in HPI and below (HPI) Exam Narrative: General: Pt is alert awake and in NAD Lungs/Chest: Trachea central Clear BS B/L, No crackles or wheezing. Cardiac: RRR. Normal S1 S2. No murmurs Circulation: Pedal pulses are intact and symmetrical. Abdomen: Normal bowel sounds, soft, nontender, abdomen is distended Extremities: Bilateral pitting edema present : Hartley in place with clear urine Neurologic: Follows commands. Moves all 4 extremities PERRL AO x3 Skin: No Rash Objective Data Vital Signs Vital Signs: Vital Signs - 24 hr 10/05/24 16:00 10/05/24 16:00 10/05/24 16:00 Temperature 97.0 F L Pulse Rate 84 84 84 Respiratory Rate 23 H Blood Pressure 100/62 100/62 Pulse Oximetry 97 Oxygen Delivery Oxygen Flow Rate 10/05/24 16:00 10/05/24 17:35 10/05/24 17:45 Temperature Pulse Rate 81 79 Respiratory Rate Blood Pressure 113/73 114/66 Pulse Oximetry 96 Oxygen Delivery Nasal Cannula Oxygen Flow Rate 2 10/05/24 18:00 10/05/24 18:00 10/05/24 18:00 Temperature Pulse Rate 79 79 79 Respiratory Rate 17 Blood Pressure 101/65 112/69 Pulse Oximetry 98 Oxygen Delivery Oxygen Flow Rate 10/05/24 20:00 10/05/24 20:00 10/05/24 20:00 Temperature Pulse Rate 77 76 Respiratory Rate 20 Blood Pressure 103/63 Pulse Oximetry 100 97 Oxygen Delivery Nasal Cannula Oxygen Flow Rate 2 10/05/24 22:00 10/05/24 22:00 10/05/24 22:00 Temperature Pulse Rate 67 75 75 Respiratory Rate 17 Blood Pressure 90/70 L 90/70 L Pulse Oximetry 96 Oxygen Delivery Oxygen Flow Rate 10/05/24 23:39 10/05/24 23:51 10/06/24 00:00 Temperature Pulse Rate 77 76 Respiratory Rate Blood Pressure 90/57 L 109/63 Pulse Oximetry 96 Oxygen Delivery Nasal Cannula Oxygen Flow Rate 2 10/06/24 00:00 10/06/24 00:07 10/06/24 00:15 Temperature 97.7 F Pulse Rate 78 74 77 Respiratory Rate 20 Blood Pressure 96/65 L 96/65 L Pulse Oximetry 97 Oxygen Delivery Oxygen Flow Rate 10/06/24 00:30 10/06/24 01:30 10/06/24 01:45 Temperature Pulse Rate 76 73 77 Respiratory Rate Blood Pressure 97/78 L 87/63 L 111/60 Pulse Oximetry Oxygen Delivery Oxygen Flow Rate 10/06/24 02:00 10/06/24 02:00 10/06/24 02:00 Temperature 97.5 F L Pulse Rate 75 75 75 Respiratory Rate 16 Blood Pressure 102/60 102/60 Pulse Oximetry 98 Oxygen Delivery Oxygen Flow Rate 10/06/24 02:15 10/06/24 02:30 10/06/24 02:45 Temperature Pulse Rate 78 80 79 Respiratory Rate Blood Pressure 107/60 97/60 L 112/64 Pulse Oximetry Oxygen Delivery Oxygen Flow Rate 10/06/24 03:15 10/06/24 03:45 10/06/24 04:00 Temperature Pulse Rate 81 107 H 111 H Respiratory Rate Blood Pressure 112/63 114/77 115/80 Pulse Oximetry Oxygen Delivery Oxygen Flow Rate 10/06/24 04:00 10/06/24 04:00 10/06/24 04:00 Temperature 97.4 F L Pulse Rate 111 H 104 H Respiratory Rate 21 H Blood Pressure 115/80 Pulse Oximetry 94 96 Oxygen Delivery Nasal Cannula Oxygen Flow Rate 2 10/06/24 04:15 10/06/24 04:30 10/06/24 05:00 Temperature Pulse Rate 104 H 104 H 100 Respiratory Rate Blood Pressure 111/74 121/73 127/90 Pulse Oximetry Oxygen Delivery Oxygen Flow Rate 10/06/24 05:15 10/06/24 05:30 10/06/24 06:00 Temperature Pulse Rate 109 H 100 84 Respiratory Rate Blood Pressure 113/77 121/73 Pulse Oximetry Oxygen Delivery Oxygen Flow Rate 10/06/24 06:00 10/06/24 06:00 10/06/24 07:44 Temperature 97.4 F L 97.6 F Pulse Rate 86 84 87 Respiratory Rate 17 16 Blood Pressure 119/69 112/69 116/76 Pulse Oximetry 99 95 Oxygen Delivery Oxygen Flow Rate 10/06/24 08:00 10/06/24 08:00 10/06/24 08:15 Temperature Pulse Rate 104 H 95 Respiratory Rate Blood Pressure 115/77 127/79 Pulse Oximetry 95 Oxygen Delivery Room Air Oxygen Flow Rate 10/06/24 08:23 10/06/24 08:30 10/06/24 08:45 Temperature Pulse Rate 96 96 Respiratory Rate Blood Pressure 136/89 112/78 Pulse Oximetry 96 Oxygen Delivery Room Air Oxygen Flow Rate 10/06/24 09:15 10/06/24 09:20 10/06/24 09:30 Temperature Pulse Rate 93 86 89 Respiratory Rate Blood Pressure 96/67 L 107/58 L 106/62 Pulse Oximetry Oxygen Delivery Oxygen Flow Rate 10/06/24 09:45 10/06/24 10:00 10/06/24 10:00 Temperature Pulse Rate 92 88 98 Respiratory Rate 16 Blood Pressure 129/69 114/70 Pulse Oximetry 94 Oxygen Delivery Oxygen Flow Rate 10/06/24 11:54 10/06/24 12:00 10/06/24 12:00 Temperature Pulse Rate 98 103 H Respiratory Rate Blood Pressure 114/70 Pulse Oximetry 94 Oxygen Delivery Room Air Oxygen Flow Rate 10/06/24 12:00 10/06/24 12:00 10/06/24 14:00 Temperature 97.1 F L Pulse Rate 80 77 73 Respiratory Rate 20 Blood Pressure 116/80 116/80 102/76 Pulse Oximetry 93 Oxygen Delivery Oxygen Flow Rate 10/06/24 14:00 10/06/24 14:00 Temperature Pulse Rate 76 76 Respiratory Rate 17 Blood Pressure 102/76 Pulse Oximetry 97 Oxygen Delivery Oxygen Flow Rate Intake/Output Intake/Output: Intake & Output 10/03/24 10/04/24 10/05/24 10/06/24 23:59 23:59 23:59 23:59 Intake Total 2157.6 2646.2 2591.4 1646.6 Output Total 5200 250 50 100 Balance -3042.4 2396.2 2541.4 1546.6 Meds/Results Medications: Active Medications Generic Name Dose Route Start Last Admin Trade Name Freq PRN Reason Stop Dose Admin Acetaminophen 650 mg 10/03/24 03:27 Acetaminophen 325 Mg Tablet PO Q4H PRN Mild Pain (1-3) or Fever Folic Acid 1 mg 10/03/24 09:00 10/06/24 08:45 Folic Acid 1 Mg Tablet PO 1 mg DAILY KELECHI Administration Heparin Sodium (Porcine) 6,500 units 10/03/24 17:20 Heparin Sodium 5,000 Units/Ml Vial IV PUSH PRN PRN aPTT less than 55 seconds Heparin Sodium (Porcine) 3,000 units 10/03/24 17:20 Heparin Sodium 5,000 Units/Ml Vial IV PUSH PRN PRN aPTT 55 - 70 seconds Hydrocortisone Sodium Succinate 100 mg 10/03/24 09:00 10/06/24 08:45 Hydrocortisone Sodium Succinate 100 Mg/2 Ml Vial IV PUSH 100 mg Q8H KELECHI Administration Norepinephrine Bitartrate 8 mg in 250 mls @ 5.625 mls/hr 10/02/24 19:40 10/06/24 14:00 Levophed 8 Mg/D5w 250 Ml IV CONT 3 mcg/min .Q24H KELECHI 5.63 mls/hr Titration Protocol 3 MCG/MIN Cefepime HCl 1 gm in 50 mls @ 100 mls/hr 10/03/24 14:00 10/06/24 14:11 Maxipime 1 Gm/Ns 50 Ml IVPB 10/10/24 13:59 100 mls/hr Q24H KELECHI Administration Vasopressin 100 units/ 100 mls @ 0 mls/hr 10/03/24 08:40 10/04/24 18:00 Dextrose IV CONT 0 units/min .Q0M KELECHI 0 mls/hr Titration Protocol 0 UNITS/MIN Heparin Sodium/Dextrose 25,000 units in 250 mls @ 6 mls/hr 10/03/24 17:20 10/06/24 08:00 Heparin Sodium/D5w 100 Units/Ml IV CONT 600 units/hr .Q24H KELECHI 6 mls/hr Titration Protocol 600 UNITS/HR Octreotide Acetate 500 mcg/ 100 mls @ 10 mls/hr 10/04/24 12:00 10/06/24 15:09 Sodium Chloride IV CONT 50 mcg/hr .Q10H KELECHI 10 mls/hr Administration 50 MCG/HR Lactulose 20 gm 10/03/24 17:00 10/03/24 17:52 Lactulose 20 Gm/30 Ml Udc PO 20 gm BID KELECHI Administration Melatonin 10 mg 10/06/24 10:08 Melatonin 5 Mg Tablet PO HS PRN Insomnia Pantoprazole Sodium 40 mg 10/07/24 09:00 Pantoprazole 40 Mg Tablet PO QAM KELECHI Prochlorperazine Edisylate 10 mg 10/03/24 03:26 Prochlorperazine Edisylate 10 Mg/2 Ml Vial IV PUSH Q6H PRN Nausea And Vomiting Sodium Bicarbonate 650 mg 10/06/24 11:30 10/06/24 11:36 Sodium Bicarbonate Tab 650 Mg Tablet PO 650 mg BID KELECHI Administration Sodium Chloride 10 ml 10/03/24 06:00 10/06/24 14:09 Central Line Flush IV PUSH 10 ml Q8HR KELECHI Administration Sodium Chloride 20 ml 10/02/24 22:02 Central Line Flush IV PUSH PRN PRN after blood draws Thiamine HCl 100 mg 10/06/24 11:30 10/06/24 11:36 Thiamine Hcl 100 Mg Tablet PO 100 mg QAM KELECHI Administration Radiology Results: ITS Impressions Chest/Abdomen/Pelvis CT 10/02/24 16:47 IMPRESSION: 1. Cirrhosis with large amount of ascites throughout the abdomen and pelvis. There is a reticulonodular appearance to the greater omentum which could be due to portal venous hypertension mesenteric edema although differential would include metastatic peritoneal implants. Consider diagnostic thoracentesis. 2. Atelectasis at the bilateral lower lungs, more prominent on the right secondary to prominent elevation the right hemidiaphragm. 3. Nonobstructing bilateral nephrolithiasis. 4. Diverticulosis. 5. Small sliding-type hiatal hernia. 6. Small fat and ascites containing right inguinal hernia. Abdomen Ultrasound 10/02/24 17:06 IMPRESSION: Gross ascites. Liver cirrhosis. Highly suggestive gallbladder stones. Paracentesis Ultrasound 10/03/24 12:13 Impression: Successful ultrasound guided paracentesis. Venous Doppler Study 10/03/24 14:02 Impression: Bilateral acute deep venous thrombosis in right popliteal and posterior tibial veins and left common femoral, femoral popliteal and posterior tibial veins. Labs Labs: Laboratory Results - last 24 hr 10/04/24 10/05/24 10/06/24 05:18 19:01 04:19 WBC 12.5 H RBC 2.82 L Hgb 9.6 L Hct 27.1 L MCV 96.1 MCH 34.0 MCHC 35.4 RDW 16.0 H Plt Count 122 L MPV 11.1 H Immature Gran % (Auto) 0.9 H Neut % (Auto) 84.7 H Lymph % (Auto) 8.2 L Davison % (Auto) 6.1 Eos % (Auto) 0.0 Baso % (Auto) 0.1 L Lymph # (Auto) 1.03 Davison # (Auto) 0.8 H Eos # (Auto) 0.0 Baso # (Auto) 0.0 Abs Immat Gran (auto) 0.11 H Absolute Neuts (auto) 10.6 H Absolute Nucleated RBC 0.000 Nucleated RBC % 0.0 APTT 79.4 H Sodium 128 L Potassium 3.3 L Chloride 86 L Carbon Dioxide 22 Anion Gap 20 H BUN 76 H Creatinine 8.42 H Estim Creat Clear Calc 8 Estimated GFR 6 L Glucose 182 H Calcium 7.7 L Phosphorus 5.5 H Total Bilirubin 1.5 H AST 114 H ALT 34 Alkaline Phosphatase 202 H Total Protein 6.0 L 7.0 Albumin 3.6 Stl Occult Blood (IFOB) Positive H Hep B Core Total Ab Non-reactive Quality VTE Prophylaxis VTE prophylaxis: mechanical ordered Hospitalist MIPS Advance Care Plan I have confirmed that the patient's Advanced Care Plan is present, code status is documented, or surrogate decision maker is listed in patient medical record.: Yes Medication Reconciliation I have utilized all available resources to obtain, update and review the patients current medications (includes all prescriptions, OTC, herbals, cannabis, and nutritional supplements).: Yes
[2024-10-06] MEDS: HEPARIN SOD/D5W 100 UNITS/ML 25,000 UNITS/250 ML BAG 6 UNITS IV CONT (17:32)
[2024-10-06] MEDS: NOREPINEPHRINE 8 MG/D5W 250 ML 8 MG/250 ML BAG 7.5 MG IV CONT (18:45)
[2024-10-06] MEDS: MELATONIN 5 MG TABLET 10 MG PO (21:25)
[2024-10-07] VITALS (109 sets, daily range): BP systolic 84–139; BP diastolic 54–104; PULSE 67–142; RESP 0–34; TEMP 33.3–37.1; O2SAT 87–98
[2024-10-07] MEDS: OCTREOTIDE ACETATE 500 MCG in SODIUM CHLORIDE 0.9% IV 99 ML 10 MCG IV CONT ×3 (00:27→21:37)
[2024-10-07] MEDS: HYDROCORTISONE SODIUM SUCCINATE 100 MG/2 ML VIAL IV PUSH ×3 (00:27→17:13)
[2024-10-07 04:51] LABS: Basophils Percent Auto 0.1 % (0.2-1.2); Hematocrit 27.2 % (42.0-52.0); Hemoglobin 9.4 g/dL (14.0-18.0); Immature Granulocyte Absolute 0.13 K/mm3 (0.00-0.031); Immature Granulocyte Percent A 0.9 % (0-0.5); Lymphocytes Absolute Auto 0.86 K/mm3 (0.9-3.2); Mean Corpuscular HGB Conc 34.6 g/dl (32-36); Mean Corpuscular Hemoglobin 33.7 pg (26-34); Mean Corpuscular Volume 97.5 fl (80-100); Monocytes Absolute Auto 0.9 K/mm3 (0.1-0.6); Neutrophils Absolute Auto 12.5 K/mm3 (1.3-6.7); Platelet Count Result 120 k/mm3 (150-375); Red Blood Count 2.79 M/mm3 (4.6-6.20); Red Cell Distribution Width 16.1 % (11.5-14.5); White Blood Count 14.4 K/mm3 (4.5-10.0)
[2024-10-07 05:03] LABS: Alanine Aminotransferase 39 U/L (6-50); Albumin Level 3.4 g/dL (3.5-5.1); Alkaline Phosphatase 187 U/L (38-126); Anion Gap 17 mmol/L (4-12); Aspartate Amino Transferase 100 U/L (17-59); Bilirubin,Total 1.6 mg/dL (0.2-1.3); Blood Urea Nitrogen 78 mg/dL (9-20); Carbon Dioxide 25 mmol/L (22-30); Chloride 86 mmol/L (98-107); Estimated CRCL calculation 8 ml/min; Estimated Glomerular Filt Rate 7; Glucose 169 mg/dL (65-110); Phosphorus 5.4 mg/dL (2.5-4.5); Potassium 3.5 mmol/L (3.4-5.0); Sodium 128 mmol/L (137-145)
[2024-10-07 05:05] LABS: Partial Thromboplastin Time 64.1 Seconds (22.3-36.8)
[2024-10-07] MEDS: HEPARIN SODIUM 5,000 UNITS/ML VIAL 3000 UNITS IV PUSH (06:04)
[2024-10-07] MEDS: CENTRAL LINE FLUSH 10 ML IV PUSH ×3 (06:47→21:38)
--- NOTE | 2024-10-07 07:50 | ECG_ITS ---
Test Date: 2024-10-07 07:55:01 Measurements Intervals [place] Rate: 103 P: 0 [place]: 0 QRS: 207 QRSD: 150 T: 25 QT: 355 QTc: 466 Interpretive Statements SINUS TACHYCARDIA WITH FREQUENT ATRIAL PREMATURE COMPLEXES LIMB LEAD REVERSAL LEFT BUNDLE BRANCH BLOCK BASELINE ARTIFACT- I, II, AVR, AVL, AVF, V4-V6 ABNORMAL ECG Compared to ECG 10/02/2024 21:46:28 NO SIGNIFICANT CHANGE Electronically Signed On 10-07-2024 07:58:33 CDT by Joey Wolf D.O.
[2024-10-07] MEDS: ALBUMIN HUMAN 25% 25 GM/100 ML 100 ML IVPB ×3 (08:08→17:13)
[2024-10-07] MEDS: ONDANSETRON INJ 4 MG/2 ML VIAL IV PUSH (08:21)
[2024-10-07 08:45] LABS: Hematocrit 26.7 % (42.0-52.0); Hemoglobin 9.3 g/dL (14.0-18.0); Mean Corpuscular HGB Conc 34.8 g/dl (32-36); Mean Corpuscular Hemoglobin 34.2 pg (26-34); Mean Corpuscular Volume 98.2 fl (80-100); Mean Platelet Volume 11.2 fl (7.4-10.4); Platelet Count Result 134 k/mm3 (150-375); Red Blood Count 2.72 M/mm3 (4.6-6.20); Red Cell Distribution Width 16.3 % (11.5-14.5)
--- NOTE | 2024-10-07 08:55 | WPDINTPN ---
Progress Note: A&P Assessment and Plan (1) Septic shock: Code(s): A41.9 - Sepsis, unspecified organism; R65.21 - Severe sepsis with septic shock Status: Acute Assessment and Plan: Septic shock secondary to UTI. Patient may also have component of vaso dilatory shock secondary to cirrhosis Continue Levophed -off vasopressin -continue stress dose steroids -10/02/2024: Blood cultures negative x2 -10/02/2024: Urine cultures negative -10/03/2024: Paracentesis fluid culture on negative -Continue cefepime (10/03) (2) Acute renal failure: Code(s): N17.9 - Acute kidney failure, unspecified Status: Acute Assessment and Plan: Acute renal failure but with likely underlying chronic kidney disease. Likely multifactorial secondary to sepsis, shock, cirrhosis, patient also on ISH-inhibitor, questionable hepatorenal syndrome Appreciate nephrology following the patient Electrolytes are in acceptable range DC IV fluids, -will add albumin, -continue Levophed to maintain MAP > 80 mmHg per GI Avoid nephrotoxins Monitor urine output electrolytes and creatinine No indication for emergency dialysis but patient may need dialysis if does not improve Status post paracentesis to relieve abdominal compartment syndrome Hartley catheter for accurate I&Os -will add sodium bicarb tablet (3) Chronic alcohol use: Code(s): F10.90 - Alcohol use, unspecified, uncomplicated Status: Acute Assessment and Plan: Monitor for signs of withdrawal Continue Thiamine and folic acid (4) Cirrhosis: Code(s): K74.60 - Unspecified cirrhosis of liver Status: Acute Assessment and Plan: Patient clearly has cirrhosis likely secondary to heavy alcohol intake over many years Hepatitis panel was negative CT and ultrasound as under Vitamin K for coagulopathy Ammonia levels within normal 10/03: Status post paracentesis with 5000 mL removal of serous colored fluid -GI consulted, discussed with Dr. Raymundo, this could be likely related to hepatorenal syndrome, agreed to starting octreotide and continue norepinephrine 10/05: Discussed with GI, continue norepinephrine and octreotide infusion, maintain MAP > 80 mmHg per GI 10/02: CT chest abdomen 1. Cirrhosis with large amount of ascites throughout the abdomen and pelvis. There is a reticulonodular appearance to the greater omentum which could be due to portal venous hypertension mesenteric edema although differential would include metastatic peritoneal implants. Consider diagnostic thoracentesis. 2. Atelectasis at the bilateral lower lungs, more prominent on the right secondary to prominent elevation the right hemidiaphragm. 3. Nonobstructing bilateral nephrolithiasis. 4. Diverticulosis. 5. Small sliding-type hiatal hernia. 6. Small fat and ascites containing right inguinal hernia. 10/02: Ultrasound abdomen IMPRESSION: Gross ascites. Liver cirrhosis. Highly suggestive gallbladder stones. (5) Ascites: Code(s): R18.8 - Other ascites Status: Acute Assessment and Plan: See above (6) UTI (urinary tract infection): Code(s): N39.0 - Urinary tract infection, site not specified Status: Acute Assessment and Plan: See above (7) Coagulopathy: Code(s): D68.9 - Coagulation defect, unspecified Status: Acute Assessment and Plan: Secondary to cirrhosis (8) Swelling of lower extremity: Code(s): M79.89 - Other specified soft tissue disorders Status: Acute Assessment and Plan: Likely secondary to cirrhosis and renal failure 10/03: Venous Dopplers: Bilateral acute deep venous thrombosis in right popliteal and posterior tibial veins and left common femoral, femoral popliteal and posterior tibial veins. 10/03: Started on heparin infusion -remains on heparin infusion (9) GERD (gastroesophageal reflux disease): Code(s): K21.9 - Gastro-esophageal reflux disease without esophagitis Status: Acute Assessment and Plan: Continue PPI (10) Non-ST elevation DE (NSTEMI): Code(s): I21.4 - Non-ST elevation (NSTEMI) myocardial infarction Status: Acute Assessment and Plan: Mildly elevated troponin in light of acute kidney injury and septic shock Denies any chest pain Hold beta-юлия ISH-inhibitor due to shock Hold statin due to cirrhosis until workup is complete Hold aspirin due to coagulopathy and impending invasive procedure Appreciate cardiology following the patient, no further workup required per [employer] member 10/03: Echocardiogram Summary 1. Complete two-dimensional, color flow and Doppler transthoracic echocardiogram is performed. 2. Left ventricular chamber dimension is normal. 3. Left ventricular systolic function is hyperdynamic, estimated at >70%. 4. The left ventricular diastolic function is grade I diastolic dysfunction. 5. E/e' 3 is not elevated. 6. Left atrial chamber dimension is mildly enlarged. 7. There is mild aortic valve sclerosis. 8. The mitral valve has mildly calcified annulus. 9. There is mild tricuspid valve regurgitation. 10. Mild pulmonary hypertension, estimated pulmonary arterial systolic pressure is 49 mmHg. Plan DVT prophylaxis -heparin infusion Stress ulcer prophylaxis -PPI Nutrition -renal diet Code Status - Full Code Total Critical Care Time - 32 minutes Discussed with patient updated with his condition and plan of care. I answered all questions Discussed with Nephrology, cardiology and GI Due to a high probability of clinically significant, life threatening deterioration, the patient required my highest level of preparedness to intervene emergently and I personally spent this critical care time directly and personally managing the patient. This critical care time included obtaining a history; examining the patient; pulse oximetry; ordering and review of studies; arranging urgent treatment with development of a management plan; evaluation of patient's response to treatment; frequent reassessment; and discussions with other providers. It was exclusive of separately billable procedures and treating other patients and teaching time. Please see Assessment and Plan section and the rest of the note for further information on patient assessment and treatment. This dictation may have been done utilizing a voice recognition system. Attempts have been made to correct errors. However, there may be uncorrected grammatical, spelling, and recognitions errors present. Subjective Date/time seen: 10/07/24 08:55 Interval history: Reason for consult: Acute kidney injury, UTI, septic shock, cirrhosis, alcohol abuse 10/03: Paracentesis with removal off 5000 mL of serous colored fluid 10/07/2024: Patient seen and examined the ICU, is awake, alert, was complaining of chest discomfort and nausea, patient states he thinks he may be having a panic attack at that time. Patient flipped into AFib, night, remains on heparin infusion. Patient is having some bleeding from IV sites. Levophed requirements and increased to maintain MAP > 80 mmHg per GI. Low urine output, appetite has been adequate also remains on octreotide infusion Review of Systems Review of Systems: All systems reviewed & are unremarkable except as noted in HPI and below (HPI) Exam Narrative: General: Pt is alert awake and in NAD Lungs/Chest: Trachea central Clear BS B/L, No crackles or wheezing. Cardiac: RRR. Normal S1 S2. No murmurs Circulation: Pedal pulses are intact and symmetrical. Abdomen: Normal bowel sounds, soft, nontender, abdomen is distended Extremities: Bilateral pitting edema present : Hartley in place with clear urine Neurologic: Follows commands. Moves all 4 extremities PERRL AO x3 Skin: No Rash Objective Data Vital Signs Vital Signs: Vital Signs - 24 hr 10/06/24 09:15 10/06/24 09:20 10/06/24 09:30 Temperature Pulse Rate 93 86 89 Respiratory Rate Blood Pressure 96/67 L 107/58 L 106/62 Pulse Oximetry Oxygen Delivery Oxygen Flow Rate 10/06/24 09:45 10/06/24 10:00 10/06/24 10:00 Temperature Pulse Rate 92 88 98 Respiratory Rate 16 Blood Pressure 129/69 114/70 Pulse Oximetry 94 Oxygen Delivery Oxygen Flow Rate 10/06/24 11:54 10/06/24 12:00 10/06/24 12:00 Temperature Pulse Rate 98 103 H Respiratory Rate Blood Pressure 114/70 Pulse Oximetry 94 Oxygen Delivery Room Air Oxygen Flow Rate 10/06/24 12:00 10/06/24 12:00 10/06/24 14:00 Temperature 97.1 F L Pulse Rate 80 77 73 Respiratory Rate 20 Blood Pressure 116/80 116/80 102/76 Pulse Oximetry 93 Oxygen Delivery Oxygen Flow Rate 10/06/24 14:00 10/06/24 14:00 10/06/24 16:00 Temperature Pulse Rate 76 76 65 Respiratory Rate 17 Blood Pressure 102/76 Pulse Oximetry 97 Oxygen Delivery Oxygen Flow Rate 10/06/24 16:00 10/06/24 16:00 10/06/24 16:00 Temperature Pulse Rate 83 81 Respiratory Rate 21 H Blood Pressure 101/71 101/77 Pulse Oximetry 97 91 Oxygen Delivery Room Air Oxygen Flow Rate 10/06/24 18:00 10/06/24 18:00 10/06/24 18:00 Temperature Pulse Rate 104 H 104 H 104 H Respiratory Rate 22 H Blood Pressure 108/66 108/66 Pulse Oximetry 92 Oxygen Delivery Oxygen Flow Rate 10/06/24 18:45 10/06/24 18:46 10/06/24 19:44 Temperature Pulse Rate 87 93 102 H Respiratory Rate 18 Blood Pressure 103/56 L 94/59 L Pulse Oximetry 96 Oxygen Delivery Nasal Cannula Oxygen Flow Rate 2 10/06/24 19:45 10/06/24 20:00 10/06/24 20:00 Temperature 97.8 F Pulse Rate 98 98 98 Respiratory Rate 18 Blood Pressure 108/76 114/79 114/79 Pulse Oximetry 96 Oxygen Delivery Oxygen Flow Rate 10/06/24 20:00 10/06/24 20:15 10/06/24 20:30 Temperature Pulse Rate 109 H 96 105 H Respiratory Rate Blood Pressure 123/75 121/81 Pulse Oximetry Oxygen Delivery Oxygen Flow Rate 10/06/24 21:30 10/06/24 22:00 10/06/24 22:00 Temperature Pulse Rate 114 H 73 76 Respiratory Rate 17 Blood Pressure 110/79 110/87 Pulse Oximetry 96 Oxygen Delivery Oxygen Flow Rate 10/06/24 22:00 10/06/24 22:06 10/06/24 22:30 Temperature Pulse Rate 82 93 Respiratory Rate Blood Pressure 110/87 99/73 L Pulse Oximetry 94 Oxygen Delivery Nasal Cannula Oxygen Flow Rate 2 10/06/24 22:45 10/06/24 23:00 10/06/24 23:15 Temperature Pulse Rate 92 109 H 84 Respiratory Rate Blood Pressure 130/93 H 125/92 H 115/86 Pulse Oximetry Oxygen Delivery Oxygen Flow Rate 10/06/24 23:30 10/07/24 00:00 10/07/24 00:00 Temperature Pulse Rate 77 68 Respiratory Rate Blood Pressure 110/73 139/104 H Pulse Oximetry 97 Oxygen Delivery Nasal Cannula Oxygen Flow Rate 2 10/07/24 00:00 10/07/24 00:00 10/07/24 00:20 Temperature 97.8 F Pulse Rate 67 67 80 Respiratory Rate 11 L Blood Pressure 139/104 H 92/60 L Pulse Oximetry 97 Oxygen Delivery Oxygen Flow Rate 10/07/24 00:20 10/07/24 00:30 10/07/24 00:30 Temperature Pulse Rate 83 75 80 Respiratory Rate 15 17 Blood Pressure 92/60 L 114/75 114/75 Pulse Oximetry 96 96 Oxygen Delivery Oxygen Flow Rate 10/07/24 00:45 10/07/24 00:45 10/07/24 01:00 Temperature Pulse Rate 89 89 75 Respiratory Rate 22 H Blood Pressure 93/62 L 93/62 L 111/61 Pulse Oximetry 96 Oxygen Delivery Oxygen Flow Rate 10/07/24 01:00 10/07/24 01:15 10/07/24 01:15 Temperature Pulse Rate 75 105 H 105 H Respiratory Rate 12 23 H Blood Pressure 111/61 108/58 L 108/58 L Pulse Oximetry 94 91 Oxygen Delivery Oxygen Flow Rate 10/07/24 01:30 10/07/24 01:45 10/07/24 02:00 Temperature Pulse Rate 87 117 H 89 Respiratory Rate Blood Pressure 113/76 106/76 117/77 Pulse Oximetry Oxygen Delivery Oxygen Flow Rate 10/07/24 02:00 10/07/24 02:00 10/07/24 02:15 Temperature Pulse Rate 89 89 98 Respiratory Rate 20 Blood Pressure 117/77 122/78 Pulse Oximetry 93 Oxygen Delivery Oxygen Flow Rate 10/07/24 02:15 10/07/24 02:30 10/07/24 02:30 Temperature Pulse Rate 101 H 100 100 Respiratory Rate 12 12 Blood Pressure 122/78 97/73 L 97/73 L Pulse Oximetry 95 95 Oxygen Delivery Oxygen Flow Rate 10/07/24 02:45 10/07/24 02:45 10/07/24 03:00 Temperature Pulse Rate 101 H 101 H 104 H Respiratory Rate 13 Blood Pressure 128/93 H 128/93 H 104/88 Pulse Oximetry 95 Oxygen Delivery Oxygen Flow Rate 10/07/24 03:00 10/07/24 03:15 10/07/24 03:15 Temperature Pulse Rate 104 H 108 H 108 H Respiratory Rate 12 14 Blood Pressure 104/88 100/76 100/76 Pulse Oximetry 97 94 Oxygen Delivery Oxygen Flow Rate 10/07/24 03:30 10/07/24 03:30 10/07/24 03:45 Temperature Pulse Rate 72 72 83 Respiratory Rate 12 Blood Pressure 105/65 105/65 106/77 Pulse Oximetry 95 Oxygen Delivery Oxygen Flow Rate 10/07/24 03:45 10/07/24 04:00 10/07/24 04:00 Temperature Pulse Rate 83 71 Respiratory Rate 12 Blood Pressure 106/77 103/58 L Pulse Oximetry 95 95 Oxygen Delivery Nasal Cannula Oxygen Flow Rate 2 10/07/24 04:00 10/07/24 04:00 10/07/24 04:15 Temperature 97.8 F Pulse Rate 71 70 73 Respiratory Rate 17 Blood Pressure 103/58 L 102/67 Pulse Oximetry 95 Oxygen Delivery Oxygen Flow Rate 10/07/24 04:15 10/07/24 04:30 10/07/24 04:30 Temperature Pulse Rate 73 89 89 Respiratory Rate 11 L 14 Blood Pressure 102/67 107/70 107/70 Pulse Oximetry 92 94 Oxygen Delivery Oxygen Flow Rate 10/07/24 04:45 10/07/24 04:45 10/07/24 05:00 Temperature Pulse Rate 88 88 82 Respiratory Rate 11 L Blood Pressure 101/67 101/67 109/60 Pulse Oximetry 94 Oxygen Delivery Oxygen Flow Rate 10/07/24 05:00 10/07/24 05:15 10/07/24 05:15 Temperature Pulse Rate 82 105 H 105 H Respiratory Rate 13 23 H Blood Pressure 109/60 103/62 103/62 Pulse Oximetry 90 90 Oxygen Delivery Oxygen Flow Rate 10/07/24 05:30 10/07/24 05:30 10/07/24 05:45 Temperature Pulse Rate 101 H 101 H 103 H Respiratory Rate 21 H Blood Pressure 102/81 102/81 100/69 Pulse Oximetry 90 Oxygen Delivery Oxygen Flow Rate 10/07/24 05:45 10/07/24 06:00 10/07/24 06:00 Temperature Pulse Rate 103 H 99 99 Respiratory Rate 22 H Blood Pressure 100/69 99/78 L Pulse Oximetry 95 Oxygen Delivery Oxygen Flow Rate 10/07/24 06:00 10/07/24 06:15 10/07/24 06:15 Temperature Pulse Rate 99 93 93 Respiratory Rate 23 H 16 Blood Pressure 99/78 L 97/54 L 97/54 L Pulse Oximetry 97 97 Oxygen Delivery Oxygen Flow Rate 10/07/24 06:30 10/07/24 06:45 Temperature Pulse Rate 103 H 114 H Respiratory Rate Blood Pressure 90/64 L 120/85 Pulse Oximetry Oxygen Delivery Oxygen Flow Rate Intake/Output Intake/Output: Intake & Output 10/04/24 10/05/24 10/06/24 10/07/24 23:59 23:59 23:59 23:59 Intake Total 2646.2 2591.4 2362.6 460.1 Output Total 250 50 220 100 Balance 2396.2 2541.4 2142.6 360.1 Meds/Results Medications: Active Medications Generic Name Dose Route Start Last Admin Trade Name Freq PRN Reason Stop Dose Admin Acetaminophen 650 mg 10/03/24 03:27 Acetaminophen 325 Mg Tablet PO Q4H PRN Mild Pain (1-3) or Fever Folic Acid 1 mg 10/03/24 09:00 10/07/24 08:45 Folic Acid 1 Mg Tablet PO Not Given DAILY KELECHI Heparin Sodium (Porcine) 6,500 units 10/03/24 17:20 Heparin Sodium 5,000 Units/Ml Vial IV PUSH PRN PRN aPTT less than 55 seconds Heparin Sodium (Porcine) 3,000 units 10/03/24 17:20 10/07/24 06:04 Heparin Sodium 5,000 Units/Ml Vial IV PUSH 3,000 units PRN PRN Administration aPTT 55 - 70 seconds Hydrocortisone Sodium Succinate 100 mg 10/03/24 09:00 10/07/24 08:08 Hydrocortisone Sodium Succinate 100 Mg/2 Ml Vial IV PUSH 100 mg Q8H KELECHI Administration Norepinephrine Bitartrate 8 mg in 250 mls @ 26.25 mls/hr 10/02/24 19:40 10/07/24 06:45 Levophed 8 Mg/D5w 250 Ml IV CONT 14 mcg/min .Q9H32M KELECHI 26.25 mls/hr Titration Protocol 14 MCG/MIN Cefepime HCl 1 gm in 50 mls @ 100 mls/hr 10/03/24 14:00 10/06/24 14:41 Maxipime 1 Gm/Ns 50 Ml IVPB 10/10/24 13:59 Infused Q24H KELECHI Infusion Vasopressin 100 units/ 100 mls @ 0 mls/hr 10/03/24 08:40 10/04/24 18:00 Dextrose IV CONT 0 units/min .Q0M KELECHI 0 mls/hr Titration Protocol 0 UNITS/MIN Heparin Sodium/Dextrose 25,000 units in 250 mls @ 8 mls/hr 10/03/24 17:20 10/07/24 08:00 Heparin Sodium/D5w 100 Units/Ml IV CONT 800 units/hr .Q24H KELECHI 8 mls/hr Titration Protocol 800 UNITS/HR Octreotide Acetate 500 mcg/ 100 mls @ 10 mls/hr 10/04/24 12:00 10/07/24 08:00 Sodium Chloride IV CONT 50 mcg/hr .Q10H KELECHI 10 mls/hr Infusion 50 MCG/HR Albumin Human 100 mls @ 60 mls/hr 10/07/24 07:26 10/07/24 08:08 Albutein IVPB 10/08/24 01:39 60 mls/hr Q6HR KELECHI Administration Lactulose 20 gm 10/03/24 17:00 10/03/24 17:52 Lactulose 20 Gm/30 Ml Udc PO 20 gm BID KELECHI Administration Melatonin 10 mg 10/06/24 10:08 10/06/24 21:25 Melatonin 5 Mg Tablet PO 10 mg HS PRN Administration Insomnia Ondansetron HCl 4 mg 10/07/24 08:06 10/07/24 08:21 Ondansetron Inj 4 Mg/2 Ml Vial IV PUSH 4 mg Q4H PRN Administration Nausea And Vomiting Pantoprazole Sodium 40 mg 10/07/24 09:00 10/07/24 08:45 Pantoprazole 40 Mg Tablet PO Not Given QAM [facility] Sodium Bicarbonate 650 mg 10/06/24 11:30 10/07/24 08:45 Sodium Bicarbonate Tab 650 Mg Tablet PO Not Given BID KELECHI Sodium Chloride 10 ml 10/03/24 06:00 10/07/24 06:47 Central Line Flush IV PUSH 10 ml Q8HR KELECHI Administration Sodium Chloride 20 ml 10/02/24 22:02 Central Line Flush IV PUSH PRN PRN after blood draws Thiamine HCl 100 mg 10/06/24 11:30 10/07/24 08:46 Thiamine Hcl 100 Mg Tablet PO Not Given QAM [facility] Radiology Results: ITS Impressions Chest/Abdomen/Pelvis CT 10/02/24 16:47 IMPRESSION: 1. Cirrhosis with large amount of ascites throughout the abdomen and pelvis. There is a reticulonodular appearance to the greater omentum which could be due to portal venous hypertension mesenteric edema although differential would include metastatic peritoneal implants. Consider diagnostic thoracentesis. 2. Atelectasis at the bilateral lower lungs, more prominent on the right secondary to prominent elevation the right hemidiaphragm. 3. Nonobstructing bilateral nephrolithiasis. 4. Diverticulosis. 5. Small sliding-type hiatal hernia. 6. Small fat and ascites containing right inguinal hernia. Abdomen Ultrasound 10/02/24 17:06 IMPRESSION: Gross ascites. Liver cirrhosis. Highly suggestive gallbladder stones. Paracentesis Ultrasound 10/03/24 12:13 Impression: Successful ultrasound guided paracentesis. Venous Doppler Study 10/03/24 14:02 Impression: Bilateral acute deep venous thrombosis in right popliteal and posterior tibial veins and left common femoral, femoral popliteal and posterior tibial veins. Labs Labs: Laboratory Results - last 24 hr 10/07/24 10/07/24 10/07/24 04:33 04:34 08:37 WBC 14.4 H 16.0 H RBC 2.79 L 2.72 L Hgb 9.4 L 9.3 L Hct 27.2 L 26.7 L MCV 97.5 98.2 MCH 33.7 34.2 H MCHC 34.6 34.8 RDW 16.1 H 16.3 H Plt Count 120 L 134 L MPV 11.0 H 11.2 H Immature Gran % (Auto) 0.9 H Neut % (Auto) 87.0 H Lymph % (Auto) 6.0 L [place] % (Auto) 6.0 Eos % (Auto) 0.0 Baso % (Auto) 0.1 L Lymph # (Auto) 0.86 L [place] # (Auto) 0.9 H Eos # (Auto) 0.0 Baso # (Auto) 0.0 Abs Immat Gran (auto) 0.13 H Absolute Neuts (auto) 12.5 H Absolute Nucleated RBC 0.000 Nucleated RBC % 0.0 APTT 64.1 H Sodium 128 L Potassium 3.5 Chloride 86 L Carbon Dioxide 25 Anion Gap 17 H BUN 78 H Creatinine 8.16 H Estim Creat Clear Calc 8 Estimated GFR 7 L Glucose 169 H Calcium 8.0 L Phosphorus 5.4 H Total Bilirubin 1.6 H AST 100 H ALT 39 Alkaline Phosphatase 187 H Total Protein 6.0 L Albumin 3.4 L Quality VTE Prophylaxis VTE prophylaxis: mechanical ordered
[2024-10-07 08:57] LABS: INR 1.7; Prothrombin Time 20.3 Seconds (11.1-14.7)
[2024-10-07 09:00] LABS: Magnesium 1.8 mg/dL (1.6-2.3)
[2024-10-07 09:02] LABS: Troponin I 0.126 ng/mL (0.000-0.034)
[2024-10-07 09:06] LABS: D Dimer 2.83 ug/mL (<0.48)
[2024-10-07 09:16] LABS: Fibrinogen 143 mg/dl (215-510)
[2024-10-07 09:18] LABS: Partial Thromboplastin Time > 200.0 Seconds (22.3-36.8)
--- NOTE | 2024-10-07 09:18 | PCPTNOTE ---
Attempted PT evaluation. Pt not safe to participate in OOB activity this date per nursing. Will follow.
[2024-10-07] MEDS: dexmedeTOMIDine 400 MCG/100 ML 400 MCG/100 ML BAG IV CONT (10:06)
--- NOTE | 2024-10-07 10:32 | P.PNNP_ITS ---
Progress Note: A&P Assessment and Plan (1) Acute kidney injury: Code(s): N17.9 - Acute kidney failure, unspecified Status: Acute Assessment and Plan: * normal baseline creatinine * creatinine 0.99mg/dl on 07/11/24 * suspect multifactorial etiology: * hemodynamic instability/shock * infection/sepsus * outpatient use of ISH-I * liver cirrhosis/liver physiology/HRS(?) * other(?) * on IV albumin + vasopressor therapy to optimize hemodynamics * evaluation to date noted: * CT imaging without obstruction * CPK okay * urine eosinophils negative * urine electrolytes prerenal * mild proteinuria * serologies pending * remains at risk for renal replacement therapy * follow trend of repeat labs and UOP (2) Septic shock: Code(s): A41.9 - Sepsis, unspecified organism; R65.21 - Severe sepsis with septic shock Status: Acute Assessment and Plan: * due to UTI versus SBP versus other * complicated by liver physiology and associated chronic hypotension * on vasopressor therapy * follow culture data * blood culture negative * urine culture negative * ascitic fluid culture negative to date * on antibiotics (3) Cirrhosis: Code(s): K74.60 - Unspecified cirrhosis of liver Status: Acute Assessment and Plan: * as evidence by admission imaging * presumably secondary to alcohol abuse * LFTs on 07/11/24 noted: * ALT 41 * AST 108 (H) * Alk phos 267 (H) * Total Bilirubin 1.7 (H) * s/p large volume paracentesis (on 10/03) * GI recommendations noted * on octreotide (4) DVT of lower extremity, bilateral: Code(s): I82.403 - Acute embolism and thrombosis of unspecified deep veins of lower extremity, bilateral Status: Acute Assessment and Plan: * as noted by duplex ultrasound: * bilateral acute deep venous thrombosis in right popliteal and posterior tibial veins and left common femoral, femoral popliteal and posterior tibial veins. * on heparin gtt (5) UTI (urinary tract infection): Code(s): N39.0 - Urinary tract infection, site not specified Status: Acute Assessment and Plan: * admission UA highly suggestive * follow-up on urine cultures - negative to date * on antibiotics (6) Ascites: Code(s): R18.8 - Other ascites Status: Acute Assessment and Plan: * as noted by admission imaging * s/p large volume paracentesis (on 10/03) * fluid studies from ascites reviewed (7) Elevated troponin: Code(s): R79.89 - Other specified abnormal findings of blood chemistry Status: Acute Assessment and Plan: * noted on admission * likely secondary to renal dysfunction in the context of septic shock * no symptoms to suggest ACS * Cardiology recommendations noted * Echo reviewed: * left ventricular systolic function is hyperdynamic, estimated at >70% * left ventricular diastolic function is grade I diastolic dysfunction * mild aortic valve sclerosis * mitral valve has mildly calcified annulus * mild tricuspid valve regurgitation * mild pulmonary hypertension, estimated pulmonary arterial systolic pressure is 49 mmHg (8) Chronic alcohol use: Code(s): F10.90 - Alcohol use, unspecified, uncomplicated Status: Acute Assessment and Plan: * monitor for signs of withdrawal * on thiamine and folic acid Discussed case with Dr. Correa -- possible transfer to [facility] Will continue to follow. L Subjective Date/time seen: 10/07/24 10:32 Interval history: Follow-up for acute kidney injury/acute renal failure. Currently in the process of being intubated at the time of my visit -- reportedly was uncomfortable and confused but then developed hypoxia along with worsening mental status; hence, the decision made to intubate patient for airway protection and adequate oxygenation; mild improvement in renal function/creatinine noted but continues to have poor/diminished urine output at this time; remains on levophed and heparin gtt along with octreotide. Exam 2 Narrative: General: elderly male in NAD Heart: normal S1 and S2; no rub Lungs: clear to auscultation Abdomen: soft, nontender with mild distension noted, positive bowel sounds Extremities: no cyanosis or clubbing; 2+ edema Skin: no rash Objective Data Vital Signs Vital Signs: Vital Signs Temp Pulse Resp BP Pulse Ox O2 Del Method O2 Flow Rate 10/07/24 10:06 142 H 27 H 10/07/24 08:00 119 H 10/07/24 08:00 97.8 F 119 H 28 H 100/75 94 10/07/24 08:00 119 H 34 H 92 Nasal Cannula 2 10/07/24 06:45 114 H 120/85 10/07/24 06:30 103 H 90/64 L 10/07/24 06:15 93 16 97/54 L 97 10/07/24 06:15 93 97/54 L 04/14/25 06:00 99 23 H 99/78 L 97 10/07/24 06:00 99 10/07/24 06:00 99 99/78 L 10/07/24 05:45 103 H 22 H 100/69 95 10/07/24 05:45 103 H 100/69 10/07/24 05:30 101 H 21 H 102/81 90 10/07/24 05:30 101 H 102/81 10/07/24 05:15 105 H 23 H 103/62 90 10/07/24 05:15 105 H 103/62 10/07/24 05:00 82 13 109/60 90 10/07/24 05:00 82 109/60 10/07/24 04:45 88 11 L 101/67 94 10/07/24 04:45 88 101/67 10/07/24 04:30 89 14 107/70 94 10/07/24 04:30 89 107/70 10/07/24 04:15 73 11 L 102/67 92 10/07/24 04:15 73 102/67 10/07/24 04:00 70 10/07/24 04:00 97.8 F 71 17 103/58 L 95 10/07/24 04:00 71 103/58 L 10/07/24 04:00 95 Nasal Cannula 2 10/07/24 03:45 83 12 106/77 95 10/07/24 03:45 83 106/77 10/07/24 03:30 72 12 105/65 95 10/07/24 03:30 72 105/65 10/07/24 03:15 108 H 14 100/76 94 10/07/24 03:15 108 H 100/76 10/07/24 03:00 104 H 12 104/88 97 10/07/24 03:00 104 H 104/88 10/07/24 02:45 101 H 13 128/93 H 95 10/07/24 02:45 101 H 128/93 H 10/07/24 02:30 100 97/73 L 10/07/24 02:30 100 12 97/73 L 95 10/07/24 02:15 101 H 12 122/78 95 10/07/24 02:15 98 122/78 10/07/24 02:00 89 20 117/77 93 10/07/24 02:00 89 04/14/25 02:00 89 117/77 10/07/24 01:45 117 H 106/76 10/07/24 01:30 87 113/76 10/07/24 01:15 105 H 23 H 108/58 L 91 10/07/24 01:15 105 H 108/58 L 10/07/24 01:00 75 12 111/61 94 10/07/24 01:00 75 111/61 10/07/24 00:45 89 22 H 93/62 L 96 10/07/24 00:45 89 93/62 L 10/07/24 00:30 80 17 114/75 96 10/07/24 00:30 75 114/75 10/07/24 00:20 83 15 92/60 L 96 10/07/24 00:20 80 92/60 L 10/07/24 00:00 97.8 F 67 11 L 139/104 H 97 10/07/24 00:00 67 10/07/24 00:00 97 Nasal Cannula 2 10/07/24 00:00 68 139/104 H 10/06/24 23:30 77 110/73 10/06/24 23:15 84 115/86 10/06/24 23:00 109 H 125/92 H 10/06/24 22:45 92 130/93 H 10/06/24 22:30 93 99/73 L 10/06/24 22:06 94 Nasal Cannula 2 10/06/24 22:00 82 110/87 10/06/24 22:00 76 17 110/87 96 10/06/24 22:00 73 10/06/24 21:30 114 H 110/79 10/06/24 20:30 105 H 121/81 10/06/24 20:15 96 123/75 10/06/24 20:00 109 H 10/06/24 20:00 97.8 F 98 18 114/79 96 10/06/24 20:00 98 114/79 10/06/24 19:45 98 108/76 10/06/24 19:44 102 H 18 96 Nasal Cannula 2 10/06/24 18:46 93 94/59 L 10/06/24 18:45 87 103/56 L 10/06/24 18:00 104 H 108/66 10/06/24 18:00 104 H 22 H 108/66 92 10/06/24 18:00 104 H 10/06/24 16:00 81 21 H 101/77 91 10/06/24 16:00 97 Room Air 10/06/24 16:00 83 101/71 10/06/24 16:00 65 10/06/24 14:00 76 17 102/76 97 10/06/24 14:00 76 10/06/24 14:00 73 102/76 10/06/24 12:00 97.1 F L 77 20 116/80 93 10/06/24 12:00 80 116/80 10/06/24 12:00 103 H 10/06/24 12:00 94 Room Air 10/06/24 11:54 98 114/70 Intake/Output Intake/Output: Intake & Output 10/04/24 10/05/24 10/06/24 10/07/24 23:59 23:59 23:59 23:59 Intake Total 2646.2 2591.4 2362.6 708.0 Output Total 250 50 220 100 Balance 2396.2 2541.4 2142.6 608.0 Meds/Results Medications: Active Medications Generic Name Dose Route Start Last Admin Trade Name Freq PRN Reason Stop Dose Admin Acetaminophen 650 mg 10/03/24 03:27 Acetaminophen 325 Mg Tablet PO Q4H PRN Mild Pain (1-3) or Fever Folic Acid 1 mg 10/03/24 09:00 10/07/24 08:45 Folic Acid 1 Mg Tablet PO Not Given DAILY KELECHI Heparin Sodium (Porcine) 6,500 units 10/03/24 17:20 Heparin Sodium 5,000 Units/Ml Vial IV PUSH PRN PRN aPTT less than 55 seconds Heparin Sodium (Porcine) 3,000 units 10/03/24 17:20 10/07/24 06:04 Heparin Sodium 5,000 Units/Ml Vial IV PUSH 3,000 units PRN PRN Administration aPTT 55 - 70 seconds Hydrocortisone Sodium Succinate 100 mg 10/03/24 09:00 10/07/24 08:08 Hydrocortisone Sodium Succinate 100 Mg/2 Ml Vial IV PUSH 100 mg Q8H KELECHI Administration Norepinephrine Bitartrate 8 mg in 250 mls @ 33.75 mls/hr 10/02/24 19:40 10/07/24 11:08 Levophed 8 Mg/D5w 250 Ml IV CONT 18 mcg/min .Q7H25M KELECHI 33.75 mls/hr Administration Protocol 18 MCG/MIN Vasopressin 100 units/ 100 mls @ 0 mls/hr 10/03/24 08:40 10/04/24 18:00 Dextrose IV CONT 0 units/min .Q0M KELECHI 0 mls/hr Titration Protocol 0 UNITS/MIN Heparin Sodium/Dextrose 25,000 units in 250 mls @ 6 mls/hr 10/03/24 17:20 10/07/24 10:30 Heparin Sodium/D5w 100 Units/Ml IV CONT 600 units/hr .Q24H KELECHI 6 mls/hr Titration Protocol 600 UNITS/HR Octreotide Acetate 500 mcg/ 100 mls @ 10 mls/hr 10/04/24 12:00 10/07/24 10:09 Sodium Chloride IV CONT 50 mcg/hr .Q10H KELECHI 10 mls/hr Administration 50 MCG/HR Albumin Human 100 mls @ 60 mls/hr 10/07/24 07:26 10/07/24 09:49 Albutein IVPB 10/08/24 01:39 Infused Q6HR KELECHI Infusion Dexmedetomidine HCl 400 mcg in 100 mls @ 4.025 mls/hr 10/07/24 10:00 10/07/24 10:06 Precedex 400 Mcg/100 Ml IV CONT 0.2 mcg/kg/hr .[id number] KELECHI 4.03 mls/hr Administration Protocol 0.2 MCG/KG/HR Fentanyl Citrate 2,500 mcg in 250 mls @ 5 mls/hr 10/07/24 10:55 10/07/24 11:10 Fentanyl 2,500 Mcg/Ns 250 Ml IV CONT 50 mcg/hr .Q50H KELECHI 5 mls/hr Titration Protocol 50 MCG/HR Midazolam HCl 100 mg in 100 mls @ 1 mls/hr 10/07/24 10:55 10/07/24 10:55 Versed 100 Mg/Ns 100 Ml IV CONT 1 mg/hr .Q72H KELECHI 1 mls/hr Administration Protocol 1 MG/HR Lactulose 20 gm 10/03/24 17:00 10/03/24 17:52 Lactulose 20 Gm/30 Ml Udc PO 20 gm BID KELECHI Administration Melatonin 10 mg 10/06/24 10:08 10/06/24 21:25 Melatonin 5 Mg Tablet PO 10 mg HS PRN Administration Insomnia Multi-Ingred Cream/Lotion/Oil/Oint 1 applic 10/07/24 10:50 10/07/24 11:16 Mineral Oil/White Petrolatum Ointment EACH EYE 1 applic Q12HR KELECHI Administration Ondansetron HCl 4 mg 10/07/24 08:06 10/07/24 08:21 Ondansetron Inj 4 Mg/2 Ml Vial IV PUSH 4 mg Q4H PRN Administration Nausea And Vomiting Pantoprazole Sodium 40 mg 10/07/24 09:00 10/07/24 08:45 Pantoprazole 40 Mg Tablet PO Not Given QAM KELECHI Sodium Bicarbonate 650 mg 10/06/24 11:30 10/07/24 08:45 Sodium Bicarbonate Tab 650 Mg Tablet PO Not Given BID KELECHI Sodium Chloride 10 ml 10/03/24 06:00 10/07/24 06:47 Central Line Flush IV PUSH 10 ml Q8HR KELECHI Administration Sodium Chloride 20 ml 10/02/24 22:02 Central Line Flush IV PUSH PRN PRN after blood draws Thiamine HCl 100 mg 10/06/24 11:30 10/07/24 08:46 Thiamine Hcl 100 Mg Tablet PO Not Given QAM [facility] Radiology Results: ITS Impressions Chest/Abdomen/Pelvis CT 10/02/24 16:47 IMPRESSION: 1. Cirrhosis with large amount of ascites throughout the abdomen and pelvis. There is a reticulonodular appearance to the greater omentum which could be due to portal venous hypertension mesenteric edema although differential would include metastatic peritoneal implants. Consider diagnostic thoracentesis. 2. Atelectasis at the bilateral lower lungs, more prominent on the right secondary to prominent elevation the right hemidiaphragm. 3. Nonobstructing bilateral nephrolithiasis. 4. Diverticulosis. 5. Small sliding-type hiatal hernia. 6. Small fat and ascites containing right inguinal hernia. Abdomen Ultrasound 10/02/24 17:06 IMPRESSION: Gross ascites. Liver cirrhosis. Highly suggestive gallbladder stones. Paracentesis Ultrasound 10/03/24 12:13 Impression: Successful ultrasound guided paracentesis. Venous Doppler Study 10/03/24 14:02 Impression: Bilateral acute deep venous thrombosis in right popliteal and posterior tibial veins and left common femoral, femoral popliteal and posterior tibial veins. Labs Labs: Laboratory Tests 10/07/24 08:37 PT 20.3 H INR 1.7 APTT > 200.0 H* Fibrinogen 143 L D-Dimer 2.83 H 10/07/24 04:34 WBC 14.4 H Hgb 9.4 L Hct 27.2 L Plt Count 120 L Calcium 8.0 L Phosphorus 5.4 H Total Bilirubin 1.6 H AST 100 H ALT 39 Alkaline Phosphatase 187 H Total Protein 6.0 L Albumin 3.4 L Microbiology 10/03/24 11:31 Abdominal Fluid Anaerobic Culture - Preliminary 10/03/24 11:31 Abdominal Fluid Aerobic Culture - Preliminary
[2024-10-07] MEDS: ETOMIDATE 20 MG/10 ML AMPUL IV PUSH (10:40)
[2024-10-07] MEDS: ROCURONIUM BROMIDE 50 MG/5 ML VIAL IV PUSH (10:42)
[2024-10-07] MEDS: FENTANYL 2,500MCG/NS250ML(*CRX 2,500 MCG/250 ML BAG IV CONT (10:55)
[2024-10-07] MEDS: MIDAZOLAM 100MG/NS 100ML(*CRX) 100 MG/100 ML BAG IV CONT (10:55)
--- NOTE | 2024-10-07 10:58 | WPDPROCEDUR ---
Procedures Intubation Intubation Date: 10/07/24 Intubation Time: 10:40 Consent: Consent was obtained from girlfriend, patient is already a full code A pre-procedural Time-Out was completed immediately before starting the procedure and confirmed: Patient Identification, Site, Procedure, Patient Position and the Availability of Requisite Equipment: Yes Sedative: etomidate Paralytic: rocuronium Laryngoscope: fiber optic video scope Assist device used: fiber optic device ET tube size: 7.5 Tube secured depth (cm): 23 Tube secured location: lips Tube placement confirmation: visualized tube passing through cords, equal breath sounds bilaterally, no breath sounds over epigastrium and confirmation by capnometry Patient tolerated procedure: well Intubation complications: none
--- NOTE | 2024-10-07 10:59 | PM.EVENT ---
Event Note Event Note Event Note: I was asked to come to evaluate the patient as he was started on Precedex infusion for being uncomfortable, confused -patient dropped his oxygen saturations, was obtunded, decision was made to intubate the patient for airway protection and adequate oxygenation -intubated the patient at bedside in the ICU, intubation was uneventful, patient placed in mechanical ventilation with adequate O2 sats -will obtain CT scan of the brain without contrast since patient is on heparin infusion for his bilateral lower extremity DVTs, to rule out any bleed since patient was confused and obtunded. -also obtain a CT scan of the chest/abdomen/pelvis without contrast -patient has been accepted to [facility]U. Also discussed with promotions assistant at [facility] who stated they will consult once patient arrives in their ICU
[2024-10-07] MEDS: NOREPINEPHRINE 8 MG/D5W 250 ML 8 MG/250 ML BAG 33.75 MG IV CONT (11:08)
[2024-10-07 11:14] LABS: Kappa\\Lambda Light Chains 1.11 (0.26-1.65); Lambda Light Chain 62.7 mg/L (5.7-26.3)
[2024-10-07] MEDS: MINERAL OIL/WHITE PETROLATUM OINTMENT 1 APPLIC EACH EYE ×2 (11:16→21:38)
[2024-10-07] MEDS: RAPID SEQUENCE INTUBATION KIT 1 EACH (11:18)
[2024-10-07 11:51] LABS: Ammonia 60 umol/L (9-30)
[2024-10-07 12:11] LABS: Lactic Acid Reflex 12.8 mmol/L (0.7-2.0)
--- NOTE | 2024-10-07 12:25 | PCOTNOTE ---
Patient is unable to be seen for therapy services. Patient has had a decline in medical condition and intubated at this time. Will speak with OTR/L about decline in status.
[2024-10-07 12:31] LABS: Alveolar/Arterial O2 Gradient 423.8 mmHg; Base Excess ABG -14.3 mEq/l (+/-2.0); Carboxyhemoglobin 0.3 % THb (0-2.0); Fractional Inspired Oxygen 80 %; HCO3 ABG 12.2 mEq/l (22.0-26.0); Methemoglobin ABG 0.2 %THb (0-1.5); Oxygen Saturation ABG 97.4 % (95.0-100.0); Oxyhemoglobin 96.1 % THb (90.0-100.0); PCO2 ABG 30.9 mmHg (35.0-45.0); PO2 ABG 114.2 mmHg (80.0-100.0); PO2 FiO2 Ratio Arterial Blood 1.43 %; Reduced Hemoglobin 3.4 %THb (0-5.0); Total Hemoglobin 10.2 g/dL (12.0-18.0)
[2024-10-07 12:33] LABS: pH ABG 7.215 (7.350-7.450)
[2024-10-07 12:34] LABS: Arterial Blood Gas Tidal Volume 450 ml; Arterial Blood Gas Vent Mode CMV; Arterial Blood Gas Ventilator rate 22 /MIN; Device VENTILATOR; Modified Allen's Test Pass; Site Drawn LEFT RADIAL
[2024-10-07 12:35] LABS: Arterial Blood Gas PEEP 10 cmH2O
[2024-10-07] MEDS: SODIUM BICARBONATE 8.4% 50 MEQ/50 ML SYRINGE 100 MEQ IV PUSH (12:35)
[2024-10-07] MEDS: ALBUMIN HUMAN 5% 25 GM/500 ML BTL IV CONT (13:26)
[2024-10-07 13:34] LABS: Reflex Lactic Acid Yes or No Add Lactic
[2024-10-07] MEDS: LACTULOSE 20 GM/30 ML UDC FEED TUBE ×2 (14:29→17:13)
[2024-10-07] MEDS: MEROPENEM 500 MG/NS 100 ML 500 MG/100 ML BAG 200 MG IVPB (14:37)
[2024-10-07 14:53] LABS: Lactic Acid 10.5 mmol/L (0.7-2.0)
[2024-10-07] MEDS: VANCOMYCIN 1,250 MG/NS 250 ML 1,250 MG/250 ML BAG 166.67 MG IVPB (15:22)
[2024-10-07] MEDS: VASOPRESSIN INJ 100 UNITS in DEXTROSE 5% 95 ML IV CONT (15:40)
[2024-10-07 15:42] LABS: Complement Total CH50 51 U/mL (31-60)
[2024-10-07 16:01] LABS: Partial Thromboplastin Time 141.7 Seconds (22.3-36.8)
--- NOTE | 2024-10-07 16:23 | P.PNCA_ITS ---
Progress Note: A&P Assessment and Plan (1) Septic shock: Code(s): A41.9 - Sepsis, unspecified organism; R65.21 - Severe sepsis with septic shock Status: Acute Assessment and Plan: Septic shock secondary to UTI. Patient may also have component of vaso dilatory shock secondary to cirrhosis Continue Levophed -off vasopressin -continue stress dose steroids -10/02/2024: Blood cultures negative x2 -10/02/2024: Urine cultures negative -10/03/2024: Paracentesis fluid culture on negative -Continue cefepime (10/03) (2) Acute renal failure: Code(s): N17.9 - Acute kidney failure, unspecified Status: Acute Assessment and Plan: Nephrolog following. (3) Cirrhosis: Code(s): K74.60 - Unspecified cirrhosis of liver Status: Acute Assessment and Plan: Due to alcohol abuse. Gastroenterology following. (4) Ascites: Code(s): R18.8 - Other ascites Status: Acute Assessment and Plan: S/P paracentesis. (5) UTI (urinary tract infection): Code(s): N39.0 - Urinary tract infection, site not specified Status: Acute Assessment and Plan: On antibiotics. (6) Coagulopathy: Code(s): D68.9 - Coagulation defect, unspecified Status: Acute Assessment and Plan: Secondary to cirrhosis. (7) Acidosis, lactic: Code(s): E87.20 - Acidosis, unspecified Status: Acute Assessment and Plan: Probably due to sepsis. (8) Elevated troponin: Code(s): R79.89 - Other specified abnormal findings of blood chemistry Status: Acute Assessment and Plan: Moderately elevated with troponin at .126. Probably due to renal failure/septic shock/UTI. No symptoms to suggest ACS. EKG shows LBBB. 10/03/24 Echo: EF >70% ,grade I diastolic dysfunction (E/e' 3), mild LAE, mild MAC, mild TR, RVSP 49 mmHg. (9) DVT of lower extremity, bilateral: Code(s): I82.403 - Acute embolism and thrombosis of unspecified deep veins of lower extremity, bilateral Status: Acute Assessment and Plan: Probably related to being sedentary. On heparin drip. (10) PAT (paroxysmal atrial tachycardia): Code(s): I47.19 - Other supraventricular tachycardia Status: Acute Assessment and Plan: Sinus tachycardia with short runs of PAT. Probably due to Levophed drip. Subjective Date/time seen: 10/07/24 16:23 Interval history: Patient became confused and had to be intubated today to protect airway. Currently intubated, on ventilator and sedated. Exam Const: Other: Sedated on ventilator. Resp: Auscultation: clear to auscultation bilaterally, no crackles, no rales, no rhonchi and no wheezes Cardio: Rate: tachycardic Rhythm: abnormal rhythm Peripheral pulses: dorsalis pedis present GI: GI Palp: No abdominal tenderness and Yes Soft to palpation Extrem: Right lower extremity: no edema Left lower extremity: no edema Objective Data Vital Signs Vital Signs: Vital Signs - 24 hr 10/06/24 18:00 10/06/24 18:00 10/06/24 18:00 Temperature Pulse Rate 104 H 104 H 104 H Respiratory Rate 22 H Blood Pressure 108/66 108/66 Pulse Oximetry 92 Oxygen Delivery Oxygen Flow Rate Fraction of Inspired Oxygen 10/06/24 18:45 10/06/24 18:46 10/06/24 19:44 Temperature Pulse Rate 87 93 102 H Respiratory Rate 18 Blood Pressure 103/56 L 94/59 L Pulse Oximetry 96 Oxygen Delivery Nasal Cannula Oxygen Flow Rate 2 Fraction of Inspired Oxygen 10/06/24 19:45 10/06/24 20:00 10/06/24 20:00 Temperature 97.8 F Pulse Rate 98 98 98 Respiratory Rate 18 Blood Pressure 108/76 114/79 114/79 Pulse Oximetry 96 Oxygen Delivery Oxygen Flow Rate Fraction of Inspired Oxygen 10/06/24 20:00 10/06/24 20:15 10/06/24 20:30 Temperature Pulse Rate 109 H 96 105 H Respiratory Rate Blood Pressure 123/75 121/81 Pulse Oximetry Oxygen Delivery Oxygen Flow Rate Fraction of Inspired Oxygen 10/06/24 21:30 10/06/24 22:00 10/06/24 22:00 Temperature Pulse Rate 114 H 73 76 Respiratory Rate 17 Blood Pressure 110/79 110/87 Pulse Oximetry 96 Oxygen Delivery Oxygen Flow Rate Fraction of Inspired Oxygen 10/06/24 22:00 10/06/24 22:06 10/06/24 22:30 Temperature Pulse Rate 82 93 Respiratory Rate Blood Pressure 110/87 99/73 L Pulse Oximetry 94 Oxygen Delivery Nasal Cannula Oxygen Flow Rate 2 Fraction of Inspired Oxygen 10/06/24 22:45 10/06/24 23:00 10/06/24 23:15 Temperature Pulse Rate 92 109 H 84 Respiratory Rate Blood Pressure 130/93 H 125/92 H 115/86 Pulse Oximetry Oxygen Delivery Oxygen Flow Rate Fraction of Inspired Oxygen 10/06/24 23:30 10/07/24 00:00 10/07/24 00:00 Temperature Pulse Rate 77 68 Respiratory Rate Blood Pressure 110/73 139/104 H Pulse Oximetry 97 Oxygen Delivery Nasal Cannula Oxygen Flow Rate 2 Fraction of Inspired Oxygen 10/07/24 00:00 10/07/24 00:00 10/07/24 00:20 Temperature 97.8 F Pulse Rate 67 67 80 Respiratory Rate 11 L Blood Pressure 139/104 H 92/60 L Pulse Oximetry 97 Oxygen Delivery Oxygen Flow Rate Fraction of Inspired Oxygen 10/07/24 00:20 10/07/24 00:30 10/07/24 00:30 Temperature Pulse Rate 83 75 80 Respiratory Rate 15 17 Blood Pressure 92/60 L 114/75 114/75 Pulse Oximetry 96 96 Oxygen Delivery Oxygen Flow Rate Fraction of Inspired Oxygen 10/07/24 00:45 10/07/24 00:45 10/07/24 01:00 Temperature Pulse Rate 89 89 75 Respiratory Rate 22 H Blood Pressure 93/62 L 93/62 L 111/61 Pulse Oximetry 96 Oxygen Delivery Oxygen Flow Rate Fraction of Inspired Oxygen 10/07/24 01:00 10/07/24 01:15 10/07/24 01:15 Temperature Pulse Rate 75 105 H 105 H Respiratory Rate 12 23 H Blood Pressure 111/61 108/58 L 108/58 L Pulse Oximetry 94 91 Oxygen Delivery Oxygen Flow Rate Fraction of Inspired Oxygen 10/07/24 01:30 10/07/24 01:45 10/07/24 02:00 Temperature Pulse Rate 87 117 H 89 Respiratory Rate Blood Pressure 113/76 106/76 117/77 Pulse Oximetry Oxygen Delivery Oxygen Flow Rate Fraction of Inspired Oxygen 10/07/24 02:00 10/07/24 02:00 10/07/24 02:15 Temperature Pulse Rate 89 89 98 Respiratory Rate 20 Blood Pressure 117/77 122/78 Pulse Oximetry 93 Oxygen Delivery Oxygen Flow Rate Fraction of Inspired Oxygen 10/07/24 02:15 10/07/24 02:30 10/07/24 02:30 Temperature Pulse Rate 101 H 100 100 Respiratory Rate 12 12 Blood Pressure 122/78 97/73 L 97/73 L Pulse Oximetry 95 95 Oxygen Delivery Oxygen Flow Rate Fraction of Inspired Oxygen 10/07/24 02:45 10/07/24 02:45 10/07/24 03:00 Temperature Pulse Rate 101 H 101 H 104 H Respiratory Rate 13 Blood Pressure 128/93 H 128/93 H 104/88 Pulse Oximetry 95 Oxygen Delivery Oxygen Flow Rate Fraction of Inspired Oxygen 10/07/24 03:00 10/07/24 03:15 10/07/24 03:15 Temperature Pulse Rate 104 H 108 H 108 H Respiratory Rate 12 14 Blood Pressure 104/88 100/76 100/76 Pulse Oximetry 97 94 Oxygen Delivery Oxygen Flow Rate Fraction of Inspired Oxygen 10/07/24 03:30 10/07/24 03:30 10/07/24 03:45 Temperature Pulse Rate 72 72 83 Respiratory Rate 12 Blood Pressure 105/65 105/65 106/77 Pulse Oximetry 95 Oxygen Delivery Oxygen Flow Rate Fraction of Inspired Oxygen 10/07/24 03:45 10/07/24 04:00 10/07/24 04:00 Temperature Pulse Rate 83 71 Respiratory Rate 12 Blood Pressure 106/77 103/58 L Pulse Oximetry 95 95 Oxygen Delivery Nasal Cannula Oxygen Flow Rate 2 Fraction of Inspired Oxygen 10/07/24 04:00 10/07/24 04:00 10/07/24 04:15 Temperature 97.8 F Pulse Rate 71 70 73 Respiratory Rate 17 Blood Pressure 103/58 L 102/67 Pulse Oximetry 95 Oxygen Delivery Oxygen Flow Rate Fraction of Inspired Oxygen 10/07/24 04:15 10/07/24 04:30 10/07/24 04:30 Temperature Pulse Rate 73 89 89 Respiratory Rate 11 L 14 Blood Pressure 102/67 107/70 107/70 Pulse Oximetry 92 94 Oxygen Delivery Oxygen Flow Rate Fraction of Inspired Oxygen 10/07/24 04:45 10/07/24 04:45 10/07/24 05:00 Temperature Pulse Rate 88 88 82 Respiratory Rate 11 L Blood Pressure 101/67 101/67 109/60 Pulse Oximetry 94 Oxygen Delivery Oxygen Flow Rate Fraction of Inspired Oxygen 10/07/24 05:00 10/07/24 05:15 10/07/24 05:15 Temperature Pulse Rate 82 105 H 105 H Respiratory Rate 13 23 H Blood Pressure 109/60 103/62 103/62 Pulse Oximetry 90 90 Oxygen Delivery Oxygen Flow Rate Fraction of Inspired Oxygen 10/07/24 05:30 10/07/24 05:30 10/07/24 05:45 Temperature Pulse Rate 101 H 101 H 103 H Respiratory Rate 21 H Blood Pressure 102/81 102/81 100/69 Pulse Oximetry 90 Oxygen Delivery Oxygen Flow Rate Fraction of Inspired Oxygen 10/07/24 05:45 10/07/24 06:00 10/07/24 06:00 Temperature Pulse Rate 103 H 99 99 Respiratory Rate 22 H Blood Pressure 100/69 99/78 L Pulse Oximetry 95 Oxygen Delivery Oxygen Flow Rate Fraction of Inspired Oxygen 10/07/24 06:00 10/07/24 06:15 10/07/24 06:15 Temperature Pulse Rate 99 93 93 Respiratory Rate 23 H 16 Blood Pressure 99/78 L 97/54 L 97/54 L Pulse Oximetry 97 97 Oxygen Delivery Oxygen Flow Rate Fraction of Inspired Oxygen 10/07/24 06:30 10/07/24 06:45 10/07/24 08:00 Temperature Pulse Rate 103 H 114 H 119 H Respiratory Rate 34 H Blood Pressure 90/64 L 120/85 Pulse Oximetry 92 Oxygen Delivery Nasal Cannula Oxygen Flow Rate 2 Fraction of Inspired Oxygen 10/07/24 08:00 10/07/24 08:00 10/07/24 08:00 Temperature 97.8 F Pulse Rate 119 H 119 H 102 H Respiratory Rate 28 H Blood Pressure 100/75 Pulse Oximetry 94 Oxygen Delivery Oxygen Flow Rate Fraction of Inspired Oxygen 10/07/24 10:00 10/07/24 10:00 10/07/24 10:06 Temperature Pulse Rate 120 H 120 H 142 H Respiratory Rate 26 H 27 H Blood Pressure 96/72 L Pulse Oximetry 96 Oxygen Delivery Oxygen Flow Rate Fraction of Inspired Oxygen 10/07/24 10:25 10/07/24 10:50 10/07/24 10:55 Temperature Pulse Rate 76 129 H 125 H Respiratory Rate 6 L 23 H Blood Pressure Pulse Oximetry 92 Oxygen Delivery Mechanical Ventilation Oxygen Flow Rate Fraction of Inspired Oxygen 100 10/07/24 10:55 10/07/24 11:08 10/07/24 11:08 Temperature Pulse Rate 128 H 129 H 129 H Respiratory Rate 18 Blood Pressure 92/74 L 92/74 L Pulse Oximetry Oxygen Delivery Oxygen Flow Rate Fraction of Inspired Oxygen 10/07/24 11:10 10/07/24 11:15 10/07/24 12:00 Temperature Pulse Rate 129 H 130 H 126 H Respiratory Rate 22 H Blood Pressure 87/76 L Pulse Oximetry Oxygen Delivery Oxygen Flow Rate Fraction of Inspired Oxygen 10/07/24 12:00 10/07/24 12:00 10/07/24 12:15 Temperature 98.7 F Pulse Rate 126 H 96 122 H Respiratory Rate 19 20 24 H Blood Pressure 94/77 L Pulse Oximetry 96 96 Oxygen Delivery Mechanical Ventilation Oxygen Flow Rate Fraction of Inspired Oxygen 80 10/07/24 12:16 10/07/24 12:30 10/07/24 12:45 Temperature Pulse Rate 122 H 124 H 124 H Respiratory Rate 24 H 22 H Blood Pressure Pulse Oximetry 97 Oxygen Delivery Mechanical Ventilation Oxygen Flow Rate Fraction of Inspired Oxygen 100 10/07/24 13:28 10/07/24 13:28 10/07/24 13:30 Temperature Pulse Rate 109 H 111 H 107 H Respiratory Rate 18 18 Blood Pressure 85/64 L Pulse Oximetry Oxygen Delivery Oxygen Flow Rate Fraction of Inspired Oxygen 10/07/24 13:40 10/07/24 13:41 10/07/24 14:00 Temperature Pulse Rate 105 H 104 H Respiratory Rate 19 20 Blood Pressure Pulse Oximetry Oxygen Delivery Oxygen Flow Rate Fraction of Inspired Oxygen 80 10/07/24 14:00 10/07/24 14:00 10/07/24 14:25 Temperature Pulse Rate 95 89 141 H Respiratory Rate 22 H Blood Pressure 88/60 L Pulse Oximetry 95 96 Oxygen Delivery Mechanical Ventilation Oxygen Flow Rate Fraction of Inspired Oxygen 80 10/07/24 14:29 10/07/24 14:45 10/07/24 15:24 Temperature Pulse Rate 126 H 106 H 116 H Respiratory Rate 22 H Blood Pressure 87/60 L 84/65 L Pulse Oximetry Oxygen Delivery Oxygen Flow Rate Fraction of Inspired Oxygen 10/07/24 15:40 10/07/24 15:50 10/07/24 15:55 Temperature Pulse Rate 98 108 H 114 H Respiratory Rate Blood Pressure 84/65 L 90/68 L 96/65 L Pulse Oximetry Oxygen Delivery Oxygen Flow Rate Fraction of Inspired Oxygen Intake/Output Intake/Output: Intake & Output 10/04/24 10/05/24 10/06/24 10/07/24 23:59 23:59 23:59 23:59 Intake Total 2646.2 2591.4 2362.6 1113.8 Output Total 250 50 220 100 Balance 2396.2 2541.4 2142.6 1013.8 Meds/Results Medications: Active Medications Generic Name Dose Route Start Last Admin Trade Name Freq PRN Reason Stop Dose Admin Acetaminophen 650 mg 10/03/24 03:27 Acetaminophen 325 Mg Tablet PO Q4H PRN Mild Pain (1-3) or Fever Folic Acid 1 mg 10/03/24 09:00 10/07/24 08:45 Folic Acid 1 Mg Tablet PO Not Given DAILY KELECHI Heparin Sodium (Porcine) 6,500 units 10/03/24 17:20 Heparin Sodium 5,000 Units/Ml Vial IV PUSH PRN PRN aPTT less than 55 seconds Heparin Sodium (Porcine) 3,000 units 10/03/24 17:20 10/07/24 06:04 Heparin Sodium 5,000 Units/Ml Vial IV PUSH 3,000 units PRN PRN Administration aPTT 55 - 70 seconds Hydrocortisone Sodium Succinate 100 mg 10/03/24 09:00 10/07/24 08:08 Hydrocortisone Sodium Succinate 100 Mg/2 Ml Vial IV PUSH 100 mg Q8H KELECHI Administration Norepinephrine Bitartrate 8 mg in 250 mls @ 52.5 mls/hr 10/02/24 19:40 10/07/24 14:45 Levophed 8 Mg/D5w 250 Ml IV CONT 28 mcg/min .Q4H46M KELECHI 52.5 mls/hr Titration Protocol 28 MCG/MIN Heparin Sodium/Dextrose 25,000 units in 250 mls @ 0 mls/hr 10/03/24 17:20 10/07/24 16:00 Heparin Sodium/D5w 100 Units/Ml IV CONT 0 units/hr .Q0M KELECHI 0 mls/hr Titration Protocol 0 UNITS/HR Octreotide Acetate 500 mcg/ 100 mls @ 10 mls/hr 10/04/24 12:00 10/07/24 10:09 Sodium Chloride IV CONT 50 mcg/hr .Q10H KELECHI 10 mls/hr Administration 50 MCG/HR Albumin Human 100 mls @ 60 mls/hr 10/07/24 07:26 10/07/24 14:12 Albutein IVPB 10/08/24 01:39 Infused Q6HR KELECHI Infusion Dexmedetomidine HCl 400 mcg in 100 mls @ 0 mls/hr 10/07/24 10:00 10/07/24 10:25 Precedex 400 Mcg/100 Ml IV CONT 0 mcg/kg/hr .Q0M KELECHI 0 mls/hr Titration Protocol Fentanyl Citrate 2,500 mcg in 250 mls @ 15 mls/hr 10/07/24 10:55 10/07/24 13:40 Fentanyl 2,500 Mcg/Ns 250 Ml IV CONT 150 mcg/hr .[id number] KELECHI 15 mls/hr Titration Protocol 150 MCG/HR Midazolam HCl 100 mg in 100 mls @ 3 mls/hr 10/07/24 10:55 10/07/24 15:24 Versed 100 Mg/Ns 100 Ml IV CONT 3 mg/hr .[id number] KELECHI 3 mls/hr Titration Protocol 3 MG/HR Albumin Human 25 gm in 500 mls @ 125 mls/hr 10/07/24 12:45 10/07/24 13:26 Albumin Human 5% IV CONT 10/07/24 16:44 125 mls/hr .Q4H ONE Administration Meropenem 500 mg in 100 mls @ 200 mls/hr 10/07/24 13:00 10/07/24 15:07 IVPB Infused Q24H KELECHI Infusion Vasopressin 100 units/ 100 mls @ 2.4 mls/hr 10/07/24 15:55 10/07/24 15:55 Dextrose IV CONT 0.04 units/min .[id number] KELECHI 2.4 mls/hr Titration Protocol 0.04 UNITS/MIN Lactulose 20 gm 10/03/24 17:00 10/03/24 17:52 Lactulose 20 Gm/30 Ml Udc PO 20 gm BID KELECHI Administration Lactulose 20 gm 10/07/24 12:31 10/07/24 14:29 Lactulose 20 Gm/30 Ml Udc FEED TUBE 20 gm BID KELECHI Administration Melatonin 10 mg 10/06/24 10:08 10/06/24 21:25 Melatonin 5 Mg Tablet PO 10 mg HS PRN Administration Insomnia Multi-Ingred Cream/Lotion/Oil/Oint 1 applic 10/07/24 10:50 10/07/24 11:16 Mineral Oil/White Petrolatum Ointment EACH EYE 1 applic Q12HR KELECHI Administration Ondansetron HCl 4 mg 10/07/24 08:06 10/07/24 08:21 Ondansetron Inj 4 Mg/2 Ml Vial IV PUSH 4 mg Q4H PRN Administration Nausea And Vomiting Pantoprazole Sodium 40 mg 10/07/24 09:00 10/07/24 08:45 Pantoprazole 40 Mg Tablet PO Not Given QAM [facility] Sodium Bicarbonate 650 mg 10/06/24 11:30 10/07/24 08:45 Sodium Bicarbonate Tab 650 Mg Tablet PO Not Given BID KELECHI Sodium Chloride 10 ml 10/03/24 06:00 10/07/24 14:46 Central Line Flush IV PUSH 10 ml Q8HR KELECHI Administration Sodium Chloride 20 ml 10/02/24 22:02 Central Line Flush IV PUSH PRN PRN after blood draws Thiamine HCl 100 mg 10/06/24 11:30 10/07/24 08:46 Thiamine Hcl 100 Mg Tablet PO Not Given QAM [facility] Vancomycin HCl 1 each 10/07/24 12:35 Vancomycin Pharmacist To Dose IVPB PER PROTOCOL [facility] Vancomycin HCl 1 each 10/07/24 12:46 Vancomycin For Acute Kidney Injury IVPB PRN PRN Vancomycin Protocol Radiology Results: ITS Impressions Abdomen Ultrasound 10/02/24 17:06 IMPRESSION: Gross ascites. Liver cirrhosis. Highly suggestive gallbladder stones. Paracentesis Ultrasound 10/03/24 12:13 Impression: Successful ultrasound guided paracentesis. Venous Doppler Study 10/03/24 14:02 Impression: Bilateral acute deep venous thrombosis in right popliteal and posterior tibial veins and left common femoral, femoral popliteal and posterior tibial veins. Chest X-Ray 10/07/24 11:09 IMPRESSION: Pulmonary vascular congestion with low lung volumes bilaterally. Supportive lines and tubes in good position, as detailed above. Head CT 10/07/24 12:12 IMPRESSION: 1. Age-related changes the brain including mild diffuse volume loss and mild scattered white matter hypoattenuation consistent with chronic small vessel ischemic disease. No acute intracranial process. Chest/Abdomen/Pelvis CT 10/07/24 12:21 IMPRESSION: Redemonstration of moderate intra-abdominal ascites, which is of decreased attenuation consistent with simple fluid (not blood ). Interval enlargement of the main and proximal bilateral pulmonary arteries when compared with prior study. Without intravenous contrast, the presence of pulmonary emboli cannot be excluded. Interval development of bibasilar infiltrates, a left hilar infiltrate and moderate bilateral pulmonary vascular congestion. Labs Labs: Laboratory Results - last 24 hr 10/04/24 10/07/24 10/07/24 05:18 04:33 04:34 WBC 14.4 H RBC 2.79 L Hgb 9.4 L Hct 27.2 L MCV 97.5 MCH 33.7 MCHC 34.6 RDW 16.1 H Plt Count 120 L MPV 11.0 H Immature Gran % (Auto) 0.9 H Neut % (Auto) 87.0 H Lymph % (Auto) 6.0 L [place] % (Auto) 6.0 Eos % (Auto) 0.0 Baso % (Auto) 0.1 L Lymph # (Auto) 0.86 L [place] # (Auto) 0.9 H Eos # (Auto) 0.0 Baso # (Auto) 0.0 Abs Immat Gran (auto) 0.13 H Absolute Neuts (auto) 12.5 H Absolute Nucleated RBC 0.000 Nucleated RBC % 0.0 PT INR APTT 64.1 H Fibrinogen D-Dimer Puncture Site ABG pH ABG pCO2 ABG pO2 ABG PO2/FiO2 Ratio ABG HCO3 ABG O2 Saturation ABG O2 Content ABG Base Excess A-a Gradient Oxyhemoglobin Carboxyhemoglobin Methemoglobin Reduced Hemoglobin Total Hemoglobin O2 Delivery Device O2 Liters/Min Minute Volume Vent Rate Vent Mode FiO2 Tidal Volume PEEP Peak Inspir Pressure Pressure Support Sodium 128 L Potassium 3.5 Chloride 86 L Carbon Dioxide 25 Anion Gap 17 H BUN 78 H Creatinine 8.16 H Estim Creat Clear Calc 8 Estimated GFR 7 L Glucose 169 H Lactic Acid Calcium 8.0 L Phosphorus 5.4 H Magnesium Total Bilirubin 1.6 H AST 100 H ALT 39 Alkaline Phosphatase 187 H Ammonia Troponin I Total Protein 6.0 L Albumin 3.4 L Anti-DNA Antibody <1 Tot Complement (CH50) 51 [place]/Lambda Ratio 1.11 Free [place] Light Chains 69.9 H Free Lambda Light Chain 62.7 H 10/07/24 10/07/24 10/07/24 08:17 08:37 11:29 WBC 16.0 H RBC 2.72 L Hgb 9.3 L Hct 26.7 L MCV 98.2 MCH 34.2 H MCHC 34.8 RDW 16.3 H Plt Count 134 L MPV 11.2 H Immature Gran % (Auto) Neut % (Auto) Lymph % (Auto) [place] % (Auto) Eos % (Auto) Baso % (Auto) Lymph # (Auto) [place] # (Auto) Eos # (Auto) Baso # (Auto) Abs Immat Gran (auto) Absolute Neuts (auto) Absolute Nucleated RBC Nucleated RBC % PT 20.3 H INR 1.7 APTT > 200.0 H* Fibrinogen 143 L D-Dimer 2.83 H Puncture Site ABG pH ABG pCO2 ABG pO2 ABG PO2/FiO2 Ratio ABG HCO3 ABG O2 Saturation ABG O2 Content ABG Base Excess A-a Gradient Oxyhemoglobin Carboxyhemoglobin Methemoglobin Reduced Hemoglobin Total Hemoglobin O2 Delivery Device O2 Liters/Min Minute Volume Vent Rate Vent Mode FiO2 Tidal Volume PEEP Peak Inspir Pressure Pressure Support Sodium Potassium Chloride Carbon Dioxide Anion Gap BUN Creatinine Estim Creat Clear Calc Estimated GFR Glucose Lactic Acid 12.8 H* Calcium Phosphorus Magnesium 1.8 Total Bilirubin AST ALT Alkaline Phosphatase Ammonia 60 H Troponin I 0.126 H* Total Protein Albumin Anti-DNA Antibody Tot Complement (CH50) [place]/Lambda Ratio Free [place] Light Chains Free Lambda Light Chain 10/07/24 10/07/24 10/07/24 12:29 14:33 15:32 WBC RBC Hgb Hct MCV MCH MCHC RDW Plt Count MPV Immature Gran % (Auto) Neut % (Auto) Lymph % (Auto) [place] % (Auto) Eos % (Auto) Baso % (Auto) Lymph # (Auto) [place] # (Auto) Eos # (Auto) Baso # (Auto) Abs Immat Gran (auto) Absolute Neuts (auto) Absolute Nucleated RBC Nucleated RBC % PT INR APTT 141.7 H Fibrinogen D-Dimer Puncture Site Left radial ABG pH 7.215 L* ABG pCO2 30.9 L ABG pO2 114.2 H ABG PO2/FiO2 Ratio 1.43 ABG HCO3 12.2 L ABG O2 Saturation 97.4 ABG O2 Content 14.0 L ABG Base Excess -14.3 A-a Gradient 423.8 Oxyhemoglobin 96.1 Carboxyhemoglobin 0.3 Methemoglobin 0.2 Reduced Hemoglobin 3.4 Total Hemoglobin 10.2 L O2 Delivery Device Ventilator O2 Liters/Min Not Reportable Minute Volume Not Reportable Vent Rate 22 Vent Mode Cmv FiO2 80 Tidal Volume 450 PEEP 10 Peak Inspir Pressure Not Reportable Pressure Support Not Reportable Sodium Potassium Chloride Carbon Dioxide Anion Gap BUN Creatinine Estim Creat Clear Calc Estimated GFR Glucose Lactic Acid 10.5 H* Calcium Phosphorus Magnesium Total Bilirubin AST ALT Alkaline Phosphatase Ammonia Troponin I Total Protein Albumin Anti-DNA Antibody Tot Complement (CH50) [place]/Lambda Ratio Free [place] Light Chains Free Lambda Light Chain
[2024-10-07] MEDS: NOREPINEPHRINE 8 MG/D5W 250 ML 8 MG/250 ML BAG 56.25 MG IV CONT ×2 (16:50→21:35)
[2024-10-07] MEDS: SODIUM BICARBONATE TAB 650 MG TABLET PO (17:15)
[2024-10-07 19:28] LABS: Albumin 3.5 g/dL (3.8-4.8); Alpha 1 Globulin 0.4 g/dL (0.2-0.3); Alpha 2 Globulin 0.4 g/dL (0.5-0.9); Beta 1 Globulin 0.2 g/dL (0.4-0.6); Gamma Globulin 0.9 g/dL (0.8-1.7)
[2024-10-07 22:28] LABS: Partial Thromboplastin Time 112.7 Seconds (22.3-36.8)
[2024-10-08] VITALS (84 sets, daily range): BP systolic 75–103; BP diastolic 59–80; PULSE 64–136; RESP 17–32; TEMP 33.8–36.5; O2SAT 84–100; BMI 25.7
--- NOTE | 2024-10-08 | ECHO_ITS ---
Patient Info Name: Daniel Domínguez Age: 74 years : 1950 Gender: Male Ht: 70 in Wt: 179 lbs BSA: 2.01 m2 HR: 89 bpm BP: 92 / 67 mmHg Technical Quality: Fair Exam Date: 10/08/2024 9:31 AM Exam Location: Echo Lab Patient Status: Inpatient Admit Date: 10/02/2024 Staff Ordering Physician: Joey Wolf DO Inside Plant Supervisor: Alma Rosa Watts RDCS Attending Provider: Vince Balderrama MD Referring Physician: Luciano LAM; Exam Type: CA echo limited w contrast Study Info Indications - Check EF and tissue doppler - Shock Limited two-dimensional transthoracic echocardiogram is performed with contrast. Contrast/Agitated Saline Contrast/Ag. Saline: Definity Amount: 2.00 ml Existing IV Access: Yes IV Access Condition: patent with no signs of infiltration Summary 1. Limited echocardiogram to reassess EF. 2. Definity contrast administered improved wall motion interpretation. 3. Left ventricular chamber dimension is severely enlarged. 4. Left ventricular systolic function is severely globally reduced, estimated at <15%. 5. Ventricular septum is sigmoid shaped. No resting LVOT obstruction. 6. The left ventricular diastolic function is normal. 7. E/e' 9 is minimally elevated. 8. Left atrial chamber dimension is moderately enlarged. 9. There is mild aortic valve sclerosis. 10. There is mild aortic valve regurgitation. 11. The mitral valve has mildly calcified annulus. 12. There is moderate mitral valve regurgitation. 13. There is trace tricuspid valve regurgitation. 14. No pulmonary hypertension, estimated pulmonary arterial systolic pressure is 37 mmHg. Left Ventricle Definity contrast administered improved wall motion interpretation. E/e' 9 is minimally elevated. Ventricular septum is sigmoid shaped. No resting LVOT obstruction. Limited echocardiogram to reassess EF. Left ventricular chamber dimension is severely enlarged. Left ventricular systolic function is severely globally reduced, estimated at <15%. The left ventricular diastolic function is normal. Right Ventricle Right ventricular chamber dimension is not well visualized. Left Atria Left atrial chamber dimension is moderately enlarged. Right Atria Right atrial chamber dimension is not well visualized. Aortic Valve The aortic valve is trileaflet. There is mild aortic valve sclerosis. There is no aortic valve stenosis. There is mild aortic valve regurgitation. Pulmonic Valve There is no pulmonic regurgitation. Mitral Valve The mitral valve has mildly calcified annulus. There is no mitral valve stenosis. There is moderate mitral valve regurgitation. Tricuspid Valve The tricuspid valve leaflets are not well visualized. There is trace tricuspid valve regurgitation. No pulmonary hypertension, estimated pulmonary arterial systolic pressure is 37 mmHg. Pericardium/Pleural There is no pericardial effusion. Inferior Vena Cava Inferior vena cava is not well visualized. Aorta The aortic root size at the sinus of Valsalva is normal. Mitral Valve Name Value Normal MV Doppler MV Decel [place] 867 cm/s2 MV PHT 33 ms MV Area (PHT) 6.6 cm2 4.0-5.0 MV Diastolic Function MV E Peak Velocity 100 cm/s MV A Peak Velocity 4 cm/s MV E/A 28.0 MV Decel Time 115 ms MV Annular TDI MV E/e' (Septal) 11.6 <=8.0 MV E/e' (Lateral) 9.7 <=8.0 MV E/e' (Average) 10.6 Tricuspid Valve Name Value Normal TV Regurgitation Doppler TR Peak Velocity 283 cm/s TR Peak Gradient 32 mmHg Estimated PAP/RSVP RA Pressure 5 mmHg <=5 PA Systolic Pressure 37 mmHg <36 RV Systolic Pressure 37 mmHg <36 Ventricles Name Value Normal LV Dimensions 2D/MM IVS Diastolic Thickness (2D) 0.9 cm 0.6-1.0 LVID Diastole (2D) 6.7 cm 4.2-5.8 LVIW Diastolic Thickness (2D) 1.0 cm 0.6-1.0 LVID Systole (2D) 5.6 cm 2.5-4.0 LV Mass (2D Cubed) 269.55 g 88.00-224.00 LV Mass Index (2D Cubed) 134 g/m2 49-115 Relative Wall Thickness (2D) 0.29 LV Fractional Shortening/Ejection Fraction 2D/MM LV Fractional Shortening (2D) 17 % 25-43 LV EF (2D Teicholz) 34 % 52-72 LV Diastolic Volume (4C MOD) 127 ml LV EF (4C MOD) 21 % LV Diastolic Volume (2C MOD) 111 ml LV EF (2C MOD) 10 % LV Diastolic Volume (BP MOD) 119 ml 62-150 LV Diastolic Volume Index (BP MOD) 59 ml/m2 34-74 LV Systolic Volume (BP MOD) 104 ml 21-61 LV Systolic Volume Index (BP MOD) 51 ml/m2 11-31 LV EF (BP MOD) 13 % 52-72 LV Diastolic Length (4C) 7.8 cm LV Systolic Length (4C) 7.5 cm LV Stroke Volume (4C MOD) 27 ml Report Signatures
[2024-10-08] MEDS: ALBUMIN HUMAN 25% 25 GM/100 ML 100 ML IVPB ×4 (00:05→18:02)
[2024-10-08] MEDS: HYDROCORTISONE SODIUM SUCCINATE 100 MG/2 ML VIAL IV PUSH ×3 (00:06→18:02)
[2024-10-08 00:15] LABS: Glucose Point of Care 209 mg/dl (65-105)
[2024-10-08] MEDS: AMIODARONE 150 MG/D5W 100 ML 150 MG/100 ML BAG 600 MG IV CONT (02:06)
[2024-10-08] MEDS: AMIODARONE 360 MG/D5W 200 ML 360 MG/200 ML BAG 33.33 MG IV CONT (02:06)
[2024-10-08] MEDS: NOREPINEPHRINE 8 MG/D5W 250 ML 8 MG/250 ML BAG 56.25 MG IV CONT ×5 (02:11→20:05)
[2024-10-08] MEDS: PHENYLEPHRINE HCL INJ 50 MG in DEXTROSE 5% IN WATER 250 ML/245 ML BAG 12 ML IV CONT (03:29)
[2024-10-08 05:08] LABS: Alveolar/Arterial O2 Gradient 579.2 mmHg; Base Excess ABG -7.3 mEq/l (+/-2.0); Carboxyhemoglobin 0.3 % THb (0-2.0); Fractional Inspired Oxygen 100 %; HCO3 ABG 18.9 mEq/l (22.0-26.0); Methemoglobin ABG 0.1 %THb (0-1.5); Oxygen Content ABG 12.4 %vol (16.0-22.0); Oxygen Saturation ABG 96.3 % (95.0-100.0); Oxyhemoglobin 95.4 % THb (90.0-100.0); PCO2 ABG 40.8 mmHg (35.0-45.0); PO2 FiO2 Ratio Arterial Blood 0.93 %; Reduced Hemoglobin 4.2 %THb (0-5.0); Total Hemoglobin 9.1 g/dL (12.0-18.0)
[2024-10-08 05:11] LABS: Device VENTILATOR; Modified Allen's Test Pass; Site Drawn RIGHT RADIAL; pH ABG 7.283 (7.350-7.450)
[2024-10-08 05:12] LABS: Arterial Blood Gas PEEP 10 cmH2O; Arterial Blood Gas Tidal Volume 450 ml; Arterial Blood Gas Vent Mode CMV; Arterial Blood Gas Ventilator rate 22 /MIN
[2024-10-08 05:23] LABS: Basophils Percent Auto 0.1 % (0.2-1.2); Hematocrit 24.3 % (42.0-52.0); Immature Granulocyte Absolute 0.23 K/mm3 (0.00-0.031); Immature Platelet Fraction Pct 12.4 % (0.9-11.2); Lymphocytes Absolute Auto 0.91 K/mm3 (0.9-3.2); Lymphocytes Percent Auto 3.8 % (18.3-44.2); Mean Corpuscular HGB Conc 32.9 g/dl (32-36); Mean Corpuscular Hemoglobin 33.9 pg (26-34); Mean Platelet Volume 11.5 fl (7.4-10.4); Monocytes Absolute Auto 0.8 K/mm3 (0.1-0.6); Monocytes Percent Auto 3.5 % (2.6-8.5); Neutrophils Absolute Auto 21.9 K/mm3 (1.3-6.7); Neutrophils Percent Auto 91.6 % (45.5-73.1); Nucleated Red Blood Cells Perc 0.2 % (0.0-0.2); Platelet Count Result 104 k/mm3 (150-375); Red Blood Count 2.36 M/mm3 (4.6-6.20); Red Cell Distribution Width 16.9 % (11.5-14.5); White Blood Count 23.9 K/mm3 (4.5-10.0)
[2024-10-08 05:48] LABS: Partial Thromboplastin Time 56.9 Seconds (22.3-36.8)
[2024-10-08 05:50] LABS: Alanine Aminotransferase 146 U/L (6-50); Albumin Level 4.4 g/dL (3.5-5.1); Alkaline Phosphatase 113 U/L (38-126); Anion Gap 25 mmol/L (4-12); Anisocytosis 1+; Aspartate Amino Transferase 575 U/L (17-59); Bilirubin,Total 2.6 mg/dL (0.2-1.3); Blood Urea Nitrogen 75 mg/dL (9-20); Carbon Dioxide 19 mmol/L (22-30); Chloride 85 mmol/L (98-107); Estimated CRCL calculation 8 ml/min; Estimated Glomerular Filt Rate 6; Glucose 169 mg/dL (65-110); Hypochromasia 1+; Magnesium 1.9 mg/dL (1.6-2.3); Platelet Estimate Decreased (Adequate); Potassium 3.7 mmol/L (3.4-5.0); Schistocytes None Seen; Sodium 129 mmol/L (137-145); Target Cells 1+
[2024-10-08 05:52] LABS: Ammonia 34 umol/L (9-30); Lactic Acid Reflex 7.7 mmol/L (0.7-2.0)
[2024-10-08] MEDS: HEPARIN SODIUM 5,000 UNITS/ML VIAL 3000 UNITS IV PUSH (06:28)
[2024-10-08] MEDS: CENTRAL LINE FLUSH 10 ML IV PUSH ×3 (06:32→20:06)
[2024-10-08 06:35] LABS: Vancomycin Random 21.8 ug/mL (10-20)
[2024-10-08 07:20] LABS: Reflex Lactic Acid Yes or No Add Lactic
--- NOTE | 2024-10-08 07:47 | PM.PNCARD ---
Progress Note: A&P Assessment and Plan (1) Septic shock: Code(s): A41.9 - Sepsis, unspecified organism; R65.21 - Severe sepsis with septic shock Status: Acute Assessment and Plan: Septic shock secondary to UTI. Patient may also have component of vaso dilatory shock secondary to cirrhosis Continue Levophed and Vasopressin -continue stress dose steroids -10/02/2024: Blood cultures negative x2 -10/02/2024: Urine cultures negative -10/03/2024: Paracentesis fluid culture on negative On Vancomycin. (2) Acute renal failure: Code(s): N17.9 - Acute kidney failure, unspecified Status: Acute Assessment and Plan: Nephrolog following. (3) Cirrhosis: Code(s): K74.60 - Unspecified cirrhosis of liver Status: Acute Assessment and Plan: Due to alcohol abuse. Gastroenterology following. (4) Ascites: Code(s): R18.8 - Other ascites Status: Acute Assessment and Plan: S/P paracentesis. (5) UTI (urinary tract infection): Code(s): N39.0 - Urinary tract infection, site not specified Status: Acute Assessment and Plan: On antibiotics. (6) Coagulopathy: Code(s): D68.9 - Coagulation defect, unspecified Status: Acute Assessment and Plan: Secondary to cirrhosis. (7) Acidosis, lactic: Code(s): E87.20 - Acidosis, unspecified Status: Acute Assessment and Plan: Probably due to sepsis. (8) Elevated troponin: Code(s): R79.89 - Other specified abnormal findings of blood chemistry Status: Acute Assessment and Plan: Moderately elevated with troponin at .126. Probably due to renal failure/septic shock/UTI. No symptoms to suggest ACS. EKG shows LBBB. 10/03/24 Echo: EF >70%, grade I diastolic dysfunction (E/e' 3), mild LAE, mild MAC, mild TR, RVSP 49 mmHg. Check limited echo for EF and diastolic function. (9) DVT of lower extremity, bilateral: Code(s): I82.403 - Acute embolism and thrombosis of unspecified deep veins of lower extremity, bilateral Status: Acute Assessment and Plan: Probably related to being sedentary. On heparin drip. (10) PAT (paroxysmal atrial tachycardia): Code(s): I47.19 - Other supraventricular tachycardia Status: Acute Assessment and Plan: Sinus tachycardia with short runs of PAT. Probably due to Levophed drip. 10/08/24 Started on Amiodarone drip with judaism of sinus rhythm. Subjective Date/time seen: 10/08/24 07:47 Interval history: Currently intubated, on ventilator and sedated. Exam Const: Other: Sedated on ventilator. Resp: Auscultation: clear to auscultation bilaterally, no crackles, no rales, no rhonchi and no wheezes Cardio: Rate: regular rate Rhythm: regular rhythm Heart sounds: no murmurs Peripheral pulses: dorsalis pedis present Neuro: General: oriented to person, oriented to place and oriented to time Extrem: Right lower extremity: no edema Left lower extremity: no edema Other: Mild-mod edema of both legs Objective Data Vital Signs Vital Signs: Vital Signs - 24 hr 10/07/24 08:00 10/07/24 08:00 10/07/24 08:00 Temperature 97.8 F Pulse Rate 119 H 119 H 119 H Respiratory Rate 34 H 28 H Blood Pressure 100/75 Pulse Oximetry 92 94 Oxygen Delivery Nasal Cannula Oxygen Flow Rate 2 Fraction of Inspired Oxygen 10/07/24 08:00 10/07/24 08:00 10/07/24 10:00 Temperature Pulse Rate 102 H 102 H 120 H Respiratory Rate Blood Pressure 102/78 Pulse Oximetry Oxygen Delivery Oxygen Flow Rate Fraction of Inspired Oxygen 10/07/24 10:00 10/07/24 10:00 10/07/24 10:06 Temperature Pulse Rate 120 H 122 H 142 H Respiratory Rate 26 H 27 H Blood Pressure 96/72 L 92/73 L Pulse Oximetry 96 Oxygen Delivery Oxygen Flow Rate Fraction of Inspired Oxygen 10/07/24 10:25 10/07/24 10:50 10/07/24 10:55 Temperature Pulse Rate 76 129 H 125 H Respiratory Rate 6 L 23 H Blood Pressure Pulse Oximetry 92 Oxygen Delivery Mechanical Ventilation Oxygen Flow Rate Fraction of Inspired Oxygen 100 10/07/24 10:55 10/07/24 11:08 10/07/24 11:08 Temperature Pulse Rate 128 H 129 H 129 H Respiratory Rate 18 Blood Pressure 92/74 L 92/74 L Pulse Oximetry Oxygen Delivery Oxygen Flow Rate Fraction of Inspired Oxygen 10/07/24 11:10 10/07/24 11:15 10/07/24 12:00 Temperature Pulse Rate 129 H 130 H 126 H Respiratory Rate 22 H Blood Pressure 87/76 L Pulse Oximetry Oxygen Delivery Oxygen Flow Rate Fraction of Inspired Oxygen 10/07/24 12:00 10/07/24 12:00 10/07/24 12:00 Temperature 98.7 F Pulse Rate 126 H 96 126 H Respiratory Rate 19 20 Blood Pressure 94/77 L 94/77 L Pulse Oximetry 96 96 Oxygen Delivery Mechanical Ventilation Oxygen Flow Rate Fraction of Inspired Oxygen 80 10/07/24 12:00 10/07/24 12:00 10/07/24 12:15 Temperature Pulse Rate 108 H 119 H 122 H Respiratory Rate 22 H 22 H 24 H Blood Pressure Pulse Oximetry Oxygen Delivery Oxygen Flow Rate Fraction of Inspired Oxygen 10/07/24 12:16 10/07/24 12:30 10/07/24 12:45 Temperature Pulse Rate 122 H 124 H 124 H Respiratory Rate 24 H 22 H Blood Pressure Pulse Oximetry 97 Oxygen Delivery Mechanical Ventilation Oxygen Flow Rate Fraction of Inspired Oxygen 100 10/07/24 13:28 10/07/24 13:28 10/07/24 13:30 Temperature Pulse Rate 109 H 111 H 107 H Respiratory Rate 18 18 Blood Pressure 85/64 L Pulse Oximetry Oxygen Delivery Oxygen Flow Rate Fraction of Inspired Oxygen 10/07/24 13:40 10/07/24 13:41 10/07/24 14:00 Temperature Pulse Rate 105 H 104 H Respiratory Rate 19 20 Blood Pressure Pulse Oximetry Oxygen Delivery Oxygen Flow Rate Fraction of Inspired Oxygen 80 10/07/24 14:00 10/07/24 14:00 10/07/24 14:00 Temperature Pulse Rate 95 89 95 Respiratory Rate 22 H Blood Pressure 88/60 L 88/60 L Pulse Oximetry 95 Oxygen Delivery Oxygen Flow Rate Fraction of Inspired Oxygen 10/07/24 14:00 10/07/24 14:00 10/07/24 14:25 Temperature Pulse Rate 104 H 118 H 141 H Respiratory Rate 22 H 20 Blood Pressure Pulse Oximetry 96 Oxygen Delivery Mechanical Ventilation Oxygen Flow Rate Fraction of Inspired Oxygen 80 10/07/24 14:29 10/07/24 14:45 10/07/24 15:15 Temperature Pulse Rate 126 H 106 H 115 H Respiratory Rate 22 H Blood Pressure 87/60 L 84/65 L 91/70 L Pulse Oximetry 96 Oxygen Delivery Oxygen Flow Rate Fraction of Inspired Oxygen 10/07/24 15:16 10/07/24 15:24 10/07/24 15:30 Temperature Pulse Rate 110 H 116 H 116 H Respiratory Rate 22 H 22 H 22 H Blood Pressure Pulse Oximetry 96 96 Oxygen Delivery Oxygen Flow Rate Fraction of Inspired Oxygen 10/07/24 15:40 10/07/24 15:45 10/07/24 15:50 Temperature Pulse Rate 98 109 H 108 H Respiratory Rate 22 H Blood Pressure 84/65 L 90/68 L Pulse Oximetry 95 Oxygen Delivery Oxygen Flow Rate Fraction of Inspired Oxygen 10/07/24 15:55 10/07/24 15:57 10/07/24 16:00 Temperature Pulse Rate 114 H 106 H 109 H Respiratory Rate 22 H Blood Pressure 96/65 L 90/68 L Pulse Oximetry 95 Oxygen Delivery Oxygen Flow Rate Fraction of Inspired Oxygen 10/07/24 16:00 10/07/24 16:00 10/07/24 16:00 Temperature 98.0 F Pulse Rate 109 H 98 Respiratory Rate 22 H 22 H Blood Pressure 96/65 L Pulse Oximetry 95 96 Oxygen Delivery Mechanical Ventilation Oxygen Flow Rate Fraction of Inspired Oxygen 80 80 10/07/24 16:00 10/07/24 16:00 10/07/24 16:00 Temperature Pulse Rate 104 H 122 H 105 H Respiratory Rate 20 22 H Blood Pressure 95/65 L Pulse Oximetry Oxygen Delivery Oxygen Flow Rate Fraction of Inspired Oxygen 10/07/24 16:00 10/07/24 16:00 10/07/24 16:01 Temperature Pulse Rate 106 H 116 H 114 H Respiratory Rate 22 H 20 Blood Pressure 96/65 L 96/65 L Pulse Oximetry 95 Oxygen Delivery Oxygen Flow Rate Fraction of Inspired Oxygen 10/07/24 16:15 10/07/24 16:16 10/07/24 16:30 Temperature Pulse Rate 89 103 H 109 H Respiratory Rate 22 H 22 H 22 H Blood Pressure 95/77 L 99/75 L Pulse Oximetry 94 93 93 Oxygen Delivery Oxygen Flow Rate Fraction of Inspired Oxygen 10/07/24 16:31 10/07/24 16:45 10/07/24 16:46 Temperature Pulse Rate 92 109 H 111 H Respiratory Rate 22 H 22 H 22 H Blood Pressure 97/77 L Pulse Oximetry 92 92 93 Oxygen Delivery Oxygen Flow Rate Fraction of Inspired Oxygen 10/07/24 16:50 10/07/24 16:50 10/07/24 17:02 Temperature Pulse Rate 110 H 110 H 119 H Respiratory Rate 14 Blood Pressure 98/78 L 98/78 L Pulse Oximetry Oxygen Delivery Oxygen Flow Rate Fraction of Inspired Oxygen 10/07/24 17:03 10/07/24 17:15 10/07/24 17:17 Temperature Pulse Rate 112 H 120 H 97 Respiratory Rate 21 H 22 H Blood Pressure Pulse Oximetry 90 97 Oxygen Delivery Mechanical Ventilation Oxygen Flow Rate Fraction of Inspired Oxygen 100 10/07/24 17:32 10/07/24 17:47 10/07/24 18:00 Temperature Pulse Rate 111 H 97 104 H Respiratory Rate 20 0 L Blood Pressure Pulse Oximetry 98 95 Oxygen Delivery Oxygen Flow Rate Fraction of Inspired Oxygen 10/07/24 18:00 10/07/24 18:00 10/07/24 18:00 Temperature Pulse Rate 99 101 H 116 H Respiratory Rate 22 H 22 H Blood Pressure 103/77 99/78 L Pulse Oximetry 94 Oxygen Delivery Oxygen Flow Rate Fraction of Inspired Oxygen 10/07/24 18:00 10/07/24 18:00 10/07/24 18:03 Temperature Pulse Rate 109 H 103 H 99 Respiratory Rate 20 0 L Blood Pressure 101/77 Pulse Oximetry 95 Oxygen Delivery Oxygen Flow Rate Fraction of Inspired Oxygen 10/07/24 18:17 10/07/24 18:32 10/07/24 18:46 Temperature Pulse Rate 117 H 97 99 Respiratory Rate 0 L 0 L 0 L Blood Pressure Pulse Oximetry 94 94 94 Oxygen Delivery Oxygen Flow Rate Fraction of Inspired Oxygen 10/07/24 19:02 10/07/24 19:16 10/07/24 19:32 Temperature Pulse Rate 97 101 H 118 H Respiratory Rate 0 L 0 L 0 L Blood Pressure Pulse Oximetry 93 93 93 Oxygen Delivery Oxygen Flow Rate Fraction of Inspired Oxygen 10/07/24 19:46 10/07/24 20:00 10/07/24 20:00 Temperature Pulse Rate 104 H 107 H Respiratory Rate 0 L 22 H Blood Pressure 99/79 L Pulse Oximetry 93 93 Oxygen Delivery Oxygen Flow Rate Fraction of Inspired Oxygen 100 10/07/24 20:00 10/07/24 20:00 10/07/24 20:00 Temperature Pulse Rate 107 H 107 H 107 H Respiratory Rate 22 H 22 H Blood Pressure 99/79 L Pulse Oximetry Oxygen Delivery Oxygen Flow Rate Fraction of Inspired Oxygen 10/07/24 20:00 10/07/24 20:00 10/07/24 20:02 Temperature Pulse Rate 107 H 107 H 108 H Respiratory Rate 0 L Blood Pressure 99/79 L Pulse Oximetry 92 Oxygen Delivery Oxygen Flow Rate Fraction of Inspired Oxygen 10/07/24 20:18 10/07/24 20:30 10/07/24 20:32 Temperature Pulse Rate 118 H 104 H 107 H Respiratory Rate 24 H 22 H 22 H Blood Pressure Pulse Oximetry 87 L Oxygen Delivery Oxygen Flow Rate Fraction of Inspired Oxygen 10/07/24 20:38 10/07/24 20:45 10/07/24 20:46 Temperature Pulse Rate 115 H 115 H 105 H Respiratory Rate 22 H 22 H Blood Pressure Pulse Oximetry 93 93 Oxygen Delivery Mechanical Ventilation Mechanical Ventilation Oxygen Flow Rate Fraction of Inspired Oxygen 100 100 10/07/24 21:02 10/07/24 21:16 10/07/24 21:32 Temperature Pulse Rate 99 112 H 110 H Respiratory Rate 22 H 22 H 22 H Blood Pressure Pulse Oximetry Oxygen Delivery Oxygen Flow Rate Fraction of Inspired Oxygen 10/07/24 21:34 10/07/24 21:35 10/07/24 21:47 Temperature Pulse Rate 99 118 H 97 Respiratory Rate 22 H Blood Pressure 93/75 L 93/75 L Pulse Oximetry Oxygen Delivery Oxygen Flow Rate Fraction of Inspired Oxygen 10/07/24 22:00 10/07/24 22:00 10/07/24 22:00 Temperature Pulse Rate 105 H 105 H 104 H Respiratory Rate 22 H 22 H Blood Pressure 101/77 Pulse Oximetry Oxygen Delivery Oxygen Flow Rate Fraction of Inspired Oxygen 10/07/24 22:00 10/07/24 22:00 10/07/24 22:00 Temperature Pulse Rate 105 H 107 H 107 H Respiratory Rate 22 H Blood Pressure 101/77 101/77 Pulse Oximetry 95 Oxygen Delivery Oxygen Flow Rate Fraction of Inspired Oxygen 10/07/24 22:02 10/07/24 22:16 10/07/24 22:31 Temperature Pulse Rate 105 H 98 103 H Respiratory Rate 22 H 22 H 5 L Blood Pressure Pulse Oximetry Oxygen Delivery Oxygen Flow Rate Fraction of Inspired Oxygen 10/07/24 22:46 10/07/24 22:55 10/07/24 23:00 Temperature 92.0 F L Pulse Rate 116 H 108 H Respiratory Rate 16 Blood Pressure Pulse Oximetry 94 Oxygen Delivery Mechanical Ventilation Oxygen Flow Rate Fraction of Inspired Oxygen 100 10/07/24 23:00 10/07/24 23:02 10/07/24 23:19 Temperature 92.0 F L 92.3 F L Pulse Rate 105 H 120 H 115 H Respiratory Rate 22 H 9 L Blood Pressure Pulse Oximetry 90 Oxygen Delivery Oxygen Flow Rate Fraction of Inspired Oxygen 10/07/24 23:30 10/07/24 23:35 10/07/24 23:47 Temperature 92.9 F L 92.5 F L 92.6 F L Pulse Rate 107 H 108 H Respiratory Rate 11 L 16 Blood Pressure Pulse Oximetry 89 L Oxygen Delivery Oxygen Flow Rate Fraction of Inspired Oxygen 10/08/24 00:00 10/08/24 00:00 10/08/24 00:00 Temperature Pulse Rate 118 H 118 H 118 H Respiratory Rate 22 H Blood Pressure 97/78 L 97/78 L Pulse Oximetry Oxygen Delivery Oxygen Flow Rate Fraction of Inspired Oxygen 10/08/24 00:00 10/08/24 00:00 10/08/24 00:00 Temperature 93 F L 93.1 F L Pulse Rate 116 H Respiratory Rate 22 H Blood Pressure 97/78 L Pulse Oximetry 96 Oxygen Delivery Oxygen Flow Rate Fraction of Inspired Oxygen 100 10/08/24 00:00 10/08/24 00:00 10/08/24 00:00 Temperature Pulse Rate 116 H 108 H 108 H Respiratory Rate 22 H 22 H Blood Pressure Pulse Oximetry 96 Oxygen Delivery Mechanical Ventilation Oxygen Flow Rate Fraction of Inspired Oxygen 100 10/08/24 00:30 10/08/24 01:00 10/08/24 01:13 Temperature 93.5 F L 93.8 F L 94.0 F L Pulse Rate 129 H Respiratory Rate 20 Blood Pressure Pulse Oximetry Oxygen Delivery Oxygen Flow Rate Fraction of Inspired Oxygen 10/08/24 01:20 10/08/24 01:30 10/08/24 01:49 Temperature 94.1 F L 94.6 F L 94.7 F L Pulse Rate 117 H 126 H Respiratory Rate 22 H 23 H Blood Pressure Pulse Oximetry Oxygen Delivery Oxygen Flow Rate Fraction of Inspired Oxygen 10/08/24 02:00 10/08/24 02:00 10/08/24 02:00 Temperature Pulse Rate 129 H 129 H 129 H Respiratory Rate 22 H 22 H Blood Pressure 98/77 L Pulse Oximetry Oxygen Delivery Oxygen Flow Rate Fraction of Inspired Oxygen 10/08/24 02:00 10/08/24 02:00 10/08/24 02:00 Temperature 95.2 F L 95.2 F L Pulse Rate 129 H 129 H Respiratory Rate 22 H Blood Pressure 98/77 L 103/80 Pulse Oximetry 97 Oxygen Delivery Oxygen Flow Rate Fraction of Inspired Oxygen 10/08/24 02:00 10/08/24 02:03 10/08/24 02:06 Temperature 94.9 F L Pulse Rate 136 H 126 H 136 H Respiratory Rate 18 Blood Pressure 98/77 L Pulse Oximetry Oxygen Delivery Oxygen Flow Rate Fraction of Inspired Oxygen 10/08/24 02:06 10/08/24 02:10 10/08/24 02:11 Temperature Pulse Rate 136 H 116 H 116 H Respiratory Rate Blood Pressure 98/77 L 98/77 L 98/77 L Pulse Oximetry Oxygen Delivery Oxygen Flow Rate Fraction of Inspired Oxygen 10/08/24 02:16 10/08/24 02:17 10/08/24 02:22 Temperature 95.1 F L Pulse Rate 118 H 87 115 H Respiratory Rate 21 H 24 H Blood Pressure 103/80 Pulse Oximetry Oxygen Delivery Oxygen Flow Rate Fraction of Inspired Oxygen 10/08/24 02:30 10/08/24 02:30 10/08/24 02:30 Temperature 95.5 F L 95.3 F L Pulse Rate 128 H 85 Respiratory Rate 18 Blood Pressure Pulse Oximetry 97 Oxygen Delivery Mechanical Ventilation Oxygen Flow Rate Fraction of Inspired Oxygen 100 10/08/24 02:50 10/08/24 03:00 10/08/24 03:05 Temperature 95.6 F L 96 F L 95.8 F L Pulse Rate 87 86 Respiratory Rate 22 H 24 H Blood Pressure Pulse Oximetry Oxygen Delivery Oxygen Flow Rate Fraction of Inspired Oxygen 10/08/24 03:10 10/08/24 03:22 10/08/24 03:29 Temperature 96 F L Pulse Rate 86 90 85 Respiratory Rate 22 H 22 H Blood Pressure 83/68 L 75/59 L Pulse Oximetry 88 L Oxygen Delivery Oxygen Flow Rate Fraction of Inspired Oxygen 10/08/24 03:30 10/08/24 03:30 10/08/24 03:37 Temperature 96.1 F L 96.1 F L 96.1 F L Pulse Rate 86 81 Respiratory Rate 22 H 22 H Blood Pressure 75/59 L 89/70 L Pulse Oximetry 98 95 Oxygen Delivery Oxygen Flow Rate Fraction of Inspired Oxygen 10/08/24 03:45 10/08/24 03:50 10/08/24 03:54 Temperature 96.2 F L Pulse Rate 86 93 Respiratory Rate 22 H 22 H Blood Pressure 96/66 L Pulse Oximetry 100 97 Oxygen Delivery Mechanical Ventilation Oxygen Flow Rate Fraction of Inspired Oxygen 100 100 10/08/24 03:59 10/08/24 04:00 10/08/24 04:00 Temperature 96.4 F L 96.4 F L 96.4 F L Pulse Rate 92 89 Respiratory Rate 17 22 H Blood Pressure 91/71 L Pulse Oximetry 99 Oxygen Delivery Oxygen Flow Rate Fraction of Inspired Oxygen 10/08/24 04:00 10/08/24 04:00 10/08/24 04:00 Temperature Pulse Rate 90 90 88 Respiratory Rate 22 H Blood Pressure 91/71 L 91/71 L Pulse Oximetry Oxygen Delivery Oxygen Flow Rate Fraction of Inspired Oxygen 10/08/24 04:00 10/08/24 04:00 10/08/24 04:00 Temperature Pulse Rate 89 88 88 Respiratory Rate 22 H Blood Pressure 91/71 L 91/71 L Pulse Oximetry Oxygen Delivery Oxygen Flow Rate Fraction of Inspired Oxygen 10/08/24 04:00 10/08/24 04:30 10/08/24 05:00 Temperature 96.7 F L Pulse Rate 88 85 Respiratory Rate Blood Pressure 88/66 L Pulse Oximetry Oxygen Delivery Oxygen Flow Rate Fraction of Inspired Oxygen 10/08/24 05:00 10/08/24 05:04 10/08/24 05:13 Temperature 97 F L 97 F L Pulse Rate 87 128 H Respiratory Rate 22 H Blood Pressure 88/66 L Pulse Oximetry 96 97 Oxygen Delivery Mechanical Ventilation Oxygen Flow Rate Fraction of Inspired Oxygen 100 10/08/24 05:30 10/08/24 05:30 10/08/24 05:30 Temperature 97.2 F L Pulse Rate 83 85 Respiratory Rate 22 H Blood Pressure 89/67 L Pulse Oximetry Oxygen Delivery Oxygen Flow Rate Fraction of Inspired Oxygen 10/08/24 05:37 10/08/24 05:45 10/08/24 05:45 Temperature 97.3 F L 97.3 F L 97.5 F L Pulse Rate 86 86 87 Respiratory Rate 22 H 22 H 22 H Blood Pressure 89/67 L 89/69 L 89/69 L Pulse Oximetry 88 L 85 L 91 Oxygen Delivery Oxygen Flow Rate Fraction of Inspired Oxygen 10/08/24 05:46 10/08/24 05:59 10/08/24 06:00 Temperature 97.5 F L Pulse Rate 87 86 Respiratory Rate Blood Pressure 89/69 L Pulse Oximetry Oxygen Delivery Oxygen Flow Rate Fraction of Inspired Oxygen 10/08/24 06:00 10/08/24 06:00 10/08/24 06:00 Temperature 97.5 F L Pulse Rate 86 91 87 Respiratory Rate 22 H Blood Pressure 93/67 L 92/65 L 92/65 L Pulse Oximetry 84 L Oxygen Delivery Oxygen Flow Rate Fraction of Inspired Oxygen 10/08/24 06:00 10/08/24 06:00 10/08/24 06:00 Temperature Pulse Rate 85 89 89 Respiratory Rate 22 H 22 H Blood Pressure 92/75 L Pulse Oximetry Oxygen Delivery Oxygen Flow Rate Fraction of Inspired Oxygen 10/08/24 06:00 10/08/24 06:38 10/08/24 06:39 Temperature Pulse Rate 89 89 88 Respiratory Rate Blood Pressure 92/65 L 92/67 L 92/67 L Pulse Oximetry Oxygen Delivery Oxygen Flow Rate Fraction of Inspired Oxygen Intake/Output Intake/Output: Intake & Output 10/05/24 10/06/24 10/07/24 10/08/24 23:59 23:59 23:59 23:59 Intake Total 2591.4 2362.6 1869.0 1037.9 Output Total 50 220 150 0 Balance 2541.4 2142.6 1719.0 1037.9 Meds/Results Medications: Active Medications Generic Name Dose Route Start Last Admin Trade Name Freq PRN Reason Stop Dose Admin Acetaminophen 650 mg 10/03/24 03:27 Acetaminophen 325 Mg Tablet PO Q4H PRN Mild Pain (1-3) or Fever Folic Acid 1 mg 10/03/24 09:00 10/07/24 08:45 Folic Acid 1 Mg Tablet PO Not Given DAILY [facility] Heparin Sodium (Porcine) 6,500 units 10/03/24 17:20 Heparin Sodium 5,000 Units/Ml Vial IV PUSH PRN PRN aPTT less than 55 seconds Heparin Sodium (Porcine) 3,000 units 10/03/24 17:20 10/08/24 06:28 Heparin Sodium 5,000 Units/Ml Vial IV PUSH 3,000 units PRN PRN Administration aPTT 55 - 70 seconds Hydrocortisone Sodium Succinate 100 mg 10/03/24 09:00 10/08/24 00:06 Hydrocortisone Sodium Succinate 100 Mg/2 Ml Vial IV PUSH 100 mg Q8H KELECHI Administration Norepinephrine Bitartrate 8 mg in 250 mls @ 56.25 mls/hr 10/02/24 19:40 10/08/24 06:39 Levophed 8 Mg/D5w 250 Ml IV CONT 30 mcg/min .Q4H27M KELECHI 56.25 mls/hr Administration Protocol 30 MCG/MIN Heparin Sodium/Dextrose 25,000 units in 250 mls @ 4 mls/hr 10/03/24 17:20 10/08/24 06:28 Heparin Sodium/D5w 100 Units/Ml IV CONT 400 units/hr .Q24H KELECHI 4 mls/hr Titration Protocol 400 UNITS/HR Octreotide Acetate 500 mcg/ 100 mls @ 10 mls/hr 10/04/24 12:00 10/08/24 06:00 Sodium Chloride IV CONT 50 mcg/hr .Q10H KELECHI 10 mls/hr Infusion 50 MCG/HR Fentanyl Citrate 2,500 mcg in 250 mls @ 5 mls/hr 10/07/24 10:55 10/08/24 06:00 Fentanyl 2,500 Mcg/Ns 250 Ml IV CONT 50 mcg/hr .Q50H KELECHI 5 mls/hr Titration Protocol 50 MCG/HR Midazolam HCl 100 mg in 100 mls @ 2 mls/hr 10/07/24 10:55 10/08/24 06:00 Versed 100 Mg/Ns 100 Ml IV CONT 1 mg/hr .Q50H KELECHI 1 mls/hr Titration Protocol 2 MG/HR Meropenem 500 mg in 100 mls @ 200 mls/hr 10/07/24 13:00 10/07/24 15:07 IVPB Infused Q24H KELECHI Infusion Vasopressin 100 units/ 100 mls @ 2.4 mls/hr 10/07/24 15:55 10/08/24 06:00 Dextrose IV CONT 0.04 units/min .[id number] KELECHI 2.4 mls/hr Titration Protocol 0.04 UNITS/MIN Amiodarone HCl/Dextrose 360 mg in 200 mls @ 33.333 mls/hr 10/08/24 01:55 10/08/24 06:00 Nexterone 360 Mg/D5w 200 Ml IV CONT 10/08/24 07:54 1 mg/min .Q6H ONE 33.33 mls/hr Infusion Protocol 1 MG/MIN Amiodarone HCl/Dextrose 360 mg in 200 mls @ 16.667 mls/hr 10/08/24 08:00 Nexterone 360 Mg/D5w 200 Ml IV CONT 10/08/24 08:01 .Q12H KELECHI Protocol 0.5 MG/MIN Phenylephrine HCl 50 mg/ 250 ml in 250 mls @ 34.5 mls/hr 10/08/24 03:20 10/08/24 06:00 Dextrose IV CONT 115 mcg/min .Q7H15M KELECHI 34.5 mls/hr Titration Protocol 115 MCG/MIN Vancomycin HCl 1,250 mg in 250 mls @ 166.667 mls/hr 10/08/24 15:00 Vancomycin 1,250 Mg/Ns 250 Ml IVPB 10/08/24 16:29 ONCE ONE Albumin Human 100 mls @ 60 mls/hr 10/08/24 07:40 Albutein IVPB Q6HR KELECHI Lactulose 20 gm 10/03/24 17:00 10/03/24 17:52 Lactulose 20 Gm/30 Ml Udc PO 20 gm BID KELECHI Administration Lactulose 20 gm 10/07/24 12:31 10/07/24 17:13 Lactulose 20 Gm/30 Ml Udc FEED TUBE 20 gm BID KELECHI Administration Melatonin 10 mg 10/06/24 10:08 10/06/24 21:25 Melatonin 5 Mg Tablet PO 10 mg HS PRN Administration Insomnia Multi-Ingred Cream/Lotion/Oil/Oint 1 applic 10/07/24 10:50 10/07/24 21:38 Mineral Oil/White Petrolatum Ointment EACH EYE 1 applic Q12HR KELECHI Administration Ondansetron HCl 4 mg 10/07/24 08:06 10/07/24 08:21 Ondansetron Inj 4 Mg/2 Ml Vial IV PUSH 4 mg Q4H PRN Administration Nausea And Vomiting Pantoprazole Sodium 40 mg 10/07/24 09:00 10/07/24 08:45 Pantoprazole 40 Mg Tablet PO Not Given QAM KELECHI Perflutren Lipid Microsphere 0 ml 10/08/24 06:44 Perflutren Lipid Microspheres 1.5 Ml Vial Diluted To 10 Ml Total Volume IV PUSH 10/11/24 06:44 ONCE PRN adequate visualization Protocol Sodium Bicarbonate 650 mg 10/06/24 11:30 10/07/24 17:15 Sodium Bicarbonate Tab 650 Mg Tablet PO 650 mg BID KELECHI Administration Sodium Chloride 10 ml 10/03/24 06:00 10/08/24 06:32 Central Line Flush IV PUSH 10 ml Q8HR KELECHI Administration Sodium Chloride 20 ml 10/02/24 22:02 Central Line Flush IV PUSH PRN PRN after blood draws Thiamine HCl 100 mg 10/06/24 11:30 10/07/24 08:46 Thiamine Hcl 100 Mg Tablet PO Not Given QAM KELECHI Vancomycin HCl 1 each 10/07/24 12:46 Vancomycin For Acute Kidney Injury IVPB PRN PRN Vancomycin Protocol Radiology Results: ITS Impressions Abdomen Ultrasound 10/02/24 17:06 IMPRESSION: Gross ascites. Liver cirrhosis. Highly suggestive gallbladder stones. Paracentesis Ultrasound 10/03/24 12:13 Impression: Successful ultrasound guided paracentesis. Venous Doppler Study 10/03/24 14:02 Impression: Bilateral acute deep venous thrombosis in right popliteal and posterior tibial veins and left common femoral, femoral popliteal and posterior tibial veins. Head CT 10/07/24 12:12 IMPRESSION: 1. Age-related changes the brain including mild diffuse volume loss and mild scattered white matter hypoattenuation consistent with chronic small vessel ischemic disease. No acute intracranial process. Chest/Abdomen/Pelvis CT 10/07/24 12:21 IMPRESSION: Redemonstration of moderate intra-abdominal ascites, which is of decreased attenuation consistent with simple fluid (not blood ). Interval enlargement of the main and proximal bilateral pulmonary arteries when compared with prior study. Without intravenous contrast, the presence of pulmonary emboli cannot be excluded. Interval development of bibasilar infiltrates, a left hilar infiltrate and moderate bilateral pulmonary vascular congestion. Chest X-Ray 10/08/24 06:36 Impression: Diffuse airspace consolidation is worsened from prior exam. Correlate for severe pulmonary edema, bilateral pneumonia, and/or ARDS. Small right pleural effusion. Support tubes, as above. Labs Labs: Laboratory Results - last 24 hr 10/04/24 10/07/24 10/07/24 05:18 08:17 08:37 WBC 16.0 H RBC 2.72 L Hgb 9.3 L Hct 26.7 L MCV 98.2 MCH 34.2 H MCHC 34.8 RDW 16.3 H Plt Count 134 L MPV 11.2 H Immature Gran % (Auto) Neut % (Auto) Lymph % (Auto) [place] % (Auto) Eos % (Auto) Baso % (Auto) Lymph # (Auto) [place] # (Auto) Eos # (Auto) Baso # (Auto) Abs Immat Gran (auto) Absolute Neuts (auto) Absolute Nucleated RBC Band Neutrophils % Nucleated RBC % Platelet Estimate % Immature Plt Fraction Hypochromasia Anisocytosis Target Cells Schistocytes PT 20.3 H INR 1.7 APTT > 200.0 H* Fibrinogen 143 L D-Dimer 2.83 H Puncture Site ABG pH ABG pCO2 ABG pO2 ABG PO2/FiO2 Ratio ABG HCO3 ABG O2 Saturation ABG O2 Content ABG Base Excess A-a Gradient Oxyhemoglobin Carboxyhemoglobin Methemoglobin Reduced Hemoglobin Total Hemoglobin O2 Delivery Device O2 Liters/Min Minute Volume Vent Rate Vent Mode FiO2 Tidal Volume PEEP Peak Inspir Pressure Pressure Support Sodium Potassium Chloride Carbon Dioxide Anion Gap BUN Creatinine Estim Creat Clear Calc Estimated GFR Glucose POC Capillary Glucose Lactic Acid Calcium Phosphorus Magnesium 1.8 Total Bilirubin AST ALT Alkaline Phosphatase Ammonia Troponin I 0.126 H* Total Protein Albumin 3.5 L Pifex-0-Kyyhxhand 0.4 H Halah-2-Xrfqyiaum 0.4 L Tpxy-3-Esxzqroa 0.2 L Oxyj-3-Hwahpmep 0.6 H Gamma Globulins 0.9 PEP Interpretation See note Random Vancomycin Anti-DNA Antibody <1 Tot Complement (CH50) 51 Trezevant/Lambda Ratio 1.11 Free Trezevant Light Chains 69.9 H Free Lambda Light Chain 62.7 H 10/07/24 10/07/24 10/07/24 11:29 12:29 14:33 WBC RBC Hgb Hct MCV MCH MCHC RDW Plt Count MPV Immature Gran % (Auto) Neut % (Auto) Lymph % (Auto) [place] % (Auto) Eos % (Auto) Baso % (Auto) Lymph # (Auto) [place] # (Auto) Eos # (Auto) Baso # (Auto) Abs Immat Gran (auto) Absolute Neuts (auto) Absolute Nucleated RBC Band Neutrophils % Nucleated RBC % Platelet Estimate % Immature Plt Fraction Hypochromasia Anisocytosis Target Cells Schistocytes PT INR APTT Fibrinogen D-Dimer Puncture Site Left radial ABG pH 7.215 L* ABG pCO2 30.9 L ABG pO2 114.2 H ABG PO2/FiO2 Ratio 1.43 ABG HCO3 12.2 L ABG O2 Saturation 97.4 ABG O2 Content 14.0 L ABG Base Excess -14.3 A-a Gradient 423.8 Oxyhemoglobin 96.1 Carboxyhemoglobin 0.3 Methemoglobin 0.2 Reduced Hemoglobin 3.4 Total Hemoglobin 10.2 L O2 Delivery Device Ventilator O2 Liters/Min Not Reportable Minute Volume Not Reportable Vent Rate 22 Vent Mode Cmv FiO2 80 Tidal Volume 450 PEEP 10 Peak Inspir Pressure Not Reportable Pressure Support Not Reportable Sodium Potassium Chloride Carbon Dioxide Anion Gap BUN Creatinine Estim Creat Clear Calc Estimated GFR Glucose POC Capillary Glucose Lactic Acid 12.8 H* 10.5 H* Calcium Phosphorus Magnesium Total Bilirubin AST ALT Alkaline Phosphatase Ammonia 60 H Troponin I Total Protein Albumin Jxqtp-6-Gvjdkngmv Zibrj-4-Mzizmasvo Knkx-4-Amoxniox Ycjb-9-Fpbjpvan Gamma Globulins PEP Interpretation Random Vancomycin Anti-DNA Antibody Tot Complement (CH50) Trezevant/Lambda Ratio Free Trezevant Light Chains Free Lambda Light Chain 10/07/24 10/07/24 10/07/24 15:32 22:08 23:59 WBC RBC Hgb Hct MCV MCH MCHC RDW Plt Count MPV Immature Gran % (Auto) Neut % (Auto) Lymph % (Auto) [place] % (Auto) Eos % (Auto) Baso % (Auto) Lymph # (Auto) [place] # (Auto) Eos # (Auto) Baso # (Auto) Abs Immat Gran (auto) Absolute Neuts (auto) Absolute Nucleated RBC Band Neutrophils % Nucleated RBC % Platelet Estimate % Immature Plt Fraction Hypochromasia Anisocytosis Target Cells Schistocytes PT INR APTT 141.7 H 112.7 H Fibrinogen D-Dimer Puncture Site ABG pH ABG pCO2 ABG pO2 ABG PO2/FiO2 Ratio ABG HCO3 ABG O2 Saturation ABG O2 Content ABG Base Excess A-a Gradient Oxyhemoglobin Carboxyhemoglobin Methemoglobin Reduced Hemoglobin Total Hemoglobin O2 Delivery Device O2 Liters/Min Minute Volume Vent Rate Vent Mode FiO2 Tidal Volume PEEP Peak Inspir Pressure Pressure Support Sodium Potassium Chloride Carbon Dioxide Anion Gap BUN Creatinine Estim Creat Clear Calc Estimated GFR Glucose POC Capillary Glucose 209 H Lactic Acid Calcium Phosphorus Magnesium Total Bilirubin AST ALT Alkaline Phosphatase Ammonia Troponin I Total Protein Albumin Wagyp-7-Ccbnkttmz Hepjb-2-Whkogvwvj Zrff-7-Fjwwfawc Sfud-3-Mrzbgmer Gamma Globulins PEP Interpretation Random Vancomycin Anti-DNA Antibody Tot Complement (CH50) Trezevant/Lambda Ratio Free Trezevant Light Chains Free Lambda Light Chain 10/08/24 10/08/24 05:07 05:10 WBC 23.9 H RBC 2.36 L Hgb 8.0 L Hct 24.3 L MCV 103.0 H D MCH 33.9 MCHC 32.9 RDW 16.9 H Plt Count 104 L MPV 11.5 H Immature Gran % (Auto) 1.0 H Neut % (Auto) 91.6 H Lymph % (Auto) 3.8 L [place] % (Auto) 3.5 Eos % (Auto) 0.0 Baso % (Auto) 0.1 L Lymph # (Auto) 0.91 [place] # (Auto) 0.8 H Eos # (Auto) 0.0 Baso # (Auto) 0.0 Abs Immat Gran (auto) 0.23 H Absolute Neuts (auto) 21.9 H Absolute Nucleated RBC 0.040 H Band Neutrophils % Not Reportable Nucleated RBC % 0.2 Platelet Estimate Decreased % Immature Plt Fraction 12.4 H Hypochromasia 1+ Anisocytosis 1+ Target Cells 1+ Schistocytes None seen PT INR APTT 56.9 H Fibrinogen D-Dimer Puncture Site Right radial ABG pH 7.283 L* ABG pCO2 40.8 ABG pO2 93.0 ABG PO2/FiO2 Ratio 0.93 ABG HCO3 18.9 L ABG O2 Saturation 96.3 ABG O2 Content 12.4 L ABG Base Excess -7.3 A-a Gradient 579.2 Oxyhemoglobin 95.4 Carboxyhemoglobin 0.3 Methemoglobin 0.1 Reduced Hemoglobin 4.2 Total Hemoglobin 9.1 L O2 Delivery Device Ventilator O2 Liters/Min Not Reportable Minute Volume Not Reportable Vent Rate 22 Vent Mode Cmv FiO2 100 Tidal Volume 450 PEEP 10 Peak Inspir Pressure Not Reportable Pressure Support Not Reportable Sodium 129 L Potassium 3.7 Chloride 85 L Carbon Dioxide 19 L Anion Gap 25 H BUN 75 H Creatinine 8.48 H Estim Creat Clear Calc 8 Estimated GFR 6 L Glucose 169 H POC Capillary Glucose Lactic Acid 7.7 H* Calcium 8.0 L Phosphorus 8.0 H Magnesium 1.9 Total Bilirubin 2.6 H AST 575 H ALT 146 H Alkaline Phosphatase 113 Ammonia 34 H Troponin I Total Protein 6.0 L Albumin 4.4 Ywzfb-6-Hsjejtija Ofott-6-Tkmixltws Xqvu-6-Zctjczaa Isoj-2-Rlinorii Gamma Globulins PEP Interpretation Random Vancomycin 21.8 H Anti-DNA Antibody Tot Complement (CH50) Trezevant/Lambda Ratio Free Trezevant Light Chains Free Lambda Light Chain
[2024-10-08] MEDS: AMIODARONE 360 MG/D5W 200 ML 360 MG/200 ML BAG 16.67 MG IV CONT ×2 (07:55→19:29)
[2024-10-08] MEDS: SODIUM BICARBONATE 8.4% 50 MEQ/50 ML SYRINGE 100 MEQ IV PUSH (07:55)
[2024-10-08] MEDS: MINERAL OIL/WHITE PETROLATUM OINTMENT 1 APPLIC EACH EYE ×2 (07:58→20:06)
[2024-10-08] MEDS: LACTULOSE 20 GM/30 ML UDC FEED TUBE ×2 (07:58→18:02)
[2024-10-08] MEDS: OCTREOTIDE ACETATE 500 MCG in SODIUM CHLORIDE 0.9% IV 99 ML 10 MCG IV CONT (08:23)
[2024-10-08 08:43] LABS: Lactic Acid 8.4 mmol/L (0.7-2.0)
--- NOTE | 2024-10-08 09:22 | WPDINTPN ---
Progress Note: A&P Assessment and Plan (1) Acute respiratory failure: Code(s): J96.00 - Acute respiratory failure, unspecified whether with hypoxia or hypercapnia Status: Acute Assessment and Plan: 10/07: Acute respiratory failure likely related to bilateral diffuse pneumonia, ARDS, volume overload -10/07: Patient intubated for impending respiratory failure, decreased mentation, confusion -remains on CMV mode of ventilation, 100% FiO2 and peep of 10 -chest x-ray and ABGs reviewed, will decrease FiO2 -if patient desaturates, may require pronating for ARDS physiology -continue low tidal volume strategy -10/07:CT scan of the chest abdomen and pelvis IMPRESSION: Redemonstration of moderate intra-abdominal ascites, which is of decreased attenuation consistent with simple fluid (not blood ). Interval enlargement of the main and proximal bilateral pulmonary arteries when compared with prior study. Without intravenous contrast, the presence of pulmonary emboli cannot be excluded. Interval development of bibasilar infiltrates, a left hilar infiltrate and moderate bilateral pulmonary vascular congestion. (2) Septic shock: Code(s): A41.9 - Sepsis, unspecified organism; R65.21 - Severe sepsis with septic shock Status: Acute Assessment and Plan: Septic shock secondary to UTI. Patient may also have component of vaso dilatory shock secondary to cirrhosis 10/07: Patient went to severe septic shock likely related to ARDS physiology/pneumonia -remains on Levophed, vasopressin, N Isidro-Synephrine. Maintain MAP > 70 mmHg for adequate end organ perfusion -continue stress dose steroids -10/02/2024: Blood cultures negative x2 -10/02/2024: Urine cultures negative -10/03/2024: Paracentesis fluid culture on negative -10/07: Patient started on meropenem and vancomycin -10/08: Repeat blood cultures (3) Acute renal failure: Code(s): N17.9 - Acute kidney failure, unspecified Status: Acute Assessment and Plan: Acute renal failure but with likely underlying chronic kidney disease. Likely multifactorial secondary to sepsis, shock, cirrhosis, patient also on ISH-inhibitor, questionable hepatorenal syndrome Appreciate nephrology following the patient Electrolytes are in acceptable range DC IV fluids, -will add albumin, -continue Levophed to maintain MAP > 80 mmHg per GI Avoid nephrotoxins Monitor urine output electrolytes and creatinine No indication for emergency dialysis but patient may need dialysis if does not improve Status post paracentesis to relieve abdominal compartment syndrome Hartley catheter for accurate I&Os -continue sodium bicarb tablet -patient may require CRRT, patient has been accepted to [facility] in awaiting a bed (4) Chronic alcohol use: Code(s): F10.90 - Alcohol use, unspecified, uncomplicated Status: Acute Assessment and Plan: Monitor for signs of withdrawal Continue Thiamine and folic acid, will switch to IV (5) Cirrhosis: Code(s): K74.60 - Unspecified cirrhosis of liver Status: Acute Assessment and Plan: Patient clearly has cirrhosis likely secondary to heavy alcohol intake over many years Hepatitis panel was negative CT and ultrasound as under Vitamin K for coagulopathy Ammonia levels within normal 10/03: Status post paracentesis with 5000 mL removal of serous colored fluid -GI consulted, discussed with Dr. Raymundo, this could be likely related to hepatorenal syndrome, agreed to starting octreotide and continue norepinephrine 10/05: Discussed with GI, continue norepinephrine and octreotide infusion, maintain MAP > 80 mmHg per GI 10/02: CT chest abdomen 1. Cirrhosis with large amount of ascites throughout the abdomen and pelvis. There is a reticulonodular appearance to the greater omentum which could be due to portal venous hypertension mesenteric edema although differential would include metastatic peritoneal implants. Consider diagnostic thoracentesis. 2. Atelectasis at the bilateral lower lungs, more prominent on the right secondary to prominent elevation the right hemidiaphragm. 3. Nonobstructing bilateral nephrolithiasis. 4. Diverticulosis. 5. Small sliding-type hiatal hernia. 6. Small fat and ascites containing right inguinal hernia. 10/02: Ultrasound abdomen IMPRESSION: Gross ascites. Liver cirrhosis. Highly suggestive gallbladder stones. (6) Ascites: Code(s): R18.8 - Other ascites Status: Acute Assessment and Plan: See above (7) UTI (urinary tract infection): Code(s): N39.0 - Urinary tract infection, site not specified Status: Acute Assessment and Plan: See above (8) Coagulopathy: Code(s): D68.9 - Coagulation defect, unspecified Status: Acute Assessment and Plan: Secondary to cirrhosis (9) Swelling of lower extremity: Code(s): M79.89 - Other specified soft tissue disorders Status: Acute Assessment and Plan: Likely secondary to cirrhosis and renal failure 04/10: Venous Dopplers: Bilateral acute deep venous thrombosis in right popliteal and posterior tibial veins and left common femoral, femoral popliteal and posterior tibial veins. 10/03: Started on heparin infusion -remains on heparin infusion (10) GERD (gastroesophageal reflux disease): Code(s): K21.9 - Gastro-esophageal reflux disease without esophagitis Status: Acute Assessment and Plan: Continue PPI (11) Non-ST elevation [place] (NSTEMI): Code(s): I21.4 - Non-ST elevation (NSTEMI) myocardial infarction Status: Acute Assessment and Plan: Mildly elevated troponin in light of acute kidney injury and septic shock Denies any chest pain Hold beta-юлия ISH-inhibitor due to shock Hold statin due to cirrhosis until workup is complete Hold aspirin due to coagulopathy and impending invasive procedure Appreciate cardiology following the patient, no further workup required per calender inspector 10/03: Echocardiogram Summary 1. Complete two-dimensional, color flow and Doppler transthoracic echocardiogram is performed. 2. Left ventricular chamber dimension is normal. 3. Left ventricular systolic function is hyperdynamic, estimated at >70%. 4. The left ventricular diastolic function is grade I diastolic dysfunction. 5. E/e' 3 is not elevated. 6. Left atrial chamber dimension is mildly enlarged. 7. There is mild aortic valve sclerosis. 8. The mitral valve has mildly calcified annulus. 9. There is mild tricuspid valve regurgitation. 10. Mild pulmonary hypertension, estimated pulmonary arterial systolic pressure is 49 mmHg. Plan DVT prophylaxis -heparin infusion Stress ulcer prophylaxis -PPI Nutrition -NPO for now Code Status - Full Code Total Critical Care Time - 36 minutes Patient has been accepted to [facility], awaiting bed Discussed with patient updated with his condition and plan of care. I answered all questions Discussed with Nephrology, cardiology and GI Due to a high probability of clinically significant, life threatening deterioration, the patient required my highest level of preparedness to intervene emergently and I personally spent this critical care time directly and personally managing the patient. This critical care time included obtaining a history; examining the patient; pulse oximetry; ordering and review of studies; arranging urgent treatment with development of a management plan; evaluation of patient's response to treatment; frequent reassessment; and discussions with other providers. It was exclusive of separately billable procedures and treating other patients and teaching time. Please see Assessment and Plan section and the rest of the note for further information on patient assessment and treatment. This dictation may have been done utilizing a voice recognition system. Attempts have been made to correct errors. However, there may be uncorrected grammatical, spelling, and recognitions errors present. Subjective Date/time seen: 10/08/24 09:22 Interval history: Reason for consult: Acute kidney injury, UTI, septic shock, cirrhosis, alcohol abuse 10/03: Paracentesis with removal off 5000 mL of serous colored fluid 10/07: Intubated 10/08/2024: Patient seen and examined the ICU this morning, remains intubated on CMV mode of ventilation, peep of 10, 100% FiO2. Sedated with fentanyl and Versed infusion, patient does not open his eyes or follow simple commands. Remains on Levophed, vasopressin, Isidro-Synephrine. Lactic acid remains elevated but trending down. Patient also on heparin infusion. Afebrile, anuric. WBCs have trended up. Remains on octreotide infusion Review of Systems Review of Systems: ROS unobtainable: Yes unobtainable due to endotracheal tube, unobtainable due to medical condition and unobtainable due to mental status Exam Narrative: General: Intubated and sedated Lungs/Chest: Coarse breath sounds bilaterally, decreased at bases, bilateral rales, no wheezing. Cardiac: RRR. Normal S1 S2. No murmurs Circulation: Pedal pulses are diminished, cool extremities. Abdomen: Hypoactive bowel sounds, soft, nontender, abdomen is distended Extremities: Bilateral pitting edema present Neurologic: Intubated, sedated, does not open his eyes or follow simple commands, does not withdraw to pain Skin: Bruising noted on bilateral upper extremities Objective Data Vital Signs Vital Signs: Vital Signs - 24 hr 10/07/24 10:00 10/07/24 10:00 10/07/24 10:00 Temperature Pulse Rate 120 H 120 H 122 H Respiratory Rate 26 H Blood Pressure 96/72 L 92/73 L Pulse Oximetry 96 Oxygen Delivery Fraction of Inspired Oxygen 10/07/24 10:06 10/07/24 10:25 10/07/24 10:50 Temperature Pulse Rate 142 H 76 129 H Respiratory Rate 27 H 6 L Blood Pressure Pulse Oximetry 92 Oxygen Delivery Mechanical Ventilation Fraction of Inspired Oxygen 100 10/07/24 10:55 10/07/24 10:55 10/07/24 11:08 Temperature Pulse Rate 125 H 128 H 129 H Respiratory Rate 23 H 18 Blood Pressure 92/74 L Pulse Oximetry Oxygen Delivery Fraction of Inspired Oxygen 10/07/24 11:08 10/07/24 11:10 10/07/24 11:15 Temperature Pulse Rate 129 H 129 H 130 H Respiratory Rate 22 H Blood Pressure 92/74 L 87/76 L Pulse Oximetry Oxygen Delivery Fraction of Inspired Oxygen 10/07/24 12:00 10/07/24 12:00 10/07/24 12:00 Temperature 98.7 F Pulse Rate 126 H 126 H 96 Respiratory Rate 19 20 Blood Pressure 94/77 L Pulse Oximetry 96 96 Oxygen Delivery Mechanical Ventilation Fraction of Inspired Oxygen 80 10/07/24 12:00 10/07/24 12:00 10/07/24 12:00 Temperature Pulse Rate 126 H 108 H 119 H Respiratory Rate 22 H 22 H Blood Pressure 94/77 L Pulse Oximetry Oxygen Delivery Fraction of Inspired Oxygen 10/07/24 12:15 10/07/24 12:16 10/07/24 12:30 Temperature Pulse Rate 122 H 122 H 124 H Respiratory Rate 24 H 24 H Blood Pressure Pulse Oximetry 97 Oxygen Delivery Mechanical Ventilation Fraction of Inspired Oxygen 100 10/07/24 12:45 10/07/24 13:28 10/07/24 13:28 Temperature Pulse Rate 124 H 109 H 111 H Respiratory Rate 22 H 18 18 Blood Pressure Pulse Oximetry Oxygen Delivery Fraction of Inspired Oxygen 10/07/24 13:30 10/07/24 13:40 10/07/24 13:41 Temperature Pulse Rate 107 H 105 H 104 H Respiratory Rate 19 20 Blood Pressure 85/64 L Pulse Oximetry Oxygen Delivery Fraction of Inspired Oxygen 10/07/24 14:00 10/07/24 14:00 10/07/24 14:00 Temperature Pulse Rate 95 89 Respiratory Rate 22 H Blood Pressure 88/60 L Pulse Oximetry 95 Oxygen Delivery Fraction of Inspired Oxygen 80 10/07/24 14:00 10/07/24 14:00 10/07/24 14:00 Temperature Pulse Rate 95 104 H 118 H Respiratory Rate 22 H 20 Blood Pressure 88/60 L Pulse Oximetry Oxygen Delivery Fraction of Inspired Oxygen 10/07/24 14:25 10/07/24 14:29 10/07/24 14:45 Temperature Pulse Rate 141 H 126 H 106 H Respiratory Rate Blood Pressure 87/60 L 84/65 L Pulse Oximetry 96 Oxygen Delivery Mechanical Ventilation Fraction of Inspired Oxygen 80 10/07/24 15:15 10/07/24 15:16 10/07/24 15:24 Temperature Pulse Rate 115 H 110 H 116 H Respiratory Rate 22 H 22 H 22 H Blood Pressure 91/70 L Pulse Oximetry 96 96 Oxygen Delivery Fraction of Inspired Oxygen 10/07/24 15:30 10/07/24 15:40 10/07/24 15:45 Temperature Pulse Rate 116 H 98 109 H Respiratory Rate 22 H 22 H Blood Pressure 84/65 L Pulse Oximetry 96 95 Oxygen Delivery Fraction of Inspired Oxygen 10/07/24 15:50 10/07/24 15:55 10/07/24 15:57 Temperature Pulse Rate 108 H 114 H 106 H Respiratory Rate 22 H Blood Pressure 90/68 L 96/65 L 90/68 L Pulse Oximetry 95 Oxygen Delivery Fraction of Inspired Oxygen 10/07/24 16:00 10/07/24 16:00 10/07/24 16:00 Temperature 98.0 F Pulse Rate 109 H 109 H 98 Respiratory Rate 22 H 22 H Blood Pressure 96/65 L Pulse Oximetry 95 96 Oxygen Delivery Mechanical Ventilation Fraction of Inspired Oxygen 80 10/07/24 16:00 10/07/24 16:00 10/07/24 16:00 Temperature Pulse Rate 104 H 122 H Respiratory Rate 20 Blood Pressure 95/65 L Pulse Oximetry Oxygen Delivery Fraction of Inspired Oxygen 80 10/07/24 16:00 10/07/24 16:00 10/07/24 16:00 Temperature Pulse Rate 105 H 106 H 116 H Respiratory Rate 22 H 22 H Blood Pressure 96/65 L 96/65 L Pulse Oximetry Oxygen Delivery Fraction of Inspired Oxygen 10/07/24 16:01 10/07/24 16:15 10/07/24 16:16 Temperature Pulse Rate 114 H 89 103 H Respiratory Rate 20 22 H 22 H Blood Pressure 95/77 L Pulse Oximetry 95 94 93 Oxygen Delivery Fraction of Inspired Oxygen 10/07/24 16:30 10/07/24 16:31 10/07/24 16:45 Temperature Pulse Rate 109 H 92 109 H Respiratory Rate 22 H 22 H 22 H Blood Pressure 99/75 L 97/77 L Pulse Oximetry 93 92 92 Oxygen Delivery Fraction of Inspired Oxygen 10/07/24 16:46 10/07/24 16:50 10/07/24 16:50 Temperature Pulse Rate 111 H 110 H 110 H Respiratory Rate 22 H Blood Pressure 98/78 L 98/78 L Pulse Oximetry 93 Oxygen Delivery Fraction of Inspired Oxygen 10/07/24 17:02 10/07/24 17:03 10/07/24 17:15 Temperature Pulse Rate 119 H 112 H 120 H Respiratory Rate 14 21 H Blood Pressure Pulse Oximetry 90 Oxygen Delivery Mechanical Ventilation Fraction of Inspired Oxygen 100 10/07/24 17:17 10/07/24 17:32 10/07/24 17:47 Temperature Pulse Rate 97 111 H 97 Respiratory Rate 22 H 20 0 L Blood Pressure Pulse Oximetry 97 98 95 Oxygen Delivery Fraction of Inspired Oxygen 10/07/24 18:00 10/07/24 18:00 10/07/24 18:00 Temperature Pulse Rate 104 H 99 101 H Respiratory Rate 22 H Blood Pressure 103/77 99/78 L Pulse Oximetry 94 Oxygen Delivery Fraction of Inspired Oxygen 10/07/24 18:00 10/07/24 18:00 10/07/24 18:00 Temperature Pulse Rate 116 H 109 H 103 H Respiratory Rate 22 H 20 Blood Pressure 101/77 Pulse Oximetry Oxygen Delivery Fraction of Inspired Oxygen 10/07/24 18:03 10/07/24 18:17 10/07/24 18:32 Temperature Pulse Rate 99 117 H 97 Respiratory Rate 0 L 0 L 0 L Blood Pressure Pulse Oximetry 95 94 94 Oxygen Delivery Fraction of Inspired Oxygen 10/07/24 18:46 10/07/24 19:02 10/07/24 19:16 Temperature Pulse Rate 99 97 101 H Respiratory Rate 0 L 0 L 0 L Blood Pressure Pulse Oximetry 94 93 93 Oxygen Delivery Fraction of Inspired Oxygen 10/07/24 19:32 10/07/24 19:46 10/07/24 20:00 Temperature Pulse Rate 118 H 104 H 107 H Respiratory Rate 0 L 0 L 22 H Blood Pressure 99/79 L Pulse Oximetry 93 93 93 Oxygen Delivery Fraction of Inspired Oxygen 10/07/24 20:00 10/07/24 20:00 10/07/24 20:00 Temperature Pulse Rate 107 H 107 H Respiratory Rate 22 H Blood Pressure 99/79 L Pulse Oximetry Oxygen Delivery Fraction of Inspired Oxygen 100 10/07/24 20:00 10/07/24 20:00 10/07/24 20:00 Temperature Pulse Rate 107 H 107 H 107 H Respiratory Rate 22 H Blood Pressure 99/79 L Pulse Oximetry Oxygen Delivery Fraction of Inspired Oxygen 10/07/24 20:02 10/07/24 20:18 10/07/24 20:30 Temperature Pulse Rate 108 H 118 H 104 H Respiratory Rate 0 L 24 H 22 H Blood Pressure Pulse Oximetry 92 Oxygen Delivery Fraction of Inspired Oxygen 10/07/24 20:32 10/07/24 20:38 10/07/24 20:45 Temperature Pulse Rate 107 H 115 H 115 H Respiratory Rate 22 H 22 H Blood Pressure Pulse Oximetry 87 L 93 93 Oxygen Delivery Mechanical Ventilation Mechanical Ventilation Fraction of Inspired Oxygen 100 100 10/07/24 20:46 10/07/24 21:02 10/07/24 21:16 Temperature Pulse Rate 105 H 99 112 H Respiratory Rate 22 H 22 H 22 H Blood Pressure Pulse Oximetry Oxygen Delivery Fraction of Inspired Oxygen 10/07/24 21:32 10/07/24 21:34 10/07/24 21:35 Temperature Pulse Rate 110 H 99 118 H Respiratory Rate 22 H Blood Pressure 93/75 L 93/75 L Pulse Oximetry Oxygen Delivery Fraction of Inspired Oxygen 10/07/24 21:47 10/07/24 22:00 10/07/24 22:00 Temperature Pulse Rate 97 105 H 105 H Respiratory Rate 22 H 22 H Blood Pressure 101/77 Pulse Oximetry Oxygen Delivery Fraction of Inspired Oxygen 10/07/24 22:00 10/07/24 22:00 10/07/24 22:00 Temperature Pulse Rate 104 H 105 H 107 H Respiratory Rate 22 H Blood Pressure 101/77 Pulse Oximetry Oxygen Delivery Fraction of Inspired Oxygen 10/07/24 22:00 10/07/24 22:02 10/07/24 22:16 Temperature Pulse Rate 107 H 105 H 98 Respiratory Rate 22 H 22 H 22 H Blood Pressure 101/77 Pulse Oximetry 95 Oxygen Delivery Fraction of Inspired Oxygen 10/07/24 22:31 10/07/24 22:46 10/07/24 22:55 Temperature Pulse Rate 103 H 116 H 108 H Respiratory Rate 5 L 16 Blood Pressure Pulse Oximetry 94 Oxygen Delivery Mechanical Ventilation Fraction of Inspired Oxygen 100 10/07/24 23:00 10/07/24 23:00 10/07/24 23:02 Temperature 92.0 F L 92.0 F L Pulse Rate 105 H 120 H Respiratory Rate 22 H 9 L Blood Pressure Pulse Oximetry Oxygen Delivery Fraction of Inspired Oxygen 10/07/24 23:19 10/07/24 23:30 10/07/24 23:35 Temperature 92.3 F L 92.9 F L 92.5 F L Pulse Rate 115 H 107 H Respiratory Rate 11 L Blood Pressure Pulse Oximetry 90 89 L Oxygen Delivery Fraction of Inspired Oxygen 10/07/24 23:47 10/08/24 00:00 10/08/24 00:00 Temperature 92.6 F L Pulse Rate 108 H 118 H 118 H Respiratory Rate 16 22 H Blood Pressure 97/78 L Pulse Oximetry Oxygen Delivery Fraction of Inspired Oxygen 10/08/24 00:00 10/08/24 00:00 10/08/24 00:00 Temperature 93 F L Pulse Rate 118 H 116 H Respiratory Rate 22 H Blood Pressure 97/78 L 97/78 L Pulse Oximetry 96 Oxygen Delivery Fraction of Inspired Oxygen 100 10/08/24 00:00 10/08/24 00:00 10/08/24 00:00 Temperature 93.1 F L Pulse Rate 116 H 108 H Respiratory Rate 22 H 22 H Blood Pressure Pulse Oximetry 96 Oxygen Delivery Mechanical Ventilation Fraction of Inspired Oxygen 100 10/08/24 00:00 10/08/24 00:30 10/08/24 01:00 Temperature 93.5 F L 93.8 F L Pulse Rate 108 H Respiratory Rate Blood Pressure Pulse Oximetry Oxygen Delivery Fraction of Inspired Oxygen 10/08/24 01:13 10/08/24 01:20 10/08/24 01:30 Temperature 94.0 F L 94.1 F L 94.6 F L Pulse Rate 129 H 117 H Respiratory Rate 20 22 H Blood Pressure Pulse Oximetry Oxygen Delivery Fraction of Inspired Oxygen 10/08/24 01:49 10/08/24 02:00 10/08/24 02:00 Temperature 94.7 F L Pulse Rate 126 H 129 H 129 H Respiratory Rate 23 H 22 H Blood Pressure 98/77 L Pulse Oximetry Oxygen Delivery Fraction of Inspired Oxygen 10/08/24 02:00 10/08/24 02:00 10/08/24 02:00 Temperature 95.2 F L Pulse Rate 129 H 129 H Respiratory Rate 22 H Blood Pressure 98/77 L Pulse Oximetry Oxygen Delivery Fraction of Inspired Oxygen 10/08/24 02:00 10/08/24 02:00 10/08/24 02:03 Temperature 95.2 F L 94.9 F L Pulse Rate 129 H 136 H 126 H Respiratory Rate 22 H 18 Blood Pressure 103/80 Pulse Oximetry 97 Oxygen Delivery Fraction of Inspired Oxygen 10/08/24 02:06 10/08/24 02:06 10/08/24 02:10 Temperature Pulse Rate 136 H 136 H 116 H Respiratory Rate Blood Pressure 98/77 L 98/77 L 98/77 L Pulse Oximetry Oxygen Delivery Fraction of Inspired Oxygen 10/08/24 02:11 10/08/24 02:16 10/08/24 02:17 Temperature 95.1 F L Pulse Rate 116 H 118 H 87 Respiratory Rate 21 H Blood Pressure 98/77 L 103/80 Pulse Oximetry Oxygen Delivery Fraction of Inspired Oxygen 10/08/24 02:22 10/08/24 02:30 10/08/24 02:30 Temperature 95.5 F L Pulse Rate 115 H 128 H Respiratory Rate 24 H Blood Pressure Pulse Oximetry 97 Oxygen Delivery Mechanical Ventilation Fraction of Inspired Oxygen 100 10/08/24 02:30 10/08/24 02:50 10/08/24 03:00 Temperature 95.3 F L 95.6 F L 96 F L Pulse Rate 85 87 Respiratory Rate 18 22 H Blood Pressure Pulse Oximetry Oxygen Delivery Fraction of Inspired Oxygen 10/08/24 03:05 10/08/24 03:10 10/08/24 03:22 Temperature 95.8 F L 96 F L Pulse Rate 86 86 90 Respiratory Rate 24 H 22 H 22 H Blood Pressure 83/68 L Pulse Oximetry 88 L Oxygen Delivery Fraction of Inspired Oxygen 10/08/24 03:29 10/08/24 03:30 10/08/24 03:30 Temperature 96.1 F L 96.1 F L Pulse Rate 85 86 Respiratory Rate 22 H Blood Pressure 75/59 L 75/59 L Pulse Oximetry 98 Oxygen Delivery Fraction of Inspired Oxygen 10/08/24 03:37 10/08/24 03:45 10/08/24 03:50 Temperature 96.1 F L 96.2 F L Pulse Rate 81 86 93 Respiratory Rate 22 H 22 H 22 H Blood Pressure 89/70 L 96/66 L Pulse Oximetry 95 100 97 Oxygen Delivery Mechanical Ventilation Fraction of Inspired Oxygen 100 10/08/24 03:54 10/08/24 03:59 10/08/24 04:00 Temperature 96.4 F L 96.4 F L Pulse Rate 92 Respiratory Rate 17 Blood Pressure Pulse Oximetry Oxygen Delivery Fraction of Inspired Oxygen 100 10/08/24 04:00 10/08/24 04:00 10/08/24 04:00 Temperature 96.4 F L Pulse Rate 89 90 90 Respiratory Rate 22 H 22 H Blood Pressure 91/71 L 91/71 L Pulse Oximetry 99 Oxygen Delivery Fraction of Inspired Oxygen 10/08/24 04:00 10/08/24 04:00 10/08/24 04:00 Temperature Pulse Rate 88 89 88 Respiratory Rate 22 H Blood Pressure 91/71 L 91/71 L Pulse Oximetry Oxygen Delivery Fraction of Inspired Oxygen 10/08/24 04:00 10/08/24 04:00 10/08/24 04:30 Temperature 96.7 F L Pulse Rate 88 88 Respiratory Rate Blood Pressure 91/71 L Pulse Oximetry Oxygen Delivery Fraction of Inspired Oxygen 10/08/24 05:00 10/08/24 05:00 10/08/24 05:04 Temperature 97 F L 97 F L Pulse Rate 85 87 Respiratory Rate 22 H Blood Pressure 88/66 L 88/66 L Pulse Oximetry 96 Oxygen Delivery Fraction of Inspired Oxygen 10/08/24 05:13 10/08/24 05:30 10/08/24 05:30 Temperature 97.2 F L Pulse Rate 128 H 83 Respiratory Rate Blood Pressure 89/67 L Pulse Oximetry 97 Oxygen Delivery Mechanical Ventilation Fraction of Inspired Oxygen 100 10/08/24 05:30 10/08/24 05:37 10/08/24 05:45 Temperature 97.3 F L 97.3 F L Pulse Rate 85 86 86 Respiratory Rate 22 H 22 H 22 H Blood Pressure 89/67 L 89/69 L Pulse Oximetry 88 L 85 L Oxygen Delivery Fraction of Inspired Oxygen 10/08/24 05:45 10/08/24 05:46 10/08/24 05:59 Temperature 97.5 F L 97.5 F L Pulse Rate 87 87 Respiratory Rate 22 H Blood Pressure 89/69 L 89/69 L Pulse Oximetry 91 Oxygen Delivery Fraction of Inspired Oxygen 10/08/24 06:00 10/08/24 06:00 10/08/24 06:00 Temperature 97.5 F L Pulse Rate 86 86 91 Respiratory Rate 22 H Blood Pressure 93/67 L 92/65 L Pulse Oximetry 84 L Oxygen Delivery Fraction of Inspired Oxygen 10/08/24 06:00 10/08/24 06:00 10/08/24 06:00 Temperature Pulse Rate 87 85 89 Respiratory Rate 22 H 22 H Blood Pressure 92/65 L Pulse Oximetry Oxygen Delivery Fraction of Inspired Oxygen 10/08/24 06:00 10/08/24 06:00 10/08/24 06:38 Temperature Pulse Rate 89 89 89 Respiratory Rate Blood Pressure 92/75 L 92/65 L 92/67 L Pulse Oximetry Oxygen Delivery Fraction of Inspired Oxygen 10/08/24 06:39 10/08/24 07:55 10/08/24 07:56 Temperature Pulse Rate 88 88 88 Respiratory Rate Blood Pressure 92/67 L 93/72 L Pulse Oximetry 96 Oxygen Delivery Mechanical Ventilation Fraction of Inspired Oxygen 90 10/08/24 08:00 10/08/24 08:00 10/08/24 08:00 Temperature Pulse Rate 89 80 Respiratory Rate 22 H Blood Pressure Pulse Oximetry 92 Oxygen Delivery Mechanical Ventilation Fraction of Inspired Oxygen 90 90 10/08/24 08:00 10/08/24 08:49 Temperature 97.7 F Pulse Rate 91 92 Respiratory Rate 22 H 19 Blood Pressure 98/70 L Pulse Oximetry 92 Oxygen Delivery Fraction of Inspired Oxygen Intake/Output Intake/Output: Intake & Output 10/05/24 10/06/24 10/07/24 10/08/24 23:59 23:59 23:59 23:59 Intake Total 2591.4 2362.6 1869.0 1068.2 Output Total 50 220 150 0 Balance 2541.4 2142.6 1719.0 1068.2 Meds/Results Medications: Active Medications Generic Name Dose Route Start Last Admin Trade Name Freq PRN Reason Stop Dose Admin Acetaminophen 650 mg 10/03/24 03:27 Acetaminophen 325 Mg Tablet PO Q4H PRN Mild Pain (1-3) or Fever Folic Acid 1 mg 10/03/24 09:00 10/07/24 08:45 Folic Acid 1 Mg Tablet PO Not Given DAILY [facility] Heparin Sodium (Porcine) 6,500 units 10/03/24 17:20 Heparin Sodium 5,000 Units/Ml Vial IV PUSH PRN PRN aPTT less than 55 seconds Heparin Sodium (Porcine) 3,000 units 10/03/24 17:20 10/08/24 06:28 Heparin Sodium 5,000 Units/Ml Vial IV PUSH 3,000 units PRN PRN Administration aPTT 55 - 70 seconds Hydrocortisone Sodium Succinate 100 mg 10/03/24 09:00 10/08/24 07:58 Hydrocortisone Sodium Succinate 100 Mg/2 Ml Vial IV PUSH 100 mg Q8H KELECHI Administration Norepinephrine Bitartrate 8 mg in 250 mls @ 56.25 mls/hr 10/02/24 19:40 10/08/24 06:39 Levophed 8 Mg/D5w 250 Ml IV CONT 30 mcg/min .Q4H27M KELECHI 56.25 mls/hr Administration Protocol 30 MCG/MIN Heparin Sodium/Dextrose 25,000 units in 250 mls @ 4 mls/hr 10/03/24 17:20 10/08/24 06:28 Heparin Sodium/D5w 100 Units/Ml IV CONT 400 units/hr .Q24H KELECHI 4 mls/hr Titration Protocol 400 UNITS/HR Octreotide Acetate 500 mcg/ 100 mls @ 10 mls/hr 10/04/24 12:00 10/08/24 08:23 Sodium Chloride IV CONT 50 mcg/hr .Q10H KELECHI 10 mls/hr Administration 50 MCG/HR Fentanyl Citrate 2,500 mcg in 250 mls @ 2.5 mls/hr 10/07/24 10:55 10/08/24 08:49 Fentanyl 2,500 Mcg/Ns 250 Ml IV CONT 25 mcg/hr .Q72H KELECHI 2.5 mls/hr Titration Protocol 25 MCG/HR Midazolam HCl 100 mg in 100 mls @ 2 mls/hr 10/07/24 10:55 10/08/24 06:00 Versed 100 Mg/Ns 100 Ml IV CONT 1 mg/hr .Q50H KELECHI 1 mls/hr Titration Protocol 2 MG/HR Meropenem 500 mg in 100 mls @ 200 mls/hr 10/07/24 13:00 10/07/24 15:07 IVPB Infused Q24H KELECHI Infusion Vasopressin 100 units/ 100 mls @ 2.4 mls/hr 10/07/24 15:55 10/08/24 06:00 Dextrose IV CONT 0.04 units/min .[id number] KELECHI 2.4 mls/hr Titration Protocol 0.04 UNITS/MIN Phenylephrine HCl 50 mg/ 250 ml in 250 mls @ 34.5 mls/hr 10/08/24 03:20 10/08/24 06:00 Dextrose IV CONT 115 mcg/min .Q7H15M KELECHI 34.5 mls/hr Titration Protocol 115 MCG/MIN Vancomycin HCl 1,250 mg in 250 mls @ 166.667 mls/hr 10/08/24 15:00 Vancomycin 1,250 Mg/Ns 250 Ml IVPB 10/08/24 16:29 ONCE ONE Albumin Human 100 mls @ 60 mls/hr 10/08/24 07:40 10/08/24 07:58 Albutein IVPB 60 mls/hr Q6HR KELECHI Administration Lactulose 20 gm 10/03/24 17:00 10/03/24 17:52 Lactulose 20 Gm/30 Ml Udc PO 20 gm BID KELECHI Administration Lactulose 20 gm 10/07/24 12:31 10/08/24 07:58 Lactulose 20 Gm/30 Ml Udc FEED TUBE 20 gm BID KELECHI Administration Melatonin 10 mg 10/06/24 10:08 10/06/24 21:25 Melatonin 5 Mg Tablet PO 10 mg HS PRN Administration Insomnia Multi-Ingred Cream/Lotion/Oil/Oint 1 applic 10/07/24 10:50 10/08/24 07:58 Mineral Oil/White Petrolatum Ointment EACH EYE 1 applic Q12HR KELECHI Administration Ondansetron HCl 4 mg 10/07/24 08:06 10/07/24 08:21 Ondansetron Inj 4 Mg/2 Ml Vial IV PUSH 4 mg Q4H PRN Administration Nausea And Vomiting Pantoprazole Sodium 40 mg 10/07/24 09:00 10/07/24 08:45 Pantoprazole 40 Mg Tablet PO Not Given QAM KELECHI Perflutren Lipid Microsphere 0 ml 10/08/24 06:44 Perflutren Lipid Microspheres 1.5 Ml Vial Diluted To 10 Ml Total Volume IV PUSH 10/11/24 06:44 ONCE PRN adequate visualization Protocol Sodium Bicarbonate 650 mg 10/06/24 11:30 10/08/24 09:14 Sodium Bicarbonate Tab 650 Mg Tablet PO Not Given BID KELECHI Sodium Chloride 10 ml 10/03/24 06:00 10/08/24 06:32 Central Line Flush IV PUSH 10 ml Q8HR KELECHI Administration Sodium Chloride 20 ml 10/02/24 22:02 Central Line Flush IV PUSH PRN PRN after blood draws Thiamine HCl 100 mg 10/06/24 11:30 10/07/24 08:46 Thiamine Hcl 100 Mg Tablet PO Not Given QAM KELECHI Vancomycin HCl 1 each 10/07/24 12:46 Vancomycin For Acute Kidney Injury IVPB PRN PRN Vancomycin Protocol Radiology Results: ITS Impressions Abdomen Ultrasound 10/02/24 17:06 IMPRESSION: Gross ascites. Liver cirrhosis. Highly suggestive gallbladder stones. Paracentesis Ultrasound 10/03/24 12:13 Impression: Successful ultrasound guided paracentesis. Venous Doppler Study 10/03/24 14:02 Impression: Bilateral acute deep venous thrombosis in right popliteal and posterior tibial veins and left common femoral, femoral popliteal and posterior tibial veins. Head CT 10/07/24 12:12 IMPRESSION: 1. Age-related changes the brain including mild diffuse volume loss and mild scattered white matter hypoattenuation consistent with chronic small vessel ischemic disease. No acute intracranial process. Chest/Abdomen/Pelvis CT 10/07/24 12:21 IMPRESSION: Redemonstration of moderate intra-abdominal ascites, which is of decreased attenuation consistent with simple fluid (not blood ). Interval enlargement of the main and proximal bilateral pulmonary arteries when compared with prior study. Without intravenous contrast, the presence of pulmonary emboli cannot be excluded. Interval development of bibasilar infiltrates, a left hilar infiltrate and moderate bilateral pulmonary vascular congestion. Chest X-Ray 10/08/24 06:36 Impression: Diffuse airspace consolidation is worsened from prior exam. Correlate for severe pulmonary edema, bilateral pneumonia, and/or ARDS. Small right pleural effusion. Support tubes, as above. Labs Labs: Laboratory Results - last 24 hr 10/03/24 10/04/24 10/07/24 18:53 05:18 11:29 WBC RBC Hgb Hct MCV MCH MCHC RDW Plt Count MPV Immature Gran % (Auto) Neut % (Auto) Lymph % (Auto) [place] % (Auto) Eos % (Auto) Baso % (Auto) Lymph # (Auto) [place] # (Auto) Eos # (Auto) Baso # (Auto) Abs Immat Gran (auto) Absolute Neuts (auto) Absolute Nucleated RBC Band Neutrophils % Nucleated RBC % Platelet Estimate % Immature Plt Fraction Hypochromasia Anisocytosis Target Cells Schistocytes APTT Puncture Site ABG pH ABG pCO2 ABG pO2 ABG PO2/FiO2 Ratio ABG HCO3 ABG O2 Saturation ABG O2 Content ABG Base Excess A-a Gradient Oxyhemoglobin Carboxyhemoglobin Methemoglobin Reduced Hemoglobin Total Hemoglobin O2 Delivery Device O2 Liters/Min Minute Volume Vent Rate Vent Mode FiO2 Tidal Volume PEEP Peak Inspir Pressure Pressure Support Sodium Potassium Chloride Carbon Dioxide Anion Gap BUN Creatinine Estim Creat Clear Calc Estimated GFR Glucose POC Capillary Glucose Lactic Acid 12.8 H* Calcium Phosphorus Magnesium Total Bilirubin AST ALT Alkaline Phosphatase Ammonia 60 H Total Protein Albumin 3.5 L Yqozd-5-Exqrxsngr 0.4 H Arxgb-1-Ynqdrfrtv 0.4 L Gvne-4-Lzkinkza 0.2 L Ahij-6-Ukiazgop 0.6 H Gamma Globulins 0.9 PEP Interpretation See note Random Vancomycin Urine Immunofixation Anti-DNA Antibody <1 Tot Complement (CH50) 51 [place]/Lambda Ratio 1.11 Free [place] Light Chains 69.9 H Free Lambda Light Chain 62.7 H 10/07/24 10/07/24 10/07/24 12:29 14:33 15:32 WBC RBC Hgb Hct MCV MCH MCHC RDW Plt Count MPV Immature Gran % (Auto) Neut % (Auto) Lymph % (Auto) [place] % (Auto) Eos % (Auto) Baso % (Auto) Lymph # (Auto) [place] # (Auto) Eos # (Auto) Baso # (Auto) Abs Immat Gran (auto) Absolute Neuts (auto) Absolute Nucleated RBC Band Neutrophils % Nucleated RBC % Platelet Estimate % Immature Plt Fraction Hypochromasia Anisocytosis Target Cells Schistocytes APTT 141.7 H Puncture Site Left radial ABG pH 7.215 L* ABG pCO2 30.9 L ABG pO2 114.2 H ABG PO2/FiO2 Ratio 1.43 ABG HCO3 12.2 L ABG O2 Saturation 97.4 ABG O2 Content 14.0 L ABG Base Excess -14.3 A-a Gradient 423.8 Oxyhemoglobin 96.1 Carboxyhemoglobin 0.3 Methemoglobin 0.2 Reduced Hemoglobin 3.4 Total Hemoglobin 10.2 L O2 Delivery Device Ventilator O2 Liters/Min Not Reportable Minute Volume Not Reportable Vent Rate 22 Vent Mode Cmv FiO2 80 Tidal Volume 450 PEEP 10 Peak Inspir Pressure Not Reportable Pressure Support Not Reportable Sodium Potassium Chloride Carbon Dioxide Anion Gap BUN Creatinine Estim Creat Clear Calc Estimated GFR Glucose POC Capillary Glucose Lactic Acid 10.5 H* Calcium Phosphorus Magnesium Total Bilirubin AST ALT Alkaline Phosphatase Ammonia Total Protein Albumin Byged-0-Xpnsucdjt Dxqcg-2-Svlvpvion Yeri-4-Uokpwmhq Qnro-1-Vbnxwmhe Gamma Globulins PEP Interpretation Random Vancomycin Urine Immunofixation Anti-DNA Antibody Tot Complement (CH50) [place]/Lambda Ratio Free [place] Light Chains Free Lambda Light Chain 10/07/24 10/07/24 10/08/24 22:08 23:59 05:07 WBC RBC Hgb Hct MCV MCH MCHC RDW Plt Count MPV Immature Gran % (Auto) Neut % (Auto) Lymph % (Auto) [place] % (Auto) Eos % (Auto) Baso % (Auto) Lymph # (Auto) [place] # (Auto) Eos # (Auto) Baso # (Auto) Abs Immat Gran (auto) Absolute Neuts (auto) Absolute Nucleated RBC Band Neutrophils % Nucleated RBC % Platelet Estimate % Immature Plt Fraction Hypochromasia Anisocytosis Target Cells Schistocytes APTT 112.7 H Puncture Site Right radial ABG pH 7.283 L* ABG pCO2 40.8 ABG pO2 93.0 ABG PO2/FiO2 Ratio 0.93 ABG HCO3 18.9 L ABG O2 Saturation 96.3 ABG O2 Content 12.4 L ABG Base Excess -7.3 A-a Gradient 579.2 Oxyhemoglobin 95.4 Carboxyhemoglobin 0.3 Methemoglobin 0.1 Reduced Hemoglobin 4.2 Total Hemoglobin 9.1 L O2 Delivery Device Ventilator O2 Liters/Min Not Reportable Minute Volume Not Reportable Vent Rate 22 Vent Mode Cmv FiO2 100 Tidal Volume 450 PEEP 10 Peak Inspir Pressure Not Reportable Pressure Support Not Reportable Sodium Potassium Chloride Carbon Dioxide Anion Gap BUN Creatinine Estim Creat Clear Calc Estimated GFR Glucose POC Capillary Glucose 209 H Lactic Acid Calcium Phosphorus Magnesium Total Bilirubin AST ALT Alkaline Phosphatase Ammonia Total Protein Albumin Agiue-9-Iojekynzh Pjcay-8-Hsghtoaox Csqo-1-Ykhtlztl Znsh-0-Ublcdftw Gamma Globulins PEP Interpretation Random Vancomycin Urine Immunofixation Anti-DNA Antibody Tot Complement (CH50) [place]/Lambda Ratio Free [place] Light Chains Free Lambda Light Chain 10/08/24 10/08/24 05:10 08:18 WBC 23.9 H RBC 2.36 L Hgb 8.0 L Hct 24.3 L MCV 103.0 H D MCH 33.9 MCHC 32.9 RDW 16.9 H Plt Count 104 L MPV 11.5 H Immature Gran % (Auto) 1.0 H Neut % (Auto) 91.6 H Lymph % (Auto) 3.8 L [place] % (Auto) 3.5 Eos % (Auto) 0.0 Baso % (Auto) 0.1 L Lymph # (Auto) 0.91 [place] # (Auto) 0.8 H Eos # (Auto) 0.0 Baso # (Auto) 0.0 Abs Immat Gran (auto) 0.23 H Absolute Neuts (auto) 21.9 H Absolute Nucleated RBC 0.040 H Band Neutrophils % Not Reportable Nucleated RBC % 0.2 Platelet Estimate Decreased % Immature Plt Fraction 12.4 H Hypochromasia 1+ Anisocytosis 1+ Target Cells 1+ Schistocytes None seen APTT 56.9 H Puncture Site ABG pH ABG pCO2 ABG pO2 ABG PO2/FiO2 Ratio ABG HCO3 ABG O2 Saturation ABG O2 Content ABG Base Excess A-a Gradient Oxyhemoglobin Carboxyhemoglobin Methemoglobin Reduced Hemoglobin Total Hemoglobin O2 Delivery Device O2 Liters/Min Minute Volume Vent Rate Vent Mode FiO2 Tidal Volume PEEP Peak Inspir Pressure Pressure Support Sodium 129 L Potassium 3.7 Chloride 85 L Carbon Dioxide 19 L Anion Gap 25 H BUN 75 H Creatinine 8.48 H Estim Creat Clear Calc 8 Estimated GFR 6 L Glucose 169 H POC Capillary Glucose Lactic Acid 7.7 H* 8.4 H* Calcium 8.0 L Phosphorus 8.0 H Magnesium 1.9 Total Bilirubin 2.6 H AST 575 H ALT 146 H Alkaline Phosphatase 113 Ammonia 34 H Total Protein 6.0 L Albumin 4.4 Nmfhc-1-Cmvmelnpm Jkcsk-9-Buhlsuwja Pvoh-3-Hrszwwbg Hher-4-Tkztznuk Gamma Globulins PEP Interpretation Random Vancomycin 21.8 H Urine Immunofixation Anti-DNA Antibody Tot Complement (CH50) [place]/Lambda Ratio Free [place] Light Chains Free Lambda Light Chain Quality VTE Prophylaxis VTE prophylaxis: mechanical ordered
[2024-10-08] MEDS: PERFLUTREN LIPID MICROSPHERES 1.5 ML VIAL DILUTED TO 10 ML TOTAL VOLUME IV PUSH (09:45)
[2024-10-08 10:43] LABS: Anti Glomerular Basement Memb <1.0 AI
--- NOTE | 2024-10-08 10:45 | P.PNNP_ITS ---
Progress Note: A&P Assessment and Plan (1) Acute kidney injury: Code(s): N17.9 - Acute kidney failure, unspecified Status: Acute Assessment and Plan: * normal baseline creatinine * creatinine 0.99mg/dl on 07/11/24 (outpatient labs) * suspect multifactorial etiology: * hemodynamic instability/shock * infection/sepsis * outpatient use of ISH-I * liver cirrhosis/liver physiology/HRS(?) * other(?) * on IV albumin + vasopressor therapy to optimize hemodynamics * evaluation to date noted: * CT imaging without obstruction * CPK okay * urine eosinophils negative * urine electrolytes prerenal * mild proteinuria * serologies pending * now with worsening acidosis (lactic acidosis) in association with volume overload * the next step is dialysis * HOWEVER, in the context of his hemodynamic instability, he is not likely to tolerate conventional hemodialysis and likely needs CRRT * follow trend of repeat labs and UOP (2) Septic shock: Code(s): A41.9 - Sepsis, unspecified organism; R65.21 - Severe sepsis with septic shock Status: Acute Assessment and Plan: * due to UTI versus SBP versus other(?) * complicated by liver physiology and associated chronic hypotension * on vasopressor therapy * follow culture data * blood culture negative * urine culture negative * ascitic fluid culture negative to date * trend lactic acid * on antibiotics (3) Acute respiratory failure: Code(s): J96.00 - Acute respiratory failure, unspecified whether with hypoxia or hypercapnia Status: Acute Assessment and Plan: * intubated on 10/07 * dud to pneumonia, volume overload, and ARDS * imaging reviewed - CT C/A/P (10/07): : * redemonstration of moderate intra-abdominal ascites, which is of decreased attenuation consistent with simple fluid (not blood) * interval enlargement of the main and proximal bilateral pulmonary arteries when compared with prior study * interval development of bibasilar infiltrates, a left hilar infiltrate and moderate bilateral pulmonary vascular congestion * fluid removal likely only to be achieved with dialytic intervention * continue ventilator support (4) Cirrhosis: Code(s): K74.60 - Unspecified cirrhosis of liver Status: Acute Assessment and Plan: * as evidenced by admission imaging * presumably secondary to alcohol abuse * LFTs on 07/11/24 noted: * ALT 41 * AST 108 (H) * Alk phos 267 (H) * Total Bilirubin 1.7 (H) * s/p large volume paracentesis (on 10/03) * GI recommendations noted * on octreotide (5) DVT of lower extremity, bilateral: Code(s): I82.403 - Acute embolism and thrombosis of unspecified deep veins of lower extremity, bilateral Status: Acute Assessment and Plan: * as noted by duplex ultrasound: * bilateral acute deep venous thrombosis in right popliteal and posterior tibial veins and left common femoral, femoral popliteal and posterior tibial veins. * on heparin gtt (6) UTI (urinary tract infection): Code(s): N39.0 - Urinary tract infection, site not specified Status: Acute Assessment and Plan: * admission UA highly suggestive * follow-up on urine cultures - negative to date * on antibiotics (7) Ascites: Code(s): R18.8 - Other ascites Status: Acute Assessment and Plan: * as noted by admission imaging * s/p large volume paracentesis (on 10/03) * fluid studies from ascites reviewed (8) Elevated troponin: Code(s): R79.89 - Other specified abnormal findings of blood chemistry Status: Acute Assessment and Plan: * noted on admission * likely secondary to renal dysfunction in the context of septic shock * no symptoms to suggest ACS * Cardiology recommendations noted * Echo reviewed: * left ventricular systolic function is hyperdynamic, estimated at >70% * left ventricular diastolic function is grade I diastolic dysfunction * mild aortic valve sclerosis * mitral valve has mildly calcified annulus * mild tricuspid valve regurgitation * mild pulmonary hypertension, estimated pulmonary arterial systolic pressure is 49 mmHg (9) Chronic alcohol use: Code(s): F10.90 - Alcohol use, unspecified, uncomplicated Status: Acute Assessment and Plan: * monitor for signs of withdrawal * on thiamine and folic acid Discussed case with Dr. Correa -- possible transfer to [facility] when bed available. Will continue to follow. L Subjective Date/time seen: 10/08/24 10:45 Interval history: Follow-up for acute kidney injury/acute renal failure. Clinical deterioration noted in the last 24 hours -- intubated yesterday due to altered mental status/confusion in association with hypoxia and concerns for airway protection; vasopressor requirements have significantly increased as well as currently on levophed, vasopressin, and ping-synephrine; remains on heparin and octreotide infusion as well; renal function/creatinine about the same but he is now anuric and demonstrating signs of volume overload in addtion to metabolic acidosis. Exam 2 Narrative: General: elderly male intubated/sedated and on mechanical ventilation Heart: normal S1 and S2; no rub Lungs: clear to auscultation Abdomen: soft, nontender with mild distension noted, positive bowel sounds Extremities: no cyanosis or clubbing; 2+ edema Skin: no rash Objective Data Vital Signs Vital Signs: Vital Signs Temp Pulse Resp BP Pulse Ox O2 Del Method FiO2 10/08/24 10:27 92 92 Mechanical Ventilation 90 10/08/24 10:00 97.7 F 95 22 H 96/71 L 92 10/08/24 08:49 92 19 10/08/24 08:00 97.7 F 91 22 H 98/70 L 92 10/08/24 08:00 90 10/08/24 08:00 80 10/08/24 08:00 89 22 H 92 Mechanical Ventilation 90 10/08/24 07:56 88 96 Mechanical Ventilation 90 10/08/24 07:55 88 93/72 L 10/08/24 06:39 88 92/67 L 10/08/24 06:38 89 92/67 L 10/08/24 06:00 89 92/65 L 10/08/24 06:00 89 92/75 L 10/08/24 06:00 89 22 H 10/08/24 06:00 85 22 H 10/08/24 06:00 87 92/65 L 10/08/24 06:00 91 92/65 L 10/08/24 06:00 97.5 F L 86 22 H 93/67 L 84 L 10/08/24 06:00 86 10/08/24 05:59 97.5 F L 10/08/24 05:46 87 89/69 L 10/08/24 05:45 97.5 F L 87 22 H 89/69 L 91 10/08/24 05:45 97.3 F L 86 22 H 89/69 L 85 L 10/08/24 05:37 97.3 F L 86 22 H 89/67 L 88 L 10/08/24 05:30 85 22 H 10/08/24 05:30 83 89/67 L 10/08/24 05:30 97.2 F L 10/08/24 05:13 128 H 97 Mechanical Ventilation 100 10/08/24 05:04 97 F L 87 22 H 88/66 L 96 10/08/24 05:00 97 F L 10/08/24 05:00 85 88/66 L 10/08/24 04:30 96.7 F L 10/08/24 04:00 88 10/08/24 04:00 88 91/71 L 10/08/24 04:00 88 91/71 L 10/08/24 04:00 89 22 H 10/08/24 04:00 88 91/71 L 10/08/24 04:00 90 22 H 10/08/24 04:00 90 91/71 L 10/08/24 04:00 96.4 F L 89 22 H 91/71 L 99 10/08/24 04:00 96.4 F L 10/08/24 03:59 96.4 F L 92 17 10/08/24 03:54 100 10/08/24 03:50 93 22 H 97 Mechanical Ventilation 10/08/24 03:45 96.2 F L 86 22 H 96/66 L 100 10/08/24 03:37 96.1 F L 81 22 H 89/70 L 95 10/08/24 03:30 96.1 F L 10/08/24 03:30 96.1 F L 86 22 H 75/59 L 98 10/08/24 03:29 85 75/59 L 10/08/24 03:22 96 F L 90 22 H 83/68 L 88 L 10/08/24 03:10 86 22 H 10/08/24 03:05 95.8 F L 86 24 H 10/08/24 03:00 96 F L 10/08/24 02:50 95.6 F L 87 22 H 10/08/24 02:30 95.3 F L 85 18 10/08/24 02:30 128 H 97 Mechanical Ventilation 100 10/08/24 02:30 95.5 F L 10/08/24 02:22 115 H 24 H 10/08/24 02:17 87 103/80 10/08/24 02:16 95.1 F L 118 H 21 H 10/08/24 02:11 116 H 98/77 L 10/08/24 02:10 116 H 98/77 L 10/08/24 02:06 136 H 98/77 L 10/08/24 02:06 136 H 98/77 L 10/08/24 02:03 94.9 F L 126 H 18 10/08/24 02:00 136 H 10/08/24 02:00 95.2 F L 129 H 22 H 103/80 97 10/08/24 02:00 95.2 F L 10/08/24 02:00 129 H 98/77 L 10/08/24 02:00 129 H 22 H 10/08/24 02:00 129 H 22 H 10/08/24 02:00 129 H 98/77 L 10/08/24 01:49 94.7 F L 126 H 23 H 10/08/24 01:30 94.6 F L 10/08/24 01:20 94.1 F L 117 H 22 H 10/08/24 01:13 94.0 F L 129 H 20 10/08/24 01:00 93.8 F L 10/08/24 00:30 93.5 F L 10/08/24 00:00 108 H 10/08/24 00:00 108 H 22 H 10/08/24 00:00 116 H 22 H 96 Mechanical Ventilation 100 10/08/24 00:00 93.1 F L 10/08/24 00:00 100 10/08/24 00:00 93 F L 116 H 22 H 97/78 L 96 10/08/24 00:00 118 H 97/78 L 10/08/24 00:00 118 H 22 H 10/08/24 00:00 118 H 97/78 L 10/07/24 23:47 92.6 F L 108 H 16 10/07/24 23:35 92.5 F L 107 H 11 L 89 L 10/07/24 23:30 92.9 F L 10/07/24 23:19 92.3 F L 115 H 90 10/07/24 23:02 92.0 F L 120 H 9 L 10/07/24 23:00 105 H 22 H 10/07/24 23:00 92.0 F L 10/07/24 22:55 108 H 94 Mechanical Ventilation 100 10/07/24 22:46 116 H 16 10/07/24 22:31 103 H 5 L 10/07/24 22:16 98 22 H 10/07/24 22:02 105 H 22 H 10/07/24 22:00 107 H 22 H 101/77 95 10/07/24 22:00 107 H 10/07/24 22:00 105 H 101/77 10/07/24 22:00 104 H 22 H 10/07/24 22:00 105 H 22 H 10/07/24 22:00 105 H 101/77 10/07/24 21:47 97 22 H 10/07/24 21:35 118 H 93/75 L 10/07/24 21:34 99 93/75 L 10/07/24 21:32 110 H 22 H 10/07/24 21:16 112 H 22 H 10/07/24 21:02 99 22 H 10/07/24 20:46 105 H 22 H 10/07/24 20:45 115 H 22 H 93 Mechanical Ventilation 100 10/07/24 20:38 115 H 93 Mechanical Ventilation 100 10/07/24 20:32 107 H 22 H 87 L 10/07/24 20:30 104 H 22 H 10/07/24 20:18 118 H 24 H 10/07/24 20:02 108 H 0 L 92 10/07/24 20:00 107 H 10/07/24 20:00 107 H 99/79 L 10/07/24 20:00 107 H 22 H 10/07/24 20:00 107 H 99/79 L 10/07/24 20:00 107 H 22 H 10/07/24 20:00 100 10/07/24 20:00 107 H 22 H 99/79 L 93 10/07/24 19:46 104 H 0 L 93 10/07/24 19:32 118 H 0 L 93 10/07/24 19:16 101 H 0 L 93 10/07/24 19:02 97 0 L 93 10/07/24 18:46 99 0 L 94 10/07/24 18:32 97 0 L 94 10/07/24 18:17 117 H 0 L 94 10/07/24 18:03 99 0 L 95 10/07/24 18:00 103 H 101/77 10/07/24 18:00 109 H 20 10/07/24 18:00 116 H 22 H 10/07/24 18:00 101 H 99/78 L 10/07/24 18:00 99 22 H 103/77 94 10/07/24 18:00 104 H 10/07/24 17:47 97 0 L 95 10/07/24 17:32 111 H 20 98 10/07/24 17:17 97 22 H 97 10/07/24 17:15 120 H 21 H 10/07/24 17:03 112 H 90 Mechanical Ventilation 100 10/07/24 17:02 119 H 14 10/07/24 16:50 110 H 98/78 L 10/07/24 16:50 110 H 98/78 L 10/07/24 16:46 111 H 22 H 93 10/07/24 16:45 109 H 22 H 97/77 L 92 10/07/24 16:31 92 22 H 92 10/07/24 16:30 109 H 22 H 99/75 L 93 10/07/24 16:16 103 H 22 H 93 10/07/24 16:15 89 22 H 95/77 L 94 10/07/24 16:01 114 H 20 95 10/07/24 16:00 116 H 22 H 96/65 L 10/07/24 16:00 106 H 96/65 L 10/07/24 16:00 105 H 22 H 10/07/24 16:00 122 H 20 10/07/24 16:00 104 H 95/65 L 10/07/24 16:00 80 10/07/24 16:00 98 22 H 96 Mechanical Ventilation 80 10/07/24 16:00 98.0 F 109 H 22 H 96/65 L 95 10/07/24 16:00 109 H 10/07/24 15:57 106 H 22 H 90/68 L 95 10/07/24 15:55 114 H 96/65 L 10/07/24 15:50 108 H 90/68 L 10/07/24 15:45 109 H 22 H 95 10/07/24 15:40 98 84/65 L 10/07/24 15:30 116 H 22 H 96 10/07/24 15:24 116 H 22 H 10/07/24 15:16 110 H 22 H 96 10/07/24 15:15 115 H 22 H 91/70 L 96 10/07/24 14:45 106 H 84/65 L 10/07/24 14:29 126 H 87/60 L 10/07/24 14:25 141 H 96 Mechanical Ventilation 80 10/07/24 14:00 118 H 20 10/07/24 14:00 104 H 22 H 10/07/24 14:00 95 88/60 L 10/07/24 14:00 89 22 H 88/60 L 95 10/07/24 14:00 95 10/07/24 14:00 80 10/07/24 13:41 104 H 20 10/07/24 13:40 105 H 19 10/07/24 13:30 107 H 85/64 L 10/07/24 13:28 111 H 18 10/07/24 13:28 109 H 18 10/07/24 12:45 124 H 22 H Intake/Output Intake/Output: Intake & Output 10/05/24 10/06/24 10/07/24 10/08/24 23:59 23:59 23:59 23:59 Intake Total 2591.4 2362.6 1869.0 1418.2 Output Total 50 220 150 0 Balance 2541.4 2142.6 1719.0 1418.2 Meds/Results Medications: Active Medications Generic Name Dose Route Start Last Admin Trade Name Freq PRN Reason Stop Dose Admin Acetaminophen 650 mg 10/03/24 03:27 Acetaminophen 325 Mg Tablet PO Q4H PRN Mild Pain (1-3) or Fever Folic Acid 1 mg 10/09/24 09:00 Folic Acid 1 Mg/0.2 Ml Inj IV PUSH QAM KELECHI Heparin Sodium (Porcine) 6,500 units 10/03/24 17:20 Heparin Sodium 5,000 Units/Ml Vial IV PUSH PRN PRN aPTT less than 55 seconds Heparin Sodium (Porcine) 3,000 units 10/03/24 17:20 10/08/24 06:28 Heparin Sodium 5,000 Units/Ml Vial IV PUSH 3,000 units PRN PRN Administration aPTT 55 - 70 seconds Hydrocortisone Sodium Succinate 100 mg 10/03/24 09:00 10/08/24 07:58 Hydrocortisone Sodium Succinate 100 Mg/2 Ml Vial IV PUSH 100 mg Q8H KELECHI Administration Norepinephrine Bitartrate 8 mg in 250 mls @ 56.25 mls/hr 10/02/24 19:40 10/08/24 11:10 Levophed 8 Mg/D5w 250 Ml IV CONT 30 mcg/min .Q4H27M KELECHI 56.25 mls/hr Administration Protocol 30 MCG/MIN Heparin Sodium/Dextrose 25,000 units in 250 mls @ 4 mls/hr 10/03/24 17:20 10/08/24 06:28 Heparin Sodium/D5w 100 Units/Ml IV CONT 400 units/hr .Q24H KELECHI 4 mls/hr Titration Protocol 400 UNITS/HR Octreotide Acetate 500 mcg/ 100 mls @ 10 mls/hr 10/04/24 12:00 10/08/24 08:23 Sodium Chloride IV CONT 50 mcg/hr .Q10H KELECHI 10 mls/hr Administration 50 MCG/HR Fentanyl Citrate 2,500 mcg in 250 mls @ 2.5 mls/hr 10/07/24 10:55 10/08/24 08:49 Fentanyl 2,500 Mcg/Ns 250 Ml IV CONT 25 mcg/hr .Q72H KELECHI 2.5 mls/hr Titration Protocol 25 MCG/HR Midazolam HCl 100 mg in 100 mls @ 2 mls/hr 10/07/24 10:55 10/08/24 06:00 Versed 100 Mg/Ns 100 Ml IV CONT 1 mg/hr .Q50H KELECHI 1 mls/hr Titration Protocol 2 MG/HR Meropenem 500 mg in 100 mls @ 200 mls/hr 10/07/24 13:00 10/07/24 15:07 IVPB Infused Q24H KELECHI Infusion Vasopressin 100 units/ 100 mls @ 2.4 mls/hr 10/07/24 15:55 10/08/24 06:00 Dextrose IV CONT 0.04 units/min .[id number] KELECHI 2.4 mls/hr Titration Protocol 0.04 UNITS/MIN Phenylephrine HCl 50 mg/ 250 ml in 250 mls @ 34.5 mls/hr 10/08/24 03:20 10/08/24 06:00 Dextrose IV CONT 115 mcg/min .Q7H15M KELECHI 34.5 mls/hr Titration Protocol 115 MCG/MIN Vancomycin HCl 1,250 mg in 250 mls @ 166.667 mls/hr 10/08/24 15:00 Vancomycin 1,250 Mg/Ns 250 Ml IVPB 10/08/24 16:29 ONCE ONE Albumin Human 100 mls @ 60 mls/hr 10/08/24 07:40 10/08/24 11:10 Albutein IVPB 10/09/24 07:39 60 mls/hr Q6HR KELECHI Administration Lactulose 20 gm 10/03/24 17:00 10/03/24 17:52 Lactulose 20 Gm/30 Ml Udc PO 20 gm BID KELECHI Administration Lactulose 20 gm 10/07/24 12:31 10/08/24 07:58 Lactulose 20 Gm/30 Ml Udc FEED TUBE 20 gm BID KELECHI Administration Melatonin 10 mg 10/06/24 10:08 10/06/24 21:25 Melatonin 5 Mg Tablet PO 10 mg HS PRN Administration Insomnia Multi-Ingred Cream/Lotion/Oil/Oint 1 applic 10/07/24 10:50 10/08/24 07:58 Mineral Oil/White Petrolatum Ointment EACH EYE 1 applic Q12HR KELECHI Administration Ondansetron HCl 4 mg 10/07/24 08:06 10/07/24 08:21 Ondansetron Inj 4 Mg/2 Ml Vial IV PUSH 4 mg Q4H PRN Administration Nausea And Vomiting Pantoprazole Sodium 40 mg 10/08/24 09:50 10/08/24 11:07 Pantoprazole Sodium Iv 40 Mg Vial IV PUSH 40 mg Q12HR KELECHI Administration Senna/Docusate Sodium 1 tab 10/08/24 10:20 10/08/24 11:08 Senna/Docusate Sodium Tablet PO 1 tab Q12HR KELECHI Administration Sodium Bicarbonate 650 mg 10/06/24 11:30 10/08/24 09:14 Sodium Bicarbonate Tab 650 Mg Tablet PO Not Given BID KELECHI Sodium Chloride 10 ml 10/03/24 06:00 10/08/24 06:32 Central Line Flush IV PUSH 10 ml Q8HR KELECHI Administration Sodium Chloride 20 ml 10/02/24 22:02 Central Line Flush IV PUSH PRN PRN after blood draws Thiamine HCl 100 mg 10/09/24 09:00 Thiamine Hcl 200 Mg/2 Ml Vial IV PUSH QAM KELECHI Vancomycin HCl 1 each 10/07/24 12:46 Vancomycin For Acute Kidney Injury IVPB PRN PRN Vancomycin Protocol Radiology Results: ITS Impressions Abdomen Ultrasound 10/02/24 17:06 IMPRESSION: Gross ascites. Liver cirrhosis. Highly suggestive gallbladder stones. Paracentesis Ultrasound 10/03/24 12:13 Impression: Successful ultrasound guided paracentesis. Venous Doppler Study 10/03/24 14:02 Impression: Bilateral acute deep venous thrombosis in right popliteal and posterior tibial veins and left common femoral, femoral popliteal and posterior tibial veins. Head CT 10/07/24 12:12 IMPRESSION: 1. Age-related changes the brain including mild diffuse volume loss and mild scattered white matter hypoattenuation consistent with chronic small vessel ischemic disease. No acute intracranial process. Chest/Abdomen/Pelvis CT 10/07/24 12:21 IMPRESSION: Redemonstration of moderate intra-abdominal ascites, which is of decreased attenuation consistent with simple fluid (not blood ). Interval enlargement of the main and proximal bilateral pulmonary arteries when compared with prior study. Without intravenous contrast, the presence of pulmonary emboli cannot be excluded. Interval development of bibasilar infiltrates, a left hilar infiltrate and moderate bilateral pulmonary vascular congestion. Chest X-Ray 10/08/24 06:36 Impression: Diffuse airspace consolidation is worsened from prior exam. Correlate for severe pulmonary edema, bilateral pneumonia, and/or ARDS. Small right pleural effusion. Support tubes, as above. Labs Labs: Laboratory Tests 10/08/24 05:10 10/08/24 05:10 Lactic Acid 7.7 H* Calcium 8.0 L Phosphorus 8.0 H Magnesium 1.9 Total Bilirubin 2.6 H AST 575 H ALT 146 H Alkaline Phosphatase 113 Ammonia 34 H Total Protein 6.0 L Albumin 4.4 Random Vancomycin 21.8 H Microbiology 10/03/24 11:31 Abdominal Fluid Anaerobic Culture - Preliminary 10/03/24 11:31 Abdominal Fluid Aerobic Culture - Final 10/02/24 14:22 Blood Blood Culture - Final 10/02/24 14:16 Blood Blood Culture - Final
[2024-10-08] MEDS: PANTOPRAZOLE SODIUM IV 40 MG VIAL IV PUSH ×2 (11:07→20:06)
[2024-10-08] MEDS: THIAMINE HCL 200 MG/2 ML VIAL 100 MG IV PUSH (11:08)
[2024-10-08] MEDS: SENNA/DOCUSATE SODIUM TABLET 1 TAB PO ×2 (11:08→20:06)
[2024-10-08] MEDS: FOLIC ACID 1 MG/0.2 ML INJ IV PUSH (11:08)
--- NOTE | 2024-10-08 11:13 | IVDEFINITY ---
Prior to administration of IV Definity the patient was educated on the risks and benefits of the imaging enhancing agent including potential adverse side effects. The patient verbalized understanding. Allergies were verified. No exclusion criteria were identified and at least one of the following inclusion criteria were met: 1) physician request, 2) patient technically difficult to image (per the [place] [employer] guidelines of two or more segments not discernable within the apical view), or 3) questionable left ventricular function. ?
[2024-10-08] MEDS: PHENYLEPHRINE HCL INJ 50 MG in DEXTROSE 5% IN WATER 250 ML/245 ML BAG 34.5 ML IV CONT (12:00)
[2024-10-08 12:47] LABS: Glucose Point of Care 162 mg/dl (65-105)
[2024-10-08 13:33] LABS: ANCA Screen NEGATIVE (NEGATIVE)
[2024-10-08] MEDS: MEROPENEM 500 MG/NS 100 ML 500 MG/100 ML BAG 200 MG IVPB (13:36)
[2024-10-08] MEDS: ROCURONIUM BROMIDE 50 MG/5 ML VIAL IV PUSH (13:38)
[2024-10-08 13:40] LABS: Partial Thromboplastin Time 191.6 Seconds (22.3-36.8)
[2024-10-08] MEDS: CISATRACURIUM BESYLATE 200 MG in SODIUM CHLORIDE 0.9% IV 80 ML 7.32 ML IV CONT (14:28)
[2024-10-08] MEDS: VANCOMYCIN 1,250 MG/NS 250 ML 1,250 MG/250 ML BAG 166.67 MG IVPB (15:33)
--- NOTE | 2024-10-08 17:56 | PM.IMPN ---
Progress Note: A&P Assessment and Plan (1) Acute respiratory failure: Code(s): J96.00 - Acute respiratory failure, unspecified whether with hypoxia or hypercapnia Status: Acute Assessment and Plan: 10/07: Acute respiratory failure likely related to bilateral diffuse pneumonia, ARDS, volume overload -10/07:CT scan of the chest abdomen and pelvis IMPRESSION: Redemonstration of moderate intra-abdominal ascites, which is of decreased attenuation consistent with simple fluid (not blood ). Interval enlargement of the main and proximal bilateral pulmonary arteries when compared with prior study. Without intravenous contrast, the presence of pulmonary emboli cannot be excluded. Interval development of bibasilar infiltrates, a left hilar infiltrate and moderate bilateral pulmonary vascular congestion. Continue Ventilation and sedation protocol per seaport planning manager (2) Septic shock: Code(s): A41.9 - Sepsis, unspecified organism; R65.21 - Severe sepsis with septic shock Status: Acute Assessment and Plan: Septic shock secondary to UTI. Patient may also have component of vaso dilatory shock secondary to cirrhosis 10/07: Patient went to severe septic shock likely related to ARDS physiology/pneumonia -remains on Levophed, vasopressin, N Isidro-Synephrine. Maintain MAP > 70 mmHg for adequate end organ perfusion -continue stress dose steroids Contineu Meropenem and Vanc Cultures negative so far (3) Acute renal failure: Code(s): N17.9 - Acute kidney failure, unspecified Status: Acute Assessment and Plan: Acute renal failure but with likely underlying chronic kidney disease. Likely multifactorial secondary to sepsis, shock, cirrhosis, patient also on ISH-inhibitor, questionable hepatorenal syndrome Appreciate nephrology following the patient Electrolytes are in acceptable range DC IV fluids, -will add albumin, -continue Levophed to maintain MAP > 80 mmHg per GI Avoid nephrotoxins Monitor urine output electrolytes and creatinine No indication for emergency dialysis but patient may need dialysis if does not improve Status post paracentesis to relieve abdominal compartment syndrome Hartley catheter for accurate I&Os -continue sodium bicarb tablet -patient may require CRRT, patient has been accepted to [facility] in awaiting a bed (4) Chronic alcohol use: Code(s): F10.90 - Alcohol use, unspecified, uncomplicated Status: Acute Assessment and Plan: Monitor for signs of withdrawal Continue Thiamine and folic acid, will switch to IV (5) Cirrhosis: Code(s): K74.60 - Unspecified cirrhosis of liver Status: Acute Assessment and Plan: Patient clearly has cirrhosis likely secondary to heavy alcohol intake over many years Hepatitis panel was negative CT and ultrasound as under Vitamin K for coagulopathy Ammonia levels within normal 10/03: Status post paracentesis with 5000 mL removal of serous colored fluid -GI consulted, discussed with Dr. Raymundo, this could be likely related to hepatorenal syndrome, agreed to starting octreotide and continue norepinephrine 10/05: Discussed with GI, continue norepinephrine and octreotide infusion, maintain MAP > 80 mmHg per GI 10/02: CT chest abdomen 1. Cirrhosis with large amount of ascites throughout the abdomen and pelvis. There is a reticulonodular appearance to the greater omentum which could be due to portal venous hypertension mesenteric edema although differential would include metastatic peritoneal implants. Consider diagnostic thoracentesis. 2. Atelectasis at the bilateral lower lungs, more prominent on the right secondary to prominent elevation the right hemidiaphragm. 3. Nonobstructing bilateral nephrolithiasis. 4. Diverticulosis. 5. Small sliding-type hiatal hernia. 6. Small fat and ascites containing right inguinal hernia. 10/02: Ultrasound abdomen IMPRESSION: Gross ascites. Liver cirrhosis. Highly suggestive gallbladder stones. (6) Ascites: Code(s): R18.8 - Other ascites Status: Acute Assessment and Plan: See above (7) UTI (urinary tract infection): Code(s): N39.0 - Urinary tract infection, site not specified Status: Acute Assessment and Plan: See above (8) Coagulopathy: Code(s): D68.9 - Coagulation defect, unspecified Status: Acute Assessment and Plan: Secondary to cirrhosis (9) Swelling of lower extremity: Code(s): M79.89 - Other specified soft tissue disorders Status: Acute Assessment and Plan: Likely secondary to cirrhosis and renal failure 10/03: Venous Dopplers: Bilateral acute deep venous thrombosis in right popliteal and posterior tibial veins and left common femoral, femoral popliteal and posterior tibial veins. 10/03: Started on heparin infusion -remains on heparin infusion (10) GERD (gastroesophageal reflux disease): Code(s): K21.9 - Gastro-esophageal reflux disease without esophagitis Status: Acute Assessment and Plan: Continue PPI (11) Non-ST elevation [place] (NSTEMI): Code(s): I21.4 - Non-ST elevation (NSTEMI) myocardial infarction Status: Acute Assessment and Plan: Mildly elevated troponin in light of acute kidney injury and septic shock Denies any chest pain Hold beta-юлия ISH-inhibitor due to shock Hold statin due to cirrhosis until workup is complete Hold aspirin due to coagulopathy and impending invasive procedure Appreciate cardiology following the patient, no further workup required per information systems architect 10/03: Echocardiogram Summary 1. Complete two-dimensional, color flow and Doppler transthoracic echocardiogram is performed. 2. Left ventricular chamber dimension is normal. 3. Left ventricular systolic function is hyperdynamic, estimated at >70%. 4. The left ventricular diastolic function is grade I diastolic dysfunction. 5. E/e' 3 is not elevated. 6. Left atrial chamber dimension is mildly enlarged. 7. There is mild aortic valve sclerosis. 8. The mitral valve has mildly calcified annulus. 9. There is mild tricuspid valve regurgitation. 10. Mild pulmonary hypertension, estimated pulmonary arterial systolic pressure is 49 mmHg. Plan DVT prophylaxis -heparin infusion Stress ulcer prophylaxis -PPI Nutrition -NPO for now Code Status - Full Code Subjective Date/time seen: 10/08/24 17:56 Interval history: Intubated and sedated Review of Systems Review of Systems: All systems reviewed & are unremarkable except as noted in HPI and below (HPI) ROS unobtainable: Yes unobtainable due to endotracheal tube, unobtainable due to medical condition and unobtainable due to mental status Exam Narrative: General: Intubated and sedated Lungs/Chest: Coarse breath sounds bilaterally, decreased at bases, bilateral rales, no wheezing. Cardiac: RRR. Normal S1 S2. No murmurs Circulation: Pedal pulses are diminished, cool extremities. Abdomen: Hypoactive bowel sounds, soft, nontender, abdomen is distended Extremities: Bilateral pitting edema present Neurologic: Intubated, sedated, does not open his eyes or follow simple commands, does not withdraw to pain Skin: Bruising noted on bilateral upper extremities Objective Data Vital Signs Vital Signs: Vital Signs - 24 hr 10/07/24 18:00 10/07/24 18:00 10/07/24 18:00 Temperature Pulse Rate 104 H 99 101 H Respiratory Rate 22 H Blood Pressure 103/77 99/78 L Pulse Oximetry 94 Oxygen Delivery Fraction of Inspired Oxygen 10/07/24 18:00 10/07/24 18:00 10/07/24 18:00 Temperature Pulse Rate 116 H 109 H 103 H Respiratory Rate 22 H 20 Blood Pressure 101/77 Pulse Oximetry Oxygen Delivery Fraction of Inspired Oxygen 10/07/24 18:03 10/07/24 18:17 10/07/24 18:32 Temperature Pulse Rate 99 117 H 97 Respiratory Rate 0 L 0 L 0 L Blood Pressure Pulse Oximetry 95 94 94 Oxygen Delivery Fraction of Inspired Oxygen 10/07/24 18:46 10/07/24 19:02 10/07/24 19:16 Temperature Pulse Rate 99 97 101 H Respiratory Rate 0 L 0 L 0 L Blood Pressure Pulse Oximetry 94 93 93 Oxygen Delivery Fraction of Inspired Oxygen 10/07/24 19:32 10/07/24 19:46 10/07/24 20:00 Temperature Pulse Rate 118 H 104 H 107 H Respiratory Rate 0 L 0 L 22 H Blood Pressure 99/79 L Pulse Oximetry 93 93 93 Oxygen Delivery Fraction of Inspired Oxygen 10/07/24 20:00 10/07/24 20:00 10/07/24 20:00 Temperature Pulse Rate 107 H 107 H Respiratory Rate 22 H Blood Pressure 99/79 L Pulse Oximetry Oxygen Delivery Fraction of Inspired Oxygen 100 10/07/24 20:00 10/07/24 20:00 10/07/24 20:00 Temperature Pulse Rate 107 H 107 H 107 H Respiratory Rate 22 H Blood Pressure 99/79 L Pulse Oximetry Oxygen Delivery Fraction of Inspired Oxygen 10/07/24 20:02 10/07/24 20:18 10/07/24 20:30 Temperature Pulse Rate 108 H 118 H 104 H Respiratory Rate 0 L 24 H 22 H Blood Pressure Pulse Oximetry 92 Oxygen Delivery Fraction of Inspired Oxygen 10/07/24 20:32 10/07/24 20:38 10/07/24 20:45 Temperature Pulse Rate 107 H 115 H 115 H Respiratory Rate 22 H 22 H Blood Pressure Pulse Oximetry 87 L 93 93 Oxygen Delivery Mechanical Ventilation Mechanical Ventilation Fraction of Inspired Oxygen 100 100 10/07/24 20:46 10/07/24 21:02 10/07/24 21:16 Temperature Pulse Rate 105 H 99 112 H Respiratory Rate 22 H 22 H 22 H Blood Pressure Pulse Oximetry Oxygen Delivery Fraction of Inspired Oxygen 10/07/24 21:32 10/07/24 21:34 10/07/24 21:35 Temperature Pulse Rate 110 H 99 118 H Respiratory Rate 22 H Blood Pressure 93/75 L 93/75 L Pulse Oximetry Oxygen Delivery Fraction of Inspired Oxygen 10/07/24 21:47 10/07/24 22:00 10/07/24 22:00 Temperature Pulse Rate 97 105 H 105 H Respiratory Rate 22 H 22 H Blood Pressure 101/77 Pulse Oximetry Oxygen Delivery Fraction of Inspired Oxygen 10/07/24 22:00 10/07/24 22:00 10/07/24 22:00 Temperature Pulse Rate 104 H 105 H 107 H Respiratory Rate 22 H Blood Pressure 101/77 Pulse Oximetry Oxygen Delivery Fraction of Inspired Oxygen 10/07/24 22:00 10/07/24 22:02 10/07/24 22:16 Temperature Pulse Rate 107 H 105 H 98 Respiratory Rate 22 H 22 H 22 H Blood Pressure 101/77 Pulse Oximetry 95 Oxygen Delivery Fraction of Inspired Oxygen 10/07/24 22:31 10/07/24 22:46 10/07/24 22:55 Temperature Pulse Rate 103 H 116 H 108 H Respiratory Rate 5 L 16 Blood Pressure Pulse Oximetry 94 Oxygen Delivery Mechanical Ventilation Fraction of Inspired Oxygen 100 10/07/24 23:00 10/07/24 23:00 10/07/24 23:02 Temperature 92.0 F L 92.0 F L Pulse Rate 105 H 120 H Respiratory Rate 22 H 9 L Blood Pressure Pulse Oximetry Oxygen Delivery Fraction of Inspired Oxygen 10/07/24 23:19 10/07/24 23:30 10/07/24 23:35 Temperature 92.3 F L 92.9 F L 92.5 F L Pulse Rate 115 H 107 H Respiratory Rate 11 L Blood Pressure Pulse Oximetry 90 89 L Oxygen Delivery Fraction of Inspired Oxygen 10/07/24 23:47 10/08/24 00:00 10/08/24 00:00 Temperature 92.6 F L Pulse Rate 108 H 118 H 118 H Respiratory Rate 16 22 H Blood Pressure 97/78 L Pulse Oximetry Oxygen Delivery Fraction of Inspired Oxygen 10/08/24 00:00 10/08/24 00:00 10/08/24 00:00 Temperature 93 F L Pulse Rate 118 H 116 H Respiratory Rate 22 H Blood Pressure 97/78 L 97/78 L Pulse Oximetry 96 Oxygen Delivery Fraction of Inspired Oxygen 100 10/08/24 00:00 10/08/24 00:00 10/08/24 00:00 Temperature 93.1 F L Pulse Rate 116 H 108 H Respiratory Rate 22 H 22 H Blood Pressure Pulse Oximetry 96 Oxygen Delivery Mechanical Ventilation Fraction of Inspired Oxygen 100 10/08/24 00:00 10/08/24 00:30 10/08/24 01:00 Temperature 93.5 F L 93.8 F L Pulse Rate 108 H Respiratory Rate Blood Pressure Pulse Oximetry Oxygen Delivery Fraction of Inspired Oxygen 10/08/24 01:13 10/08/24 01:20 10/08/24 01:30 Temperature 94.0 F L 94.1 F L 94.6 F L Pulse Rate 129 H 117 H Respiratory Rate 20 22 H Blood Pressure Pulse Oximetry Oxygen Delivery Fraction of Inspired Oxygen 10/08/24 01:49 10/08/24 02:00 10/08/24 02:00 Temperature 94.7 F L Pulse Rate 126 H 129 H 129 H Respiratory Rate 23 H 22 H Blood Pressure 98/77 L Pulse Oximetry Oxygen Delivery Fraction of Inspired Oxygen 10/08/24 02:00 10/08/24 02:00 10/08/24 02:00 Temperature 95.2 F L Pulse Rate 129 H 129 H Respiratory Rate 22 H Blood Pressure 98/77 L Pulse Oximetry Oxygen Delivery Fraction of Inspired Oxygen 10/08/24 02:00 10/08/24 02:00 10/08/24 02:03 Temperature 95.2 F L 94.9 F L Pulse Rate 129 H 136 H 126 H Respiratory Rate 22 H 18 Blood Pressure 103/80 Pulse Oximetry 97 Oxygen Delivery Fraction of Inspired Oxygen 10/08/24 02:06 10/08/24 02:06 10/08/24 02:10 Temperature Pulse Rate 136 H 136 H 116 H Respiratory Rate Blood Pressure 98/77 L 98/77 L 98/77 L Pulse Oximetry Oxygen Delivery Fraction of Inspired Oxygen 10/08/24 02:11 10/08/24 02:16 10/08/24 02:17 Temperature 95.1 F L Pulse Rate 116 H 118 H 87 Respiratory Rate 21 H Blood Pressure 98/77 L 103/80 Pulse Oximetry Oxygen Delivery Fraction of Inspired Oxygen 10/08/24 02:22 10/08/24 02:30 10/08/24 02:30 Temperature 95.5 F L Pulse Rate 115 H 128 H Respiratory Rate 24 H Blood Pressure Pulse Oximetry 97 Oxygen Delivery Mechanical Ventilation Fraction of Inspired Oxygen 100 10/08/24 02:30 10/08/24 02:50 10/08/24 03:00 Temperature 95.3 F L 95.6 F L 96 F L Pulse Rate 85 87 Respiratory Rate 18 22 H Blood Pressure Pulse Oximetry Oxygen Delivery Fraction of Inspired Oxygen 10/08/24 03:05 10/08/24 03:10 10/08/24 03:22 Temperature 95.8 F L 96 F L Pulse Rate 86 86 90 Respiratory Rate 24 H 22 H 22 H Blood Pressure 83/68 L Pulse Oximetry 88 L Oxygen Delivery Fraction of Inspired Oxygen 10/08/24 03:29 10/08/24 03:30 10/08/24 03:30 Temperature 96.1 F L 96.1 F L Pulse Rate 85 86 Respiratory Rate 22 H Blood Pressure 75/59 L 75/59 L Pulse Oximetry 98 Oxygen Delivery Fraction of Inspired Oxygen 10/08/24 03:37 10/08/24 03:45 10/08/24 03:50 Temperature 96.1 F L 96.2 F L Pulse Rate 81 86 93 Respiratory Rate 22 H 22 H 22 H Blood Pressure 89/70 L 96/66 L Pulse Oximetry 95 100 97 Oxygen Delivery Mechanical Ventilation Fraction of Inspired Oxygen 100 10/08/24 03:54 10/08/24 03:59 10/08/24 04:00 Temperature 96.4 F L 96.4 F L Pulse Rate 92 Respiratory Rate 17 Blood Pressure Pulse Oximetry Oxygen Delivery Fraction of Inspired Oxygen 100 10/08/24 04:00 10/08/24 04:00 10/08/24 04:00 Temperature 96.4 F L Pulse Rate 89 90 90 Respiratory Rate 22 H 22 H Blood Pressure 91/71 L 91/71 L Pulse Oximetry 99 Oxygen Delivery Fraction of Inspired Oxygen 10/08/24 04:00 10/08/24 04:00 10/08/24 04:00 Temperature Pulse Rate 88 89 88 Respiratory Rate 22 H Blood Pressure 91/71 L 91/71 L Pulse Oximetry Oxygen Delivery Fraction of Inspired Oxygen 10/08/24 04:00 10/08/24 04:00 10/08/24 04:30 Temperature 96.7 F L Pulse Rate 88 88 Respiratory Rate Blood Pressure 91/71 L Pulse Oximetry Oxygen Delivery Fraction of Inspired Oxygen 10/08/24 05:00 10/08/24 05:00 10/08/24 05:04 Temperature 97 F L 97 F L Pulse Rate 85 87 Respiratory Rate 22 H Blood Pressure 88/66 L 88/66 L Pulse Oximetry 96 Oxygen Delivery Fraction of Inspired Oxygen 10/08/24 05:13 10/08/24 05:30 10/08/24 05:30 Temperature 97.2 F L Pulse Rate 128 H 83 Respiratory Rate Blood Pressure 89/67 L Pulse Oximetry 97 Oxygen Delivery Mechanical Ventilation Fraction of Inspired Oxygen 100 10/08/24 05:30 10/08/24 05:37 10/08/24 05:45 Temperature 97.3 F L 97.3 F L Pulse Rate 85 86 86 Respiratory Rate 22 H 22 H 22 H Blood Pressure 89/67 L 89/69 L Pulse Oximetry 88 L 85 L Oxygen Delivery Fraction of Inspired Oxygen 10/08/24 05:45 10/08/24 05:46 10/08/24 05:59 Temperature 97.5 F L 97.5 F L Pulse Rate 87 87 Respiratory Rate 22 H Blood Pressure 89/69 L 89/69 L Pulse Oximetry 91 Oxygen Delivery Fraction of Inspired Oxygen 10/08/24 06:00 10/08/24 06:00 10/08/24 06:00 Temperature 97.5 F L Pulse Rate 86 86 91 Respiratory Rate 22 H Blood Pressure 93/67 L 92/65 L Pulse Oximetry 84 L Oxygen Delivery Fraction of Inspired Oxygen 10/08/24 06:00 10/08/24 06:00 10/08/24 06:00 Temperature Pulse Rate 87 85 89 Respiratory Rate 22 H 22 H Blood Pressure 92/65 L Pulse Oximetry Oxygen Delivery Fraction of Inspired Oxygen 10/08/24 06:00 10/08/24 06:00 10/08/24 06:38 Temperature Pulse Rate 89 89 89 Respiratory Rate Blood Pressure 92/75 L 92/65 L 92/67 L Pulse Oximetry Oxygen Delivery Fraction of Inspired Oxygen 10/08/24 06:39 10/08/24 07:55 10/08/24 07:56 Temperature Pulse Rate 88 88 88 Respiratory Rate Blood Pressure 92/67 L 93/72 L Pulse Oximetry 96 Oxygen Delivery Mechanical Ventilation Fraction of Inspired Oxygen 90 10/08/24 08:00 10/08/24 08:00 10/08/24 08:00 Temperature Pulse Rate 89 80 Respiratory Rate 22 H Blood Pressure Pulse Oximetry 92 Oxygen Delivery Mechanical Ventilation Fraction of Inspired Oxygen 90 90 10/08/24 08:00 10/08/24 08:00 10/08/24 08:00 Temperature 97.7 F Pulse Rate 91 90 92 Respiratory Rate 22 H 21 H Blood Pressure 98/70 L Pulse Oximetry 92 Oxygen Delivery Fraction of Inspired Oxygen 10/08/24 08:00 10/08/24 08:00 10/08/24 08:49 Temperature Pulse Rate 91 90 92 Respiratory Rate 19 Blood Pressure 96/68 L 96/68 L Pulse Oximetry Oxygen Delivery Fraction of Inspired Oxygen 10/08/24 10:00 10/08/24 10:00 10/08/24 10:00 Temperature 97.7 F Pulse Rate 100 95 91 Respiratory Rate 22 H Blood Pressure 96/71 L Pulse Oximetry 92 Oxygen Delivery Fraction of Inspired Oxygen 10/08/24 10:00 10/08/24 10:00 10/08/24 10:00 Temperature Pulse Rate 93 93 87 Respiratory Rate 22 H 22 H Blood Pressure 96/72 L Pulse Oximetry Oxygen Delivery Fraction of Inspired Oxygen 10/08/24 10:00 10/08/24 10:00 10/08/24 10:27 Temperature Pulse Rate 96 94 92 Respiratory Rate Blood Pressure 96/72 L 96/72 L Pulse Oximetry 92 Oxygen Delivery Mechanical Ventilation Fraction of Inspired Oxygen 90 10/08/24 11:10 10/08/24 11:10 10/08/24 12:00 Temperature Pulse Rate 92 92 99 Respiratory Rate Blood Pressure 96/71 L 96/71 L 92/70 L Pulse Oximetry Oxygen Delivery Fraction of Inspired Oxygen 10/08/24 12:00 10/08/24 12:00 10/08/24 12:00 Temperature Pulse Rate 99 89 89 Respiratory Rate 22 H Blood Pressure 92/70 L Pulse Oximetry Oxygen Delivery Fraction of Inspired Oxygen 10/08/24 12:00 10/08/24 12:00 10/08/24 12:00 Temperature Pulse Rate 89 86 102 H Respiratory Rate 24 H Blood Pressure 95/70 L 95/70 L Pulse Oximetry Oxygen Delivery Fraction of Inspired Oxygen 10/08/24 12:00 10/08/24 12:00 10/08/24 12:00 Temperature Pulse Rate 99 Respiratory Rate 22 H Blood Pressure Pulse Oximetry 91 Oxygen Delivery Fraction of Inspired Oxygen 80 10/08/24 14:00 10/08/24 14:00 10/08/24 14:00 Temperature Pulse Rate 85 99 88 Respiratory Rate 26 H 32 H Blood Pressure Pulse Oximetry Oxygen Delivery Fraction of Inspired Oxygen 10/08/24 14:00 10/08/24 14:00 10/08/24 14:00 Temperature Pulse Rate 94 102 H 102 H Respiratory Rate Blood Pressure 96/73 L 96/73 L 96/73 L Pulse Oximetry Oxygen Delivery Fraction of Inspired Oxygen 10/08/24 14:00 10/08/24 14:00 10/08/24 14:10 Temperature Pulse Rate 89 101 H Respiratory Rate 24 H Blood Pressure Pulse Oximetry 89 L 91 Oxygen Delivery Mechanical Ventilation Fraction of Inspired Oxygen 90 10/08/24 14:28 10/08/24 15:33 10/08/24 15:33 Temperature Pulse Rate 101 H 95 95 Respiratory Rate 24 H Blood Pressure 99/70 L 100/70 100/70 Pulse Oximetry Oxygen Delivery Fraction of Inspired Oxygen 10/08/24 16:00 10/08/24 16:00 10/08/24 16:00 Temperature Pulse Rate 96 98 98 Respiratory Rate 22 H 24 H Blood Pressure 97/71 L Pulse Oximetry Oxygen Delivery Fraction of Inspired Oxygen 10/08/24 16:00 10/08/24 16:00 10/08/24 16:00 Temperature Pulse Rate 96 89 82 Respiratory Rate 22 H Blood Pressure 99/73 L 99/73 L Pulse Oximetry Oxygen Delivery Fraction of Inspired Oxygen 10/08/24 16:00 10/08/24 16:00 10/08/24 16:00 Temperature Pulse Rate 82 89 Respiratory Rate Blood Pressure 99/73 L Pulse Oximetry Oxygen Delivery Fraction of Inspired Oxygen 90 10/08/24 16:00 10/08/24 17:05 10/08/24 17:07 Temperature Pulse Rate 99 101 H Respiratory Rate 24 H 24 H Blood Pressure 95/71 L Pulse Oximetry 90 90 Oxygen Delivery Mechanical Ventilation Fraction of Inspired Oxygen 90 Intake/Output Intake/Output: Intake & Output 10/05/24 10/06/24 10/07/24 10/08/24 23:59 23:59 23:59 23:59 Intake Total 2591.4 2362.6 1869.0 2531.2 Output Total 50 220 150 0 Balance 2541.4 2142.6 1719.0 2531.2 Meds/Results Medications: Active Medications Generic Name Dose Route Start Last Admin Trade Name Freq PRN Reason Stop Dose Admin Acetaminophen 650 mg 10/03/24 03:27 Acetaminophen 325 Mg Tablet PO Q4H PRN Mild Pain (1-3) or Fever Folic Acid 1 mg 10/09/24 09:00 Folic Acid 1 Mg/0.2 Ml Inj IV PUSH QAM KELECHI Heparin Sodium (Porcine) 6,500 units 10/03/24 17:20 Heparin Sodium 5,000 Units/Ml Vial IV PUSH PRN PRN aPTT less than 55 seconds Heparin Sodium (Porcine) 3,000 units 10/03/24 17:20 10/08/24 06:28 Heparin Sodium 5,000 Units/Ml Vial IV PUSH 3,000 units PRN PRN Administration aPTT 55 - 70 seconds Hydrocortisone Sodium Succinate 100 mg 10/03/24 09:00 10/08/24 07:58 Hydrocortisone Sodium Succinate 100 Mg/2 Ml Vial IV PUSH 100 mg Q8H KELECHI Administration Norepinephrine Bitartrate 8 mg in 250 mls @ 56.25 mls/hr 10/02/24 19:40 10/08/24 16:00 Levophed 8 Mg/D5w 250 Ml IV CONT 30 mcg/min .Q4H27M KELECHI 56.25 mls/hr Titration Protocol 30 MCG/MIN Heparin Sodium/Dextrose 25,000 units in 250 mls @ 2 mls/hr 10/03/24 17:20 10/08/24 16:00 Heparin Sodium/D5w 100 Units/Ml IV CONT 200 units/hr .Q24H KELECHI 2 mls/hr Titration Protocol 200 UNITS/HR Fentanyl Citrate 2,500 mcg in 250 mls @ 2.5 mls/hr 10/07/24 10:55 10/08/24 16:00 Fentanyl 2,500 Mcg/Ns 250 Ml IV CONT 50 mcg/hr .Q72H KELECHI 5 mls/hr Titration Protocol 25 MCG/HR Midazolam HCl 100 mg in 100 mls @ 2 mls/hr 10/07/24 10:55 10/08/24 16:00 Versed 100 Mg/Ns 100 Ml IV CONT 2 mg/hr .Q50H KELECHI 2 mls/hr Titration Protocol 2 MG/HR Meropenem 500 mg in 100 mls @ 200 mls/hr 10/07/24 13:00 10/08/24 14:06 IVPB Infused Q24H KELECHI Infusion Vasopressin 100 units/ 100 mls @ 2.4 mls/hr 10/07/24 15:55 10/08/24 16:00 Dextrose IV CONT 0.04 units/min .[id number] KELECHI 2.4 mls/hr Titration Protocol 0.04 UNITS/MIN Phenylephrine HCl 50 mg/ 250 ml in 250 mls @ 34.5 mls/hr 10/08/24 03:20 10/08/24 16:00 Dextrose IV CONT 115 mcg/min .Q7H15M KELECHI 34.5 mls/hr Titration Protocol 115 MCG/MIN Albumin Human 100 mls @ 60 mls/hr 10/08/24 07:40 10/08/24 12:51 Albutein IVPB 10/09/24 07:39 Infused Q6HR KELECHI Infusion Cisatracurium Besylate 200 mg/ 100 mls @ 6.098 mls/hr 10/08/24 14:30 10/08/24 17:05 Sodium Chloride IV CONT 2.5 mcg/kg/min .[id number] KELECHI 6.1 mls/hr Titration Protocol 2.5 MCG/KG/MIN Lactulose 20 gm 10/03/24 17:00 10/03/24 17:52 Lactulose 20 Gm/30 Ml Udc PO 20 gm BID KELECHI Administration Lactulose 20 gm 10/07/24 12:31 10/08/24 07:58 Lactulose 20 Gm/30 Ml Udc FEED TUBE 20 gm BID KELECHI Administration Melatonin 10 mg 10/06/24 10:08 10/06/24 21:25 Melatonin 5 Mg Tablet PO 10 mg HS PRN Administration Insomnia Multi-Ingred Cream/Lotion/Oil/Oint 1 applic 10/07/24 10:50 10/08/24 07:58 Mineral Oil/White Petrolatum Ointment EACH EYE 1 applic Q12HR KELECHI Administration Ondansetron HCl 4 mg 10/07/24 08:06 10/07/24 08:21 Ondansetron Inj 4 Mg/2 Ml Vial IV PUSH 4 mg Q4H PRN Administration Nausea And Vomiting Pantoprazole Sodium 40 mg 10/08/24 09:50 10/08/24 11:07 Pantoprazole Sodium Iv 40 Mg Vial IV PUSH 40 mg Q12HR KELECHI Administration Senna/Docusate Sodium 1 tab 10/08/24 10:20 10/08/24 11:08 Senna/Docusate Sodium Tablet PO 1 tab Q12HR KELECHI Administration Sodium Bicarbonate 650 mg 10/06/24 11:30 10/08/24 09:14 Sodium Bicarbonate Tab 650 Mg Tablet PO Not Given BID KELECHI Sodium Chloride 10 ml 10/03/24 06:00 10/08/24 14:19 Central Line Flush IV PUSH 10 ml Q8HR KELECHI Administration Sodium Chloride 20 ml 10/02/24 22:02 Central Line Flush IV PUSH PRN PRN after blood draws Thiamine HCl 100 mg 10/09/24 09:00 Thiamine Hcl 200 Mg/2 Ml Vial IV PUSH QAM [facility] Vancomycin HCl 1 each 10/07/24 12:46 Vancomycin For Acute Kidney Injury IVPB PRN PRN Vancomycin Protocol Radiology Results: ITS Impressions Abdomen Ultrasound 10/02/24 17:06 IMPRESSION: Gross ascites. Liver cirrhosis. Highly suggestive gallbladder stones. Paracentesis Ultrasound 10/03/24 12:13 Impression: Successful ultrasound guided paracentesis. Venous Doppler Study 10/03/24 14:02 Impression: Bilateral acute deep venous thrombosis in right popliteal and posterior tibial veins and left common femoral, femoral popliteal and posterior tibial veins. Head CT 10/07/24 12:12 IMPRESSION: 1. Age-related changes the brain including mild diffuse volume loss and mild scattered white matter hypoattenuation consistent with chronic small vessel ischemic disease. No acute intracranial process. Chest/Abdomen/Pelvis CT 10/07/24 12:21 IMPRESSION: Redemonstration of moderate intra-abdominal ascites, which is of decreased attenuation consistent with simple fluid (not blood ). Interval enlargement of the main and proximal bilateral pulmonary arteries when compared with prior study. Without intravenous contrast, the presence of pulmonary emboli cannot be excluded. Interval development of bibasilar infiltrates, a left hilar infiltrate and moderate bilateral pulmonary vascular congestion. Chest X-Ray 10/08/24 06:36 Impression: Diffuse airspace consolidation is worsened from prior exam. Correlate for severe pulmonary edema, bilateral pneumonia, and/or ARDS. Small right pleural effusion. Support tubes, as above. Labs Labs: Laboratory Results - last 24 hr 10/03/24 10/04/24 10/07/24 18:53 05:18 22:08 WBC RBC Hgb Hct MCV MCH MCHC RDW Plt Count MPV Immature Gran % (Auto) Neut % (Auto) Lymph % (Auto) [place] % (Auto) Eos % (Auto) Baso % (Auto) Lymph # (Auto) [place] # (Auto) Eos # (Auto) Baso # (Auto) Abs Immat Gran (auto) Absolute Neuts (auto) Absolute Nucleated RBC Band Neutrophils % Nucleated RBC % Platelet Estimate % Immature Plt Fraction Hypochromasia Anisocytosis Target Cells Schistocytes APTT 112.7 H Puncture Site ABG pH ABG pCO2 ABG pO2 ABG PO2/FiO2 Ratio ABG HCO3 ABG O2 Saturation ABG O2 Content ABG Base Excess A-a Gradient Oxyhemoglobin Carboxyhemoglobin Methemoglobin Reduced Hemoglobin Total Hemoglobin O2 Delivery Device O2 Liters/Min Minute Volume Vent Rate Vent Mode FiO2 Tidal Volume PEEP Peak Inspir Pressure Pressure Support Sodium Potassium Chloride Carbon Dioxide Anion Gap BUN Creatinine Estim Creat Clear Calc Estimated GFR Glucose POC Capillary Glucose Lactic Acid Calcium Phosphorus Magnesium Total Bilirubin AST ALT Alkaline Phosphatase Ammonia Total Protein Albumin 3.5 L Bbvct-7-Mfprylgzg 0.4 H Lxejj-1-Jprdxniki 0.4 L Zemk-6-Ubxcwxoq 0.2 L Stwr-1-Uzhrmacn 0.6 H Gamma Globulins 0.9 PEP Interpretation See note Random Vancomycin Urine Immunofixation BAHMAN Screen Negative ANCA Screen Negative Glomerular Base Memb Ab <1.0 10/07/24 10/08/24 10/08/24 23:59 05:07 05:10 WBC 23.9 H RBC 2.36 L Hgb 8.0 L Hct 24.3 L MCV 103.0 H D MCH 33.9 MCHC 32.9 RDW 16.9 H Plt Count 104 L MPV 11.5 H Immature Gran % (Auto) 1.0 H Neut % (Auto) 91.6 H Lymph % (Auto) 3.8 L [place] % (Auto) 3.5 Eos % (Auto) 0.0 Baso % (Auto) 0.1 L Lymph # (Auto) 0.91 [place] # (Auto) 0.8 H Eos # (Auto) 0.0 Baso # (Auto) 0.0 Abs Immat Gran (auto) 0.23 H Absolute Neuts (auto) 21.9 H Absolute Nucleated RBC 0.040 H Band Neutrophils % Not Reportable Nucleated RBC % 0.2 Platelet Estimate Decreased % Immature Plt Fraction 12.4 H Hypochromasia 1+ Anisocytosis 1+ Target Cells 1+ Schistocytes None seen APTT 56.9 H Puncture Site Right radial ABG pH 7.283 L* ABG pCO2 40.8 ABG pO2 93.0 ABG PO2/FiO2 Ratio 0.93 ABG HCO3 18.9 L ABG O2 Saturation 96.3 ABG O2 Content 12.4 L ABG Base Excess -7.3 A-a Gradient 579.2 Oxyhemoglobin 95.4 Carboxyhemoglobin 0.3 Methemoglobin 0.1 Reduced Hemoglobin 4.2 Total Hemoglobin 9.1 L O2 Delivery Device Ventilator O2 Liters/Min Not Reportable Minute Volume Not Reportable Vent Rate 22 Vent Mode Cmv FiO2 100 Tidal Volume 450 PEEP 10 Peak Inspir Pressure Not Reportable Pressure Support Not Reportable Sodium 129 L Potassium 3.7 Chloride 85 L Carbon Dioxide 19 L Anion Gap 25 H BUN 75 H Creatinine 8.48 H Estim Creat Clear Calc 8 Estimated GFR 6 L Glucose 169 H POC Capillary Glucose 209 H Lactic Acid 7.7 H* Calcium 8.0 L Phosphorus 8.0 H Magnesium 1.9 Total Bilirubin 2.6 H AST 575 H ALT 146 H Alkaline Phosphatase 113 Ammonia 34 H Total Protein 6.0 L Albumin 4.4 Yifxz-3-Tohzibmyi Ennee-9-Esyzmhwhr Mazx-7-Cmhuweiv Gqux-8-Usuymbzv Gamma Globulins PEP Interpretation Random Vancomycin 21.8 H Urine Immunofixation BAHMAN Screen ANCA Screen Glomerular Base Memb Ab 10/08/24 10/08/24 10/08/24 08:18 12:34 12:44 WBC RBC Hgb Hct MCV MCH MCHC RDW Plt Count MPV Immature Gran % (Auto) Neut % (Auto) Lymph % (Auto) [place] % (Auto) Eos % (Auto) Baso % (Auto) Lymph # (Auto) [place] # (Auto) Eos # (Auto) Baso # (Auto) Abs Immat Gran (auto) Absolute Neuts (auto) Absolute Nucleated RBC Band Neutrophils % Nucleated RBC % Platelet Estimate % Immature Plt Fraction Hypochromasia Anisocytosis Target Cells Schistocytes APTT 191.6 H* Puncture Site ABG pH ABG pCO2 ABG pO2 ABG PO2/FiO2 Ratio ABG HCO3 ABG O2 Saturation ABG O2 Content ABG Base Excess A-a Gradient Oxyhemoglobin Carboxyhemoglobin Methemoglobin Reduced Hemoglobin Total Hemoglobin O2 Delivery Device O2 Liters/Min Minute Volume Vent Rate Vent Mode FiO2 Tidal Volume PEEP Peak Inspir Pressure Pressure Support Sodium Potassium Chloride Carbon Dioxide Anion Gap BUN Creatinine Estim Creat Clear Calc Estimated GFR Glucose POC Capillary Glucose 162 H Lactic Acid 8.4 H* Calcium Phosphorus Magnesium Total Bilirubin AST ALT Alkaline Phosphatase Ammonia Total Protein Albumin [place]-9-Vijkgirge Ufwuq-5-Avxyehjup Qmxf-7-Ipgmnsis Gaxg-0-Clytykkf Gamma Globulins PEP Interpretation Random Vancomycin Urine Immunofixation BAHMAN Screen ANCA Screen Glomerular Base Memb Ab Quality VTE Prophylaxis VTE prophylaxis: mechanical ordered
[2024-10-08] MEDS: FENTANYL 2,500MCG/NS250ML(*CRX 2,500 MCG/250 ML BAG IV CONT (18:01)
[2024-10-08] MEDS: SODIUM BICARBONATE TAB 650 MG TABLET PO (18:02)
[2024-10-08 18:21] LABS: Glucose Point of Care 174 mg/dl (65-105)
[2024-10-08] MEDS: PHENYLEPHRINE HCL INJ 50 MG in DEXTROSE 5% IN WATER 250 ML/245 ML BAG 42 ML IV CONT (18:58)
[2024-10-08] MEDS: EPINEPHrine INJ 4 MG in DEXTROSE 5% IN WATER 250 ML 3.81 MG IV CONT (20:34)
--- NOTE | 2024-10-08 20:44 | PC.NURSE ---
[facility] reference # [id number]
[2024-10-08 20:48] LABS: Immunofixation, Serum Normal pattern.
--- NOTE | 2024-10-08 22:32 | PC.NURSE ---
Nimbex drip paused per MD order due to comfort care measures being ordered. Patient remains unarousable at this time. Will continue to monitor.
[2024-10-09] VITALS: BP 90/67; PULSE 101; PULSE 102; PULSE 103; RESP 24; TEMP 36.1; O2SAT 94
[2024-10-09 00:02] VITALS: BP 90/67; PULSE 102
[2024-10-09] MEDS: PHENYLEPHRINE HCL INJ 50 MG in DEXTROSE 5% IN WATER 250 ML/245 ML BAG 54 ML IV CONT (00:02)
[2024-10-09 00:13] VITALS: BP 90/67; PULSE 94
[2024-10-09] MEDS: NOREPINEPHRINE 8 MG/D5W 250 ML 8 MG/250 ML BAG 56.25 MG IV CONT (00:13)
[2024-10-09 00:50] VITALS: BP 88/65; PULSE 88; PULSE 90; PULSE 92; RESP 0
[2024-10-09] MEDS: MORPHINE SULFATE INJ (*CRX) 10 MG/ML AMP 5 MG IV PUSH (00:51)
[2024-10-09] MEDS: LORazepam INJ (*CRX) 2 MG/ML VIAL IV PUSH (00:51)
[2024-10-09 01:04] VITALS: PULSE 0
--- NOTE | 2024-10-09 01:07 | PC.NURSE ---
Patient extubated at 0050 and all medications discontinued. Patient passed at 0104. Second RN Adele damianing.
--- NOTE | 2024-10-09 14:32 | P.DN_ITS ---
Discharge Summary Date and Time Date of : 10/09/24 Time of : 01:04 Provider Pronounced By: 2 RNs Name of First RN That Pronounced: Khadar Kong RN Name of Second RN That Pronounced: Adele Gonzalez RN Probable Cause of Probable Cause of : Acute hypoxemic respiratory failure Sepstic shock Acute renal failure Summary Hospital Course: 74 yo male with PMH of HTN, GERD, alcohol abuse who presented to the ER on account of Abd distension and fatigue and was managed in the ICU for Acute hypoxemic respiratory failure and Septic shock from Pneumonia with possible ARDS . Was intubated, placed on 3 pressors and Meropenem and Vanc. He was also managed for decompensated liver cirrhosis with ascites and acute renal failure suspected to be from hepatorenal syndrome. Nephrology and GI were involved and plan was to transfer to higher level of care for CRRT. Also managed for bilateral DVT with heparin infusion. Cardiology was involved for Elevated troponin which was noted to be demand from shock adn renal failure. While awaiting transfer yesterday, family arrived last night and decided to transition to comfort care. Patient was extubated at 0100 for comfort care and he passed and was pronounced at 0104. family were informed Additional Data Confirmation of as documented by pronouncing clinician: Pupillary Reflex, Palpable Pulses, Response to Stimuli, Heart Tones and Breath Sounds Name of Provider Notified: Dr. Rogers Time Provider Notified: 01:10 Provider Requests Autopsy: No Family Requests Autopsy: No Car Sales Representative Notified: Yes Date [facility] Notified of : 10/09/24 Time [facility] Notified of : 01:22
[2024-10-10 20:24] LABS: Amylase Peritoneal Fluid 23 U/L
== END 2024-10-09 01:04 | disposition expired | DRG 871 ==
LOC: ANHED 13:57 → ANHICU 22:27
PROVIDERS: Internal Medicine; Internal Medicine Nephrology; Admitting Provider Internal Medicine; Emergency Provider Student in an Organized Health Care Education/Training Program; Visit Provider Internal Medicine
DX: A41.9 Sepsis, unspecified organism (principal); J96.01 Acute respiratory failure with hypoxia; K76.7 Hepatorenal syndrome; R65.21 Severe sepsis with septic shock; N39.0 Urinary tract infection, site not specified; I24.89 Other forms of acute ischemic heart disease; N17.9 Acute kidney failure, unspecified; E87.1 Hypo-osmolality and hyponatremia; E87.20 Acidosis, unspecified; D68.9 Coagulation defect, unspecified; I82.431 Acute embolism and thrombosis of right popliteal vein; I82.443 Acute embolism and thrombosis of tibial vein, bilateral; I82.412 Acute embolism and thrombosis of left femoral vein; I13.0 Hypertensive heart and chronic kidney disease with heart failure and stage 1 through stage 4 chronic kidney disease, or unspecified chronic kidney disease; K70.31 Alcoholic cirrhosis of liver with ascites; N18.9 Chronic kidney disease, unspecified; I50.9 Heart failure, unspecified; E87.6 Hypokalemia; E88.09 Other disorders of plasma-protein metabolism, not elsewhere classified; K21.9 Gastro-esophageal reflux disease without esophagitis; K57.30 Diverticulosis of large intestine without perforation or abscess without bleeding; K80.20 Calculus of gallbladder without cholecystitis without obstruction; N20.0 Calculus of kidney; R33.9 Retention of urine, unspecified
CPT/HCPCS: 31500; 36415; 36556; 36600; 49083; 70450; 71045; 71046; 71250; 74176; 76705; 80053; 80061; 80074; 80202; 80307; 81001; 81050; 82042; 82077; 82140; 82150; 82274; 82375; 82550; 82570; 82805; 82945; 82948; 83036; 83050; 83520; 83605; 83615; 83735; 83880; 83883; 84100; 84155; 84156; 84157; 84165; 84166; 84300; 84443; 84478; 84484; 84540; 85018; 85025; 85027; 85055; 85380; 85384; 85610; 85652; 85730; 85999; 86036; 86038; 86039; 86140; 86160; 86162; 86225; 86334; 86335; 86704; 86706; 87040; 87070; 87075; 87086; 87205; 87637; 87641; 88108; 88305; 89051; 93005; 93306; 93308; 93970; 94002; 94003; 96361; 96365; 96366; 96367; 96368; 96375; 97165; 97530; 97535; 99291; A9270; C1751; C8924; J0171; J0282; J0613; J0692; J1644; J1720; J2060; J2185; J2250; J2270; J2354; J2371; J2405; J2470; J3010; J3370; J3411; J3430; J3480; J7040; J7060; P9041; P9045; P9047; Q9957